=== PATIENT | female | born 1980 | race Caucasian/White ===

== ENCOUNTER 2017-08-16 13:06 | Emergency (ER) | payer OTHER ==
[~2017-08-16] VITALS: Wt 109.1 kg
[~2017-08-16 13:06] MED LIST: DIGO125T PO; LABE100T3 PO; PRENAT PO
[2017-08-16 13:20] VITALS: Wt 109.1 kg
[2017-08-16] MEDS ORDERED: KETOROLAC 60 MG INJ IM STA (13:34)
--- NOTE | 2017-08-16 13:55 | RADRPT ---
PROCEDURE: Chest x-ray CLINICAL INDICATION: Cough TECHNIQUE: Chest single view COMPARISON: None FINDINGS: The heart is normal in size. The pulmonary vessels are normal in caliber. There are new bilateral perihilar infiltrates likely reflecting pneumonia. Costophrenic angles are sharp. Bony thorax is unr emarkable IMPRESSION: 1. New bilateral perihilar infiltrates likely reflecting pneumonia RPTAT: HH .Khoa Roberto MD, MD Date Time Electronically viewed and signed by .Khoa Roberto MD, on 08/16/2017 13:55 .W/
[2017-08-16] MEDS ORDERED: PROM6.25 PO (15:08)
[2017-08-16] MEDS ORDERED: AZIT250T94 PO (15:08)
--- NOTE | 2017-08-16 15:21 | ERD ---
ER Documentation Chief Complaint Chief Complaint cough, pak, bodyaches. low 02 sat in triage HPI This is a 37-year-old female presents to the ER with a cough for the last 8 days. Patient states that her cough is worsening, she has had fevers. She also has body aches. She admits to nausea however denies vomiting or diarrhea. She does not have a past medical history of asthma. Denies any chest pain or shortness of breath. ROS 12 point review of systems was done, all negative except per HPI. Medications Home Meds Active Scripts Promethazine Hcl* (Promethazine Hcl* Syrup) 6.25 Mg/5 Ml Syrup, 12.5 MG PO Q6H Y for COUGH for 3 Days, ML Prov:SOHA ROBLES 08/16/17 Azithromycin* (Zithromax*) 250 Mg Tablet, 250 MG PO .ZPACK DIRECTED, #6 TAB TAKE 500 MG (2 TABS) THE FIRST DAY THEN 250 MG (1 TAB) DAYS 2-5 Prov:SOHA ROBLES 08/16/17 Reported Medications Digoxin* (Digitek*) 125 Mcg Tablet, 0.125 MG PO DAILY, TAB 07/10/16 Labetalol Hcl* (Labetalol Hcl*) 100 Mg Tablet, 100 MG PO BID, TAB 06/11/16 Multivit/Min/Fol Ac/Iron/Pren* ( S*) 1 Tab Tab, 1 TAB PO DAILY, TAB 05/06/16 Allergies Allergies: Coded Allergies: No Known Drug Allergies (Verified Allergy, Unknown, 07/10/16) PMhx/Soc History of Surgery: Yes (CSx3) Anesthesia Reaction: No Hx Neurological Disorder: No Hx Respiratory Disorders: No Hx Cardiac Disorders: Yes (HEART MURMUR, SVT) Hx Psychiatric Problems: No Hx Miscellaneous Medical Probl: No Hx Alcohol Use: No Hx Substance Use: No Hx Tobacco Use: No Smoking Status: Never smoker Physical Exam Vitals Vital Signs Date Time Temp Pulse Resp B/P Pulse Ox O2 Delivery O2 Flow Rate FiO2 08/16/17 13:20 99.5 82 20 121/64 93 Physical Exam GENERAL: The patient is well-developed, well-nourished, in no acute distress. NECK: Cervical spine is non tender with no step off. Supple, no nuchal rigidity HEENT: Atraumatic. Pupils equal, round and reactive to light. Extraocular muscles are grossly intact. Conjunctivae pink, no discharge. Bilateral tympanic membranes are clear with no evidence of erythema, effusion or dulling of the light reflex. Tonsilar erythema with no exudates or uvular deviation. Clear rhinorrhea. RESPIRATORY: Clear to auscultation bilaterally. There are no rales, wheezes or rhonchi. HEART: Regular rate and rhythm. No murmurs, clicks, rubs or gallops. EXTREMITIES: No clubbing or cyanosis. Full range of motion. Grossly neurovascularly intact. NEUROLOGIC: Alert and oriented. Cranial nerves II through XII are intact. SKIN: There is no rash. The skin is warm and dry. Results 24 hrs Current Medications Medications (Trade) Dose Ordered Sig/Shanae Route PRN Reason Start Time Stop Time Status Last Admin Dose Admin Ketorolac Tromethamine (Toradol) 60 mg ONCE STAT IM 08/16/17 13:34 08/16/17 13:36 DC 08/16/17 14:24 [place] [id number] Radiology Main Line: [phone] DIAGNOSTIC IMAGING REPORT Patient: SOURAV SEBASTIAN : 1980 Age: 37 Sex: F MR #: [id number] DOS: 08/16/17 0000 Ordering MD: SOHA ROBLES PA-C Location: [facility] Room/Bed: PROCEDURE: Chest x-ray CLINICAL INDICATION: Cough TECHNIQUE: Chest single view COMPARISON: None FINDINGS: The heart is normal in size. The pulmonary vessels are normal in caliber. There are new bilateral perihilar infiltrates likely reflecting pneumonia. Costophrenic angles are sharp. Bony thorax is unremarkable IMPRESSION: 1. New bilateral perihilar infiltrates likely reflecting pneumonia RPTAT: HH .Khoa Roberto MD, Date Time Electronically viewed and signed by .Khoa Roberto MD, on 08/16/2017 13:55 .W/ CC: SOHA ROBLES Procedures/MDM Is a 37-year-old female presents to the ER with cough and fever for the last 3 days. Her oxygen was 93% upon arrival, however she does not feel short of breath in any respiratory distress. He was done, patient does have pneumonia should be treated with azithromycin and promethazine. Her leg examination was benign. Patient is to follow-up with her primary care doctor within 1-2 days return to ER sooner if symptoms worsen. My medical decision making shared with the patient she understands and agrees with plan. Departure Diagnosis: Primary Impression: Pneumonia Condition: Stable Patient Instructions: Pneumonia Additional Instructions: Llame al doctor MAANA y gayatri nicolle SERVANDO PARA DENTRO DE 1-2 PUGA.Dgale a la secretaria que nosotros le instruimos hacer esta servando.Avise o llame si [place] condicin se empeora antes de la servando. Regresa aqui si peor o no mejor. SOHA ROBLES Aug 16, 2017 15:21
[2017-08-16 15:25] VITALS: BP 118/64; PULSE 68; RESP 18; TEMP 98.9
== END 2017-08-16 15:25 | disposition home or self-care (01) ==
LOC: FTE 13:06
DX: J18.9 Pneumonia, unspecified organism (principal)
CPT/HCPCS: 71010; 96372; J1885; Z7502

== ENCOUNTER 2017-08-20 | Inpatient (IN) | payer OTHER ==
[~2017-08-20] VITALS: Ht 162.6 cm; Wt 113.6 kg
[2017-08-20] VITALS (28 sets, daily range): BP systolic 99–128; BP diastolic 46–78; PULSE 77–99; RESP 14–39; TEMP 98.2; Ht 162.6 cm; Wt 113.6 kg
[~2017-08-20] MED LIST changes: +AZIT250T94 PO; +PROM6.25 PO
[2017-08-20] MEDS ORDERED: ACETAMINOPHEN 325 MG TAB PO STA (00:27)
[2017-08-20] MEDS ORDERED: ALBUTEROL 0.5% (NEB) 2.5 MG/0.5 ML AMP INH STA ×2 (00:27→14:07)
[2017-08-20] MEDS ORDERED: VANCOMYCIN 1 GM (PMX) 250 ML IVPB STA (00:27)
[2017-08-20] MEDS ORDERED: CEFEPIME 2GM/50 ML (PMX) 50 ML IVPB STA (00:27)
[2017-08-20] MEDS ORDERED: SODIUM CHLORIDE 0.9% 1L BAG IV* STA (00:27)
[2017-08-20 01:14] LABS: INR 0.89; PARTIAL THROMBOPLASTIN TIME 23.5 Sec (25.0-35.0); PROTIME 12.1 Sec (11.9-14.9); PT RATIO 0.9
--- NOTE | 2017-08-20 01:16 | RADRPT ---
PROCEDURE: XR Chest. CLINICAL INDICATION: Possible sepsis. TECHNIQUE: Single frontal view of the chest. COMPARISON: 06/16/2016 FINDINGS: Cardiomegaly with bilateral patchy air space disease, right much greater than left. This is new over the interval. Findings represent failure versus bilateral pneumonias. No signs of pleural fluid or pneumothorax are seen. The osseous structures and soft tissues are unremarkable. IMPRESSION: Bilateral air space disease is new, right greater than left, suggesting failure versus bilateral pne umonias. RPTAT: UU Physician Claude Date Time Electronically viewed and signed by Physician Claude on 08/20/2017 01:16 RS/
[2017-08-20 01:23] LABS: AADO2 Arterial 348.1 mmHg (7.0-24.0); Allen Test ACCEPTAB; Arterial Base Excess -0.1 mmol/L (-3.0-3); Arterial COHb 0.3 % (0.0-3.0); Arterial Fraction of Oxyhgb 85.4 % (93.0-99.0); Arterial HCO3 22.9 mmol/L (22.0-26.0); Arterial MetHb 0.1 % (0.0-1.5); Arterial Total Hemglobin 11.9 g/dl (12.0-18.0); MODE MASK - SIMPLE
[2017-08-20 01:25] LABS: ALANINE AMINOTRANSFERASE 103 IU/L (13-69); ALBUMIN 3.4 g/dl (3.3-4.9); ALBUMIN/GLOBULIN RATIO 0.77; ALKALINE PHOSPHATASE 95 IU/L (42-121); ANION GAP 15 (8-16); ASPARTATE AMINO TRANSFERASE 143 IU/L (15-46); BILIRUBIN,INDIRECT 0.4 mg/dl (0-1.1); BILIRUBIN,TOTAL 0.4 mg/dl (0.2-1.3); BLOOD UREA NITROGEN 18 mg/dl (7-20); CALCIUM 7.6 mg/dl (8.4-10.2); CARBON DIOXIDE 25 mmol/L (21-31); CHLORIDE 99 mmol/L (97-110); CREATININE 1.03 mg/dl (0.44-1.00); GLUCOSE 133 mg/dl (70-220); POTASSIUM 3.5 mmol/L (3.5-5.1); SODIUM 135 mmol/L (135-144); TOTAL PROTEIN 7.8 g/dl (6.1-8.1)
[2017-08-20 01:32] LABS: HEMATOCRIT 31.4 % (37.0-47.0); HEMOGLOBIN 10.3 g/dl (12.0-16.0); MEAN CORPUSCULAR HEMOGLOBIN 25.9 pg (29.0-33.0); MEAN CORPUSCULAR HGB CONC 32.8 g/dl (32.0-37.0); MEAN CORPUSCULAR VOLUME 78.9 fl (82.0-101.0); MEAN PLATELET VOLUME 10.1 fl (7.4-10.4); NUCLEATED RED BLOOD CELLS% 0.3 /100WBC (0.0-0.0); PLATELET COUNT 234 10^3/UL (140-415); RED BLOOD COUNT 3.98 10^6/ul (4.20-5.40); RED CELL DISTRIBUTION WIDTH 15.3 % (11.5-14.5); WHITE BLOOD COUNT 7.8 10^3/ul (4.8-10.8)
[2017-08-20 01:33] LABS: POSITIVE DIFF @See below
[2017-08-20 01:51] LABS: TROPONIN-I < 0.012 ng/ml (0.00-0.12)
[2017-08-20 02:02] LABS: LYMPHOCYTES # 0.8 10^3/ul (0.8-2.9); MONOCYTE # 0.3 10^3/ul (0.3-0.9); MONOCYTES % (M) 4 % (0-11)
--- NOTE | 2017-08-20 02:58 | ERD ---
ER Documentation Chief Complaint Chief Complaint cough x 2 weeks w/ shortness of breath HPI This 37-year-old female who is seen here 2 days ago and diagnosed with pneumonia and given a Z-Jason. Patient states she has had a cough for 2 weeks is gotten worse over the past couple of days. She says she started having fevers 2 days ago and today feels much worse and having some productive sputum cough or shortness of breath. She says she is here because she is having a hard time breathing and is breathing shallow. No GI symptoms such as nausea vomiting diarrhea. No chest pain. ROS All systems reviewed and are negative except as per history of present illness. Medications Home Meds Active Scripts Promethazine Hcl* (Promethazine Hcl* Syrup) 6.25 Mg/5 Ml Syrup, 12.5 MG PO Q6H Y for COUGH for 3 Days, ML Prov:SOHA ROBLES 08/16/17 Azithromycin* (Zithromax*) 250 Mg Tablet, 250 MG PO .ZPACK DIRECTED, #6 TAB TAKE 500 MG (2 TABS) THE FIRST DAY THEN 250 MG (1 TAB) DAYS 2-5 Prov:SOHA ROBLES 08/16/17 Reported Medications Digoxin* (Digitek*) 125 Mcg Tablet, 0.125 MG PO DAILY, TAB 07/10/16 Labetalol Hcl* (Labetalol Hcl*) 100 Mg Tablet, 100 MG PO BID, TAB 06/11/16 Multivit/Min/Fol Ac/Iron/Pren* ( S*) 1 Tab Tab, 1 TAB PO DAILY, TAB 05/06/16 Allergies Allergies: Coded Allergies: No Known Drug Allergies (Verified Allergy, Unknown, 07/10/16) PMhx/Soc History of Surgery: Yes (CSx3) Anesthesia Reaction: No Hx Neurological Disorder: No Hx Respiratory Disorders: No Hx Cardiac Disorders: Yes (HEART MURMUR, SVT) Hx Psychiatric Problems: No Hx Miscellaneous Medical Probl: No Hx Alcohol Use: No Hx Substance Use: No Hx Tobacco Use: No Smoking Status: Never smoker FmHx Family History: No coronary disease Physical Exam Vitals Vital Signs Date Time Temp Pulse Resp B/P Pulse Ox O2 Delivery O2 Flow Rate FiO2 08/20/17 01:36 84 100 100 08/20/17 01:12 Venti Mask 10.0 08/20/17 00:45 93 30 89 Partial Rebreather Mask 15.0 100 08/20/17 00:02 101.8 101 20 86/50 80 Physical Exam Const: Well-developed, well-nourished Head: Atraumatic, normocephalic Eyes: Normal Conjunctiva, PERRLA, EOMI, normal sclera, no nystagmus ENT: Normal External Ears, Nose and Mouth, moist mucus membranes. Neck: Full range of motion. No meningismus, no lymphadenopathy. Resp: [Shallow breathing with moderate increased work of breathing, diffuse rhonchi Cardio: Regular rate and rhythm, no murmurs, S1 S2 present Abd: Soft, non tender x 4, non distended. Normal bowel sounds, no guarding or rebound, no pulsitile abdominal masses or bruits Skin: No petechiae or rashes, no ecchymosis , no maculopapular rash Back: No midline or flank tenderness Ext: No cyanosis, or edema, FROM x 4, normal inspection, neurovascularly intact x 4 Neur: Awake and alert, STR 5/5 x 4, sensation intact x 4, no focal findings, cerebellum intact Psych: Normal Mood and Affect Result Diagram: 08/20/17 0034 08/20/17 0036 Results 24 hrs Laboratory Tests Test 08/20/17 00:34 08/20/17 00:36 08/20/17 00:37 08/20/17 01:07 White Blood Count 7.810^3/ul Red Blood Count 3.9810^6/ul Hemoglobin 10.3g/dl Hematocrit 31.4% Mean Corpuscular Volume 78.9fl Mean Corpuscular Hemoglobin 25.9pg Mean Corpuscular Hemoglobin Concent 32.8g/dl Red Cell Distribution Width 15.3% Platelet Count 23739^3/UL Mean Platelet Volume 10.1fl Neutrophils % % Segmented Neutrophils % (Manual) 80% Band Neutrophils % (Manual) 6% Lymphocytes % % Lymphocytes % (Manual) 10% Monocytes % % Monocytes % (Manual) 4% Nucleated Red Blood Cells % 0.3/100WBC Neutrophils # 10^3/ul Neutrophils # (Manual) 6.310^3/ul Band Neutrophils # 0.410^3/ul Absolute Lymphocytes (Manual) 0.710^3/ul Lymphocytes # 0.810^3/ul Monocytes # 0.310^3/ul Absolute Monocytes (Manual) 0.310^3/ul Sodium Level 135mmol/L Potassium Level 3.5mmol/L Chloride Level 99mmol/L Carbon Dioxide Level 25mmol/L Anion Gap 15 Blood Urea Nitrogen 18mg/dl Creatinine 1.03mg/dl Glucose Level 133mg/dl Lactic Acid Level 1.6mmol/L Calcium Level 7.6mg/dl Total Bilirubin 0.4mg/dl Direct Bilirubin 0.00mg/dl Indirect Bilirubin 0.4mg/dl Aspartate Amino Transf (AST/SGOT) 143IU/L Alanine Aminotransferase (ALT/SGPT) 103IU/L Alkaline Phosphatase 95IU/L Troponin I < 0.012ng/ml Total Protein 7.8g/dl Albumin 3.4g/dl Globulin 4.40g/dl Albumin/Globulin Ratio 0.77 Prothrombin Time 12.1Sec Prothrombin Time Ratio 0.9 INR International Normalized Ratio 0.89 Activated Partial Thromboplast Time 23.5Sec Blood Gas Specimen Source Blood arterial Arterial Blood Date Drawn 08/20/2017 1:10:34 AM Arterial Blood pH (Temp corrected) 7.471 Arterial Blood pCO2 (Temp correct) 32.1mmhg Arterial Blood pO2 (Temp corrected) 51.6mmHG Arterial Blood HCO3 22.9mmol/L Arterial Blood Base Excess -0.1mmol/L Arterial Blood Oxygen Saturation 85.7mmHG Ezequiel Test ACCEPTAB Arterial Blood Gas Puncture Site Left Radial Arterial Blood Carboxyhemoglobin 0.3% Arterial Blood Methemoglobin 0.1% Blood Gas A-a O2 Differential 348.1mmHg Oxyhemoglobin Percent 85.4% Total Hemoglobin 11.9g/dl Blood Gas Temperature 37.0C Blood Gas Modality MASK - SIMPLE FiO2 61.0% Blood Gas Critical Value Read Back A KYLEE JEAN Blood Gas Notified Whom UP Blood Gas Notified Time 08/20/2017 1:23:25 AM Current Medications Medications (Trade) Dose Ordered Sig/Shanae Route PRN Reason Start Time Stop Time Status Last Admin Dose Admin Sodium Chloride (NS) 3,520 ml BOLUS OVER 2 HOURS STAT IV* 08/20/17 00:27 08/20/17 00:31 DC 08/20/17 00:45 Acetaminophen 650 mg 650 mg ONCE STAT PO 08/20/17 00:27 08/20/17 00:31 DC 08/20/17 00:43 Vancomycin HCl 250 ml @ 125 mls/hr ONCE STAT IVPB 08/20/17 00:27 08/20/17 02:26 DC 08/20/17 01:34 Cefepime HCl (Maxipime 2gm/50 ml (Pmx)) 50 ml @ 100 mls/hr ONCE STAT IVPB 08/20/17 00:27 08/20/17 00:56 DC 08/20/17 00:45 Albuterol (Proventil 0.5% (Neb)) 10 mg ONCE STAT INH 08/20/17 00:27 08/20/17 00:31 DC 08/20/17 00:45 Procedures/MDM EKG: Rate/Rhythm: Normal sinus rhythm with a right axis deviation QRS, ST, QT: NORMAL GA, QRS, QT] Impression: NORMAL EKG PROCEDURE: XR Chest. CLINICAL INDICATION: Possible sepsis. TECHNIQUE: Single frontal view of the chest. COMPARISON: 06/16/2016 FINDINGS: Cardiomegaly with bilateral patchy air space disease, right much greater than left. This is new over the interval. Findings represent failure versus bilateral pneumonias. No signs of pleural fluid or pneumothorax are seen. The osseous structures and soft tissues are unremarkable. IMPRESSION: Bilateral air space disease is new, right greater than left, suggesting failure versus bilateral pneumonias. RPTAT: UU Physician Claude Date Time Electronically viewed and signed by Physician Claude on 08/20/2017 01:16 RS/ CC: BRITNI PICHARDO DO The patient's oxygenation was not getting above 90 even on a 15 L nonrebreather. Patient was then put on BiPAP. After this the patient's saturations increased to 100%. Currently she is at 100% with a heart rate is 76 blood pressure 108/ 66. Patient has diffuse airspace disease bilaterally she is being given sepsis protocol IV fluids however her lactate is only 1.6. Antibiotics have been given. Her BNP is currently pending because she has some underlying possible heart failure and she does have an enlarged heart on chest x-ray. I spoke with Dr. Bautista will admit to telemetry Critical Care Time: 30 minutes Treatments/Evaluations: Close monitoring and treatment of unstable vital signs, cardiorespiratory, and neurologic status, while maintaining tight balance of fluid, respiratory, and cardiac interventions. This time includes discussing the case with the patient and the patient's family. This time does not include all procedures stated elsewhere in this record. This time also includes reviewing old records, labs and radiological studies. This time includes examining and re-examining the patient. Additionally, this time also includes arranging care with admitting and consulting physicians. Departure Diagnosis: Primary Impression: Hypoxia Additional Impressions: Bilateral pneumonia Pneumonia type: due to unspecified organism Lung location: unspecified part of lung Qualified Code: J18.9 - Pneumonia of both lungs due to infectious organism, unspecified part of lung Respiratory distress Condition: BRITNI Steiner DO Aug 20, 2017 02:58
[2017-08-20] MEDS ORDERED: SOD CHLORIDE 0.9% 1,000 ML IV SCH (02:59)
[2017-08-20] MEDS ORDERED: ONDANSETRON 4 MG INJ IV PRN ×2 (03:00→13:00)
[2017-08-20] MEDS ORDERED: ACETAMINOPHEN 325 MG TAB PO PRN (03:00)
[2017-08-20] MEDS ORDERED: EPINEPHrine 0.1 MG/ML SYG ONE (07:00)
[2017-08-20] MEDS ORDERED: ETOMIDATE 20 MG INJ ONE (07:00)
[2017-08-20] MEDS ORDERED: NA BICARBONATE 8.4% 50 ML SYG ONE (07:00)
[2017-08-20] MEDS ORDERED: ROCURONIUM 50 MG INJ ONE (07:00)
[2017-08-20 10:32] LABS: AADO2 Arterial 441.2 mmHg (7.0-24.0); Allen Test ACCEPTAB; Arterial Base Excess -1.8 mmol/L (-3.0-3); Arterial COHb 0.2 % (0.0-3.0); Arterial Fraction of Oxyhgb 95.9 % (93.0-99.0); Arterial HCO3 22.4 mmol/L (22.0-26.0); Arterial MetHb 0.1 % (0.0-1.5); Arterial Total Hemglobin 11.4 g/dl (12.0-18.0); Blood Gas IEPAP 18/6; Blood Gas PS 12; MODE MASK - BIPAP
[2017-08-20] MEDS ORDERED: ALBUTEROL 0.083% (NEB) 2.5 MG/3 ML AMP HHN STA (10:50)
[2017-08-20] MEDS ORDERED: IOHEXOL 100 ML ONE ×2 (11:19→12:12)
[2017-08-20] MEDS ORDERED: SOD CHLORIDE 0.9% 100 ML ONE ×2 (11:19→12:12)
[2017-08-20] MEDS ORDERED: ROCURONIUM 50 MG INJ IV ONE (12:30)
[2017-08-20] MEDS ORDERED: ETOMIDATE 20 MG INJ IV ONE (12:30)
--- NOTE | 2017-08-20 12:40 | RADRPT ---
PROCEDURE: CTA Chest and pulmonary angiogram. CLINICAL INDICATION: Chest pain and shortness of breath.. TECHNIQUE: CT scan of the chest and CT pulmonary angiogram was performed on the multi-slice volume tric CT scanner. High-resolution thin slice coronal and sagittal imaging was obtained from the axia l source images following the uncomplicated intravenous administration of 100 cc of nonionic contras t. IV malfunction during initial attempted scan. Scan was repeated following replacement of function ing IV catheter. The images were reviewed on a PACS workstation. 3-D post-processing performed. DICO M images are available. Patient body habitus limits evaluation and resolution. DLP = 1757.8 mGy-cm. CTDIVol = 169.5 mGy. One or more of the following dose reduction techniques were used: Automated exposure control. Adjustment of the mA and/or kV according to patient size. Use of iterative reconstruction technique. COMPARISON: No prior studies are available for comparison. FINDINGS: CT chest: The lungs demonstrate extensive bilateral alveolar consolidations and infiltrates suspicious for mul tifocal pneumonia.. There is an endotracheal tube in place tab above the maritza. Nonspecific shoddy mediastinal lymph nodes are present. There is no hilar mass or adenopathy. The vascular structures of the mediastinum are normal in course and caliber. The heart size is normal without pericardial t hickening or effusion. The axillary, subpectoral, and supraclavicular regions are unremarkable. Im aging obtained through the upper abdomen is equally unremarkable. The adrenal glands are symmetrica lly normal. Chest wall is unremarkable. The spine is unremarkable. There is diffuse fatty change o f the liver. The upper abdomen is otherwise unremarkable. CT pulmonary angiogram: The main pulmonary artery, bilateral pulmonary arterial trunks, lobar and segmental branches of the pulmonary arteries show no evidence of filling defect and/or pulmonary emboli. The aorta is normal in caliber without aneurysm or dissection. Patient body habitus limits resolution. IMPRESSION: 1. No evidence of pulmonary emboli, aortic aneurysm or dissection.. 2. Extensive bilateral dense consolidations and infiltrates consistent with multifocal pneumonia. 3. Status post intubation. 4. Hepatic steatosis.. RPTAT: QQ .Seven Thompson MD, MD Date Time Electronically viewed and signed by .Seven Thompson MD, on 08/20/2017 12:40 .L/
--- NOTE | 2017-08-20 12:46 | HP ---
Date/Time of Note Date/Time of Note DATE: 08/20/17 TIME: 12:44 Assessment/Plan VTE Prophylaxis VTE Prophylaxis Intervention: other Assessment/Plan Chief Complaint/Hosp Course 1) respiratory failure - on ventilator 2) pneumonia - IV antibiotics Problems: HPI/ROS Admit Date/Time Admit Date/Time Hx of Present Illness Patient with hypertension recently seen in ER for pneumonia and given a Z-Jason returns for further difficulty breathing. Patient was placed on bipap and then decompensated and had to be intubated. Unable to obtain further information from the patient as she is sedated and intubated. PMH/Family/Social Past Medical History Medical History: hypertension Social History Smoking Status: Never smoker Exam/Review of Systems Vital Signs Vitals Vital Signs Date Time Temp Pulse Resp B/P Pulse Ox O2 Delivery O2 Flow Rate FiO2 08/20/17 10:55 35 45 Non Rebreather 08/20/17 09:21 64 102/60 08/20/17 08:05 50 08/20/17 06:46 98.2 08/20/17 01:12 10.0 Exam Constitutional: well developed Head: atraumatic, normocephalic Neck: supple Respiratory: diminished breath sounds Cardiovascular: regular rate and rhythm Gastrointestinal: non-tender, soft Extremities: normal pulses Labs Result Diagram: 08/20/17 0034 08/20/17 0036 Medications Medications Current Medications Sodium Chloride (NS) 1,000 ml @ 80 mls/hr [id number] IV ; Start 08/20/17 at 02:59 ; Stop 08/20/17 at 15:28 ILIANA HODGES Aug 20, 2017 12:46
[2017-08-20] MEDS ORDERED: MIDAZOLAM (DRIP) 50 mg/50 mL 50 ML IV STA (12:47)
[2017-08-20] MEDS ORDERED: FENTAnyl (DRIP) 1000 mcg/100mL 100 ML IV ONE (13:00)
[2017-08-20 13:28] LABS: BASOPHILS % 0.1 % (0.0-2.0); HEMATOCRIT 34.7 % (37.0-47.0); HEMOGLOBIN 10.9 g/dl (12.0-16.0); LYMPHOCYTES # 1.9 10^3/ul (0.8-2.9); LYMPHOCYTES % 16.2 % (15.0-51.0); MEAN CORPUSCULAR HEMOGLOBIN 25.7 pg (29.0-33.0); MEAN CORPUSCULAR HGB CONC 31.4 g/dl (32.0-37.0); MEAN CORPUSCULAR VOLUME 81.8 fl (82.0-101.0); MEAN PLATELET VOLUME 9.8 fl (7.4-10.4); MONOCYTE # 0.5 10^3/ul (0.3-0.9); NEUTROPHIL # 8.9 10^3/ul (1.6-7.5); NEUTROPHILS % 77.6 % (39.0-77.0); NUCLEATED RED BLOOD CELLS # 0.1 10^3/ul (0.0-0.0); NUCLEATED RED BLOOD CELLS% 0.4 /100WBC (0.0-0.0); PLATELET COUNT 234 10^3/UL (140-415); RED BLOOD COUNT 4.24 10^6/ul (4.20-5.40); RED CELL DISTRIBUTION WIDTH 15.9 % (11.5-14.5); WHITE BLOOD COUNT 11.5 10^3/ul (4.8-10.8)
[2017-08-20] MEDS: SOD CHLORIDE 0.9% 1,000 ML IV SCH ×2 (13:32→20:02)
--- NOTE | 2017-08-20 13:47 | EN ---
Date/Time of Note Date/Time of Note DATE: 08/20/17 TIME: 13:43 ER Progress Note I was signed out this 37-year-old patient with shortness of breath secondary to likely pneumonia. Patient's white count was not elevated. She continued to deteriorate emergency room began to desaturate into the 40s with a good waveform. She also has a perioral cyanosis cyanosis of her fingertips. Spoke with her and her mother regarding intubation she was quickly intubated. Blood gas did not show any retention of CO2 and I suspected a possible pulmonary embolism could be causing this and she is not currently anticoagulated. She went to CT where there is no evidence for pulmonary embolus but was confirmed that she has severe multi focal pneumonia. She is placed on a fentanyl and Versed drip. She is saturating well and her clinical condition is improved. ET intubation note: Patient was preoxygenated with bag mask ventilation and she was desaturating, RSI was used with 20 mg of etomidate and 100 mg of rocuronium. She was easily intubated using a MAC 4 blade through visualized vocal cords and a 7.5 ET tube. She tolerated the procedure well and oxygen saturation is 100% afterwards. No complications. Ultrasound-guided peripheral IV insertion note: The patient was in CAT scan her IV blew and she needed a new IV immediately his staff was unable to obtain IV as she has overly obese. Under ultrasound guidance I placed an extended 18- gauge angiocatheter and her right antecubital vein. There was good blood return and IV flushed well. She tolerated well with no complications. GRACIE ALEGRE DO Aug 20, 2017 13:47
[2017-08-20 13:48] LABS: CALCIUM 6.6 mg/dl (8.4-10.2); CREATININE 0.81 mg/dl (0.44-1.00); POTASSIUM 3.5 mmol/L (3.5-5.1)
[2017-08-20] MEDS ORDERED: IPRATROPIUM (NEB) 0.5 MG/2.5 ML AMP INH STA (14:07)
--- NOTE | 2017-08-20 14:54 | RADRPT ---
PROCEDURE: XR Chest. CLINICAL INDICATION: Hypoxemia . TECHNIQUE: Single frontal chest x-ray. COMPARISON: 01:03 a.m. FINDINGS: There is an endotracheal tube place with tip 4 cm above the maritza. Diffuse bilateral patchy alveola r opacities of the lungs are slightly worsened. There are no pleural effusions. .. Cardiomediastina l silhouette is stable.. The osseous structures are intact. IMPRESSION: Status post intubation. Increased extensive bilateral patchy alveolar opacities of the lungs.. RPTAT: QQ .Seven Thompson MD, MD Date Time Electronically viewed and signed by .Seven Thompson MD, MD on 08/20/2017 14:53 .L/
[2017-08-20] MEDS ORDERED: FENTAnyl 50 MCG/ML VIAL IV ONE ×2 (15:00→15:30)
[2017-08-20] MEDS ORDERED: MIDAZOLAM 1 MG/ML 2 ML INJ IV ONE ×2 (15:00→15:30)
[2017-08-20 15:23] LABS: ADD UMIC YES; UR ASCORBIC ACID NEGATIVE (NEGATIVE); UR BILIRUBIN (Dip) NEGATIVE (NEGATIVE); UR BLOOD (Dip) 1+ mg/dL (NEGATIVE); UR CLARITY CLEAR (CLEAR); UR COLOR YELLOW (YELLOW); UR GLUCOSE (Dip) NEGATIVE (NEGATIVE); UR KETONES (Dip) NEGATIVE (NEGATIVE); UR LEUKOCYTE ESTERASE (Dip) NEGATIVE Leu/ul (NEGATIVE); UR NITRITE (Dip) NEGATIVE (NEGATIVE); UR RBC 1 /HPF (0-5); UR SPECIFIC GRAVITY (Dip) 1.023 (1.003-1.030); UR TOTAL PROTEIN (Dip) 2+ mg/dl (NEGATIVE); UR UROBILINOGEN (Dip) NEGATIVE (NEGATIVE)
[2017-08-20] MEDS ORDERED: NORepinephrine 8MG/250 ML (PMX 250 ML IV STA (15:29)
--- NOTE | 2017-08-20 15:50 | QN ---
Documentation Comment The patient continues to board in the emergency room for over 15 hours. I was notified by the nursing team that the patient is having desaturation. In short the patient was diagnosed with bilateral pneumonia, negative CTPA, the patient had been intubated overnight. The patient was suctioned with improved saturation. She had agitation and was bucking the vent. She required further sedation and several doses of fentanyl and Versed provided. I repeated the chest x-ray which is very concerning the patient's bilateral pneumonia is much worse. Consider ARDS. Lower clinical concern for cardiogenic etiology but stat echocardiogram would be reasonable. The patient's blood pressure had been noticed to be low overnight and continues to be low this morning. For this reason I felt the patient required emergent central line. No family was readily available. Informed consent presumed given critical nature of the patient. I added on a rapid HIV. Bedside echocardiogram is revealed to be somewhat normal. I spoke to Dr. Vaz who read the echocardiogram. I relayed all of this information to the managing physician Dr. See who will consult pulmonology as the patient likely requires intensive ventilator management. Patient is critically ill and worsening at this time. Pending ICU placement. Chest x-ray #1 Chest x-ray: I reviewed and interpreted a 1 view of the chest Mediastinum: No enlargement Cardiac silhouette: cardiomegaly Airspace: Bilateral interstitial process consistent with bilateral pneumonia versus pulmonary edema worsening Bones: No evidence of fracture Chest x-ray #2 status post central line Chest x-ray: I reviewed and interpreted a 1 view of the chest Mediastinum: No enlargement Cardiac silhouette: cardiomegaly Airspace: Interstitial process as described above, triple-lumen catheter in good position Bones: No evidence of fracture Central Line Note: Consent: No family available Indication: Critically ill patient requiring specialized vascular access for fluid or pressor management Location: Right IJ Procedure: Sterile procedure was observed throughout insertion of the central line. The insertion site was prepped with sterile solution. Ultrasound-guided identification of the vein was performed. Insertion of a needle into the vein was obtained with return of dark, nonpulsatile blood. The wire was then threaded through the needle without complication. The wire was then identified within the vein using ultrasound. A small skin incision was made, the needle was removed intact, dilation of the vein was performed and insertion of a triple lumen catheter was completed. The catheter was then sutured to the skin. All 3 ports jodi back and flushed without difficulty. A sterile dressing was applied. The patient tolerated the procedure well there were no complications. Emergency Bedside Ultrasound: Indication: Central line Probe Type: Linear Findings: Dynamic ultrasound utilizing compressive technique with both linear and horizontal views, additional images showing wire within the venous system were obtained. The images were saved along with patient information on a paper chart to be scanned into EMR. The patient tolerated the procedure well and there were no complications. A post-line chest x-ray was ordered as indicated. The patient was started on levo. On ultrasound her fluid status was increased. The patient is still pending ICU level of care. Continue to monitor in the emergency room. Continue to relay information with admitting team. Critical Care Note: Total time: 30 minutes Indication/Organ System Threat: Worsening bilateral pneumonia I spent the above amount of critical care time with the patient, not including billable procedures. This included chart review, consultations, repeat bedside evaluations, and titration of appropriate medications to prevent cardiopulmonary or respiratory collapse. SHANA RAJAN MD Aug 20, 2017 15:50
--- NOTE | 2017-08-20 16:18 | RADRPT ---
PROCEDURE: XR Chest. CLINICAL INDICATION: Central line placement. TECHNIQUE: Chest x-ray, single view. COMPARISON: 08/20/2017 at 0230 hours. FINDINGS: The cardiac silhouette is magnified and unchanged in size. Low lung volumes with patchy parenchymal opacification is grossly unchanged. A right internal jugular central venous catheter has been plac ed and terminates at the SVC/right atrial junction. There is no visible pneumothorax. The endotrache al tube terminates within the upper mid trachea. Skeletal structures and upper abdomen are unremarka ble. IMPRESSION: Low lung volumes with patchy parenchymal opacification, unchanged. Satisfactory positioning of support lines and tubes. No visible pneumothorax. RPTAT: AA .Delia Sanches MD, MD Date Time Electronically viewed and signed by .Delia Sanches MD, on 08/20/2017 16:17 .T/
--- NOTE | 2017-08-20 16:53 | CONS ---
Date/Time of Note Date/Time of Note DATE: 08/20/17 TIME: 16:38 Assessment/Plan Assessment/Plan Additional Assessment/Plan IMP: 1. Severe Hypoxemic Respiratory Failure--with notable diffuse extensive airspace disease on imaging in an otherwise healthy young woman. Despite the negative Flu screen, the clinical presentation is most concerning for a severe viral pneumonia. Having said that, we cannot exclude a secondary bacterial infection, such as CA-MRSA, CAP, or atypical bacterial pneumonia not responsive to macrolides. Non-infectious possibilities such as BOOP secondary to an underlying pneumonia as well as AEP or AIP are considerations. She has severe shunt physiology and findings concerning for early ARDS. RECS: 1. Vent changes as follows: change to VC+; lower Vt to 450; increase PEEP to 12 cm H20; titrate FiO2 to SpO2 > 90%/ 2. Optimize deep sedation in order to optimize patient-ventilator synchrony and to optimize gas exchange 3. May need neuromuscular blockade with Nimbex gtt if gas exchange does not improve 4. Start Tamiflu treatment dose 5. Meropenem, levaquin, and Vanco 6. Follow cultures 7. Influenza TYREL swab 8. Check Cocci serologies and CRAG 9. Start empiric corticosteroids given the gravity of her single organ pulmonary failure. If no response, would consider initiation of ECMO Consultation Date/Type/Reason Admit Date/Time Type of Consultation: Pulm/CCM Hx of Present Illness Please note that the patient is intubated and unable to provide a history, therefore, most of the history is obtained by review of the limited records. Briefly, this is a 37-year-old female with a history of SVT, who initially presented to the ED a few days prior with upper respiratory symptoms and low- grade fever, sent home on azithromycin. At that time, CXR was notable for subtle bilateral perihilar ground glass attenuation. It appears that her symptoms progressed with increasing dyspnea prompting her to return to the ED. during which time she was noted to have markedly progressive b/l airpace opacities and hypoxemic respiratory failure requiring intubation. She is now sedated and on mechanical ventilation. Her SpO2 is in the mid-80S on 100% FiO2 and PEEP 7 cm H20. Of note Flu screen and HIV were negative. Subjective hx not possible: pt non-verbal Past Medical History Medical History: hypertension Past Surgical History Past Surgical Hx: no surgical history Family History Significant Family History: no pertinent family hx Social History Alcohol Use: none Smoking Status: Never smoker Drug Use: none Exam/Review of Systems Vital Signs Vitals Vital Signs Date Time Temp Pulse Resp B/P Pulse Ox O2 Delivery O2 Flow Rate FiO2 08/20/17 15:52 102 18 124/61 98 Non Rebreather 08/20/17 08:05 50 08/20/17 06:46 98.2 08/20/17 01:12 10.0 Exam Constitutional: non-verbal Head: normocephalic Eyes: nl conjunctiva, nl lids, nl sclera ENMT: intubated, nl external ears & nose, nl lips & teeth, nl nasal mucosa & septum Neck: non-tender, supple Respiratory: diminished breath sounds, labored breathing Cardiovascular: nl pulses, regular rate and rhythm Gastrointestinal: nl liver, spleen, non-tender, soft Extremities: normal pulses 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, DTR's symmetric Results Result Diagram: 08/20/17 1316 08/20/17 1316 Results 24 hrs Laboratory Tests Test 08/20/17 00:34 08/20/17 00:36 08/20/17 00:37 08/20/17 01:07 White Blood Count 7.8 # Red Blood Count 3.98 L Hemoglobin 10.3 L Hematocrit 31.4 L Mean Corpuscular Volume 78.9 L Mean Corpuscular Hemoglobin 25.9 L Mean Corpuscular Hemoglobin Concent 32.8 Red Cell Distribution Width 15.3 H Platelet Count 234 Mean Platelet Volume 10.1 # Neutrophils % Segmented Neutrophils % (Manual) 80 H Band Neutrophils % (Manual) 6 H Lymphocytes % Lymphocytes % (Manual) 10 L Monocytes % Monocytes % (Manual) 4 Nucleated Red Blood Cells % 0.3 H Neutrophils # Neutrophils # (Manual) 6.3 Band Neutrophils # 0.4 Absolute Lymphocytes (Manual) 0.7 L Lymphocytes # 0.8 Monocytes # 0.3 Absolute Monocytes (Manual) 0.3 Sodium Level 135 Potassium Level 3.5 Chloride Level 99 Carbon Dioxide Level 25 Anion Gap 15 Blood Urea Nitrogen 18 Creatinine 1.03 H Glucose Level 133 Lactic Acid Level 1.6 Calcium Level 7.6 L Total Bilirubin 0.4 Direct Bilirubin 0.00 Indirect Bilirubin 0.4 Aspartate Amino Transf (AST/SGOT) 143 H Alanine Aminotransferase (ALT/SGPT) 103 H Alkaline Phosphatase 95 Troponin I < 0.012 Total Protein 7.8 Albumin 3.4 Globulin 4.40 H Albumin/Globulin Ratio 0.77 Prothrombin Time 12.1 Prothrombin Time Ratio 0.9 INR International Normalized Ratio 0.89 Activated Partial Thromboplast Time 23.5 L Blood Gas Specimen Source Blood arterial Arterial Blood Date Drawn 08/20/2017 1:10:34 AM Arterial Blood pH (Temp corrected) 7.471 H Arterial Blood pCO2 (Temp correct) 32.1 L Arterial Blood pO2 (Temp corrected) 51.6 *L Arterial Blood HCO3 22.9 Arterial Blood Base Excess -0.1 Arterial Blood Oxygen Saturation 85.7 L Ezequiel Test ACCEPTAB Arterial Blood Gas Puncture Site Left Radial Arterial Blood Carboxyhemoglobin 0.3 Arterial Blood Methemoglobin 0.1 Blood Gas A-a O2 Differential 348.1 H Oxyhemoglobin Percent 85.4 L Total Hemoglobin 11.9 L Blood Gas Temperature 37.0 Blood Gas Modality MASK - SIMPLE FiO2 61.0 Blood Gas Critical Value Read Back Camacho PICHARDO DO Blood Gas Notified Whom ASHWINI Blood Gas Notified Time 08/20/2017 1:23:25 AM Test 08/20/17 03:02 08/20/17 05:34 08/20/17 09:30 08/20/17 13:00 Lactic Acid Level 1.0 1.1 B-Type Natriuretic Peptide 288 H Blood Gas Specimen Source Blood arterial Arterial Blood Date Drawn 08/20/2017 10:17:47 AM Arterial Blood pH (Temp corrected) 7.411 Arterial Blood pCO2 (Temp correct) 36.1 Arterial Blood pO2 (Temp corrected) 91.3 Arterial Blood HCO3 22.4 Arterial Blood Base Excess -1.8 Arterial Blood Oxygen Saturation 96.2 Ezequiel Test ACCEPTAB Arterial Blood Gas Puncture Site Right Radial Arterial Blood Carboxyhemoglobin 0.2 Arterial Blood Methemoglobin 0.1 Blood Gas A-a O2 Differential 441.2 H Oxyhemoglobin Percent 95.9 Total Hemoglobin 11.4 L Blood Gas Temperature 37.0 Blood Gas Respiration Rate 20.0 Blood Gas Actual Respiration Rate 32 Blood Gas Modality MASK - BIPAP FiO2 80.0 Blood Gas Tidal Volume 525.0 Blood Gas Pressure Support 12 Blood Gas IPAP/EPAP Ratio 18/6 Blood Gas Critical Value Read Back DR. ALEGRE Blood Gas Notified Whom BEN YEPEZ Blood Gas Notified Time 08/20/2017 10:32:14 AM HIV (1&2) Antibody NEGATIVE Test 08/20/17 13:16 08/20/17 14:40 White Blood Count 11.5 #H Red Blood Count 4.24 Hemoglobin 10.9 L Hematocrit 34.7 L Mean Corpuscular Volume 81.8 L Mean Corpuscular Hemoglobin 25.7 L Mean Corpuscular Hemoglobin Concent 31.4 L Red Cell Distribution Width 15.9 H Platelet Count 234 Mean Platelet Volume 9.8 Neutrophils % 77.6 H Lymphocytes % 16.2 Monocytes % 4.0 Eosinophils % 0.0 Basophils % 0.1 Nucleated Red Blood Cells % 0.4 H Neutrophils # 8.9 H Lymphocytes # 1.9 Monocytes # 0.5 Eosinophils # 0.0 Basophils # 0.0 Nucleated Red Blood Cells # 0.1 H Sodium Level 141 Potassium Level 3.5 Chloride Level 106 Carbon Dioxide Level 26 Anion Gap 13 Blood Urea Nitrogen 11 Creatinine 0.81 Glucose Level 218 Calcium Level 6.6 L Urine Color YELLOW Urine Clarity CLEAR Urine pH 6.0 Urine Specific [place] 1.023 Urine Ketones NEGATIVE Urine Nitrite NEGATIVE Urine Bilirubin NEGATIVE Urine Urobilinogen NEGATIVE Urine Leukocyte Esterase NEGATIVE Urine Microscopic RBC 1 Urine Microscopic WBC 6 H Urine Hemoglobin 1+ H Urine Glucose NEGATIVE Urine Total Protein 2+ H Medications Medications Current Medications Sodium Chloride (NS) 1,000 ml @ 100 mls/hr Q10H IV Last administered on t 13:32; Admin Dose 100 MLS/HR; Start 08/20/17 at 12:46 Ondansetron HCl (Zofran Inj) 4 mg Q6H PRN IV NAUSEA AND/OR VOMITING; Start 06/27 at 13:00 Acetaminophen (Tylenol Liquid) 650 mg Q6H PRN PO PAIN LEVEL 1-3 OR FEVER; Start 08/20/17 at 13:00 Morphine Sulfate (morphine) 2 mg Q4H PRN IV PAIN LEVEL 7-10; Start 08/20/17 at 13:00 Famotidine (Pepcid Iv) 20 mg Q12 IV ; Start 08/20/17 at 21:00 Enoxaparin Sodium 30 mg 30 mg DAILY SC ; Start 08/21/17 at 09:00 Cefepime HCl 50 ml @ 100 mls/hr DAILY IVPB ; Start 08/21/17 at 09:00 Fentanyl (Sublimaze) 100 ml @ 2.5 mls/hr TITRATE ONCE IV Last administered on 08/20/17t 13:32; Admin Dose 2.5 MLS/HR; Start 08/20/17 at 13:00; Stop 08/27 at 04:59 LEAH FERNANDEZ MD Aug 20, 2017 16:52
[2017-08-20] MEDS ORDERED: LEVOFLOXACIN 750MG/D5W (PMX) 150 ML IVPB ONE (17:00)
[2017-08-20] MEDS: METHYLPREDNISOLONE 125 MG INJ IV SCH (17:18)
[2017-08-20] MEDS: MIDAZOLAM (DRIP) 50 mg/50 mL 50 ML IV SCH (18:27)
[2017-08-20] MEDS ORDERED: PHENYLephrine 40 MG in DEXTROSE 5% 496 ML IV SCH (18:30)
[2017-08-20] MEDS ORDERED: FENTAnyl (DRIP) 1000 mcg/100mL 100 ML IV SCH (20:30)
[2017-08-20] MEDS: PROPOFOL 100 ML IV SCH (21:08)
[2017-08-20] MEDS: FAMOTIDINE 20 MG INJ IV SCH (21:08)
[2017-08-20 21:18] LABS: AADO2 Arterial 611.7 mmHg (7.0-24.0); Allen Test ACCEPTAB; Arterial Base Excess -1.8 mmol/L (-3.0-3); Arterial COHb 0.3 % (0.0-3.0); Arterial Fraction of Oxyhgb 88.7 % (93.0-99.0); Arterial HCO3 23.4 mmol/L (22.0-26.0); Arterial MetHb 0.1 % (0.0-1.5); Arterial Total Hemglobin 12.1 g/dl (12.0-18.0); MODE VENT - AC
[2017-08-20] MEDS: OSELTAMIVIR 75 MG CAP NGT SCH (23:07)
[2017-08-20] MEDS: ACETAMINOPHEN 650MG/20.3ML CUP PO PRN (23:07)
--- NOTE | 2017-08-20 23:44 | RADRPT ---
PROCEDURE: Chest. CLINICAL INDICATION: Chest pain. TECHNIQUE: Single frontal view of the chest was obtained. COMPARISON: 08/20/2017. FINDINGS: There is an endotracheal tube 3 cm above the maritza. There is a nasogastric tube extending to the st omach. There is a right IJ central venous catheter extending to the SVC/RA junction. The cardiac jamshid houette is enlarged. The aortic arch is unremarkable. There are patchy opacities bilaterally. Ther e is no pleural effusion. There is no pneumothorax. IMPRESSION: Bilateral patchy opacities could represent pulmonary edema and/or multifocal pneumonia, unchanged. Tubes and line in place. .Jamie Leal MD, MD Date Time Electronically viewed and signed by .Jamie Leal MD, on 08/20/2017 23:44 .T/
[2017-08-21] VITALS (102 sets, daily range): BP systolic 86–130; BP diastolic 42–83; PULSE 67–90; RESP 16–42
[2017-08-21] MEDS ORDERED: NORepinephrine 8MG/250 ML (PMX 250 ML IV SCH (01:30)
[2017-08-21] MEDS: MIDAZOLAM (DRIP) 50 mg/50 mL 50 ML IV SCH ×4 (01:53→20:35)
[2017-08-21 06:15] LABS: BASOPHILS % 0.1 % (0.0-2.0); HEMATOCRIT 32.6 % (37.0-47.0); HEMOGLOBIN 10.3 g/dl (12.0-16.0); LYMPHOCYTES # 0.8 10^3/ul (0.8-2.9); LYMPHOCYTES % 5.1 % (15.0-51.0); MEAN CORPUSCULAR HEMOGLOBIN 25.7 pg (29.0-33.0); MEAN CORPUSCULAR HGB CONC 31.6 g/dl (32.0-37.0); MEAN CORPUSCULAR VOLUME 81.3 fl (82.0-101.0); MEAN PLATELET VOLUME 9.3 fl (7.4-10.4); MONOCYTE # 0.8 10^3/ul (0.3-0.9); MONOCYTES % 5.2 % (0.0-11.0); NEUTROPHIL # 14.1 10^3/ul (1.6-7.5); NEUTROPHILS % 88.3 % (39.0-77.0); NUCLEATED RED BLOOD CELLS # 0.1 10^3/ul (0.0-0.0); NUCLEATED RED BLOOD CELLS% 0.6 /100WBC (0.0-0.0); PLATELET COUNT 297 10^3/UL (140-415); RED BLOOD COUNT 4.01 10^6/ul (4.20-5.40); RED CELL DISTRIBUTION WIDTH 15.9 % (11.5-14.5)
[2017-08-21] MEDS: SOD CHLORIDE 0.9% 1,000 ML IV SCH ×2 (06:38→18:46)
[2017-08-21 06:39] LABS: ALBUMIN 2.8 g/dl (3.3-4.9); ALBUMIN/GLOBULIN RATIO 0.73; BILIRUBIN,INDIRECT 0.1 mg/dl (0-1.1); BILIRUBIN,TOTAL 0.1 mg/dl (0.2-1.3); CALCIUM 6.8 mg/dl (8.4-10.2); CREATININE 0.67 mg/dl (0.44-1.00); TOTAL PROTEIN 6.6 g/dl (6.1-8.1)
[2017-08-21] MEDS: FENTAnyl (DRIP) 1000 mcg/100mL 100 ML IV SCH ×2 (06:40→17:06)
--- NOTE | 2017-08-21 07:55 | RADRPT ---
PROCEDURE: XR Chest. CLINICAL INDICATION: Respiratory distress TECHNIQUE: Single frontal view of the chest was obtained COMPARISON: 08/20/2017 FINDINGS: The endotracheal tube, enteric feeding tube and right internal jugular central venous catheter remai n in position. The heart remains enlarged. Extensive, diffuse bilateral infiltrates persist. There may be slight improvement in aeration to the right lower lobe. Small bilateral pleural effusions are again seen. The bones and soft tissue show no acute change. IMPRESSION: 1. Tubes and lines remain in position. 2. Stable cardiomegaly. 3. Stable, extensive diffuse bilateral infiltrates with slight improvement in aeration to the right lower lobe. 4. Stable small bilateral pleural effusions. RPTAT:AAJJ Physician [place] Date Time Electronically viewed and signed by Chavo Moreno Physician on 08/21/2017 07:55 /
[2017-08-21 08:05] LABS: Allen Test ACCEPTAB; Arterial Base Excess -0.1 mmol/L (-3.0-3); Arterial COHb 0.3 % (0.0-3.0); Arterial Fraction of Oxyhgb 88.2 % (93.0-99.0); Arterial HCO3 24.9 mmol/L (22.0-26.0); Arterial MetHb 0.1 % (0.0-1.5); Arterial Total Hemglobin 11.1 g/dl (12.0-18.0); MODE VENT - AC
[2017-08-21] MEDS: PROPOFOL 100 ML IV SCH ×6 (08:32→23:48)
[2017-08-21] MEDS: ACETAMINOPHEN 650MG/20.3ML CUP PO PRN ×2 (08:32→21:23)
[2017-08-21] MEDS: OSELTAMIVIR 75 MG CAP NGT SCH ×2 (08:32→21:18)
[2017-08-21] MEDS: FAMOTIDINE 20 MG INJ IV SCH (08:32)
[2017-08-21] MEDS: METHYLPREDNISOLONE 125 MG INJ IV SCH (08:32)
[2017-08-21] MEDS ORDERED: ENOXAPARIN 30 MG/0.3 ML SYG SC SCH (09:00)
[2017-08-21] MEDS ORDERED: CEFEPIME 1GM/50 ML (PMX) 50 ML IVPB SCH (09:00)
[2017-08-21] MEDS ORDERED: FUROSEMIDE 40 MG INJ IV ONE (09:30)
--- NOTE | 2017-08-21 09:53 | RADRPT ---
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 Physician: JAUN NIEVES Quality: Technically Difficult Study Procedures: Transthoracic echocardiogram with complete 2D, M-Mode, and doppler examination. Indications: Evaluate Left Ventricular function. 2D/M Mode Doppler Measurement Value Normal Ranges Measurement Value Normal Ranges LVIDd 2D 3.7 3.5 - 5.6 cm AV Peak Cl 1.6 m/sec LVIDs 2D 2.5 2.1 - 4.1 cm AV Peak PG 10.0 mmHg FS 2D 32.4 % LVOT Peak Cl 1.1 m/sec LVPWd 2D 1.1 0.6 - 1.1 cm LVOT Peak PG 5.0 mmHg IVSd 2D 1.0 0.6 - 1.1 cm MV E Peak Cl 0.6 m/sec IVS/LVPW 2D 0.9 MV A Peak Cl 0.7 m/sec AoR Diam 2D 2.6 2.0 - 3.7 cm MV E/A 0.9 LA/Ao 2D 1 0 - 1 MV Decel Time 257 msec EDV 2D 49.4 cm3 MV E/A 0.9 ESV 2D 15.3 cm3 TR Peak Cl 2.2 m/sec LA Dimen 2D 3.5 2.3 - 4.0 cm TR Peak PG 20.0 mmHg PV Accel Time 102 msec RVSP 25.0 mmHg Findings Left Ventricle: Normal left ventricular systolic function. Normal left ventricular cavity size. Normal left ventricular wall thickness. Ejection fraction is visually estimated at 50 %. Right Ventricle: Normal right ventricular size. Normal right ventricular systolic function. Left Atrium: The left atrium is normal in size. Right Atrium: The right atrium is normal in size. Mitral Valve: Normal appearance and function of the mitral valve with trace physiologic regurgitation. Aortic Valve: Normal appearance of the aortic valve. No significant aortic stenosis or insufficiency. Tricuspid Valve: Normal appearance and function of the tricuspid valve with trace physiologic regurgitation. Normal right ventricular systolic pressure. Estimated peak PA systolic pressure 25 mmHg. Pulmonic Valve: Normal pulmonic valve appearance. There is trace pulmonic regurgitation. Pericardium: Normal pericardium with no significant pericardial effusion. Aorta: Normal aortic root. IVC: Normal size and normal respiratory collapse consistent with normal right atrial pressure. Pulmonary Artery: Normal pulmonary artery size. Conclusions 1.Normal left ventricular systolic function. Normal left ventricular cavity size. Normal left ventricular wall thickness. Ejection fraction is visually estimated at 50 %. 2.Normal right ventricular size. Normal right ventricular systolic function. 3.Normal appearance and function of the mitral valve with trace physiologic regurgitation. 4.Normal appearance of the aortic valve. No significant aortic stenosis or insufficiency. 5.Normal appearance and function of the tricuspid valve with trace physiologic regurgitation. Normal right ventricular systolic pressure. Estimated peak PA systolic pressure 25 mmHg. 6.Normal pericardium with no significant pericardial effusion. Electronically Signed By: Juan Nieves 08-May-2016 13:36:47 -0700 Patient Name: SOURAV SEBASTIAN Study Date: 08-May-2016 [id number]
--- NOTE | 2017-08-21 12:31 | CONS ---
DATE OF ADMISSION: 08/20/2017 DATE OF CONSULTATION: TYPE OF CONSULTATION: Pulmonary. REASON FOR CONSULTATION: Ventilator management. Thank you, Dr. See, for this consultation. HISTORY OF PRESENT ILLNESS: This is a 37-year-old lady who was apparently seen in the emergency [facility] several days ago with symptoms of upper respiratory tract infection, presented again yesterday wit h increasing respiratory distress and significant hypoxemia, initially requiring BiPAP, having faile d this placed on mechanical ventilation. Radiographic appearance and pulmonary pressures consistent with ARDS. PAST MEDICAL HISTORY: Unknown. SYSTEMS REVIEW: A 12-point review of systems currently unable to perform. PHYSICAL EXAMINATION: GENERAL: Moderately obese young lady, orally intubated on mechanical ventilation, appears comfortab le at rest, no acute distress. VITAL SIGNS: Temperature 98, pulse is 83, blood pressure 130/70, O2 saturation is 84% on 100% FIO2, PEEP of 12. CHEST: Decreased air entry bilaterally. ABDOMEN: Mildly distended but soft. EXTREMITIES: No cyanosis, clubbing, 1+ edema. NEUROLOGIC: Generalized weakness. LABORATORY DATA: White count 16.0, hemoglobin 10.3, platelets of 297. Chemistry: Lactic acid 1.4, BUN 7, creatinine 0.67. HIV negative. Influenza is pending. IMPRESSION AND PLAN: 1. Hypoxemic respiratory failure consistent with adult respiratory distress syndrome. 2. Possible acute influenza infection. 3. Continue broad-spectrum antibiotics. 4. Mechanical ventilation with adult respiratory distress syndrome protocol, if tolerated. Overall prognosis is guarded. Dictated By: SVITLANA GUAMAN/CLAUDIA Conf#: [id number] DID#: [id number]
--- NOTE | 2017-08-21 13:04 | CONS ---
Date/Time of Note Date/Time of Note DATE: 08/21/17 TIME: 13:04 Assessment/Plan Assessment/Plan Chief Complaint/Hosp Course asked to consult. will be in shortly Problems: Consultation Date/Type/Reason Admit Date/Time Aug 20, 2017 at 02:59 Initial Consult Date Type of Consultation: ID Exam/Review of Systems Vital Signs Vitals Vital Signs Date Time Temp Pulse Resp B/P Pulse Ox O2 Delivery O2 Flow Rate FiO2 08/21/17 08:00 83 08/21/17 07:00 33 130/70 86 Mechanical Ventilator 08/21/17 05:48 100 08/21/17 04:00 99.8 08/20/17 01:12 10.0 Intake and Output 08/20/17 08/20/17 08/21/17 14:59 22:59 06:59 Intake Total 687.771 ml 1164.6734 ml Output Total 955 ml 735 ml Balance -267.229 ml 429.6734 ml Results Result Diagram: 08/21/17 0547 08/21/17 0450 Results 24 hrs Laboratory Tests Test 08/20/17 13:16 08/20/17 14:40 08/20/17 21:06 08/21/17 04:50 White Blood Count 11.5 #H Red Blood Count 4.24 Hemoglobin 10.9 L Hematocrit 34.7 L Mean Corpuscular Volume 81.8 L Mean Corpuscular Hemoglobin 25.7 L Mean Corpuscular Hemoglobin Concent 31.4 L Red Cell Distribution Width 15.9 H Platelet Count 234 Mean Platelet Volume 9.8 Neutrophils % 77.6 H Lymphocytes % 16.2 Monocytes % 4.0 Eosinophils % 0.0 Basophils % 0.1 Nucleated Red Blood Cells % 0.4 H Neutrophils # 8.9 H Lymphocytes # 1.9 Monocytes # 0.5 Eosinophils # 0.0 Basophils # 0.0 Nucleated Red Blood Cells # 0.1 H Sodium Level 141 144 Potassium Level 3.5 4.0 Chloride Level 106 109 Carbon Dioxide Level 26 29 Anion Gap 13 10 Blood Urea Nitrogen 11 7 Creatinine 0.81 0.67 Glucose Level 218 221 H Calcium Level 6.6 L 6.8 L Urine Color YELLOW Urine Clarity CLEAR Urine pH 6.0 Urine Specific [place] 1.023 Urine Ketones NEGATIVE Urine Nitrite NEGATIVE Urine Bilirubin NEGATIVE Urine Urobilinogen NEGATIVE Urine Leukocyte Esterase NEGATIVE Urine Microscopic RBC 1 Urine Microscopic WBC 6 H Urine Hemoglobin 1+ H Urine Glucose NEGATIVE Urine Total Protein 2+ H Blood Gas Specimen Source Blood arterial Arterial Blood Date Drawn 08/20/2017 9:10:01 PM Arterial Blood pH (Temp corrected) 7.371 Arterial Blood pCO2 (Temp correct) 41.3 Arterial Blood pO2 (Temp corrected) 60.0 L Arterial Blood HCO3 23.4 Arterial Blood Base Excess -1.8 Arterial Blood Oxygen Saturation 89.1 L Ezequiel Test ACCEPTAB Arterial Blood Gas Puncture Site Left Radial Arterial Blood Carboxyhemoglobin 0.3 Arterial Blood Methemoglobin 0.1 Blood Gas A-a O2 Differential 611.7 H Oxyhemoglobin Percent 88.7 L Total Hemoglobin 12.1 Blood Gas Temperature 37.0 Blood Gas Respiration Rate 24.0 Blood Gas Actual Respiration Rate 33 Blood Gas Modality VENT - AC FiO2 100.0 Blood Gas Tidal Volume 450.0 Blood Gas Low PEEP Setting 12.0 Blood Gas Inspiratory Pressure 20.0 Blood Gas Notified Whom MR Blood Gas Notified Time 08/20/2017 9:18:16 PM Total Bilirubin 0.1 L Direct Bilirubin 0.00 Indirect Bilirubin 0.1 Aspartate Amino Transf (AST/SGOT) 91 H Alanine Aminotransferase (ALT/SGPT) 91 H Alkaline Phosphatase 90 Total Protein 6.6 # Albumin 2.8 L Globulin 3.80 H Albumin/Globulin Ratio 0.73 Test 08/21/17 05:37 08/21/17 05:47 08/21/17 07:00 Lactic Acid Level 1.4 White Blood Count 16.0 #H Red Blood Count 4.01 L Hemoglobin 10.3 L Hematocrit 32.6 L Mean Corpuscular Volume 81.3 L Mean Corpuscular Hemoglobin 25.7 L Mean Corpuscular Hemoglobin Concent 31.6 L Red Cell Distribution Width 15.9 H Platelet Count 297 # Mean Platelet Volume 9.3 Neutrophils % 88.3 H Lymphocytes % 5.1 L Monocytes % 5.2 Eosinophils % 0.0 Basophils % 0.1 Nucleated Red Blood Cells % 0.6 H Neutrophils # 14.1 H Lymphocytes # 0.8 Monocytes # 0.8 Eosinophils # 0.0 Basophils # 0.0 Nucleated Red Blood Cells # 0.1 H Magnesium Level 1.9 Thyroid Stimulating Hormone (TSH) 0.108 L Blood Gas Specimen Source Blood arterial Arterial Blood Date Drawn 08/21/2017 7:30:12 AM Arterial Blood pH (Temp corrected) 7.388 Arterial Blood pCO2 (Temp correct) 42.3 Arterial Blood pO2 (Temp corrected) 57.7 L Arterial Blood HCO3 24.9 Arterial Blood Base Excess -0.1 Arterial Blood Oxygen Saturation 88.6 L Ezequiel Test ACCEPTAB Arterial Blood Gas Puncture Site Left Radial Arterial Blood Carboxyhemoglobin 0.3 Arterial Blood Methemoglobin 0.1 Blood Gas A-a O2 Differential 613.0 H Oxyhemoglobin Percent 88.2 L Total Hemoglobin 11.1 L Blood Gas Temperature 37.0 Blood Gas Respiration Rate 24.0 Blood Gas Actual Respiration Rate 29 Blood Gas Modality VENT - AC FiO2 100.0 Blood Gas Tidal Volume 450.0 Blood Gas Low PEEP Setting 12.0 Blood Gas Notified Whom JLD Blood Gas Notified Time 08/21/2017 8:05:27 AM Medications Medications Current Medications Sodium Chloride (NS) 1,000 ml @ 100 mls/hr Q10H IV Last administered on 06:38; Admin Dose 100 MLS/HR; Start 08/20/17 at 12:46 Ondansetron HCl (Zofran Inj) 4 mg Q6H PRN IV NAUSEA AND/OR VOMITING; Start 06/27 at 13:00 Acetaminophen (Tylenol Liquid) 650 mg Q6H PRN PO PAIN LEVEL 1-3 OR FEVER Last administered on 08/21/17 08:32; Admin Dose 650 MG; Start 08/20/17 at 13:00 Morphine Sulfate (morphine) 2 mg Q4H PRN IV PAIN LEVEL 7-10; Start 08/20/17 at 13:00 Famotidine (Pepcid Iv) 20 mg Q12 IV Last administered on 08/21/17 08:32; Admin Dose 20 MG; Start 08/20/17 at 21:00 Enoxaparin Sodium 30 mg 30 mg DAILY SC Last administered on 08/21/17 09:19; Admin Dose 30 MG; Start 08/21/17 at 09:00 Cefepime HCl 50 ml @ 100 mls/hr DAILY IVPB Last administered on 08/21/17 08: 32; Admin Dose 100 MLS/HR; Start 08/21/17 at 09:00 Fentanyl (Sublimaze) 100 ml @ 2.5 mls/hr TITRATE ONCE IV Last administered on 12/10/17at 13:32; Admin Dose 2.5 MLS/HR; Start 08/20/17 at 13:00; Stop 08/27 at 04:59 Oseltamivir Phosphate (Tamiflu) 75 mg BID NGT Last administered on 08/21/17 08:32; Admin Dose 75 MG; Start 08/20/17 at 21:00 Methylprednisolone Sodium Succinate 60 mg 60 mg DAILY IV Last administered on 08/21/17 08:32; Admin Dose 60 MG; Start 08/20/17 at 17:00 Midazolam HCl 50 ml @ 1 mls/hr TITRATE IV Last administered on 08/21/17 09:19 ; Admin Dose 10 MLS/HR; Start 08/20/17 at 18:30 Fentanyl 100 ml @ 2.5 mls/hr TITRATE IV Last administered on 08/21/17 06:40 ; Admin Dose 10 MLS/HR; Start 08/20/17 at 18:30 Phenylephrine HCl 40 mg/Dextrose 500 ml @ 75 mls/hr TITRATE IV ; Start at 18:30 Propofol 100 ml @ 3.408 mls/ hr Q12H IV Last administered on 08/21/17 11:40 ; Admin Dose 34.08 MLS/HR; Start 08/20/17 at 20:00 Fentanyl 100 ml @ 2.5 mls/hr TITRATE IV Last administered on 08/20/17 21:54 ; Admin Dose 10 MLS/HR; Start 08/20/17 at 20:30 Norepinephrine/ Dextrose (Levophed/D5W) 500 ml @ 1.87 mls/hr TITRATE IV ; Start 08/21/17 at 09:00 ELIO AMOR MD Aug 21, 2017 13:04
--- NOTE | 2017-08-21 13:19 | PN ---
Date/Time of Note Date/Time of Note DATE: 08/21/17 TIME: 13:14 Assessment/Plan VTE Prophylaxis VTE Prophylaxis Intervention: SCD's Lines/Catheters IV C[facility]ter Type [facility]from [facility]): Central Line Central line still needed: Yes Urinary Cath still in place: Yes Reason Cath still needed: urinary retention Assessment/Plan Chief Complaint/Hosp Course Patient is orally intubated, on ventilatory support, norepinephrine for blood pressure support and multiple sedating agents. Patient continues to spike fever. Problems: Assessment/Plan -Severe Hypoxemic Respiratory Failure concerning for ARDS, continue ventilatory support, breathing treatments, steroids. Dr. Alarcon is following in pulmonology consultation. -Acute multifocal pneumonia, continue broad-spectrum antibiotics, Tamiflu. Dr. Mcgowan is asked to see patient in infection disease consultation. -Sepsis secondary to pneumonia, continue IV fluids, ICU care. -Preserved ejection fraction of 50% -Obesity with BMI of 43 -Hepatic steatosis Further recommendations based on clinical course. Plan of care discussed with Dr. Gomez. Exam/Review of Systems Vital Signs Vitals Vital Signs Date Time Temp Pulse Resp B/P Pulse Ox O2 Delivery O2 Flow Rate FiO2 08/21/17 08:00 83 08/21/17 07:00 33 130/70 86 Mechanical Ventilator 08/21/17 05:48 100 08/21/17 04:00 99.8 08/20/17 01:12 10.0 Intake and Output 08/20/17 08/20/17 08/21/17 15:00 23:00 07:00 Intake Total 869.655 ml 1112.9144 ml Output Total 1045 ml 645 ml Balance -175.345 ml 467.9144 ml Exam Constitutional: obese Head: normocephalic Neck: supple Respiratory: diminished breath sounds Cardiovascular: nl pulses, regular rate and rhythm Gastrointestinal: non-tender, soft Musculoskeletal: nl extremities to inspection Extremities: normal pulses Neurological: other (Sedated) Results Result Diagram: 08/21/17 0547 08/21/17 0450 Results 24 hrs Laboratory Tests Test 08/20/17 13:16 08/20/17 14:40 08/20/17 21:06 08/21/17 04:50 White Blood Count 11.5 #H Red Blood Count 4.24 Hemoglobin 10.9 L Hematocrit 34.7 L Mean Corpuscular Volume 81.8 L Mean Corpuscular Hemoglobin 25.7 L Mean Corpuscular Hemoglobin Concent 31.4 L Red Cell Distribution Width 15.9 H Platelet Count 234 Mean Platelet Volume 9.8 Neutrophils % 77.6 H Lymphocytes % 16.2 Monocytes % 4.0 Eosinophils % 0.0 Basophils % 0.1 Nucleated Red Blood Cells % 0.4 H Neutrophils # 8.9 H Lymphocytes # 1.9 Monocytes # 0.5 Eosinophils # 0.0 Basophils # 0.0 Nucleated Red Blood Cells # 0.1 H Sodium Level 141 144 Potassium Level 3.5 4.0 Chloride Level 106 109 Carbon Dioxide Level 26 29 Anion Gap 13 10 Blood Urea Nitrogen 11 7 Creatinine 0.81 0.67 Glucose Level 218 221 H Calcium Level 6.6 L 6.8 L Urine Color YELLOW Urine Clarity CLEAR Urine pH 6.0 Urine Specific [place] 1.023 Urine Ketones NEGATIVE Urine Nitrite NEGATIVE Urine Bilirubin NEGATIVE Urine Urobilinogen NEGATIVE Urine Leukocyte Esterase NEGATIVE Urine Microscopic RBC 1 Urine Microscopic WBC 6 H Urine Hemoglobin 1+ H Urine Glucose NEGATIVE Urine Total Protein 2+ H Blood Gas Specimen Source Blood arterial Arterial Blood Date Drawn 08/20/2017 9:10:01 PM Arterial Blood pH (Temp corrected) 7.371 Arterial Blood pCO2 (Temp correct) 41.3 Arterial Blood pO2 (Temp corrected) 60.0 L Arterial Blood HCO3 23.4 Arterial Blood Base Excess -1.8 Arterial Blood Oxygen Saturation 89.1 L Ezequiel Test ACCEPTAB Arterial Blood Gas Puncture Site Left Radial Arterial Blood Carboxyhemoglobin 0.3 Arterial Blood Methemoglobin 0.1 Blood Gas A-a O2 Differential 611.7 H Oxyhemoglobin Percent 88.7 L Total Hemoglobin 12.1 Blood Gas Temperature 37.0 Blood Gas Respiration Rate 24.0 Blood Gas Actual Respiration Rate 33 Blood Gas Modality VENT - AC FiO2 100.0 Blood Gas Tidal Volume 450.0 Blood Gas Low PEEP Setting 12.0 Blood Gas Inspiratory Pressure 20.0 Blood Gas Notified Whom MR Blood Gas Notified Time 08/20/2017 9:18:16 PM Total Bilirubin 0.1 L Direct Bilirubin 0.00 Indirect Bilirubin 0.1 Aspartate Amino Transf (AST/SGOT) 91 H Alanine Aminotransferase (ALT/SGPT) 91 H Alkaline Phosphatase 90 Total Protein 6.6 # Albumin 2.8 L Globulin 3.80 H Albumin/Globulin Ratio 0.73 Test 08/21/17 05:37 08/21/17 05:47 08/21/17 07:00 Lactic Acid Level 1.4 White Blood Count 16.0 #H Red Blood Count 4.01 L Hemoglobin 10.3 L Hematocrit 32.6 L Mean Corpuscular Volume 81.3 L Mean Corpuscular Hemoglobin 25.7 L Mean Corpuscular Hemoglobin Concent 31.6 L Red Cell Distribution Width 15.9 H Platelet Count 297 # Mean Platelet Volume 9.3 Neutrophils % 88.3 H Lymphocytes % 5.1 L Monocytes % 5.2 Eosinophils % 0.0 Basophils % 0.1 Nucleated Red Blood Cells % 0.6 H Neutrophils # 14.1 H Lymphocytes # 0.8 Monocytes # 0.8 Eosinophils # 0.0 Basophils # 0.0 Nucleated Red Blood Cells # 0.1 H Magnesium Level 1.9 Thyroid Stimulating Hormone (TSH) 0.108 L Blood Gas Specimen Source Blood arterial Arterial Blood Date Drawn 08/21/2017 7:30:12 AM Arterial Blood pH (Temp corrected) 7.388 Arterial Blood pCO2 (Temp correct) 42.3 Arterial Blood pO2 (Temp corrected) 57.7 L Arterial Blood HCO3 24.9 Arterial Blood Base Excess -0.1 Arterial Blood Oxygen Saturation 88.6 L Ezequiel Test ACCEPTAB Arterial Blood Gas Puncture Site Left Radial Arterial Blood Carboxyhemoglobin 0.3 Arterial Blood Methemoglobin 0.1 Blood Gas A-a O2 Differential 613.0 H Oxyhemoglobin Percent 88.2 L Total Hemoglobin 11.1 L Blood Gas Temperature 37.0 Blood Gas Respiration Rate 24.0 Blood Gas Actual Respiration Rate 29 Blood Gas Modality VENT - AC FiO2 100.0 Blood Gas Tidal Volume 450.0 Blood Gas Low PEEP Setting 12.0 Blood Gas Notified Whom JLD Blood Gas Notified Time 08/21/2017 8:05:27 AM Medications Medications Current Medications Sodium Chloride (NS) 1,000 ml @ 100 mls/hr Q10H IV Last administered on 06:38; Admin Dose 100 MLS/HR; Start 08/20/17 at 12:46 Ondansetron HCl (Zofran Inj) 4 mg Q6H PRN IV NAUSEA AND/OR VOMITING; Start 06/27 at 13:00 Acetaminophen (Tylenol Liquid) 650 mg Q6H PRN PO PAIN LEVEL 1-3 OR FEVER Last administered on 08/21/17 08:32; Admin Dose 650 MG; Start 08/20/17 at 13:00 Morphine Sulfate (morphine) 2 mg Q4H PRN IV PAIN LEVEL 7-10; Start 08/20/17 at 13:00 Famotidine (Pepcid Iv) 20 mg Q12 IV Last administered on 08/21/17 08:32; Admin Dose 20 MG; Start 08/20/17 at 21:00 Enoxaparin Sodium 30 mg 30 mg DAILY SC Last administered on 08/21/17 09:19; Admin Dose 30 MG; Start 08/21/17 at 09:00 Cefepime HCl 50 ml @ 100 mls/hr DAILY IVPB Last administered on 08/21/17 08: 32; Admin Dose 100 MLS/HR; Start 08/21/17 at 09:00 Fentanyl (Sublimaze) 100 ml @ 2.5 mls/hr TITRATE ONCE IV Last administered on 08/20/17 13:32; Admin Dose 2.5 MLS/HR; Start 08/20/17 at 13:00; Stop 08/27 at 04:59 Oseltamivir Phosphate (Tamiflu) 75 mg BID NGT Last administered on 08/21/17 08:32; Admin Dose 75 MG; Start 08/20/17 at 21:00 Methylprednisolone Sodium Succinate 60 mg 60 mg DAILY IV Last administered on 08/21/17 08:32; Admin Dose 60 MG; Start 08/20/17 at 17:00 Midazolam HCl 50 ml @ 1 mls/hr TITRATE IV Last administered on 08/21/17 09:19 ; Admin Dose 10 MLS/HR; Start 08/20/17 at 18:30 Fentanyl 100 ml @ 2.5 mls/hr TITRATE IV Last administered on 08/21/17 06:40 ; Admin Dose 10 MLS/HR; Start 08/20/17 at 18:30 Phenylephrine HCl 40 mg/Dextrose 500 ml @ 75 mls/hr TITRATE IV ; Start at 18:30 Propofol 100 ml @ 3.408 mls/ hr Q12H IV Last administered on 08/21/17 11:40 ; Admin Dose 34.08 MLS/HR; Start 08/20/17 at 20:00 Fentanyl 100 ml @ 2.5 mls/hr TITRATE IV Last administered on 08/20/17 21:54 ; Admin Dose 10 MLS/HR; Start 08/20/17 at 20:30 Norepinephrine/ Dextrose (Levophed/D5W) 500 ml @ 1.87 mls/hr TITRATE IV ; Start 08/21/17 at 09:00 MANUEL KLEIN Aug 21, 2017 13:19
[2017-08-21] MEDS ORDERED: CALCIUM GLUCONATE 10% 1 GM in DEXTROSE 5% 100 ML IVPB ONE (13:30)
[2017-08-21] MEDS ORDERED: VANCOMYCIN IV PER PHARMACY XX SCH (14:00)
[2017-08-21] MEDS ORDERED: OSELTAMIVIR 75 MG CAP PO SCH (14:00)
--- NOTE | 2017-08-21 14:00 | CONS ---
Date/Time of Note Date/Time of Note DATE: 08/21/17 TIME: 13:51 critical care time 2 hours Assessment/Plan Assessment/Plan Chief Complaint/Hosp Course 1. Very concerning for Influenza; vaccine status uncertain yet there has been significant breakthrough this year in particular with H3N2, Her troubling presentation is most c/w H1N1 epidemic of 2008 2. Resp failure 3. Bilateral PNA 4. Obesity 5. Apparent hx of SVT R: High dose Tamiflu Vanco Zosyn Levaquin Fluconazole Monitor QT interval; serial ekg resp cx Resp viral panel serial procalc serial lactic acid crypto cocci histo beta d glucan obtain rest of hx Problems: Consultation Date/Type/Reason Admit Date/Time Aug 20, 2017 at 02:59 Date of Consultation: Aug 21, 2017 Type of Consultation: id Reason for Consultation Resp failure, severe PNA; ID care and antimicrobial mgmt. Hx of Present Illness A very troubling case of an obese 37 yo female with apparent hx of SVT, recently apparently treated for CAP with Zithromax, increased sob and then presented to ER. She rapidly deteriorated per emr and required intubation an ICU care. She has been seen in pulmonary consultation. Per EMR she has received Cefepime/Tamiflu and Vancomyin. Her CT angio revealed no e/o PE but instead bilateral severe infils. Her HIV screen was negative. patient unable to provide Past Medical History Medical History: hypertension Past Surgical History Past Surgical Hx: no surgical history Social History Alcohol Use: none Smoking Status: Unknown if ever smoked Drug Use: none Exam/Review of Systems Vital Signs Vitals Vital Signs Date Time Temp Pulse Resp B/P Pulse Ox O2 Delivery O2 Flow Rate FiO2 08/21/17 13:20 80 24 92 100 08/21/17 07:00 130/70 Mechanical Ventilator 08/21/17 04:00 99.8 08/20/17 01:12 10.0 Intake and Output 08/20/17 08/20/17 08/21/17 15:00 23:00 07:00 Intake Total 869.655 ml 1112.9144 ml Output Total 1045 ml 645 ml Balance -175.345 ml 467.9144 ml Exam Constitutional: non-verbal, other (intubated and sedated) Head: atraumatic, normocephalic Respiratory: diminished breath sounds Cardiovascular: regular rate and rhythm Gastrointestinal: other (obese), soft Results Result Diagram: 08/21/17 0547 08/21/17 0450 Results 24 hrs Laboratory Tests Test 08/20/17 14:40 08/20/17 21:06 08/21/17 04:50 08/21/17 05:37 Urine Color YELLOW Urine Clarity CLEAR Urine pH 6.0 Urine Specific [place] 1.023 Urine Ketones NEGATIVE Urine Nitrite NEGATIVE Urine Bilirubin NEGATIVE Urine Urobilinogen NEGATIVE Urine Leukocyte Esterase NEGATIVE Urine Microscopic RBC 1 Urine Microscopic WBC 6 H Urine Hemoglobin 1+ H Urine Glucose NEGATIVE Urine Total Protein 2+ H Blood Gas Specimen Source Blood arterial Arterial Blood Date Drawn 08/20/2017 9:10:01 PM Arterial Blood pH (Temp corrected) 7.371 Arterial Blood pCO2 (Temp correct) 41.3 Arterial Blood pO2 (Temp corrected) 60.0 L Arterial Blood HCO3 23.4 Arterial Blood Base Excess -1.8 Arterial Blood Oxygen Saturation 89.1 L Ezequiel Test ACCEPTAB Arterial Blood Gas Puncture Site Left Radial Arterial Blood Carboxyhemoglobin 0.3 Arterial Blood Methemoglobin 0.1 Blood Gas A-a O2 Differential 611.7 H Oxyhemoglobin Percent 88.7 L Total Hemoglobin 12.1 Blood Gas Temperature 37.0 Blood Gas Respiration Rate 24.0 Blood Gas Actual Respiration Rate 33 Blood Gas Modality VENT - AC FiO2 100.0 Blood Gas Tidal Volume 450.0 Blood Gas Low PEEP Setting 12.0 Blood Gas Inspiratory Pressure 20.0 Blood Gas Notified Whom MR Blood Gas Notified Time 08/20/2017 9:18:16 PM Sodium Level 144 Potassium Level 4.0 Chloride Level 109 Carbon Dioxide Level 29 Anion Gap 10 Blood Urea Nitrogen 7 Creatinine 0.67 Glucose Level 221 H Calcium Level 6.8 L Total Bilirubin 0.1 L Direct Bilirubin 0.00 Indirect Bilirubin 0.1 Aspartate Amino Transf (AST/SGOT) 91 H Alanine Aminotransferase (ALT/SGPT) 91 H Alkaline Phosphatase 90 Total Protein 6.6 # Albumin 2.8 L Globulin 3.80 H Albumin/Globulin Ratio 0.73 Lactic Acid Level 1.4 Test 08/21/17 05:47 08/21/17 07:00 White Blood Count 16.0 #H Red Blood Count 4.01 L Hemoglobin 10.3 L Hematocrit 32.6 L Mean Corpuscular Volume 81.3 L Mean Corpuscular Hemoglobin 25.7 L Mean Corpuscular Hemoglobin Concent 31.6 L Red Cell Distribution Width 15.9 H Platelet Count 297 # Mean Platelet Volume 9.3 Neutrophils % 88.3 H Lymphocytes % 5.1 L Monocytes % 5.2 Eosinophils % 0.0 Basophils % 0.1 Nucleated Red Blood Cells % 0.6 H Neutrophils # 14.1 H Lymphocytes # 0.8 Monocytes # 0.8 Eosinophils # 0.0 Basophils # 0.0 Nucleated Red Blood Cells # 0.1 H Magnesium Level 1.9 Thyroid Stimulating Hormone (TSH) 0.108 L Blood Gas Specimen Source Blood arterial Arterial Blood Date Drawn 08/21/2017 7:30:12 AM Arterial Blood pH (Temp corrected) 7.388 Arterial Blood pCO2 (Temp correct) 42.3 Arterial Blood pO2 (Temp corrected) 57.7 L Arterial Blood HCO3 24.9 Arterial Blood Base Excess -0.1 Arterial Blood Oxygen Saturation 88.6 L Ezequiel Test ACCEPTAB Arterial Blood Gas Puncture Site Left Radial Arterial Blood Carboxyhemoglobin 0.3 Arterial Blood Methemoglobin 0.1 Blood Gas A-a O2 Differential 613.0 H Oxyhemoglobin Percent 88.2 L Total Hemoglobin 11.1 L Blood Gas Temperature 37.0 Blood Gas Respiration Rate 24.0 Blood Gas Actual Respiration Rate 29 Blood Gas Modality VENT - AC FiO2 100.0 Blood Gas Tidal Volume 450.0 Blood Gas Low PEEP Setting 12.0 Blood Gas Notified Whom JLD Blood Gas Notified Time 08/21/2017 8:05:27 AM Medications Medications Current Medications Sodium Chloride (NS) 1,000 ml @ 100 mls/hr Q10H IV Last administered on 06:38; Admin Dose 100 MLS/HR; Start 08/20/17 at 12:46 Ondansetron HCl (Zofran Inj) 4 mg Q6H PRN IV NAUSEA AND/OR VOMITING; Start 06/27 at 13:00 Acetaminophen (Tylenol Liquid) 650 mg Q6H PRN PO PAIN LEVEL 1-3 OR FEVER Last administered on 08/21/17 08:32; Admin Dose 650 MG; Start 08/20/17 at 13:00 Morphine Sulfate (morphine) 2 mg Q4H PRN IV PAIN LEVEL 7-10; Start 08/20/17 at 13:00 Famotidine (Pepcid Iv) 20 mg Q12 IV Last administered on 08/21/17 08:32; Admin Dose 20 MG; Start 08/20/17 at 21:00 Enoxaparin Sodium 30 mg 30 mg DAILY SC Last administered on 08/21/17 09:19; Admin Dose 30 MG; Start 08/21/17 at 09:00 Cefepime HCl 50 ml @ 100 mls/hr DAILY IVPB Last administered on 08/21/17 08: 32; Admin Dose 100 MLS/HR; Start 08/21/17 at 09:00 Fentanyl (Sublimaze) 100 ml @ 2.5 mls/hr TITRATE ONCE IV Last administered on 08/20/17 13:32; Admin Dose 2.5 MLS/HR; Start 08/20/17 at 13:00; Stop 08/27 at 04:59 Oseltamivir Phosphate (Tamiflu) 75 mg BID NGT Last administered on 08/21/17 08:32; Admin Dose 75 MG; Start 08/20/17 at 21:00 Methylprednisolone Sodium Succinate 60 mg 60 mg DAILY IV Last administered on 08/21/17 08:32; Admin Dose 60 MG; Start 08/20/17 at 17:00 Midazolam HCl 50 ml @ 1 mls/hr TITRATE IV Last administered on 08/21/17 09:19 ; Admin Dose 10 MLS/HR; Start 08/20/17 at 18:30 Fentanyl 100 ml @ 2.5 mls/hr TITRATE IV Last administered on 08/21/17 06:40 ; Admin Dose 10 MLS/HR; Start 08/20/17 at 18:30 Phenylephrine HCl 40 mg/Dextrose 500 ml @ 75 mls/hr TITRATE IV ; Start at 18:30 Propofol 100 ml @ 3.408 mls/ hr Q12H IV Last administered on 08/21/17 11:40 ; Admin Dose 34.08 MLS/HR; Start 08/20/17 at 20:00 Fentanyl 100 ml @ 2.5 mls/hr TITRATE IV Last administered on 08/20/17 21:54 ; Admin Dose 10 MLS/HR; Start 08/20/17 at 20:30 Norepinephrine 16 mg/Dextrose 500 ml @ 1.87 mls/hr TITRATE IV ; Start at 09:00 Calcium Gluconate/ Dextrose (Ca Gluc/D5W) 110 ml @ 110 mls/hr ONCE ONCE IVPB ; Start 08/21/17 at 13:30; Stop 08/21/17 at 14:29 ELIO AMOR MD Aug 21, 2017 14:00
[2017-08-21 14:01] LABS: AADO2 Arterial 597.5 mmHg (7.0-24.0); Allen Test ACCEPTAB; Arterial Base Excess 1.1 mmol/L (-3.0-3); Arterial COHb 0.2 % (0.0-3.0); Arterial Fraction of Oxyhgb 89.8 % (93.0-99.0); Arterial HCO3 27.3 mmol/L (22.0-26.0); Arterial MetHb 0.2 % (0.0-1.5); Arterial Total Hemglobin 11.3 g/dl (12.0-18.0); MODE VENT - AC
[2017-08-21] MEDS: PIPER-TAZO 3.375 GM IV (PMX) 50 ML IVPB SCH ×2 (14:58→18:46)
[2017-08-21] MEDS: LEVOFLOXACIN 750MG/D5W (PMX) 150 ML IVPB SCH (14:59)
[2017-08-21] MEDS: FLUCONAZOLE 400 MG/NS (PMX) 200 ML IVPB SCH (15:23)
[2017-08-21] MEDS ORDERED: VANCOMYCIN 2 GM in SOD CHLORIDE 0.9% 500 ML IVPB SCH (15:30)
[2017-08-21] MEDS ORDERED: GLUCOSE GEL 15 GRAM TUBE BUCCAL PRN (20:30)
[2017-08-21] MEDS ORDERED: DEXTROSE 50% 50 ML SYRINGE IV PRN ×2 (20:30)
[2017-08-21] MEDS ORDERED: GLUCAGON 1 MG INJ IM PRN (20:30)
[2017-08-21] MEDS ORDERED: GLUCOSE GEL 15 GRAM TUBE PO PRN ×2 (20:30)
[2017-08-21] MEDS ORDERED: OSELTAMIVIR PHOSPHATE (6 MG/ML PO SYG) NGT SCH (21:00)
[2017-08-21] MEDS: INSULIN ASPART [NOVOLOG] 3 ML PEN SC SCH (21:53)
[2017-08-22] VITALS (94 sets, daily range): BP systolic 92–110; BP diastolic 45–65; PULSE 56–68; RESP 12–25
[2017-08-22] MEDS ORDERED: VANCOMYCIN 1 GM in NS 250 ML IVPB SCH
[2017-08-22] MEDS: PIPER-TAZO 3.375 GM IV (PMX) 50 ML IVPB SCH ×5 (00:27→23:49)
[2017-08-22] MEDS: INSULIN ASPART [NOVOLOG] 3 ML PEN SC SCH ×6 (01:07→21:07)
[2017-08-22] MEDS: SOD CHLORIDE 0.9% 1,000 ML IV SCH ×3 (01:09→21:11)
[2017-08-22] MEDS: ACCU-CHEK XX SCH (01:14)
[2017-08-22] MEDS: MIDAZOLAM (DRIP) 50 mg/50 mL 50 ML IV SCH ×4 (01:45→18:57)
[2017-08-22] MEDS: FENTAnyl (DRIP) 1000 mcg/100mL 100 ML IV SCH ×3 (02:33→23:52)
[2017-08-22] MEDS: PROPOFOL 100 ML IV SCH ×7 (02:40→21:44)
[2017-08-22] MEDS: VANCOMYCIN 1 GM in NS 250 ML IVPB SCH ×3 (04:49→21:28)
[2017-08-22] MEDS: PANTOPRAZOLE 40 MG INJ IV SCH (05:08)
[2017-08-22 06:05] LABS: BASOPHILS % 0.1 % (0.0-2.0); HEMATOCRIT 30.7 % (37.0-47.0); HEMOGLOBIN 9.2 g/dl (12.0-16.0); LYMPHOCYTES % 8.1 % (15.0-51.0); MEAN CORPUSCULAR HEMOGLOBIN 25.6 pg (29.0-33.0); MEAN CORPUSCULAR VOLUME 85.3 fl (82.0-101.0); MEAN PLATELET VOLUME 9.5 fl (7.4-10.4); MONOCYTE # 1.2 10^3/ul (0.3-0.9); MONOCYTES % 9.5 % (0.0-11.0); NEUTROPHIL # 10.2 10^3/ul (1.6-7.5); NEUTROPHILS % 79.5 % (39.0-77.0); NUCLEATED RED BLOOD CELLS # 0.1 10^3/ul (0.0-0.0); NUCLEATED RED BLOOD CELLS% 1.1 /100WBC (0.0-0.0); PLATELET COUNT 311 10^3/UL (140-415); RED CELL DISTRIBUTION WIDTH 16.6 % (11.5-14.5); WHITE BLOOD COUNT 12.8 10^3/ul (4.8-10.8)
[2017-08-22 06:10] LABS: CALCIUM 6.9 mg/dl (8.4-10.2); CREATININE 0.81 mg/dl (0.44-1.00); MAGNESIUM 2.2 mg/dl (1.7-2.5); PHOSPHORUS 3.3 mg/dl (2.5-4.9); POTASSIUM 4.6 mmol/L (3.5-5.1)
[2017-08-22 06:14] LABS: INR 1.15; PROTIME 14.9 Sec (11.9-14.9); PT RATIO 1.2
[2017-08-22 06:15] LABS: PARTIAL THROMBOPLASTIN TIME 27.1 Sec (25.0-35.0)
[2017-08-22 07:58] LABS: AADO2 Arterial 528.4 mmHg (7.0-24.0); Allen Test ACCEPTAB; Arterial Base Excess -0.5 mmol/L (-3.0-3); Arterial COHb 0.2 % (0.0-3.0); Arterial Fraction of Oxyhgb 97.7 % (93.0-99.0); Arterial HCO3 25.9 mmol/L (22.0-26.0); Arterial MetHb 0.3 % (0.0-1.5); Arterial Total Hemglobin 10.5 g/dl (12.0-18.0); MODE VENT - AC
[2017-08-22] MEDS: METHYLPREDNISOLONE 125 MG INJ IV SCH (08:02)
[2017-08-22] MEDS: OSELTAMIVIR 75 MG CAP NGT SCH ×2 (08:03→21:02)
--- NOTE | 2017-08-22 08:15 | RADRPT ---
PROCEDURE: XR Chest. CLINICAL INDICATION: Respiratory failure TECHNIQUE: An AP view of the chest was obtained. COMPARISON: CHEST 08/21/2017; CHEST 08/20/2017; CHEST 08/20/2017; CHEST 08/20/2017; PREMA CHEST 06/16/2016; CR CHEST 04/21/2016 FINDINGS: The endotracheal tube tip is approximately 3.8 cm above the maritza. The tip of the enteric tube pr ojects over the left upper quadrant. There is a right internal jugular central venous catheter with tip near the cavoatrial junction. Lung volumes are low. There are diffuse bilateral interstitial opacities. No pleural effusion or pne umothorax is seen. The cardiomediastinal silhouette is non enlarged. The osseous structures are u nremarkable. IMPRESSION: 1. Bilateral interstitial opacities may reflect edema or multifocal pneumonia. Lung aeration is mil dly improved when compared to the prior examination. 2. Low lung volumes. 3. Tubes and lines, as described above. RPTAT: HH .Kayleen Cotter MD, MD Date Time Electronically viewed and signed by .Kayleen Cotter MD, on 08/22/2017 08:15 .G/
--- NOTE | 2017-08-22 10:02 | CONS ---
Date/Time of Note Date/Time of Note DATE: 08/22/17 TIME: 10:00 Consult Date/Type/Reason Admit Date/Time Aug 20, 2017 at 02:59 Initial Consult Date 08/21/17 Type of Consultation: Pulmonary Subjective Remains intubated sedated on mechanical ventilation. FiO2 improved today. Objective Vital Signs Date Time Temp Pulse Resp B/P Pulse Ox O2 Delivery O2 Flow Rate FiO2 08/22/17 09:15 62 24 97 90 08/22/17 06:45 102/53 08/22/17 06:00 Mechanical Ventilator 08/22/17 04:00 100.8 08/20/17 01:12 10.0 Intake and Output 08/21/17 08/21/17 08/22/17 15:00 23:00 07:00 Intake Total 1212.0 ml 1164.40 ml 1392.56 ml Output Total 1375 ml 850 ml Balance 1212.0 ml -210.60 ml 542.56 ml Exam PHYSICAL EXAMINATION: GENERAL: Moderately obese young lady, orally intubated on mechanical ventilation, appears comfortable at rest, no acute distress. VITAL SIGNS: As above CHEST: Decreased air entry bilaterally. ABDOMEN: Mildly distended but soft. EXTREMITIES: No cyanosis, clubbing, 1+ edema. NEUROLOGIC: Generalized weakness. Results/Medications Result Diagram: 08/22/17 0430 08/22/17 0430 Results 24 hrs Laboratory Tests Test 08/21/17 13:30 08/21/17 21:52 08/22/17 01:05 08/22/17 04:30 Blood Gas Specimen Source Blood arterial Arterial Blood Date Drawn 08/21/2017 1:40:27 PM Arterial Blood pH (Temp corrected) 7.351 Arterial Blood pCO2 (Temp correct) 50.5 H Arterial Blood pO2 (Temp corrected) 65.0 L Arterial Blood HCO3 27.3 H Arterial Blood Base Excess 1.1 Arterial Blood Oxygen Saturation 90.2 L Ezequiel Test ACCEPTAB Arterial Blood Gas Puncture Site Right Radial Arterial Blood Carboxyhemoglobin 0.2 Arterial Blood Methemoglobin 0.2 Blood Gas A-a O2 Differential 597.5 H Oxyhemoglobin Percent 89.8 L Total Hemoglobin 11.3 L Blood Gas Temperature 37.0 Blood Gas Respiration Rate 14.0 Blood Gas Actual Respiration Rate 24 Blood Gas Modality VENT - AC FiO2 100.0 Blood Gas Tidal Volume 450.0 Blood Gas Low PEEP Setting 15.0 Blood Gas Notified Whom JLD Blood Gas Notified Time 08/21/2017 2:01:19 PM Bedside Glucose 174 176 White Blood Count 12.8 H Red Blood Count 3.60 L Hemoglobin 9.2 L Hematocrit 30.7 L Mean Corpuscular Volume 85.3 Mean Corpuscular Hemoglobin 25.6 L Mean Corpuscular Hemoglobin Concent 30.0 L Red Cell Distribution Width 16.6 H Platelet Count 311 Mean Platelet Volume 9.5 Neutrophils % 79.5 H Lymphocytes % 8.1 L Monocytes % 9.5 Eosinophils % 0.0 Basophils % 0.1 Nucleated Red Blood Cells % 1.1 H Neutrophils # 10.2 H Lymphocytes # 1.0 Monocytes # 1.2 H Eosinophils # 0.0 Basophils # 0.0 Nucleated Red Blood Cells # 0.1 H Prothrombin Time 14.9 # Prothrombin Time Ratio 1.2 INR International Normalized Ratio 1.15 Activated Partial Thromboplast Time 27.1 Sodium Level 147 H Potassium Level 4.6 Chloride Level 112 H Carbon Dioxide Level 32 H Anion Gap 8 Blood Urea Nitrogen 12 Creatinine 0.81 Glucose Level 192 Hemoglobin A1c 6.7 H Calcium Level 6.9 L Phosphorus Level 3.3 Magnesium Level 2.2 Test 08/22/17 04:32 08/22/17 07:00 08/22/17 08:15 Bedside Glucose 171 176 Blood Gas Specimen Source Blood arterial Arterial Blood Date Drawn 08/22/2017 7:40:10 AM Arterial Blood pH (Temp corrected) 7.325 L Arterial Blood pCO2 (Temp correct) 50.8 H Arterial Blood pO2 (Temp corrected) 133.8 H Arterial Blood HCO3 25.9 Arterial Blood Base Excess -0.5 Arterial Blood Oxygen Saturation 98.2 H Ezequiel Test ACCEPTAB Arterial Blood Gas Puncture Site Left Radial Arterial Blood Carboxyhemoglobin 0.2 Arterial Blood Methemoglobin 0.3 Blood Gas A-a O2 Differential 528.4 H Oxyhemoglobin Percent 97.7 Total Hemoglobin 10.5 L Blood Gas Temperature 37.0 Blood Gas Respiration Rate 24.0 Blood Gas Actual Respiration Rate 24 Blood Gas Modality VENT - AC FiO2 100.0 Blood Gas Tidal Volume 450.0 Blood Gas Low PEEP Setting 15.0 Blood Gas Notified Whom JLD Blood Gas Notified Time 08/22/2017 7:58:46 AM Medications Current Medications Sodium Chloride (NS) 1,000 ml @ 100 mls/hr Q10H IV Last administered on 01:09; Admin Dose 100 MLS/HR; Start 08/20/17 at 12:46 Ondansetron HCl (Zofran Inj) 4 mg Q6H PRN IV NAUSEA AND/OR VOMITING; Start 06/27 at 13:00 Acetaminophen (Tylenol Liquid) 650 mg Q6H PRN PO PAIN LEVEL 1-3 OR FEVER Last administered on 08/21/17 21:23; Admin Dose 650 MG; Start 08/20/17 at 13:00 Morphine Sulfate (morphine) 2 mg Q4H PRN IV PAIN LEVEL 7-10; Start 08/20/17 at 13:00 Methylprednisolone Sodium Succinate 60 mg 60 mg DAILY IV Last administered on 08/22/17 08:02; Admin Dose 60 MG; Start 08/20/17 at 17:00 Midazolam HCl 50 ml @ 1 mls/hr TITRATE IV Last administered on 08/22/17 08:02 ; Admin Dose 10 MLS/HR; Start 08/20/17 at 18:30 Fentanyl 100 ml @ 2.5 mls/hr TITRATE IV Last administered on 08/22/17 02:33 ; Admin Dose 10 MLS/HR; Start 08/20/17 at 18:30 Phenylephrine HCl 40 mg/Dextrose 500 ml @ 75 mls/hr TITRATE IV ; Start at 18:30 Propofol 100 ml @ 3.408 mls/ hr Q12H IV Last administered on 08/22/17 08:14 ; Admin Dose 34.08 MLS/HR; Start 08/20/17 at 20:00 Norepinephrine 16 mg/Dextrose 500 ml @ 1.87 mls/hr TITRATE IV Last administered on 08/22/17 01:12; Admin Dose 7.5 MLS/HR; Start 08/21/17 at 09: 00 Piperacillin Sod/ Tazobactam Sod 50 ml @ 100 mls/hr Q6 IVPB Last administered on 08/22/17 06:49; Admin Dose 100 MLS/HR; Start 08/21/17 at 14:00 Levofloxacin/ Dextrose 150 ml @ 100 mls/hr Q24H IVPB Last administered on 14:59; Admin Dose 100 MLS/HR; Start 08/21/17 at 14:00 Fluconazole (Diflucan 400 Mg/ NS (Pmx)) 200 ml @ 100 mls/hr Q24H IVPB Last administered on 08/21/17 15:23; Admin Dose 100 MLS/HR; Start 08/21/17 at 14: 00 Diagnostic Test (Pha) (Accu-Chek) 1 ea 02 XX ; Start 08/22/17 at 02:00 Insulin Aspart NOVOLOG *MILD* ALGORI... Q4 SC Last administered on 08/22/17 08:17; Admin Dose 1 UNIT; Start 08/21/17 at 21:00 Vancomycin HCl (Vancocin) 250 ml @ 125 mls/hr Q8H IVPB Last administered on 04:49; Admin Dose 125 MLS/HR; Start 08/22/17 at 05:00 Miscellaneous Information 1 ea NOTE XX ; Start 08/21/17 at 20:30 Glucose (Glutose) 15 gm Q15M PRN PO DECREASED GLUCOSE; Start 08/21/17 at 20:30 Glucose (Glutose) 22.5 gm Q15M PRN PO DECREASED GLUCOSE; Start 08/21/17 at 20: 30 Dextrose (D50w Syringe) 25 ml Q15M PRN IV DECREASED GLUCOSE; Start 08/21/17 at 20:30 Dextrose (D50w Syringe) 50 ml Q15M PRN IV DECREASED GLUCOSE; Start 08/21/17 at 20:30 Glucagon (Glucagen) 1 mg Q15M PRN IM DECREASED GLUCOSE; Start 08/21/17 at 20: 30 Glucose (Glutose) 15 gm Q15M PRN BUCCAL DECREASED GLUCOSE; Start 08/21/17 at 20:30 Pantoprazole (Protonix Iv) 40 mg DAILY@06 IV Last administered on 08/22/17 05 :08; Admin Dose 40 MG; Start 08/22/17 at 06:00 Oseltamivir Phosphate (Tamiflu) 150 mg BID NGT Last administered on 08/22/17 08:03; Admin Dose 150 MG; Start 08/21/17 at 21:04 Assessment/Plan Chief Complaint/Hosp Course Assessment 1. Hypoxemic respiratory failure consistent with adult respiratory distress syndrome. 2. Possible acute influenza infection. 3. Continue broad-spectrum antibiotics. 4. Mechanical ventilation with adult respiratory distress syndrome protocol Plan 1. Continue mechanical ventilation decrease FiO2 and PEEP as tolerated 2. Continue ID recommendations 3. Tube feeding if tolerated 4. DVT and GI prophylaxis Overall prognosis guarded. Problems: SVITLANA LOZANO MD, [facility] Aug 22, 2017 10:02
--- NOTE | 2017-08-22 11:48 | CONS ---
Date/Time of Note Date/Time of Note DATE: 08/22/17 TIME: 11:10 Assessment/Plan Assessment/Plan Chief Complaint/Hosp Course - Severe sepsis with septic shock likely d/t PNA+possible influenza - Bilateral multifocal PNA - Possible influenza; vaccine status uncertain yet there has been significant breakthrough this year in particular with H3N2 - Acute hypoxemic respiratory failure with possible ARDS s/p intubation - H/o recurrent SVT - Obesity - BMI 43 Recommendations: - Continue high dose Tamiflu - Continue Vancomycin, Zosyn, Levaquin and Fluconazole - Pending: resp cx (prelim - normal jenna), resp virus panel, crypto, cocci, histo, [id number], procalcitonin - Serial EKG to monitor QT interval (QTc 440 mx on 08/20) - Airborne precautions Management d/w NASIMA Spivey and Dr. Mcgowan Critical Care time spent: 40 min Problems: Consultation Date/Type/Reason Admit Date/Time Aug 20, 2017 at 02:59 Initial Consult Date 08/21/17 Type of Consultation: Infectious Disease 24 HR Interval Summary Free Text/Dictation Tmax 101.1 F. Pt remains intubated and sedated on Diprivan, Fentanyl and Versed , on Levophed down to 3 mcg/min and vent settings AC 24, TV 450, PEEP 15, FiO2 85%. Unable to perform ROS d/t pt's condition. Subjective hx not possible: pt non-verbal, pt critical status Exam/Review of Systems Vital Signs Vitals Vital Signs Date Time Temp Pulse Resp B/P Pulse Ox O2 Delivery O2 Flow Rate FiO2 08/22/17 09:15 62 24 97 90 08/22/17 06:45 102/53 08/22/17 06:00 Mechanical Ventilator 08/22/17 04:00 100.8 08/20/17 01:12 10.0 Intake and Output 08/21/17 08/21/17 08/22/17 15:00 23:00 07:00 Intake Total 1212.0 ml 1164.40 ml 1392.56 ml Output Total 1375 ml 850 ml Balance 1212.0 ml -210.60 ml 542.56 ml Exam Constitutional: obese, other (intubated and sedated), well developed Head: atraumatic, normocephalic Eyes: nl sclera ENMT: intubated Respiratory: diminished breath sounds Cardiovascular: nl pulses, regular rate and rhythm Gastrointestinal: other (NGT to LIS), soft (obese) Genitourinary - Female: other (Bourgeois catheter present) Musculoskeletal: nl extremities to inspection Extremities: normal pulses, No clubbing, No cyanosis, No edema Neurological: other (sedated) Skin: nl turgor, No rash or lesions Results Result Diagram: 08/22/17 0430 08/22/17 0430 Results 24 hrs Laboratory Tests Test 08/21/17 13:30 08/21/17 21:52 08/22/17 01:05 08/22/17 04:30 Blood Gas Specimen Source Blood arterial Arterial Blood Date Drawn 08/21/2017 1:40:27 PM Arterial Blood pH (Temp corrected) 7.351 Arterial Blood pCO2 (Temp correct) 50.5 H Arterial Blood pO2 (Temp corrected) 65.0 L Arterial Blood HCO3 27.3 H Arterial Blood Base Excess 1.1 Arterial Blood Oxygen Saturation 90.2 L Ezequiel Test ACCEPTAB Arterial Blood Gas Puncture Site Right Radial Arterial Blood Carboxyhemoglobin 0.2 Arterial Blood Methemoglobin 0.2 Blood Gas A-a O2 Differential 597.5 H Oxyhemoglobin Percent 89.8 L Total Hemoglobin 11.3 L Blood Gas Temperature 37.0 Blood Gas Respiration Rate 14.0 Blood Gas Actual Respiration Rate 24 Blood Gas Modality VENT - AC FiO2 100.0 Blood Gas Tidal Volume 450.0 Blood Gas Low PEEP Setting 15.0 Blood Gas Notified Whom JLD Blood Gas Notified Time 08/21/2017 2:01:19 PM Bedside Glucose 174 176 White Blood Count 12.8 H Red Blood Count 3.60 L Hemoglobin 9.2 L Hematocrit 30.7 L Mean Corpuscular Volume 85.3 Mean Corpuscular Hemoglobin 25.6 L Mean Corpuscular Hemoglobin Concent 30.0 L Red Cell Distribution Width 16.6 H Platelet Count 311 Mean Platelet Volume 9.5 Neutrophils % 79.5 H Lymphocytes % 8.1 L Monocytes % 9.5 Eosinophils % 0.0 Basophils % 0.1 Nucleated Red Blood Cells % 1.1 H Neutrophils # 10.2 H Lymphocytes # 1.0 Monocytes # 1.2 H Eosinophils # 0.0 Basophils # 0.0 Nucleated Red Blood Cells # 0.1 H Prothrombin Time 14.9 # Prothrombin Time Ratio 1.2 INR International Normalized Ratio 1.15 Activated Partial Thromboplast Time 27.1 Sodium Level 147 H Potassium Level 4.6 Chloride Level 112 H Carbon Dioxide Level 32 H Anion Gap 8 Blood Urea Nitrogen 12 Creatinine 0.81 Glucose Level 192 Hemoglobin A1c 6.7 H Calcium Level 6.9 L Phosphorus Level 3.3 Magnesium Level 2.2 Test 08/22/17 04:32 08/22/17 07:00 08/22/17 08:15 Bedside Glucose 171 176 Blood Gas Specimen Source Blood arterial Arterial Blood Date Drawn 08/22/2017 7:40:10 AM Arterial Blood pH (Temp corrected) 7.325 L Arterial Blood pCO2 (Temp correct) 50.8 H Arterial Blood pO2 (Temp corrected) 133.8 H Arterial Blood HCO3 25.9 Arterial Blood Base Excess -0.5 Arterial Blood Oxygen Saturation 98.2 H Ezequiel Test ACCEPTAB Arterial Blood Gas Puncture Site Left Radial Arterial Blood Carboxyhemoglobin 0.2 Arterial Blood Methemoglobin 0.3 Blood Gas A-a O2 Differential 528.4 H Oxyhemoglobin Percent 97.7 Total Hemoglobin 10.5 L Blood Gas Temperature 37.0 Blood Gas Respiration Rate 24.0 Blood Gas Actual Respiration Rate 24 Blood Gas Modality VENT - AC FiO2 100.0 Blood Gas Tidal Volume 450.0 Blood Gas Low PEEP Setting 15.0 Blood Gas Notified Whom JLD Blood Gas Notified Time 08/22/2017 7:58:46 AM Medications Medications Current Medications Sodium Chloride (NS) 1,000 ml @ 100 mls/hr Q10H IV Last administered on 01:09; Admin Dose 100 MLS/HR; Start 08/20/17 at 12:46 Ondansetron HCl (Zofran Inj) 4 mg Q6H PRN IV NAUSEA AND/OR VOMITING; Start 06/27 at 13:00 Acetaminophen (Tylenol Liquid) 650 mg Q6H PRN PO PAIN LEVEL 1-3 OR FEVER Last administered on 08/21/17 21:23; Admin Dose 650 MG; Start 08/20/17 at 13:00 Morphine Sulfate (morphine) 2 mg Q4H PRN IV PAIN LEVEL 7-10; Start 08/20/17 at 13:00 Methylprednisolone Sodium Succinate 60 mg 60 mg DAILY IV Last administered on 08/22/17 08:02; Admin Dose 60 MG; Start 08/20/17 at 17:00 Midazolam HCl 50 ml @ 1 mls/hr TITRATE IV Last administered on 08/22/17 08:02 ; Admin Dose 10 MLS/HR; Start 08/20/17 at 18:30 Fentanyl 100 ml @ 2.5 mls/hr TITRATE IV Last administered on 08/22/17 02:33 ; Admin Dose 10 MLS/HR; Start 08/20/17 at 18:30 Phenylephrine HCl 40 mg/Dextrose 500 ml @ 75 mls/hr TITRATE IV ; Start at 18:30 Propofol 100 ml @ 3.408 mls/ hr Q12H IV Last administered on 08/22/17 08:14 ; Admin Dose 34.08 MLS/HR; Start 08/20/17 at 20:00 Norepinephrine 16 mg/Dextrose 500 ml @ 1.87 mls/hr TITRATE IV Last administered on 08/22/17 01:12; Admin Dose 7.5 MLS/HR; Start 08/21/17 at 09: 00 Piperacillin Sod/ Tazobactam Sod 50 ml @ 100 mls/hr Q6 IVPB Last administered on 08/22/17 06:49; Admin Dose 100 MLS/HR; Start 08/21/17 at 14:00 Levofloxacin/ Dextrose 150 ml @ 100 mls/hr Q24H IVPB Last administered on 14:59; Admin Dose 100 MLS/HR; Start 08/21/17 at 14:00 Fluconazole (Diflucan 400 Mg/ NS (Pmx)) 200 ml @ 100 mls/hr Q24H IVPB Last administered on 08/21/17 15:23; Admin Dose 100 MLS/HR; Start 08/21/17 at 14: 00 Diagnostic Test (Pha) (Accu-Chek) 1 ea 02 XX ; Start 08/22/17 at 02:00 Insulin Aspart NOVOLOG *MILD* ALGORI... Q4 SC Last administered on 08/22/17 08:17; Admin Dose 1 UNIT; Start 08/21/17 at 21:00 Vancomycin HCl (Vancocin) 250 ml @ 125 mls/hr Q8H IVPB Last administered on 04:49; Admin Dose 125 MLS/HR; Start 08/22/17 at 05:00 Miscellaneous Information 1 ea NOTE XX ; Start 08/21/17 at 20:30 Glucose (Glutose) 15 gm Q15M PRN PO DECREASED GLUCOSE; Start 08/21/17 at 20:30 Glucose (Glutose) 22.5 gm Q15M PRN PO DECREASED GLUCOSE; Start 08/21/17 at 20: 30 Dextrose (D50w Syringe) 25 ml Q15M PRN IV DECREASED GLUCOSE; Start 08/21/17 at 20:30 Dextrose (D50w Syringe) 50 ml Q15M PRN IV DECREASED GLUCOSE; Start 08/21/17 at 20:30 Glucagon (Glucagen) 1 mg Q15M PRN IM DECREASED GLUCOSE; Start 08/21/17 at 20: 30 Glucose (Glutose) 15 gm Q15M PRN BUCCAL DECREASED GLUCOSE; Start 08/21/17 at 20:30 Pantoprazole (Protonix Iv) 40 mg DAILY@06 IV Last administered on 08/22/17 05 :08; Admin Dose 40 MG; Start 08/22/17 at 06:00 Oseltamivir Phosphate (Tamiflu) 150 mg BID NGT Last administered on 08/22/17 08:03; Admin Dose 150 MG; Start 08/21/17 at 21:04 Procedures Procedures CXR 08/22/2017: FINDINGS: The endotracheal tube tip is approximately 3.8 cm above the maritza. The tip of the enteric tube projects over the left upper quadrant. There is a right internal jugular central venous catheter with tip near the cavoatrial junction. Lung volumes are low. There are diffuse bilateral interstitial opacities. No pleural effusion or pneumothorax is seen. The cardiomediastinal silhouette is non enlarged. The osseous structures are unremarkable. IMPRESSION: 1. Bilateral interstitial opacities may reflect edema or multifocal pneumonia. Lung aeration is mildly improved when compared to the prior examination. 2. Low lung volumes. 3. Tubes and lines, as described above. CINTHYA JUNG NP Aug 22, 2017 11:20 CINTHYA JUNG NP Aug 22, 2017 11:20
--- NOTE | 2017-08-22 12:07 | PN ---
Date/Time of Note Date/Time of Note DATE: 08/22/17 TIME: 12:02 Assessment/Plan VTE Prophylaxis VTE Prophylaxis Intervention: SCD's Lines/Catheters IV Catheter Type (from Nrs): Central Line Central line still needed: Yes Urinary Cath still in place: Yes Reason Cath still needed: urinary retention Assessment/Plan Chief Complaint/Hosp Course Patient's continues to spike fever, on ventilatory support, norepinephrine for blood pressure support, multiple sedating agents. Assessment/Plan -Severe Hypoxemic Respiratory Failure concerning for ARDS, continue ventilatory support, breathing treatments, steroids. Dr. Alarcon is following in pulmonology consultation. -Acute multifocal pneumonia, continue broad-spectrum antibiotics, Tamiflu. Dr. Mcgowan is following in infection disease consultation. -Sepsis with shock secondary to pneumonia, continue IV fluids, ICU care. -Diabetes mellitus with hemoglobin A1c 6.9. Continue NovoLog per sliding scale with Accu-Chek every 4 hours. -Preserved ejection fraction of 50% -Obesity with BMI of 43 -Hepatic steatosis Further recommendations based on clinical course. Plan of care discussed with Dr. Gomez. Problems: Exam/Review of Systems Vital Signs Vitals Vital Signs Date Time Temp Pulse Resp B/P Pulse Ox O2 Delivery O2 Flow Rate FiO2 08/22/17 11:16 62 24 98 85 08/22/17 06:45 102/53 08/22/17 06:00 Mechanical Ventilator 08/22/17 04:00 100.8 08/20/17 01:12 10.0 Intake and Output 08/21/17 08/21/17 08/22/17 15:00 23:00 07:00 Intake Total 1212.0 ml 1164.40 ml 1392.56 ml Output Total 1375 ml 850 ml Balance 1212.0 ml -210.60 ml 542.56 ml Exam Constitutional: obese Head: normocephalic Neck: supple Respiratory: diminished breath sounds Cardiovascular: nl pulses, regular rate and rhythm Gastrointestinal: non-tender, soft Musculoskeletal: nl extremities to inspection Extremities: normal pulses Neurological: other (Sedated) Results Result Diagram: 08/22/17 0430 08/22/17 0430 Results 24 hrs Laboratory Tests Test 08/21/17 13:30 08/21/17 21:52 08/22/17 01:05 08/22/17 04:30 Blood Gas Specimen Source Blood arterial Arterial Blood Date Drawn 08/21/2017 1:40:27 PM Arterial Blood pH (Temp corrected) 7.351 Arterial Blood pCO2 (Temp correct) 50.5 H Arterial Blood pO2 (Temp corrected) 65.0 L Arterial Blood HCO3 27.3 H Arterial Blood Base Excess 1.1 Arterial Blood Oxygen Saturation 90.2 L Ezequiel Test ACCEPTAB Arterial Blood Gas Puncture Site Right Radial Arterial Blood Carboxyhemoglobin 0.2 Arterial Blood Methemoglobin 0.2 Blood Gas A-a O2 Differential 597.5 H Oxyhemoglobin Percent 89.8 L Total Hemoglobin 11.3 L Blood Gas Temperature 37.0 Blood Gas Respiration Rate 14.0 Blood Gas Actual Respiration Rate 24 Blood Gas Modality VENT - AC FiO2 100.0 Blood Gas Tidal Volume 450.0 Blood Gas Low PEEP Setting 15.0 Blood Gas Notified Whom JLD Blood Gas Notified Time 08/21/2017 2:01:19 PM Bedside Glucose 174 176 White Blood Count 12.8 H Red Blood Count 3.60 L Hemoglobin 9.2 L Hematocrit 30.7 L Mean Corpuscular Volume 85.3 Mean Corpuscular Hemoglobin 25.6 L Mean Corpuscular Hemoglobin Concent 30.0 L Red Cell Distribution Width 16.6 H Platelet Count 311 Mean Platelet Volume 9.5 Neutrophils % 79.5 H Lymphocytes % 8.1 L Monocytes % 9.5 Eosinophils % 0.0 Basophils % 0.1 Nucleated Red Blood Cells % 1.1 H Neutrophils # 10.2 H Lymphocytes # 1.0 Monocytes # 1.2 H Eosinophils # 0.0 Basophils # 0.0 Nucleated Red Blood Cells # 0.1 H Prothrombin Time 14.9 # Prothrombin Time Ratio 1.2 INR International Normalized Ratio 1.15 Activated Partial Thromboplast Time 27.1 Sodium Level 147 H Potassium Level 4.6 Chloride Level 112 H Carbon Dioxide Level 32 H Anion Gap 8 Blood Urea Nitrogen 12 Creatinine 0.81 Glucose Level 192 Hemoglobin A1c 6.7 H Calcium Level 6.9 L Phosphorus Level 3.3 Magnesium Level 2.2 Test 08/22/17 04:32 08/22/17 07:00 08/22/17 08:15 Bedside Glucose 171 176 Blood Gas Specimen Source Blood arterial Arterial Blood Date Drawn 08/22/2017 7:40:10 AM Arterial Blood pH (Temp corrected) 7.325 L Arterial Blood pCO2 (Temp correct) 50.8 H Arterial Blood pO2 (Temp corrected) 133.8 H Arterial Blood HCO3 25.9 Arterial Blood Base Excess -0.5 Arterial Blood Oxygen Saturation 98.2 H Ezequiel Test ACCEPTAB Arterial Blood Gas Puncture Site Left Radial Arterial Blood Carboxyhemoglobin 0.2 Arterial Blood Methemoglobin 0.3 Blood Gas A-a O2 Differential 528.4 H Oxyhemoglobin Percent 97.7 Total Hemoglobin 10.5 L Blood Gas Temperature 37.0 Blood Gas Respiration Rate 24.0 Blood Gas Actual Respiration Rate 24 Blood Gas Modality VENT - AC FiO2 100.0 Blood Gas Tidal Volume 450.0 Blood Gas Low PEEP Setting 15.0 Blood Gas Notified Whom JLD Blood Gas Notified Time 08/22/2017 7:58:46 AM Medications Medications Current Medications Sodium Chloride (NS) 1,000 ml @ 100 mls/hr Q10H IV Last administered on 01:09; Admin Dose 100 MLS/HR; Start 08/20/17 at 12:46 Ondansetron HCl (Zofran Inj) 4 mg Q6H PRN IV NAUSEA AND/OR VOMITING; Start 06/27 at 13:00 Acetaminophen (Tylenol Liquid) 650 mg Q6H PRN PO PAIN LEVEL 1-3 OR FEVER Last administered on 08/21/17 21:23; Admin Dose 650 MG; Start 08/20/17 at 13:00 Morphine Sulfate (morphine) 2 mg Q4H PRN IV PAIN LEVEL 7-10; Start 08/20/17 at 13:00 Methylprednisolone Sodium Succinate 60 mg 60 mg DAILY IV Last administered on 08/22/17 08:02; Admin Dose 60 MG; Start 08/20/17 at 17:00 Midazolam HCl 50 ml @ 1 mls/hr TITRATE IV Last administered on 08/22/17 08:02 ; Admin Dose 10 MLS/HR; Start 08/20/17 at 18:30 Fentanyl 100 ml @ 2.5 mls/hr TITRATE IV Last administered on 08/22/17 02:33 ; Admin Dose 10 MLS/HR; Start 08/20/17 at 18:30 Phenylephrine HCl 40 mg/Dextrose 500 ml @ 75 mls/hr TITRATE IV ; Start at 18:30 Propofol 100 ml @ 3.408 mls/ hr Q12H IV Last administered on 08/22/17 11:53 ; Admin Dose 34.08 MLS/HR; Start 08/20/17 at 20:00 Norepinephrine 16 mg/Dextrose 500 ml @ 1.87 mls/hr TITRATE IV Last administered on 08/22/17 01:12; Admin Dose 7.5 MLS/HR; Start 08/21/17 at 09: 00 Piperacillin Sod/ Tazobactam Sod 50 ml @ 100 mls/hr Q6 IVPB Last administered on 08/22/17 06:49; Admin Dose 100 MLS/HR; Start 08/21/17 at 14:00 Levofloxacin/ Dextrose 150 ml @ 100 mls/hr Q24H IVPB Last administered on 14:59; Admin Dose 100 MLS/HR; Start 08/21/17 at 14:00 Fluconazole (Diflucan 400 Mg/ NS (Pmx)) 200 ml @ 100 mls/hr Q24H IVPB Last administered on 08/21/17 15:23; Admin Dose 100 MLS/HR; Start 08/21/17 at 14: 00 Diagnostic Test (Pha) (Accu-Chek) 1 ea 02 XX ; Start 08/22/17 at 02:00 Insulin Aspart NOVOLOG *MILD* ALGORI... Q4 SC Last administered on 08/22/17 08:17; Admin Dose 1 UNIT; Start 08/21/17 at 21:00 Vancomycin HCl (Vancocin) 250 ml @ 125 mls/hr Q8H IVPB Last administered on 04:49; Admin Dose 125 MLS/HR; Start 08/22/17 at 05:00 Miscellaneous Information 1 ea NOTE XX ; Start 08/21/17 at 20:30 Glucose (Glutose) 15 gm Q15M PRN PO DECREASED GLUCOSE; Start 08/21/17 at 20:30 Glucose (Glutose) 22.5 gm Q15M PRN PO DECREASED GLUCOSE; Start 08/21/17 at 20: 30 Dextrose (D50w Syringe) 25 ml Q15M PRN IV DECREASED GLUCOSE; Start 08/21/17 at 20:30 Dextrose (D50w Syringe) 50 ml Q15M PRN IV DECREASED GLUCOSE; Start 08/21/17 at 20:30 Glucagon (Glucagen) 1 mg Q15M PRN IM DECREASED GLUCOSE; Start 08/21/17 at 20: 30 Glucose (Glutose) 15 gm Q15M PRN BUCCAL DECREASED GLUCOSE; Start 08/21/17 at 20:30 Pantoprazole (Protonix Iv) 40 mg DAILY@06 IV Last administered on 08/22/17 05 :08; Admin Dose 40 MG; Start 08/22/17 at 06:00 Oseltamivir Phosphate (Tamiflu) 150 mg BID NGT Last administered on 08/22/17 08:03; Admin Dose 150 MG; Start 08/21/17 at 21:04 MANUEL KLEIN Aug 22, 2017 12:07
[2017-08-22] MEDS: FLUCONAZOLE 400 MG/NS (PMX) 200 ML IVPB SCH (13:12)
[2017-08-22] MEDS: LEVOFLOXACIN 750MG/D5W (PMX) 150 ML IVPB SCH (13:12)
[2017-08-22] MEDS: INSULIN GLARGINE [LANtus] 3 ML PEN SC SCH (23:51)
[2017-08-23] VITALS (55 sets, daily range): BP systolic 91–130; BP diastolic 44–75; PULSE 39–64; RESP 24–27
[2017-08-23] MEDS: MIDAZOLAM (DRIP) 50 mg/50 mL 50 ML IV SCH ×3 (00:57→11:08)
[2017-08-23] MEDS: PROPOFOL 100 ML IV SCH ×2 (00:57→20:01)
[2017-08-23] MEDS: INSULIN ASPART [NOVOLOG] 3 ML PEN SC SCH ×6 (01:05→21:18)
[2017-08-23] MEDS: ACCU-CHEK XX SCH (01:06)
[2017-08-23] MEDS: VANCOMYCIN 1.5 GM in SOD CHLORIDE 0.9% 250 ML IVPB SCH ×2 (04:11→12:59)
[2017-08-23 05:12] LABS: BASOPHILS % 0.1 % (0.0-2.0); HEMATOCRIT 28.2 % (37.0-47.0); HEMOGLOBIN 8.6 g/dl (12.0-16.0); LYMPHOCYTES # 1.1 10^3/ul (0.8-2.9); LYMPHOCYTES % 8.7 % (15.0-51.0); MEAN CORPUSCULAR HEMOGLOBIN 26.2 pg (29.0-33.0); MEAN CORPUSCULAR HGB CONC 30.5 g/dl (32.0-37.0); MEAN PLATELET VOLUME 9.6 fl (7.4-10.4); MONOCYTE # 1.1 10^3/ul (0.3-0.9); NEUTROPHIL # 10.1 10^3/ul (1.6-7.5); NEUTROPHILS % 79.6 % (39.0-77.0); NUCLEATED RED BLOOD CELLS # 0.1 10^3/ul (0.0-0.0); NUCLEATED RED BLOOD CELLS% 1.1 /100WBC (0.0-0.0); PLATELET COUNT 292 10^3/UL (140-415); RED BLOOD COUNT 3.28 10^6/ul (4.20-5.40); RED CELL DISTRIBUTION WIDTH 16.8 % (11.5-14.5); WHITE BLOOD COUNT 12.7 10^3/ul (4.8-10.8)
[2017-08-23 05:24] LABS: CREATININE 0.73 mg/dl (0.44-1.00); MAGNESIUM 2.3 mg/dl (1.7-2.5); POTASSIUM 4.4 mmol/L (3.5-5.1)
[2017-08-23] MEDS: PANTOPRAZOLE 40 MG INJ IV SCH (06:00)
[2017-08-23] MEDS: FENTAnyl (DRIP) 1000 mcg/100mL 100 ML IV SCH (06:55)
[2017-08-23] MEDS: SOD CHLORIDE 0.9% 1,000 ML IV SCH ×2 (07:20→21:13)
[2017-08-23] MEDS: PIPER-TAZO 3.375 GM IV (PMX) 50 ML IVPB SCH ×3 (07:23→19:00)
--- NOTE | 2017-08-23 08:28 | RADRPT ---
PROCEDURE: XR Chest. CLINICAL INDICATION: Respiratory failure TECHNIQUE: A single AP view of the chest was obtained. COMPARISON: CHEST 08/22/2017; CHEST 08/21/2017; CHEST 08/20/2017; CHEST 08/20/2017; PREMA CHEST 06/16/2016; CR CHEST 04/21/2016 FINDINGS: The endotracheal tube tip is approximately 3.0 cm above the maritza. The tip of the enteric tube pr ojects over the left upper quadrant. There is a right internal jugular central venous catheter with tip near the cavoatrial junction. The left costophrenic angle is excluded from the examination. Lung volumes are low with compressive changes and diffuse bilateral interstitial opacities. No pleural effusion or pneumothorax is seen. The cardiomediastinal silhouette is within normal limits for size. The osseous structures are unrem arkable. IMPRESSION: 1. Diffuse bilateral interstitial opacities, may reflect combination of edema and pneumonia. No sig nificant interval change. 2. Tubes and lines, as described above. RPTAT: HH .Kayleen Cotter MD, MD Date Time Electronically viewed and signed by .Kayleen Cotter MD, on 08/23/2017 08:28 .G/
[2017-08-23 08:35] LABS: AADO2 Arterial 431.8 mmHg (7.0-24.0); Allen Test ACCEPTAB; Arterial Base Excess -0.2 mmol/L (-3.0-3); Arterial COHb 0.3 % (0.0-3.0); Arterial Fraction of Oxyhgb 94.8 % (93.0-99.0); Arterial HCO3 21.9 mmol/L (22.0-26.0); Arterial MetHb 0.3 % (0.0-1.5); Arterial Total Hemglobin 12.7 g/dl (12.0-18.0); MODE VENT - AC
[2017-08-23] MEDS ORDERED: NORepinephrine 8MG/250 ML (PMX 250 ML IV SCH (09:30)
[2017-08-23] MEDS: METHYLPREDNISOLONE 125 MG INJ IV SCH (09:50)
[2017-08-23] MEDS: OSELTAMIVIR 75 MG CAP NGT SCH ×2 (09:50→21:13)
--- NOTE | 2017-08-23 11:22 | CONS ---
Date/Time of Note Date/Time of Note DATE: 08/23/17 TIME: 11:21 Consult Date/Type/Reason Admit Date/Time Aug 20, 2017 at 02:59 Initial Consult Date 08/21/17 Type of Consultation: Pulmonary Subjective She continues mechanical ventilation FiO2 at 70%. Objective Vital Signs Date Time Temp Pulse Resp B/P Pulse Ox O2 Delivery O2 Flow Rate FiO2 08/23/17 08:00 52 08/23/17 07:30 24 100 75 08/23/17 07:00 100/58 Mechanical Ventilator 08/23/17 04:00 98.8 08/20/17 01:12 10.0 Intake and Output 08/22/17 08/22/17 08/23/17 14:59 22:59 06:59 Intake Total 1364.35 ml 1833.024 ml 1578.663 ml Output Total 560 ml 675 ml 555 ml Balance 804.35 ml 1158.024 ml 1023.663 ml Exam PHYSICAL EXAMINATION: GENERAL: Moderately obese young lady, orally intubated on mechanical ventilation, appears comfortable at rest, no acute distress. VITAL SIGNS: FiO2 of 70% PEEP of 15 CHEST: Decreased air entry bilaterally. ABDOMEN: Mildly distended but soft. EXTREMITIES: No cyanosis, clubbing, 1+ edema. NEUROLOGIC: Generalized weakness. Results/Medications Result Diagram: 08/23/17 0400 08/23/17 0400 Results 24 hrs Laboratory Tests Test 08/22/17 13:19 08/22/17 14:08 08/22/17 18:51 08/22/17 20:04 Bedside Glucose 181 191 Free Thyroxine 2.27 Vancomycin Level Trough 5.1 L Test 08/22/17 21:03 08/22/17 23:51 08/23/17 01:04 08/23/17 04:00 Bedside Glucose 182 161 172 White Blood Count 12.7 H Red Blood Count 3.28 L Hemoglobin 8.6 L Hematocrit 28.2 L Mean Corpuscular Volume 86.0 Mean Corpuscular Hemoglobin 26.2 L Mean Corpuscular Hemoglobin Concent 30.5 L Red Cell Distribution Width 16.8 H Platelet Count 292 Mean Platelet Volume 9.6 Neutrophils % 79.6 H Lymphocytes % 8.7 L Monocytes % 9.0 Eosinophils % 0.0 Basophils % 0.1 Nucleated Red Blood Cells % 1.1 H Neutrophils # 10.1 H Lymphocytes # 1.1 Monocytes # 1.1 H Eosinophils # 0.0 Basophils # 0.0 Nucleated Red Blood Cells # 0.1 H Sodium Level 150 H Potassium Level 4.4 Chloride Level 114 H Carbon Dioxide Level 31 Anion Gap 9 Blood Urea Nitrogen 14 Creatinine 0.73 Glucose Level 176 Calcium Level 7.0 L Magnesium Level 2.3 Test 08/23/17 04:48 08/23/17 07:00 08/23/17 08:44 Bedside Glucose 183 165 Blood Gas Specimen Source Blood arterial Arterial Blood Date Drawn 08/23/2017 8:00:50 AM Arterial Blood pH (Temp corrected) 7.504 H Arterial Blood pCO2 (Temp correct) 28.4 L Arterial Blood pO2 (Temp corrected) 72.8 L Arterial Blood HCO3 21.9 L Arterial Blood Base Excess -0.2 Arterial Blood Oxygen Saturation 95.4 Ezequiel Test ACCEPTAB Arterial Blood Gas Puncture Site Right Radial Arterial Blood Carboxyhemoglobin 0.3 Arterial Blood Methemoglobin 0.3 Blood Gas A-a O2 Differential 431.8 H Oxyhemoglobin Percent 94.8 Total Hemoglobin 12.7 Blood Gas Temperature 37.0 Blood Gas Respiration Rate 24.0 Blood Gas Actual Respiration Rate 24 Blood Gas Modality VENT - AC FiO2 75.0 Blood Gas Tidal Volume 450.0 Blood Gas Low PEEP Setting 15.0 Blood Gas Notified Whom JLD Blood Gas Notified Time 08/23/2017 8:35:38 AM Medications Current Medications Sodium Chloride (NS) 1,000 ml @ 100 mls/hr Q10H IV Last administered on 07:20; Admin Dose 100 MLS/HR; Start 08/20/17 at 12:46 Ondansetron HCl (Zofran Inj) 4 mg Q6H PRN IV NAUSEA AND/OR VOMITING; Start 06/27 at 13:00 Acetaminophen (Tylenol Liquid) 650 mg Q6H PRN PO PAIN LEVEL 1-3 OR FEVER Last administered on 08/21/17 21:23; Admin Dose 650 MG; Start 08/20/17 at 13:00 Morphine Sulfate (morphine) 2 mg Q4H PRN IV PAIN LEVEL 7-10; Start 08/20/17 at 13:00 Methylprednisolone Sodium Succinate 60 mg 60 mg DAILY IV Last administered on 08/23/17 09:50; Admin Dose 60 MG; Start 08/20/17 at 17:00 Midazolam HCl 50 ml @ 1 mls/hr TITRATE IV Last administered on 08/23/17 11:08 ; Admin Dose 5 MLS/HR; Start 08/20/17 at 18:30 Fentanyl 100 ml @ 2.5 mls/hr TITRATE IV Last administered on 08/23/17 06:55 ; Admin Dose 10 MLS/HR; Start 08/20/17 at 18:30 Phenylephrine HCl 40 mg/Dextrose 500 ml @ 75 mls/hr TITRATE IV ; Start at 18:30 Propofol 100 ml @ 3.408 mls/ hr Q12H IV Last administered on 08/23/17 00:57 ; Admin Dose 23.856 MLS/HR; Start 08/20/17 at 20:00 Norepinephrine 16 mg/Dextrose 500 ml @ 1.87 mls/hr TITRATE IV Last administered on 08/22/17 01:12; Admin Dose 7.5 MLS/HR; Start 08/21/17 at 09: 00 Piperacillin Sod/ Tazobactam Sod 50 ml @ 100 mls/hr Q6 IVPB Last administered on 08/23/17 07:23; Admin Dose 100 MLS/HR; Start 08/21/17 at 14:00 Levofloxacin/ Dextrose 150 ml @ 100 mls/hr Q24H IVPB Last administered on 13:12; Admin Dose 100 MLS/HR; Start 08/21/17 at 14:00 Fluconazole (Diflucan 400 Mg/ NS (Pmx)) 200 ml @ 100 mls/hr Q24H IVPB Last administered on 08/22/17 13:12; Admin Dose 100 MLS/HR; Start 08/21/17 at 14: 00 Diagnostic Test (Pha) (Accu-Chek) 1 ea 02 XX ; Start 08/22/17 at 02:00 Insulin Aspart (Novolog Insulin Pen) NOVOLOG *MILD* ALGORI... Q4 SC Last administered on 08/23/17 09:12; Admin Dose 1 UNIT; Start 08/21/17 at 21:00 Miscellaneous Information 1 ea NOTE XX ; Start 08/21/17 at 20:30 Glucose (Glutose) 15 gm Q15M PRN PO DECREASED GLUCOSE; Start 08/21/17 at 20:30 Glucose (Glutose) 22.5 gm Q15M PRN PO DECREASED GLUCOSE; Start 08/21/17 at 20: 30 Dextrose (D50w Syringe) 25 ml Q15M PRN IV DECREASED GLUCOSE; Start 08/21/17 at 20:30 Dextrose (D50w Syringe) 50 ml Q15M PRN IV DECREASED GLUCOSE; Start 08/21/17 at 20:30 Glucagon (Glucagen) 1 mg Q15M PRN IM DECREASED GLUCOSE; Start 08/21/17 at 20: 30 Glucose (Glutose) 15 gm Q15M PRN BUCCAL DECREASED GLUCOSE; Start 08/21/17 at 20:30 Pantoprazole (Protonix Iv) 40 mg DAILY@06 IV Last administered on 08/23/17 06 :00; Admin Dose 40 MG; Start 08/22/17 at 06:00 Oseltamivir Phosphate 150 mg 150 mg BID NGT Last administered on 08/23/17 09: 50; Admin Dose 150 MG; Start 08/21/17 at 21:04 Vancomycin HCl/ Sodium Chloride (Vancocin/NS) 250 ml @ 83.333 mls/ hr Q8H IVPB Last administered on 08/23/17 04:11; Admin Dose 83.333 MLS/HR; Start at 04:00 Insulin Glargine 6 unit 6 unit DAILY@20 SC Last administered on 08/22/17 23: 51; Admin Dose 6 UNIT; Start 08/22/17 at 22:30 Norepinephrine (Levophed) 250 ml @ 0 mls/hr ONCE IV Last administered on 09:59; Admin Dose 3.75 MLS/HR; Start 08/23/17 at 09:30; Stop 08/23/17 at 12:00 Miscellaneous Information (*Rx Drug Level Order Reminder*) VANCOMYCIN TROUGH ON 08/11... ONCE ONCE XX ; Start 08/24/17 at 03:00; Stop 08/24/17 at 03:01 Assessment/Plan Chief Complaint/Hosp Course Assessment 1. Hypoxemic respiratory failure consistent with adult respiratory distress syndrome. 2. Possible acute influenza infection. 3. Continue broad-spectrum antibiotics. 4. Mechanical ventilation with adult respiratory distress syndrome protocol Plan 1. Continue mechanical ventilation decrease FiO2 and PEEP as tolerated 2. Continue ID recommendations 3. Tube feeding if tolerated 4. DVT and GI prophylaxis 5. Increase free water for hypernatremia Overall prognosis guarded. Critical care time 40 minutes. Problems: SVITLANA LOZANO MD, [facility] Aug 23, 2017 11:22
--- NOTE | 2017-08-23 11:39 | PN ---
Date/Time of Note Date/Time of Note DATE: 08/23/17 TIME: 11:33 Assessment/Plan VTE Prophylaxis VTE Prophylaxis Intervention: SCD's Lines/Catheters IV Catheter Type (from Nrs): Central Line Central line still needed: Yes Urinary Cath still in place: Yes Reason Cath still needed: urinary retention Assessment/Plan Chief Complaint/Hosp Course Patient is on ventilatory support with 70% FiO2, norepinephrine for blood pressure support, multiple sedating agents. Hypernatremia, we will change IV fluids to D5 one half normal saline +20 in the care of potassium. Assessment/Plan -Severe Hypoxemic Respiratory Failure concerning for ARDS, continue ventilatory support, breathing treatments, steroids. Dr. Alarcon is following in pulmonology consultation. -Acute multifocal pneumonia, continue broad-spectrum antibiotics, Tamiflu. Dr. Mcgowan is following in infection disease consultation. -Sepsis with shock secondary to pneumonia, continue IV fluids, ICU care. -Diabetes mellitus with hemoglobin A1c 6.9. Continue NovoLog per sliding scale with Accu-Chek every 4 hours. -Preserved ejection fraction of 50% -Obesity with BMI of 43 -Hepatic steatosis Further recommendations based on clinical course. Plan of care discussed with Dr. Gomez. Problems: Exam/Review of Systems Vital Signs Vitals Vital Signs Date Time Temp Pulse Resp B/P Pulse Ox O2 Delivery O2 Flow Rate FiO2 08/23/17 08:00 52 08/23/17 07:30 24 100 75 08/23/17 07:00 100/58 Mechanical Ventilator 08/23/17 04:00 98.8 08/20/17 01:12 10.0 Intake and Output 08/22/17 08/22/17 08/23/17 14:59 22:59 06:59 Intake Total 1364.35 ml 1833.024 ml 1578.663 ml Output Total 560 ml 675 ml 555 ml Balance 804.35 ml 1158.024 ml 1023.663 ml Exam Constitutional: obese Respiratory: diminished breath sounds Cardiovascular: nl pulses, regular rate and rhythm Gastrointestinal: non-tender, soft Musculoskeletal: nl extremities to inspection Extremities: normal pulses Neurological: other (Sedated) Results Result Diagram: 08/23/17 0400 08/23/17 0400 Results 24 hrs Laboratory Tests Test 08/22/17 13:19 08/22/17 14:08 08/22/17 18:51 08/22/17 20:04 Bedside Glucose 181 191 Free Thyroxine 2.27 Vancomycin Level Trough 5.1 L Test 08/22/17 21:03 08/22/17 23:51 08/23/17 01:04 08/23/17 04:00 Bedside Glucose 182 161 172 White Blood Count 12.7 H Red Blood Count 3.28 L Hemoglobin 8.6 L Hematocrit 28.2 L Mean Corpuscular Volume 86.0 Mean Corpuscular Hemoglobin 26.2 L Mean Corpuscular Hemoglobin Concent 30.5 L Red Cell Distribution Width 16.8 H Platelet Count 292 Mean Platelet Volume 9.6 Neutrophils % 79.6 H Lymphocytes % 8.7 L Monocytes % 9.0 Eosinophils % 0.0 Basophils % 0.1 Nucleated Red Blood Cells % 1.1 H Neutrophils # 10.1 H Lymphocytes # 1.1 Monocytes # 1.1 H Eosinophils # 0.0 Basophils # 0.0 Nucleated Red Blood Cells # 0.1 H Sodium Level 150 H Potassium Level 4.4 Chloride Level 114 H Carbon Dioxide Level 31 Anion Gap 9 Blood Urea Nitrogen 14 Creatinine 0.73 Glucose Level 176 Calcium Level 7.0 L Magnesium Level 2.3 Test 08/23/17 04:48 08/23/17 07:00 08/23/17 08:44 Bedside Glucose 183 165 Blood Gas Specimen Source Blood arterial Arterial Blood Date Drawn 08/23/2017 8:00:50 AM Arterial Blood pH (Temp corrected) 7.504 H Arterial Blood pCO2 (Temp correct) 28.4 L Arterial Blood pO2 (Temp corrected) 72.8 L Arterial Blood HCO3 21.9 L Arterial Blood Base Excess -0.2 Arterial Blood Oxygen Saturation 95.4 Ezequiel Test ACCEPTAB Arterial Blood Gas Puncture Site Right Radial Arterial Blood Carboxyhemoglobin 0.3 Arterial Blood Methemoglobin 0.3 Blood Gas A-a O2 Differential 431.8 H Oxyhemoglobin Percent 94.8 Total Hemoglobin 12.7 Blood Gas Temperature 37.0 Blood Gas Respiration Rate 24.0 Blood Gas Actual Respiration Rate 24 Blood Gas Modality VENT - AC FiO2 75.0 Blood Gas Tidal Volume 450.0 Blood Gas Low PEEP Setting 15.0 Blood Gas Notified Whom JLD Blood Gas Notified Time 08/23/2017 8:35:38 AM Medications Medications Current Medications Sodium Chloride (NS) 1,000 ml @ 100 mls/hr Q10H IV Last administered on 07:20; Admin Dose 100 MLS/HR; Start 08/20/17 at 12:46 Ondansetron HCl (Zofran Inj) 4 mg Q6H PRN IV NAUSEA AND/OR VOMITING; Start 06/27 at 13:00 Acetaminophen (Tylenol Liquid) 650 mg Q6H PRN PO PAIN LEVEL 1-3 OR FEVER Last administered on 08/21/17 21:23; Admin Dose 650 MG; Start 08/20/17 at 13:00 Morphine Sulfate (morphine) 2 mg Q4H PRN IV PAIN LEVEL 7-10; Start 08/20/17 at 13:00 Methylprednisolone Sodium Succinate 60 mg 60 mg DAILY IV Last administered on 08/23/17 09:50; Admin Dose 60 MG; Start 08/20/17 at 17:00 Midazolam HCl 50 ml @ 1 mls/hr TITRATE IV Last administered on 08/23/17 11:08 ; Admin Dose 5 MLS/HR; Start 08/20/17 at 18:30 Fentanyl 100 ml @ 2.5 mls/hr TITRATE IV Last administered on 08/23/17 06:55 ; Admin Dose 10 MLS/HR; Start 08/20/17 at 18:30 Phenylephrine HCl 40 mg/Dextrose 500 ml @ 75 mls/hr TITRATE IV ; Start at 18:30 Propofol 100 ml @ 3.408 mls/ hr Q12H IV Last administered on 08/23/17 00:57 ; Admin Dose 23.856 MLS/HR; Start 08/20/17 at 20:00 Norepinephrine 16 mg/Dextrose 500 ml @ 1.87 mls/hr TITRATE IV Last administered on 08/22/17 01:12; Admin Dose 7.5 MLS/HR; Start 08/21/17 at 09: 00 Piperacillin Sod/ Tazobactam Sod 50 ml @ 100 mls/hr Q6 IVPB Last administered on 08/23/17 07:23; Admin Dose 100 MLS/HR; Start 08/21/17 at 14:00 Levofloxacin/ Dextrose 150 ml @ 100 mls/hr Q24H IVPB Last administered on 13:12; Admin Dose 100 MLS/HR; Start 08/21/17 at 14:00 Fluconazole (Diflucan 400 Mg/ NS (Pmx)) 200 ml @ 100 mls/hr Q24H IVPB Last administered on 08/22/17 13:12; Admin Dose 100 MLS/HR; Start 08/21/17 at 14: 00 Diagnostic Test (Pha) (Accu-Chek) 1 ea 02 XX ; Start 08/22/17 at 02:00 Insulin Aspart (Novolog Insulin Pen) NOVOLOG *MILD* ALGORI... Q4 SC Last administered on 08/23/17 09:12; Admin Dose 1 UNIT; Start 08/21/17 at 21:00 Miscellaneous Information 1 ea NOTE XX ; Start 08/21/17 at 20:30 Glucose (Glutose) 15 gm Q15M PRN PO DECREASED GLUCOSE; Start 08/21/17 at 20:30 Glucose (Glutose) 22.5 gm Q15M PRN PO DECREASED GLUCOSE; Start 08/21/17 at 20: 30 Dextrose (D50w Syringe) 25 ml Q15M PRN IV DECREASED GLUCOSE; Start 08/21/17 at 20:30 Dextrose (D50w Syringe) 50 ml Q15M PRN IV DECREASED GLUCOSE; Start 08/21/17 at 20:30 Glucagon (Glucagen) 1 mg Q15M PRN IM DECREASED GLUCOSE; Start 08/21/17 at 20: 30 Glucose (Glutose) 15 gm Q15M PRN BUCCAL DECREASED GLUCOSE; Start 08/21/17 at 20:30 Pantoprazole (Protonix Iv) 40 mg DAILY@06 IV Last administered on 08/23/17 06 :00; Admin Dose 40 MG; Start 08/22/17 at 06:00 Oseltamivir Phosphate 150 mg 150 mg BID NGT Last administered on 08/23/17 09: 50; Admin Dose 150 MG; Start 08/21/17 at 21:04 Vancomycin HCl/ Sodium Chloride (Vancocin/NS) 250 ml @ 83.333 mls/ hr Q8H IVPB Last administered on 08/23/17 04:11; Admin Dose 83.333 MLS/HR; Start at 04:00 Insulin Glargine 6 unit 6 unit DAILY@20 SC Last administered on 08/22/17 23: 51; Admin Dose 6 UNIT; Start 08/22/17 at 22:30 Norepinephrine (Levophed) 250 ml @ 0 mls/hr ONCE IV Last administered on t 09:59; Admin Dose 3.75 MLS/HR; Start 08/23/17 at 09:30; Stop 08/23/17 at 12:00 Miscellaneous Information (*Rx Drug Level Order Reminder*) VANCOMYCIN TROUGH ON 08/11... ONCE ONCE XX ; Start 08/24/17 at 03:00; Stop 08/24/17 at 03:01 MANUEL KLEIN Aug 23, 2017 11:39
[2017-08-23] MEDS ORDERED: D5W-0.45 NACL + KCL 20 MEQ 1,000 ML IV SCH (12:00)
[2017-08-23] MEDS ORDERED: CALCIUM GLUCONATE 10% 1 GM in DEXTROSE 5% 100 ML IVPB ONE (12:30)
--- NOTE | 2017-08-23 14:33 | CONS ---
Date/Time of Note Date/Time of Note DATE: 08/23/17 TIME: 14:31 Assessment/Plan Assessment/Plan Chief Complaint/Hosp Course - Severe sepsis with septic shock likely d/t PNA+possible influenza - Bilateral multifocal PNA - Possible influenza; vaccine status uncertain yet there has been significant breakthrough this year in particular with H3N2 - Acute hypoxemic respiratory failure with possible ARDS s/p intubation - H/o recurrent SVT - Obesity - BMI 43 Recommendations: - Continue high dose Tamiflu - ContinueZosyn, Levaquin and Fluconazole - Pending:, resp virus panel, crypto, cocci, histo, [id number], procalcitonin - Serial EKG to monitor QT interval (QTc 440 mx on 08/20) - Airborne precautions Problems: Consultation Date/Type/Reason Admit Date/Time Aug 20, 2017 at 02:59 Type of Consultation: id [id number] HR Interval Summary Free Text/Dictation remains on vent. decreased bs Exam/Review of Systems Vital Signs Vitals Vital Signs Date Time Temp Pulse Resp B/P Pulse Ox O2 Delivery O2 Flow Rate FiO2 08/23/17 12:00 98.6 51 102/58 100 Mechanical Ventilator 08/23/17 07:30 24 75 08/20/17 01:12 10.0 Intake and Output 08/22/17 08/22/17 08/23/17 14:59 22:59 06:59 Intake Total 1364.35 ml 1833.024 ml 1578.663 ml Output Total 560 ml 675 ml 555 ml Balance 804.35 ml 1158.024 ml 1023.663 ml Exam Constitutional: alert, oriented, well developed Psych: nl mood/affect, no complaints Head: atraumatic, normocephalic Eyes: EOMI, PERRL, nl conjunctiva, nl lids, nl sclera Respiratory: diminished breath sounds Cardiovascular: nl pulses, regular rate and rhythm Gastrointestinal: nl liver, spleen, non-tender, soft Results Result Diagram: 08/23/17 0400 08/23/17 0400 Results 24 hrs Laboratory Tests Test 08/22/17 18:51 08/22/17 20:04 08/22/17 21:03 08/22/17 23:51 Bedside Glucose 191 182 161 Vancomycin Level Trough 5.1 L Test 08/23/17 01:04 08/23/17 04:00 08/23/17 04:48 08/23/17 07:00 Bedside Glucose 172 183 White Blood Count 12.7 H Red Blood Count 3.28 L Hemoglobin 8.6 L Hematocrit 28.2 L Mean Corpuscular Volume 86.0 Mean Corpuscular Hemoglobin 26.2 L Mean Corpuscular Hemoglobin Concent 30.5 L Red Cell Distribution Width 16.8 H Platelet Count 292 Mean Platelet Volume 9.6 Neutrophils % 79.6 H Lymphocytes % 8.7 L Monocytes % 9.0 Eosinophils % 0.0 Basophils % 0.1 Nucleated Red Blood Cells % 1.1 H Neutrophils # 10.1 H Lymphocytes # 1.1 Monocytes # 1.1 H Eosinophils # 0.0 Basophils # 0.0 Nucleated Red Blood Cells # 0.1 H Sodium Level 150 H Potassium Level 4.4 Chloride Level 114 H Carbon Dioxide Level 31 Anion Gap 9 Blood Urea Nitrogen 14 Creatinine 0.73 Glucose Level 176 Calcium Level 7.0 L Magnesium Level 2.3 Blood Gas Specimen Source Blood arterial Arterial Blood Date Drawn 08/23/2017 8:00:50 AM Arterial Blood pH (Temp corrected) 7.504 H Arterial Blood pCO2 (Temp correct) 28.4 L Arterial Blood pO2 (Temp corrected) 72.8 L Arterial Blood HCO3 21.9 L Arterial Blood Base Excess -0.2 Arterial Blood Oxygen Saturation 95.4 Ezequiel Test ACCEPTAB Arterial Blood Gas Puncture Site Right Radial Arterial Blood Carboxyhemoglobin 0.3 Arterial Blood Methemoglobin 0.3 Blood Gas A-a O2 Differential 431.8 H Oxyhemoglobin Percent 94.8 Total Hemoglobin 12.7 Blood Gas Temperature 37.0 Blood Gas Respiration Rate 24.0 Blood Gas Actual Respiration Rate 24 Blood Gas Modality VENT - AC FiO2 75.0 Blood Gas Tidal Volume 450.0 Blood Gas Low PEEP Setting 15.0 Blood Gas Notified Whom JLD Blood Gas Notified Time 08/23/2017 8:35:38 AM Test 08/23/17 08:44 08/23/17 13:12 Bedside Glucose 165 208 Medications Medications Current Medications Ondansetron HCl (Zofran Inj) 4 mg Q6H PRN IV NAUSEA AND/OR VOMITING; Start 06/27 at 13:00 Acetaminophen (Tylenol Liquid) 650 mg Q6H PRN PO PAIN LEVEL 1-3 OR FEVER Last administered on 08/21/17t 21:23; Admin Dose 650 MG; Start 08/20/17 at 13:00 Morphine Sulfate (morphine) 2 mg Q4H PRN IV PAIN LEVEL 7-10; Start 08/20/17 at 13:00 Methylprednisolone Sodium Succinate 60 mg 60 mg DAILY IV Last administered on 08/23/17 09:50; Admin Dose 60 MG; Start 08/20/17 at 17:00 Midazolam HCl 50 ml @ 1 mls/hr TITRATE IV Last administered on 08/23/17 11:08 ; Admin Dose 5 MLS/HR; Start 08/20/17 at 18:30 Fentanyl 100 ml @ 2.5 mls/hr TITRATE IV Last administered on 08/23/17 06:55 ; Admin Dose 10 MLS/HR; Start 08/20/17 at 18:30 Phenylephrine HCl 40 mg/Dextrose 500 ml @ 75 mls/hr TITRATE IV ; Start at 18:30 Propofol 100 ml @ 3.408 mls/ hr Q12H IV Last administered on 08/23/17 00:57 ; Admin Dose 23.856 MLS/HR; Start 08/20/17 at 20:00 Norepinephrine 16 mg/Dextrose 500 ml @ 1.87 mls/hr TITRATE IV Last administered on 08/22/17 01:12; Admin Dose 7.5 MLS/HR; Start 08/21/17 at 09: 00 Piperacillin Sod/ Tazobactam Sod 50 ml @ 100 mls/hr Q6 IVPB Last administered on 08/23/17 12:01; Admin Dose 100 MLS/HR; Start 08/21/17 at 14:00 Levofloxacin/ Dextrose 150 ml @ 100 mls/hr Q24H IVPB Last administered on 13:12; Admin Dose 100 MLS/HR; Start 08/21/17 at 14:00 Fluconazole (Diflucan 400 Mg/ NS (Pmx)) 200 ml @ 100 mls/hr Q24H IVPB Last administered on 08/22/17 13:12; Admin Dose 100 MLS/HR; Start 08/21/17 at 14: 00 Diagnostic Test (Pha) (Accu-Chek) 1 ea 02 XX ; Start 08/22/17 at 02:00 Insulin Aspart (Novolog Insulin Pen) NOVOLOG *MILD* ALGORI... Q4 SC Last administered on 08/23/17 13:15; Admin Dose 2 UNIT; Start 08/21/17 at 21:00 Miscellaneous Information 1 ea NOTE XX ; Start 08/21/17 at 20:30 Glucose (Glutose) 15 gm Q15M PRN PO DECREASED GLUCOSE; Start 08/21/17 at 20:30 Glucose (Glutose) 22.5 gm Q15M PRN PO DECREASED GLUCOSE; Start 08/21/17 at 20: 30 Dextrose (D50w Syringe) 25 ml Q15M PRN IV DECREASED GLUCOSE; Start 08/21/17 at 20:30 Dextrose (D50w Syringe) 50 ml Q15M PRN IV DECREASED GLUCOSE; Start 08/21/17 at 20:30 Glucagon (Glucagen) 1 mg Q15M PRN IM DECREASED GLUCOSE; Start 08/21/17 at 20: 30 Glucose (Glutose) 15 gm Q15M PRN BUCCAL DECREASED GLUCOSE; Start 08/21/17 at 20:30 Pantoprazole (Protonix Iv) 40 mg DAILY@06 IV Last administered on 08/23/17 06 :00; Admin Dose 40 MG; Start 08/22/17 at 06:00 Oseltamivir Phosphate 150 mg 150 mg BID NGT Last administered on 08/23/17 09: 50; Admin Dose 150 MG; Start 08/21/17 at 21:04 Vancomycin HCl/ Sodium Chloride (Vancocin/NS) 250 ml @ 83.333 mls/ hr Q8H IVPB Last administered on 08/23/17 12:59; Admin Dose 83.333 MLS/HR; Start at 04:00 Insulin Glargine (Lantus) 6 unit DAILY@20 SC Last administered on 08/22/17 23 :51; Admin Dose 6 UNIT; Start 08/22/17 at 22:30 Miscellaneous Information VANCOMYCIN TROUGH ON 08/11... ONCE ONCE XX ; Start at 03:00; Stop 08/24/17 at 03:01 Potassium Chloride/Dextrose/ Sod Cl (D5-1/2ns + KCl 20 Meq) 1,000 ml @ 100 mls/ hr Q10H IV Last administered on 08/23/17 12:00; Admin Dose 100 MLS/HR; Start 08/23/17 at 12:00 ELIO AMOR MD Aug 23, 2017 14:32
[2017-08-23] MEDS: LEVOFLOXACIN 750MG/D5W (PMX) 150 ML IVPB SCH (15:05)
[2017-08-23] MEDS: FLUCONAZOLE 400 MG/NS (PMX) 200 ML IVPB SCH (17:20)
[2017-08-23 17:45] LABS: INFLUENZA VIRUS A/B SOURCE SWAB
[2017-08-23 18:26] LABS: CRYPTOCOCCAL ANTIGEN - SOURCE Serum
[2017-08-23 18:26] LABS: CRYPTOCOCCAL ANTIGEN - SOURCE Serum
[2017-08-23] MEDS: INSULIN GLARGINE [LANtus] 3 ML PEN SC SCH ×2 (20:00→21:17)
[2017-08-23] MEDS ORDERED: DOPamine-D5W 1.6 MG/ML 250 ML IV SCH (21:00)
--- NOTE | 2017-08-23 21:50 | CONS ---
DATE OF ADMISSION: 08/20/2017 DATE OF CONSULTATION: 08/23/2017 CARDIOLOGY CONSULTATION REFERRING PHYSICIAN: Dr. Dennis Hightower REASON FOR EVALUATION: Bradycardia. HISTORY OF PRESENT ILLNESS: Ms. Manley is a 37-year-old who comes to the hospital for evaluation of severe hypoxia and possible ARDS. I have been asked to see the patient in consultation because of bradycardia. I evaluated the patient and it appears that the patient is with sinus bradycardia. Eugene ram is also borderline hypotensive. She has been on Levophed intermittently. Her blood pressure is f airly well maintained. I think at this point, it is reasonable to monitor closely. I would prefere ntially use dopamine as necessary to treat for blood pressure and hypertension but for now, conserva tive therapy is indicated. We will obtain a 2D echo to establish ejection fraction, and I will prov alanis more information as more information about her condition becomes available. PAST MEDICAL HISTORY: Unknown. It appears that patient did have a respiratory illness for which eugene ram was treated with Z-Jason. ALLERGIES: NO KNOWN DRUG ALLERGIES. SOCIAL HISTORY: The patient doesn't smoke, doesn't drink, doesn't use any drugs. FAMILY HISTORY: Unknown. MEDICATIONS: Here, include: 1. Insulin on a sliding scale. 2. Pantoprazole. 3. Vancomycin antibiotics. 4. Levophed as necessary. 5. She is also on propofol for sedation. REVIEW OF SYSTEMS: CONSTITUTIONAL: No fevers, chills or upper respiratory illness. HEENT: No changes in vision or hearing. CARDIAC: No chest pain reported ____. RESPIRATORY: Short of breath, ____ GASTROINTESTINAL: No nausea, vomiting. GENITOURINARY: No dysuria, hematuria. NEUROLOGIC: Unknown. PHYSICAL EXAMINATION: VITAL SIGNS: Currently temperature is 98.6, heart rate is 43, blood pressure ____. GENERAL: She is an obese woman in no acute distress, alert and oriented x0, not aware of her condit ion, sedate. HEENT: Head is normocephalic, atraumatic. Eyes anicteric. She is intubated. HEART: Regular with soft holosystolic murmur. LUNGS: Coarse with wheezing. ABDOMEN: Distended. Bowel sounds are present. There is no hepatosplenomegaly. GENITOURINARY: Intact. EXTREMITIES: Show no clubbing, cyanosis, edema. Her chest x-ray showed diffuse bilateral opacities , suggestive of ARDS. ECG read by me shows sinus rhythm with bradycardia. LABORATORY DATA: White blood cell count 12.7, hemoglobin is 8.6, platelets 292. Her INR is 1.15. Sodium 150, potassium 4.4, glucose is 176, creatinine 0.73. ASSESSMENT AND PLAN: 1. ____ bradycardia. The patient has bradycardic, appears to be a sinus bradycardia, etiology is u nclear, likely a pulmonary process, as well as sedation. Hold off on sedation as much as tolerated. I think preferential use of dopamine would be preferred in the setting of bradycardia and hypotens ion. 2. Respiratory failure. The patient has respiratory failure, possible acute respiratory distress s yndrome, acute on chronic. Dr. Alarcon follows. Continue antibiotics. 3. ____. Continue to treat the patient as indicated. 4. Obesity. We will follow as indicated. 5. Anemia. Hemoglobin is down to 8.6, no obvious signs of bleeding at the moment. I would like to thank Dr. Hightower for referring this patient for my evaluation. Dictated By: YANETH NOLAND MD ML/NTS Conf#: [id number] DID#: [id number] CC: DENNIS HIGHTOWER MD; ILIANA HODGES MD;*EndCC*
[2017-08-24] VITALS (40 sets, daily range): BP systolic 102–122; BP diastolic 56–73; PULSE 38–83; RESP 24–31
[2017-08-24] MEDS: PIPER-TAZO 3.375 GM IV (PMX) 50 ML IVPB SCH ×5 (00:47→23:17)
[2017-08-24] MEDS: INSULIN ASPART [NOVOLOG] 3 ML PEN SC SCH ×6 (00:50→20:23)
[2017-08-24] MEDS: ACCU-CHEK XX SCH (00:56)
[2017-08-24] MEDS: PANTOPRAZOLE 40 MG INJ IV SCH (05:09)
[2017-08-24 05:47] LABS: ABNORMAL IP MESSAGE 1; BASOPHILS % 0.2 % (0.0-2.0); HEMATOCRIT 30.1 % (37.0-47.0); HEMOGLOBIN 9.1 g/dl (12.0-16.0); LYMPHOCYTES # 1.1 10^3/ul (0.8-2.9); MEAN CORPUSCULAR HEMOGLOBIN 25.7 pg (29.0-33.0); MEAN CORPUSCULAR HGB CONC 30.2 g/dl (32.0-37.0); MEAN PLATELET VOLUME 9.7 fl (7.4-10.4); MONOCYTES % 7.6 % (0.0-11.0); NEUTROPHIL # 9.8 10^3/ul (1.6-7.5); NEUTROPHILS % 78.1 % (39.0-77.0); NUCLEATED RED BLOOD CELLS # 0.2 10^3/ul (0.0-0.0); NUCLEATED RED BLOOD CELLS% 1.8 /100WBC (0.0-0.0); PLATELET COUNT 347 10^3/UL (140-415); RED BLOOD COUNT 3.54 10^6/ul (4.20-5.40); RED CELL DISTRIBUTION WIDTH 16.5 % (11.5-14.5); WHITE BLOOD COUNT 12.5 10^3/ul (4.8-10.8)
[2017-08-24 06:17] LABS: CALCIUM 7.7 mg/dl (8.4-10.2); CREATININE 0.68 mg/dl (0.44-1.00); POTASSIUM 4.3 mmol/L (3.5-5.1)
[2017-08-24 06:34] LABS: POSITIVE DIFF @See below
--- NOTE | 2017-08-24 09:25 | CONS ---
Date/Time of Note Date/Time of Note DATE: 08/24/17 TIME: 09:23 Assessment/Plan Assessment/Plan Additional Assessment/Plan 1. Sinus bradycardia - stable HR overall, will monitor for now. Hold off on sedation as much as tolerated. I think preferential use of dopamine would be preferred in the setting of bradycardia and hypotension. 2. Respiratory failure. The patient has respiratory failure, possible acute respiratory distress syndrome, acute on chronic. Dr. Alarcon follows. Continue antibiotics.ARDS likely. 3. Hypotention - Continue to treat the patient as indicated. 4. Obesity. We will follow as indicated. 5. Anemia. Hemoglobin is down to 8.6, no obvious signs of bleeding at the moment. Consultation Date/Type/Reason Admit Date/Time Aug 20, 2017 at 02:59 Initial Consult Date 08/21/17 Type of Consultation: id 24 HR Interval Summary Free Text/Dictation NO acute events - BP in good range - HR reasonable - will monitor now. ROS: No fever, no chills, no nausea, no vomiting, no diarrhea/constipation No recent weight changes No chest pain, no PND, no orthopnea + SOB No dizziness, blurred vision No thirst, no heat or cold intolerance Exam/Review of Systems Vital Signs Vitals Vital Signs Date Time Temp Pulse Resp B/P Pulse Ox O2 Delivery O2 Flow Rate FiO2 08/24/17 08:47 62 27 98 50 08/24/17 08:00 99.2 105/66 Mechanical Ventilator Intake and Output 08/23/17 08/23/17 08/24/17 15:00 23:00 07:00 Intake Total 972.354 ml 891.816 ml 1010 ml Output Total 650 ml 675 ml 495 ml Balance 322.354 ml 216.816 ml 515 ml Exam General: WN/WD/NAD, AOx 0 HEENT: Unicetric/atraumatic/EOMI (does not follow commands) NECK: JVD elevated, no thyromegaly, intub Lymph: no lymphadenopathy HEART: regular with no S3, II/ systolic murmur at apex LUNGS: Coarse sounds ABD: soft, NT, ND, +BS : Intact Neuro: non focal SKIN: chronic changes EXT: trace edema Results Result Diagram: 08/24/17 0400 08/24/17 0400 Results 24 hrs Laboratory Tests Test 08/23/17 13:12 08/23/17 17:16 08/23/17 20:02 08/23/17 21:16 Bedside Glucose 208 258 H 210 224 H Test 08/24/17 00:49 08/24/17 04:00 08/24/17 05:12 08/24/17 07:50 Bedside Glucose 183 203 White Blood Count 12.5 H Red Blood Count 3.54 L Hemoglobin 9.1 L Hematocrit 30.1 L Mean Corpuscular Volume 85.0 Mean Corpuscular Hemoglobin 25.7 L Mean Corpuscular Hemoglobin Concent 30.2 L Red Cell Distribution Width 16.5 H Platelet Count 347 Mean Platelet Volume 9.7 Neutrophils % 78.1 H Lymphocytes % 9.0 L Monocytes % 7.6 Eosinophils % 0.0 Basophils % 0.2 Nucleated Red Blood Cells % 1.8 H Neutrophils # 9.8 H Lymphocytes # 1.1 Monocytes # 1.0 H Eosinophils # 0.0 Basophils # 0.0 Nucleated Red Blood Cells # 0.2 H Sodium Level 150 H Potassium Level 4.3 Chloride Level 114 H Carbon Dioxide Level 31 Anion Gap 9 Blood Urea Nitrogen 18 Creatinine 0.68 Glucose Level 184 Calcium Level 7.7 L Lab Scanned Report REFERENCE LAB Medications Medications Current Medications Ondansetron HCl (Zofran Inj) 4 mg Q6H PRN IV NAUSEA AND/OR VOMITING; Start 06/27 at 13:00 Acetaminophen (Tylenol Liquid) 650 mg Q6H PRN PO PAIN LEVEL 1-3 OR FEVER Last administered on 08/21/17 21:23; Admin Dose 650 MG; Start 08/20/17 at 13:00 Morphine Sulfate (morphine) 2 mg Q4H PRN IV PAIN LEVEL 7-10; Start 08/20/17 at 13:00 Methylprednisolone Sodium Succinate 60 mg 60 mg DAILY IV Last administered on 08/23/17 09:50; Admin Dose 60 MG; Start 08/20/17 at 17:00 Midazolam HCl 50 ml @ 1 mls/hr TITRATE IV Last administered on 08/23/17 11:08 ; Admin Dose 5 MLS/HR; Start 08/20/17 at 18:30 Fentanyl 100 ml @ 2.5 mls/hr TITRATE IV Last administered on 08/23/17 06:55 ; Admin Dose 10 MLS/HR; Start 08/20/17 at 18:30 Phenylephrine HCl 40 mg/Dextrose 500 ml @ 75 mls/hr TITRATE IV ; Start at 18:30 Propofol 100 ml @ 3.408 mls/ hr Q12H IV Last administered on 08/23/17 20:01 ; Admin Dose 3.408 MLS/HR; Start 08/20/17 at 20:00 Norepinephrine 16 mg/Dextrose 500 ml @ 1.87 mls/hr TITRATE IV Last administered on 08/22/17 01:12; Admin Dose 7.5 MLS/HR; Start 08/21/17 at 09: 00 Piperacillin Sod/ Tazobactam Sod 50 ml @ 100 mls/hr Q6 IVPB Last administered on 08/24/17 05:36; Admin Dose 100 MLS/HR; Start 08/21/17 at 14:00 Levofloxacin/ Dextrose 150 ml @ 100 mls/hr Q24H IVPB Last administered on 15:05; Admin Dose 100 MLS/HR; Start 08/21/17 at 14:00 Fluconazole (Diflucan 400 Mg/ NS (Pmx)) 200 ml @ 100 mls/hr Q24H IVPB Last administered on 08/23/17 17:20; Admin Dose 100 MLS/HR; Start 08/21/17 at 14: 00 Diagnostic Test (Pha) (Accu-Chek) 1 ea 02 XX ; Start 08/22/17 at 02:00 Insulin Aspart (Novolog Insulin Pen) NOVOLOG *MILD* ALGORI... Q4 SC Last administered on 08/24/17 05:16; Admin Dose 2 UNIT; Start 08/21/17 at 21:00 Miscellaneous Information 1 ea NOTE XX ; Start 08/21/17 at 20:30 Glucose (Glutose) 15 gm Q15M PRN PO DECREASED GLUCOSE; Start 08/21/17 at 20:30 Glucose (Glutose) 22.5 gm Q15M PRN PO DECREASED GLUCOSE; Start 08/21/17 at 20: 30 Dextrose (D50w Syringe) 25 ml Q15M PRN IV DECREASED GLUCOSE; Start 08/21/17 at 20:30 Dextrose (D50w Syringe) 50 ml Q15M PRN IV DECREASED GLUCOSE; Start 08/21/17 at 20:30 Glucagon (Glucagen) 1 mg Q15M PRN IM DECREASED GLUCOSE; Start 08/21/17 at 20: 30 Glucose (Glutose) 15 gm Q15M PRN BUCCAL DECREASED GLUCOSE; Start 08/21/17 at 20:30 Pantoprazole (Protonix Iv) 40 mg DAILY@06 IV Last administered on 08/24/17 05 :09; Admin Dose 40 MG; Start 08/22/17 at 06:00 Oseltamivir Phosphate (Tamiflu) 150 mg BID NGT Last administered on 08/23/17 21:13; Admin Dose 150 MG; Start 08/21/17 at 21:04 Insulin Glargine 10 unit 10 unit DAILY@20 SC Last administered on 08/23/17 21 :17; Admin Dose 10 UNIT; Start 08/23/17 at 21:00 Sodium Chloride 1,000 ml @ 60 mls/hr [id number] IV Last administered on 21:13; Admin Dose 60 MLS/HR; Start 08/23/17 at 21:00 Dopamine HCl/ Dextrose 250 ml @ 8.52 mls/hr TITRATE IV ; Start 08/23/17 at 21: 00 YANETH NOLAND MD Aug 24, 2017 09:25
[2017-08-24] MEDS: OSELTAMIVIR 75 MG CAP NGT SCH (09:47)
[2017-08-24] MEDS: METHYLPREDNISOLONE 125 MG INJ IV SCH (09:48)
--- NOTE | 2017-08-24 10:50 | CONS ---
Date/Time of Note Date/Time of Note DATE: 08/24/17 TIME: 10:44 Assessment/Plan Assessment/Plan Chief Complaint/Hosp Course - Severe sepsis with septic shock likely d/t PNA +/- possible influenza; s/p pressors - Bilateral multifocal PNA - Possible influenza; vaccine status uncertain yet there has been significant breakthrough this year in particular with H3N2 - Acute hypoxemic respiratory failure with possible ARDS s/p intubation - Sinus bradycardia - Hypernatremia - T2DM, newly diagnosed - Hgb A1c 6.7% - Anemia - Subclinical hyperthyroidism - Hepatic steatosis on CT - H/o SVT - Obesity - BMI 43 Recommendations: - Continue high dose Tamiflu (08/21/2017-) - Continue Zosyn, Levaquin and Fluconazole (08/21/2017-) - Resend resp virus panel with deep nasopharynx sample - Check viral cx, fungal cx, urine for legionella, PCP DFA - Pending: cocci, histo, [id number], procalcitonin - Serial EKG to monitor QT interval (QTc 440 mx on 08/20) - ordered for AM - Continue droplet precautions Management d/w NASIMA Gill and Dr. Mcgowan Critical Care time spent: 80 min including multiple d/w Dr. Mcgowan and extensive chart review Problems: Consultation Date/Type/Reason Admit Date/Time Aug 20, 2017 at 02:59 Initial Consult Date 08/21/17 Type of Consultation: Infectious Disease 24 HR Interval Summary Free Text/Dictation Tmax 99.8; Pt bradycardic in the 40's; required short term pressors yesterday. Desaturated earlier this AM; has copious oral secretions. Resp virus panel negative. Off sedation and opened her eyes one time otherwise minimally responsive per d/ w nursing. Unable to perform ROS d/t encephalopathy. Subjective hx not possible: pt non-verbal Exam/Review of Systems Vital Signs Vitals Vital Signs Date Time Temp Pulse Resp B/P Pulse Ox O2 Delivery O2 Flow Rate FiO2 08/24/17 08:47 62 27 98 50 08/24/17 08:00 99.2 105/66 Mechanical Ventilator Intake and Output 08/23/17 08/23/17 08/24/17 15:00 23:00 07:00 Intake Total 972.354 ml 891.816 ml 1010 ml Output Total 650 ml 675 ml 495 ml Balance 322.354 ml 216.816 ml 515 ml Exam Constitutional: obese, other (intubated), well developed Head: atraumatic, normocephalic Eyes: nl sclera ENMT: intubated Respiratory: diminished breath sounds Cardiovascular: nl pulses, regular rate and rhythm Gastrointestinal: other (NGT in place), soft (obese) Genitourinary - Female: other (Bourgeois catheter present) Musculoskeletal: nl extremities to inspection Extremities: normal pulses, edema (trace) No clubbing, No cyanosis Neurological: other (sedated) Skin: nl turgor, No rash or lesions Results Result Diagram: 08/24/17 0400 08/24/17 0400 Results 24 hrs Laboratory Tests Test 08/23/17 13:12 08/23/17 17:16 08/23/17 20:02 08/23/17 21:16 Bedside Glucose 208 258 H 210 224 H Test 08/24/17 00:49 08/24/17 04:00 08/24/17 05:12 08/24/17 07:50 Bedside Glucose 183 203 White Blood Count 12.5 H Red Blood Count 3.54 L Hemoglobin 9.1 L Hematocrit 30.1 L Mean Corpuscular Volume 85.0 Mean Corpuscular Hemoglobin 25.7 L Mean Corpuscular Hemoglobin Concent 30.2 L Red Cell Distribution Width 16.5 H Platelet Count 347 Mean Platelet Volume 9.7 Neutrophils % 78.1 H Lymphocytes % 9.0 L Monocytes % 7.6 Eosinophils % 0.0 Basophils % 0.2 Nucleated Red Blood Cells % 1.8 H Neutrophils # 9.8 H Lymphocytes # 1.1 Monocytes # 1.0 H Eosinophils # 0.0 Basophils # 0.0 Nucleated Red Blood Cells # 0.2 H Sodium Level 150 H Potassium Level 4.3 Chloride Level 114 H Carbon Dioxide Level 31 Anion Gap 9 Blood Urea Nitrogen 18 Creatinine 0.68 Glucose Level 184 Calcium Level 7.7 L Lab Scanned Report REFERENCE LAB Test 08/24/17 09:48 Bedside Glucose 197 Medications Medications Current Medications Ondansetron HCl (Zofran Inj) 4 mg Q6H PRN IV NAUSEA AND/OR VOMITING; Start 06/27 at 13:00 Acetaminophen (Tylenol Liquid) 650 mg Q6H PRN PO PAIN LEVEL 1-3 OR FEVER Last administered on 08/21/17t 21:23; Admin Dose 650 MG; Start 08/20/17 at 13:00 Morphine Sulfate (morphine) 2 mg Q4H PRN IV PAIN LEVEL 7-10; Start 08/20/17 at 13:00 Methylprednisolone Sodium Succinate 60 mg 60 mg DAILY IV Last administered on 08/24/17 09:48; Admin Dose 60 MG; Start 08/20/17 at 17:00 Midazolam HCl 50 ml @ 1 mls/hr TITRATE IV Last administered on 08/23/17 11:08 ; Admin Dose 5 MLS/HR; Start 08/20/17 at 18:30 Fentanyl 100 ml @ 2.5 mls/hr TITRATE IV Last administered on 08/23/17 06:55 ; Admin Dose 10 MLS/HR; Start 08/20/17 at 18:30 Phenylephrine HCl 40 mg/Dextrose 500 ml @ 75 mls/hr TITRATE IV ; Start at 18:30 Propofol 100 ml @ 3.408 mls/ hr Q12H IV Last administered on 08/23/17 20:01 ; Admin Dose 3.408 MLS/HR; Start 08/20/17 at 20:00 Norepinephrine 16 mg/Dextrose 500 ml @ 1.87 mls/hr TITRATE IV Last administered on 08/22/17 01:12; Admin Dose 7.5 MLS/HR; Start 08/21/17 at 09: 00 Piperacillin Sod/ Tazobactam Sod 50 ml @ 100 mls/hr Q6 IVPB Last administered on 08/24/17 05:36; Admin Dose 100 MLS/HR; Start 08/21/17 at 14:00 Levofloxacin/ Dextrose 150 ml @ 100 mls/hr Q24H IVPB Last administered on 15:05; Admin Dose 100 MLS/HR; Start 08/21/17 at 14:00 Fluconazole (Diflucan 400 Mg/ NS (Pmx)) 200 ml @ 100 mls/hr Q24H IVPB Last administered on 08/23/17 17:20; Admin Dose 100 MLS/HR; Start 08/21/17 at 14: 00 Diagnostic Test (Pha) (Accu-Chek) 1 ea 02 XX ; Start 08/22/17 at 02:00 Insulin Aspart (Novolog Insulin Pen) NOVOLOG *MILD* ALGORI... Q4 SC Last administered on 08/24/17 09:59; Admin Dose 2 UNIT; Start 08/21/17 at 21:00 Miscellaneous Information 1 ea NOTE XX ; Start 08/21/17 at 20:30 Glucose (Glutose) 15 gm Q15M PRN PO DECREASED GLUCOSE; Start 08/21/17 at 20:30 Glucose (Glutose) 22.5 gm Q15M PRN PO DECREASED GLUCOSE; Start 08/21/17 at 20: 30 Dextrose (D50w Syringe) 25 ml Q15M PRN IV DECREASED GLUCOSE; Start 08/21/17 at 20:30 Dextrose (D50w Syringe) 50 ml Q15M PRN IV DECREASED GLUCOSE; Start 08/21/17 at 20:30 Glucagon (Glucagen) 1 mg Q15M PRN IM DECREASED GLUCOSE; Start 08/21/17 at 20: 30 Glucose (Glutose) 15 gm Q15M PRN BUCCAL DECREASED GLUCOSE; Start 08/21/17 at 20:30 Pantoprazole (Protonix Iv) 40 mg DAILY@06 IV Last administered on 08/24/17 05 :09; Admin Dose 40 MG; Start 08/22/17 at 06:00 Oseltamivir Phosphate (Tamiflu) 150 mg BID NGT Last administered on 08/24/17 09:47; Admin Dose 150 MG; Start 08/21/17 at 21:04 Insulin Glargine 10 unit 10 unit DAILY@20 SC Last administered on 08/23/17 21 :17; Admin Dose 10 UNIT; Start 08/23/17 at 21:00 Sodium Chloride 1,000 ml @ 60 mls/hr [id number] IV Last administered on 21:13; Admin Dose 60 MLS/HR; Start 08/23/17 at 21:00 Dopamine HCl/ Dextrose 250 ml @ 8.52 mls/hr TITRATE IV ; Start 08/23/17 at 21: 00 CINTHYA JUNG NP Aug 24, 2017 10:50
--- NOTE | 2017-08-24 10:56 | CONS ---
Date/Time of Note Date/Time of Note DATE: 08/24/17 TIME: 10:55 Consult Date/Type/Reason Admit Date/Time Aug 20, 2017 at 02:59 Initial Consult Date 08/21/17 Type of Consultation: Pulmonary Subjective Desaturation this morning. Neurologically unchanged. Was improving prior to this morning's event. Objective Vital Signs Date Time Temp Pulse Resp B/P Pulse Ox O2 Delivery O2 Flow Rate FiO2 08/24/17 08:47 62 27 98 50 08/24/17 08:00 99.2 105/66 Mechanical Ventilator Intake and Output 08/23/17 08/23/17 08/24/17 15:00 23:00 07:00 Intake Total 972.354 ml 891.816 ml 1010 ml Output Total 650 ml 675 ml 495 ml Balance 322.354 ml 216.816 ml 515 ml Exam PHYSICAL EXAMINATION: GENERAL: Moderately obese young lady, orally intubated on mechanical ventilation, appears comfortable at rest, no acute distress. VITAL SIGNS: FiO2 of 50% PEEP of 15 CHEST: Decreased air entry bilaterally. ABDOMEN: Mildly distended but soft. EXTREMITIES: No cyanosis, clubbing, 1+ edema. NEUROLOGIC: Generalized weakness. Results/Medications Result Diagram: 08/24/17 0400 08/24/17 0400 Results 24 hrs Laboratory Tests Test 08/23/17 13:12 08/23/17 17:16 08/23/17 20:02 08/23/17 21:16 Bedside Glucose 208 258 H 210 224 H Test 08/24/17 00:49 08/24/17 04:00 08/24/17 05:12 08/24/17 07:50 Bedside Glucose 183 203 White Blood Count 12.5 H Red Blood Count 3.54 L Hemoglobin 9.1 L Hematocrit 30.1 L Mean Corpuscular Volume 85.0 Mean Corpuscular Hemoglobin 25.7 L Mean Corpuscular Hemoglobin Concent 30.2 L Red Cell Distribution Width 16.5 H Platelet Count 347 Mean Platelet Volume 9.7 Neutrophils % 78.1 H Lymphocytes % 9.0 L Monocytes % 7.6 Eosinophils % 0.0 Basophils % 0.2 Nucleated Red Blood Cells % 1.8 H Neutrophils # 9.8 H Lymphocytes # 1.1 Monocytes # 1.0 H Eosinophils # 0.0 Basophils # 0.0 Nucleated Red Blood Cells # 0.2 H Sodium Level 150 H Potassium Level 4.3 Chloride Level 114 H Carbon Dioxide Level 31 Anion Gap 9 Blood Urea Nitrogen 18 Creatinine 0.68 Glucose Level 184 Calcium Level 7.7 L Lab Scanned Report REFERENCE LAB Test 08/24/17 09:48 Bedside Glucose 197 Medications Current Medications Ondansetron HCl (Zofran Inj) 4 mg Q6H PRN IV NAUSEA AND/OR VOMITING; Start 06/27 at 13:00 Acetaminophen (Tylenol Liquid) 650 mg Q6H PRN PO PAIN LEVEL 1-3 OR FEVER Last administered on 08/21/17 21:23; Admin Dose 650 MG; Start 08/20/17 at 13:00 Morphine Sulfate (morphine) 2 mg Q4H PRN IV PAIN LEVEL 7-10; Start 08/20/17 at 13:00 Methylprednisolone Sodium Succinate 60 mg 60 mg DAILY IV Last administered on 08/24/17 09:48; Admin Dose 60 MG; Start 08/20/17 at 17:00 Midazolam HCl 50 ml @ 1 mls/hr TITRATE IV Last administered on 08/23/17 11:08 ; Admin Dose 5 MLS/HR; Start 08/20/17 at 18:30 Fentanyl 100 ml @ 2.5 mls/hr TITRATE IV Last administered on 08/23/17 06:55 ; Admin Dose 10 MLS/HR; Start 08/20/17 at 18:30 Phenylephrine HCl 40 mg/Dextrose 500 ml @ 75 mls/hr TITRATE IV ; Start at 18:30 Propofol 100 ml @ 3.408 mls/ hr Q12H IV Last administered on 08/23/17 20:01 ; Admin Dose 3.408 MLS/HR; Start 08/20/17 at 20:00 Norepinephrine 16 mg/Dextrose 500 ml @ 1.87 mls/hr TITRATE IV Last administered on 08/22/17 01:12; Admin Dose 7.5 MLS/HR; Start 08/21/17 at 09: 00 Piperacillin Sod/ Tazobactam Sod 50 ml @ 100 mls/hr Q6 IVPB Last administered on 08/24/17 05:36; Admin Dose 100 MLS/HR; Start 08/21/17 at 14:00 Levofloxacin/ Dextrose 150 ml @ 100 mls/hr Q24H IVPB Last administered on 15:05; Admin Dose 100 MLS/HR; Start 08/21/17 at 14:00 Fluconazole (Diflucan 400 Mg/ NS (Pmx)) 200 ml @ 100 mls/hr Q24H IVPB Last administered on 08/23/17 17:20; Admin Dose 100 MLS/HR; Start 08/21/17 at 14: 00 Diagnostic Test (Pha) (Accu-Chek) 1 ea 02 XX ; Start 08/22/17 at 02:00 Insulin Aspart (Novolog Insulin Pen) NOVOLOG *MILD* ALGORI... Q4 SC Last administered on 08/24/17 09:59; Admin Dose 2 UNIT; Start 08/21/17 at 21:00 Miscellaneous Information 1 ea NOTE XX ; Start 08/21/17 at 20:30 Glucose (Glutose) 15 gm Q15M PRN PO DECREASED GLUCOSE; Start 08/21/17 at 20:30 Glucose (Glutose) 22.5 gm Q15M PRN PO DECREASED GLUCOSE; Start 08/21/17 at 20: 30 Dextrose (D50w Syringe) 25 ml Q15M PRN IV DECREASED GLUCOSE; Start 08/21/17 at 20:30 Dextrose (D50w Syringe) 50 ml Q15M PRN IV DECREASED GLUCOSE; Start 08/21/17 at 20:30 Glucagon (Glucagen) 1 mg Q15M PRN IM DECREASED GLUCOSE; Start 08/21/17 at 20: 30 Glucose (Glutose) 15 gm Q15M PRN BUCCAL DECREASED GLUCOSE; Start 08/21/17 at 20:30 Pantoprazole (Protonix Iv) 40 mg DAILY@06 IV Last administered on 08/24/17 05 :09; Admin Dose 40 MG; Start 08/22/17 at 06:00 Oseltamivir Phosphate (Tamiflu) 150 mg BID NGT Last administered on 08/24/17 09:47; Admin Dose 150 MG; Start 08/21/17 at 21:04 Insulin Glargine 10 unit 10 unit DAILY@20 SC Last administered on 08/23/17 21 :17; Admin Dose 10 UNIT; Start 08/23/17 at 21:00 Sodium Chloride 1,000 ml @ 60 mls/hr [id number] IV Last administered on 21:13; Admin Dose 60 MLS/HR; Start 08/23/17 at 21:00 Dopamine HCl/ Dextrose 250 ml @ 8.52 mls/hr TITRATE IV ; Start 08/23/17 at 21: 00 Assessment/Plan Chief Complaint/Hosp Course Assessment 1. Hypoxemic respiratory failure consistent with adult respiratory distress syndrome. 2. Possible acute influenza infection. 3. Continue broad-spectrum antibiotics. 4. Mechanical ventilation with adult respiratory distress syndrome protocol Plan 1. Continue mechanical ventilation decrease FiO2 and PEEP as tolerated 2. Continue ID recommendations 3. Tube feeding if tolerated 4. DVT and GI prophylaxis 5. Increase free water for hypernatremia Overall prognosis guarded. Critical care time 40 minutes. Problems: SVITLANA LOZANO MD, [facility] Aug 24, 2017 10:56
--- NOTE | 2017-08-24 12:07 | PN ---
Date/Time of Note Date/Time of Note DATE: 08/24/17 TIME: 12:00 Assessment/Plan VTE Prophylaxis VTE Prophylaxis Intervention: SCD's Lines/Catheters IV Catheter Type (from Nrs): Central Line Central line still needed: Yes Urinary Cath still in place: Yes Reason Cath still needed: urinary retention Assessment/Plan Chief Complaint/Hosp Course Patient is off sedation, off pressors, remains obtunded, continues on ventilatory support, low-grade fever. Assessment/Plan -Severe Hypoxemic Respiratory Failure concerning for ARDS, continue ventilatory support, breathing treatments, steroids. Dr. Alarcon is following in pulmonology consultation. -Acute multifocal pneumonia, continue broad-spectrum antibiotics, Tamiflu. Dr. Mcgowan is following in infection disease consultation. -Sepsis with shock secondary to pneumonia, continue IV fluids, ICU care. -Diabetes mellitus with hemoglobin A1c 6.9. Continue NovoLog per sliding scale with Accu-Chek every 4 hours. -Bradycardia, Dr. Whalen is following in cardiology consultation -Preserved ejection fraction of 50% -Obesity with BMI of 43 -Hepatic steatosis Further recommendations based on clinical course. Plan of care discussed with Dr. Gomez. Problems: Exam/Review of Systems Vital Signs Vitals Vital Signs Date Time Temp Pulse Resp B/P Pulse Ox O2 Delivery O2 Flow Rate FiO2 08/24/17 11:00 67 29 95 50 08/24/17 08:00 99.2 105/66 Mechanical Ventilator Intake and Output 08/23/17 08/23/17 08/24/17 15:00 23:00 07:00 Intake Total 972.354 ml 891.816 ml 1010 ml Output Total 650 ml 675 ml 495 ml Balance 322.354 ml 216.816 ml 515 ml Exam Constitutional: obese Respiratory: diminished breath sounds Cardiovascular: nl pulses, regular rate and rhythm Gastrointestinal: non-tender, soft Musculoskeletal: nl extremities to inspection Extremities: normal pulses Neurological: other (Sedated) Results Result Diagram: 08/24/17 0400 08/24/17 0400 Results 24 hrs Laboratory Tests Test 08/23/17 13:12 08/23/17 17:16 08/23/17 20:02 08/23/17 21:16 Bedside Glucose 208 258 H 210 224 H Test 08/24/17 00:49 08/24/17 04:00 08/24/17 05:12 08/24/17 07:50 Bedside Glucose 183 203 White Blood Count 12.5 H Red Blood Count 3.54 L Hemoglobin 9.1 L Hematocrit 30.1 L Mean Corpuscular Volume 85.0 Mean Corpuscular Hemoglobin 25.7 L Mean Corpuscular Hemoglobin Concent 30.2 L Red Cell Distribution Width 16.5 H Platelet Count 347 Mean Platelet Volume 9.7 Neutrophils % 78.1 H Lymphocytes % 9.0 L Monocytes % 7.6 Eosinophils % 0.0 Basophils % 0.2 Nucleated Red Blood Cells % 1.8 H Neutrophils # 9.8 H Lymphocytes # 1.1 Monocytes # 1.0 H Eosinophils # 0.0 Basophils # 0.0 Nucleated Red Blood Cells # 0.2 H Sodium Level 150 H Potassium Level 4.3 Chloride Level 114 H Carbon Dioxide Level 31 Anion Gap 9 Blood Urea Nitrogen 18 Creatinine 0.68 Glucose Level 184 Calcium Level 7.7 L Lab Scanned Report REFERENCE LAB Test 08/24/17 09:48 Bedside Glucose 197 Medications Medications Current Medications Ondansetron HCl (Zofran Inj) 4 mg Q6H PRN IV NAUSEA AND/OR VOMITING; Start 06/27 at 13:00 Acetaminophen (Tylenol Liquid) 650 mg Q6H PRN PO PAIN LEVEL 1-3 OR FEVER Last administered on 08/21/17 21:23; Admin Dose 650 MG; Start 08/20/17 at 13:00 Morphine Sulfate (morphine) 2 mg Q4H PRN IV PAIN LEVEL 7-10; Start 08/20/17 at 13:00 Methylprednisolone Sodium Succinate 60 mg 60 mg DAILY IV Last administered on 08/24/17 09:48; Admin Dose 60 MG; Start 08/20/17 at 17:00 Midazolam HCl 50 ml @ 1 mls/hr TITRATE IV Last administered on 08/23/17 11:08 ; Admin Dose 5 MLS/HR; Start 08/20/17 at 18:30 Fentanyl 100 ml @ 2.5 mls/hr TITRATE IV Last administered on 08/23/17 06:55 ; Admin Dose 10 MLS/HR; Start 08/20/17 at 18:30 Phenylephrine HCl 40 mg/Dextrose 500 ml @ 75 mls/hr TITRATE IV ; Start at 18:30 Propofol 100 ml @ 3.408 mls/ hr Q12H IV Last administered on 08/23/17 20:01 ; Admin Dose 3.408 MLS/HR; Start 08/20/17 at 20:00 Norepinephrine 16 mg/Dextrose 500 ml @ 1.87 mls/hr TITRATE IV Last administered on 08/22/17 01:12; Admin Dose 7.5 MLS/HR; Start 08/21/17 at 09: 00 Piperacillin Sod/ Tazobactam Sod 50 ml @ 100 mls/hr Q6 IVPB Last administered on 08/24/17 05:36; Admin Dose 100 MLS/HR; Start 08/21/17 at 14:00 Levofloxacin/ Dextrose 150 ml @ 100 mls/hr Q24H IVPB Last administered on 15:05; Admin Dose 100 MLS/HR; Start 08/21/17 at 14:00 Fluconazole (Diflucan 400 Mg/ NS (Pmx)) 200 ml @ 100 mls/hr Q24H IVPB Last administered on 08/23/17 17:20; Admin Dose 100 MLS/HR; Start 08/21/17 at 14: 00 Diagnostic Test (Pha) (Accu-Chek) 1 ea 02 XX ; Start 08/22/17 at 02:00 Insulin Aspart (Novolog Insulin Pen) NOVOLOG *MILD* ALGORI... Q4 SC Last administered on 08/24/17 09:59; Admin Dose 2 UNIT; Start 08/21/17 at 21:00 Miscellaneous Information 1 ea NOTE XX ; Start 08/21/17 at 20:30 Glucose (Glutose) 15 gm Q15M PRN PO DECREASED GLUCOSE; Start 08/21/17 at 20:30 Glucose (Glutose) 22.5 gm Q15M PRN PO DECREASED GLUCOSE; Start 08/21/17 at 20: 30 Dextrose (D50w Syringe) 25 ml Q15M PRN IV DECREASED GLUCOSE; Start 08/21/17 at 20:30 Dextrose (D50w Syringe) 50 ml Q15M PRN IV DECREASED GLUCOSE; Start 08/21/17 at 20:30 Glucagon (Glucagen) 1 mg Q15M PRN IM DECREASED GLUCOSE; Start 08/21/17 at 20: 30 Glucose (Glutose) 15 gm Q15M PRN BUCCAL DECREASED GLUCOSE; Start 08/21/17 at 20:30 Pantoprazole (Protonix Iv) 40 mg DAILY@06 IV Last administered on 08/24/17 05 :09; Admin Dose 40 MG; Start 08/22/17 at 06:00 Oseltamivir Phosphate (Tamiflu) 150 mg BID NGT Last administered on 08/24/17 09:47; Admin Dose 150 MG; Start 08/21/17 at 21:04 Insulin Glargine 10 unit 10 unit DAILY@20 SC Last administered on 08/23/17 21 :17; Admin Dose 10 UNIT; Start 08/23/17 at 21:00 Sodium Chloride 1,000 ml @ 60 mls/hr [id number] IV Last administered on 21:13; Admin Dose 60 MLS/HR; Start 08/23/17 at 21:00 Dopamine HCl/ Dextrose 250 ml @ 8.52 mls/hr TITRATE IV ; Start 08/23/17 at 21: 00 MANUEL KLEIN Aug 24, 2017 12:07
[2017-08-24 12:14] LABS: Allen Test ACCEPTAB; Arterial Base Excess 4.3 mmol/L (-3.0-3); Arterial COHb 0.3 % (0.0-3.0); Arterial Fraction of Oxyhgb 93.7 % (93.0-99.0); Arterial HCO3 29.1 mmol/L (22.0-26.0); Arterial MetHb 0 % (0.0-1.5); Arterial Total Hemglobin 10.1 g/dl (12.0-18.0); MODE VENT - AC
[2017-08-24] MEDS: SOD CHLORIDE 0.9% 1,000 ML IV SCH (13:03)
[2017-08-24] MEDS: FLUCONAZOLE 400 MG/NS (PMX) 200 ML IVPB SCH (13:04)
--- NOTE | 2017-08-24 16:51 | RADRPT ---
PROCEDURE: XR Chest. CLINICAL INDICATION: Pneumonia, CHF. TECHNIQUE: Single frontal view of the chest was obtained. COMPARISON: 08/23/2017. FINDINGS: Endotracheal tube, enteric tube, and right internal jugular central venous catheter appears stable i n position. The cardiomediastinal silhouette demonstrates enlargement of the cardiac silhouette. There are aorti c calcifications. No significant change in diffuse bilateral interstitial/airspace opacities. No pleural effusion is seen. No definite pneumothorax. No acute osseous abnormality. IMPRESSION: 1. No significant change in diffuse bilateral interstitial/airspace opacities. 2. Stable support lines and tubes. RPTAT: AAEE Kavya Matias Physician Date Time Electronically viewed and signed by Kavya Matias Physician on 08/24/2017 08:39 PH/
[2017-08-24] MEDS: LEVOFLOXACIN 750MG/D5W (PMX) 150 ML IVPB SCH (17:20)
[2017-08-24] MEDS: PROPOFOL 100 ML IV SCH (20:00)
[2017-08-24] MEDS: OSELTAMIVIR 75 MG CAP PO SCH (20:11)
[2017-08-24] MEDS: ACETAMINOPHEN 650MG/20.3ML CUP PO PRN (20:17)
[2017-08-24] MEDS: INSULIN GLARGINE [LANtus] 3 ML PEN SC SCH (20:23)
[2017-08-25] VITALS (51 sets, daily range): BP systolic 100–127; BP diastolic 54–101; PULSE 44–89; RESP 24–38
[2017-08-25] MEDS: INSULIN ASPART [NOVOLOG] 3 ML PEN SC SCH ×6 (00:47→21:15)
[2017-08-25] MEDS: ACCU-CHEK XX SCH (02:00)
[2017-08-25] MEDS: SOD CHLORIDE 0.9% 1,000 ML IV SCH ×2 (04:49→23:03)
[2017-08-25] MEDS: PANTOPRAZOLE 40 MG INJ IV SCH (05:18)
[2017-08-25] MEDS: PIPER-TAZO 3.375 GM IV (PMX) 50 ML IVPB SCH ×4 (05:18→23:55)
[2017-08-25 06:03] LABS: CALCIUM 7.5 mg/dl (8.4-10.2); CREATININE 0.63 mg/dl (0.44-1.00); POTASSIUM 3.7 mmol/L (3.5-5.1)
[2017-08-25 06:33] LABS: ABNORMAL IP MESSAGE 1; BASOPHILS % 0.1 % (0.0-2.0); HEMATOCRIT 27.7 % (37.0-47.0); HEMOGLOBIN 8.5 g/dl (12.0-16.0); LYMPHOCYTES # 1.4 10^3/ul (0.8-2.9); LYMPHOCYTES % 12.5 % (15.0-51.0); MEAN CORPUSCULAR HEMOGLOBIN 26.2 pg (29.0-33.0); MEAN CORPUSCULAR HGB CONC 30.7 g/dl (32.0-37.0); MEAN CORPUSCULAR VOLUME 85.2 fl (82.0-101.0); MEAN PLATELET VOLUME 9.9 fl (7.4-10.4); MONOCYTE # 1.1 10^3/ul (0.3-0.9); MONOCYTES % 9.5 % (0.0-11.0); NEUTROPHIL # 8.3 10^3/ul (1.6-7.5); NEUTROPHILS % 72.1 % (39.0-77.0); NUCLEATED RED BLOOD CELLS # 0.3 10^3/ul (0.0-0.0); NUCLEATED RED BLOOD CELLS% 2.9 /100WBC (0.0-0.0); PLATELET COUNT 359 10^3/UL (140-415); RED BLOOD COUNT 3.25 10^6/ul (4.20-5.40); RED CELL DISTRIBUTION WIDTH 16.4 % (11.5-14.5); WHITE BLOOD COUNT 11.5 10^3/ul (4.8-10.8)
[2017-08-25 06:51] LABS: POSITIVE DIFF @See below
[2017-08-25] MEDS: PROPOFOL 100 ML IV SCH (08:00)
--- NOTE | 2017-08-25 08:40 | RADRPT ---
PROCEDURE: XR Chest. CLINICAL INDICATION: Pneumonia . TECHNIQUE: Single frontal chest x-ray. COMPARISON: 08/24/2017 FINDINGS: Endotracheal tube, nasogastric tube, right-sided central venous catheter in place unchanged. . There are low lung volumes with cardiomegaly and hilar vascular congestion. Bilateral interstitial edema or infiltrates is present. . There are no pleural effusions.. The osseous structures are intact. IMPRESSION: Tubes and lines unchanged.. Cardiomegaly with diffuse bilateral interstitial edema or infiltrates unchanged. RPTAT: GG .Seven Thompson MD, MD Date Time Electronically viewed and signed by .Seven Thompson MD, MD on 08/25/2017 08:40 .L/
[2017-08-25] MEDS: OSELTAMIVIR 75 MG CAP PO SCH ×2 (09:03→21:06)
[2017-08-25] MEDS: METHYLPREDNISOLONE 125 MG INJ IV SCH (09:04)
[2017-08-25 09:17] LABS: AADO2 Arterial 240.5 mmHg (7.0-24.0); Allen Test ACCEPTAB; Arterial Base Excess 5.6 mmol/L (-3.0-3); Arterial COHb 0.2 % (0.0-3.0); Arterial Fraction of Oxyhgb 94.9 % (93.0-99.0); Arterial HCO3 28.5 mmol/L (22.0-26.0); Arterial MetHb 0 % (0.0-1.5); Arterial Total Hemglobin 10.1 g/dl (12.0-18.0); MODE VENT - AC
--- NOTE | 2017-08-25 09:17 | CONS ---
Date/Time of Note Date/Time of Note DATE: 08/25/17 TIME: 09:13 Assessment/Plan Assessment/Plan Additional Assessment/Plan Chest x-ray was reviewed from today which is showing bilateral pneumonia. Endotracheal tube is at an adequate level. Patient is currently on assist control of 24, tidal volume 450, PEEP of 15, 50% FiO2. Patient has been off sedation for more than 48 hours. Assessment and recommendations; 1. Patient admitted with severe bilateral pneumonia with ARDS likely postviral in etiology. Currently on appropriate antibiotic antiviral and systemic steroid regimen. 2. Mental unresponsiveness, etiology is unclear. 3. Improving hypernatremia. 4. Mild anemia. Continue current treatment. Will obtain ABG. Also obtain CT of the head without contrast. 35 minutes of critical care time was spent evaluating the patient. Consultation Date/Type/Reason Admit Date/Time Aug 20, 2017 at 02:59 Initial Consult Date 08/21/17 Type of Consultation: Pulmonary 24 HR Interval Summary Free Text/Dictation Patient's condition remains critical. Still requiring full invasive mechanical ventilation at fairly high FiO2. General exam; young female, morbidly obese, orally intubated, currently unresponsive. Exam/Review of Systems Vital Signs Vitals Vital Signs Date Time Temp Pulse Resp B/P Pulse Ox O2 Delivery O2 Flow Rate FiO2 08/25/17 07:10 52 32 98 50 08/25/17 05:00 118/65 Mechanical Ventilator 08/25/17 04:00 100.2 Intake and Output 08/24/17 08/24/17 08/25/17 15:00 23:00 07:00 Intake Total 890 ml 770 ml 1190 ml Output Total 604 ml 750 ml 400 ml Balance 286 ml 20 ml 790 ml Exam HEENT exam; supple neck, JVD difficult to see because of short neck. Patient is orally intubated. Has good dentition. Pupils are midsize and reactive to light bilaterally. Chest exam; diminished breath sounds bilaterally. No added sounds. S1-S2 audible, no murmurs. Regular rhythm. Abdomen exam; soft, protuberant. No organomegaly. Bowel sounds audible. Extremity exam; no edema. Pulses 1+ bilaterally. D[employer] exam; patient remains unresponsive. Results Result Diagram: 08/25/17 0500 08/25/17 0500 Results 24 hrs Laboratory Tests Test 08/24/17 09:48 08/24/17 13:02 08/24/17 17:25 08/24/17 20:14 Bedside Glucose 197 200 214 213 Test 08/25/17 00:40 08/25/17 05:00 08/25/17 05:16 Bedside Glucose 146 161 White Blood Count 11.5 H Red Blood Count 3.25 L Hemoglobin 8.5 L Hematocrit 27.7 L Mean Corpuscular Volume 85.2 Mean Corpuscular Hemoglobin 26.2 L Mean Corpuscular Hemoglobin Concent 30.7 L Red Cell Distribution Width 16.4 H Platelet Count 359 Mean Platelet Volume 9.9 Neutrophils % 72.1 Lymphocytes % 12.5 L Monocytes % 9.5 Eosinophils % 0.0 Basophils % 0.1 Nucleated Red Blood Cells % 2.9 H Neutrophils # 8.3 H Lymphocytes # 1.4 Monocytes # 1.1 H Eosinophils # 0.0 Basophils # 0.0 Nucleated Red Blood Cells # 0.3 H Sodium Level 148 H Potassium Level 3.7 Chloride Level 109 Carbon Dioxide Level 34 H Anion Gap 9 Blood Urea Nitrogen 17 Creatinine 0.63 Glucose Level 152 Calcium Level 7.5 L Medications Medications Current Medications Ondansetron HCl (Zofran Inj) 4 mg Q6H PRN IV NAUSEA AND/OR VOMITING; Start 06/27 at 13:00 Acetaminophen (Tylenol Liquid) 650 mg Q6H PRN PO PAIN LEVEL 1-3 OR FEVER Last administered on 08/24/17 20:17; Admin Dose 650 MG; Start 08/20/17 at 13:00 Morphine Sulfate (morphine) 2 mg Q4H PRN IV PAIN LEVEL 7-10; Start 08/20/17 at 13:00 Methylprednisolone Sodium Succinate 60 mg 60 mg DAILY IV Last administered on 08/25/17 09:04; Admin Dose 60 MG; Start 08/20/17 at 17:00 Midazolam HCl 50 ml @ 1 mls/hr TITRATE IV Last administered on 08/23/17 11:08 ; Admin Dose 5 MLS/HR; Start 08/20/17 at 18:30 Fentanyl 100 ml @ 2.5 mls/hr TITRATE IV Last administered on 08/23/17 06:55 ; Admin Dose 10 MLS/HR; Start 08/20/17 at 18:30 Phenylephrine HCl 40 mg/Dextrose 500 ml @ 75 mls/hr TITRATE IV ; Start at 18:30 Propofol 100 ml @ 3.408 mls/ hr Q12H IV Last administered on 08/23/17 20:01 ; Admin Dose 3.408 MLS/HR; Start 08/20/17 at 20:00 Norepinephrine 16 mg/Dextrose 500 ml @ 1.87 mls/hr TITRATE IV Last administered on 08/22/17 01:12; Admin Dose 7.5 MLS/HR; Start 08/21/17 at 09: 00 Piperacillin Sod/ Tazobactam Sod 50 ml @ 100 mls/hr Q6 IVPB Last administered on 08/25/17 05:18; Admin Dose 100 MLS/HR; Start 08/21/17 at 14:00 Levofloxacin/ Dextrose 150 ml @ 100 mls/hr Q24H IVPB Last administered on 17:20; Admin Dose 100 MLS/HR; Start 08/21/17 at 14:00 Fluconazole (Diflucan 400 Mg/ NS (Pmx)) 200 ml @ 100 mls/hr Q24H IVPB Last administered on 08/24/17 13:04; Admin Dose 100 MLS/HR; Start 08/21/17 at 14: 00 Diagnostic Test (Pha) (Accu-Chek) 1 ea 02 XX ; Start 08/22/17 at 02:00 Insulin Aspart (Novolog Insulin Pen) NOVOLOG *MILD* ALGORI... Q4 SC Last administered on 08/25/17 05:42; Admin Dose 1 UNIT; Start 08/21/17 at 21:00 Miscellaneous Information 1 ea NOTE XX ; Start 08/21/17 at 20:30 Glucose (Glutose) 15 gm Q15M PRN PO DECREASED GLUCOSE; Start 08/21/17 at 20:30 Glucose (Glutose) 22.5 gm Q15M PRN PO DECREASED GLUCOSE; Start 08/21/17 at 20: 30 Dextrose (D50w Syringe) 25 ml Q15M PRN IV DECREASED GLUCOSE; Start 08/21/17 at 20:30 Dextrose (D50w Syringe) 50 ml Q15M PRN IV DECREASED GLUCOSE; Start 08/21/17 at 20:30 Glucagon (Glucagen) 1 mg Q15M PRN IM DECREASED GLUCOSE; Start 08/21/17 at 20: 30 Glucose (Glutose) 15 gm Q15M PRN BUCCAL DECREASED GLUCOSE; Start 08/21/17 at 20:30 Pantoprazole (Protonix Iv) 40 mg DAILY@06 IV Last administered on 08/25/17 05 :18; Admin Dose 40 MG; Start 08/22/17 at 06:00 Insulin Glargine 10 unit 10 unit DAILY@20 SC Last administered on 08/24/17 20 :23; Admin Dose 10 UNIT; Start 08/23/17 at 21:00 Sodium Chloride 1,000 ml @ 60 mls/hr [id number] IV Last administered on 04:49; Admin Dose 60 MLS/HR; Start 08/23/17 at 21:00 Dopamine HCl/ Dextrose 250 ml @ 8.52 mls/hr TITRATE IV ; Start 08/23/17 at 21: 00 Oseltamivir Phosphate (Tamiflu) 150 mg Q12 PO Last administered on 08/25/17 09:03; Admin Dose 150 MG; Start 08/24/17 at 21:00 ADRI NAVARRO Aug 25, 2017 09:16
[2017-08-25] MEDS: LEVOFLOXACIN 750MG/D5W (PMX) 150 ML IVPB SCH (13:12)
--- NOTE | 2017-08-25 13:28 | CONS ---
Date/Time of Note Date/Time of Note DATE: 08/25/17 TIME: 13:27 Assessment/Plan Assessment/Plan Chief Complaint/Hosp Course - Severe sepsis with septic shock likely d/t PNA+possible influenza; s/p pressors - Bilateral multifocal PNA - Possible influenza; vaccine status uncertain yet there has been significant breakthrough this year in particular with H3N2 - Acute hypoxemic respiratory failure with possible ARDS s/p intubation - Sinys bradycardia - Hypernatremia - T2DM, newly diagnosed - Hgb A1c 6.7% - Anemia - Subclinical hyperthyroidism - Hepatic steatosis on CT - H/o SVT - Obesity - BMI 43 Recommendations: - Continue high dose Tamiflu (08/21/2017-) - Continue Zosyn, Levaquin and Fluconazole (08/21/2017-) - Resend resp virus panel with deep nasopharynx sample - Check viral cx, fungal cx, urine for legionella, PCP DFA - Pending: cocci, histo, [id number], procalcitonin - Serial EKG to monitor QT interval (QTc 440 mx on 08/20) - ordered for AM - Continue droplet precautions Management d/w NASIMA Gill and Dr. Mcgowan Critical Care time spent: 80 min including multiple d/w Dr. Mcgowan and extensive chart review Problems: Consultation Date/Type/Reason Admit Date/Time Aug 20, 2017 at 02:59 Initial Consult Date 08/21/17 Type of Consultation: Infectious Disease Exam/Review of Systems Vital Signs Vitals Vital Signs Date Time Temp Pulse Resp B/P Pulse Ox O2 Delivery O2 Flow Rate FiO2 08/25/17 13:00 53 104/59 96 Mechanical Ventilator 08/25/17 12:00 99.3 08/25/17 11:46 29 08/25/17 09:00 50 Intake and Output 08/24/17 08/24/17 08/25/17 15:00 23:00 07:00 Intake Total 890 ml 770 ml 1190 ml Output Total 604 ml 750 ml 400 ml Balance 286 ml 20 ml 790 ml Results Result Diagram: 08/25/17 0500 08/25/17 0500 Results 24 hrs Laboratory Tests Test 08/24/17 17:25 08/24/17 20:14 08/25/17 00:40 08/25/17 05:00 Bedside Glucose 214 213 146 White Blood Count 11.5 H Red Blood Count 3.25 L Hemoglobin 8.5 L Hematocrit 27.7 L Mean Corpuscular Volume 85.2 Mean Corpuscular Hemoglobin 26.2 L Mean Corpuscular Hemoglobin Concent 30.7 L Red Cell Distribution Width 16.4 H Platelet Count 359 Mean Platelet Volume 9.9 Neutrophils % 72.1 Lymphocytes % 12.5 L Monocytes % 9.5 Eosinophils % 0.0 Basophils % 0.1 Nucleated Red Blood Cells % 2.9 H Neutrophils # 8.3 H Lymphocytes # 1.4 Monocytes # 1.1 H Eosinophils # 0.0 Basophils # 0.0 Nucleated Red Blood Cells # 0.3 H Sodium Level 148 H Potassium Level 3.7 Chloride Level 109 Carbon Dioxide Level 34 H Anion Gap 9 Blood Urea Nitrogen 17 Creatinine 0.63 Glucose Level 152 Calcium Level 7.5 L Test 08/25/17 05:16 08/25/17 08:19 08/25/17 09:13 08/25/17 12:54 Bedside Glucose 161 142 195 Blood Gas Specimen Source Blood arterial Arterial Blood Date Drawn 08/25/2017 9:00:02 AM Arterial Blood pH (Temp corrected) 7.525 H Arterial Blood pCO2 (Temp correct) 35.3 Arterial Blood pO2 (Temp corrected) 76.3 L Arterial Blood HCO3 28.5 H Arterial Blood Base Excess 5.6 H Arterial Blood Oxygen Saturation 95.1 Ezequiel Test ACCEPTAB Arterial Blood Gas Puncture Site Right Radial Arterial Blood Carboxyhemoglobin 0.2 Arterial Blood Methemoglobin 0 Blood Gas A-a O2 Differential 240.5 H Oxyhemoglobin Percent 94.9 Total Hemoglobin 10.1 L Blood Gas Temperature 37.0 Blood Gas Respiration Rate 24.0 Blood Gas Actual Respiration Rate 32 Blood Gas Modality VENT - AC FiO2 50.0 Blood Gas Tidal Volume 450.0 Blood Gas Notified Whom JLD Blood Gas Notified Time 08/25/2017 9:17:33 AM Medications Medications Current Medications Ondansetron HCl (Zofran Inj) 4 mg Q6H PRN IV NAUSEA AND/OR VOMITING; Start 06/27 at 13:00 Acetaminophen (Tylenol Liquid) 650 mg Q6H PRN PO PAIN LEVEL 1-3 OR FEVER Last administered on 08/24/17t 20:17; Admin Dose 650 MG; Start 08/20/17 at 13:00 Morphine Sulfate (morphine) 2 mg Q4H PRN IV PAIN LEVEL 7-10; Start 08/20/17 at 13:00 Methylprednisolone Sodium Succinate 60 mg 60 mg DAILY IV Last administered on 08/25/17 09:04; Admin Dose 60 MG; Start 08/20/17 at 17:00 Midazolam HCl 50 ml @ 1 mls/hr TITRATE IV Last administered on 08/23/17 11:08 ; Admin Dose 5 MLS/HR; Start 08/20/17 at 18:30 Fentanyl 100 ml @ 2.5 mls/hr TITRATE IV Last administered on 08/23/17 06:55 ; Admin Dose 10 MLS/HR; Start 08/20/17 at 18:30 Phenylephrine HCl 40 mg/Dextrose 500 ml @ 75 mls/hr TITRATE IV ; Start at 18:30 Propofol 100 ml @ 3.408 mls/ hr Q12H IV Last administered on 08/23/17 20:01 ; Admin Dose 3.408 MLS/HR; Start 08/20/17 at 20:00 Norepinephrine 16 mg/Dextrose 500 ml @ 1.87 mls/hr TITRATE IV Last administered on 08/22/17 01:12; Admin Dose 7.5 MLS/HR; Start 08/21/17 at 09: 00 Piperacillin Sod/ Tazobactam Sod 50 ml @ 100 mls/hr Q6 IVPB Last administered on 08/25/17 11:59; Admin Dose 100 MLS/HR; Start 08/21/17 at 14:00 Levofloxacin/ Dextrose 150 ml @ 100 mls/hr Q24H IVPB Last administered on 13:12; Admin Dose 100 MLS/HR; Start 08/21/17 at 14:00 Fluconazole (Diflucan 400 Mg/ NS (Pmx)) 200 ml @ 100 mls/hr Q24H IVPB Last administered on 08/24/17 13:04; Admin Dose 100 MLS/HR; Start 08/21/17 at 14: 00 Diagnostic Test (Pha) (Accu-Chek) 1 ea 02 XX ; Start 08/22/17 at 02:00 Insulin Aspart (Novolog Insulin Pen) NOVOLOG *MILD* ALGORI... Q4 SC Last administered on 08/25/17 13:00; Admin Dose 2 UNIT; Start 08/21/17 at 21:00 Miscellaneous Information 1 ea NOTE XX ; Start 08/21/17 at 20:30 Glucose (Glutose) 15 gm Q15M PRN PO DECREASED GLUCOSE; Start 08/21/17 at 20:30 Glucose (Glutose) 22.5 gm Q15M PRN PO DECREASED GLUCOSE; Start 08/21/17 at 20: 30 Dextrose (D50w Syringe) 25 ml Q15M PRN IV DECREASED GLUCOSE; Start 08/21/17 at 20:30 Dextrose (D50w Syringe) 50 ml Q15M PRN IV DECREASED GLUCOSE; Start 08/21/17 at 20:30 Glucagon (Glucagen) 1 mg Q15M PRN IM DECREASED GLUCOSE; Start 08/21/17 at 20: 30 Glucose (Glutose) 15 gm Q15M PRN BUCCAL DECREASED GLUCOSE; Start 08/21/17 at 20:30 Pantoprazole (Protonix Iv) 40 mg DAILY@06 IV Last administered on 08/25/17 05 :18; Admin Dose 40 MG; Start 08/22/17 at 06:00 Insulin Glargine 10 unit 10 unit DAILY@20 SC Last administered on 08/24/17 20 :23; Admin Dose 10 UNIT; Start 08/23/17 at 21:00 Sodium Chloride 1,000 ml @ 60 mls/hr [id number] IV Last administered on 04:49; Admin Dose 60 MLS/HR; Start 08/23/17 at 21:00 Dopamine HCl/ Dextrose 250 ml @ 8.52 mls/hr TITRATE IV ; Start 08/23/17 at 21: 00 Oseltamivir Phosphate (Tamiflu) 150 mg Q12 PO Last administered on 08/25/17 09:03; Admin Dose 150 MG; Start 08/24/17 at 21:00 Procedures Procedures CXR 08/25/2017: Tubes and lines unchanged.. Cardiomegaly with diffuse bilateral interstitial edema or infiltrates unchanged. CINTHYA JUNG NP Aug 25, 2017 13:28
--- NOTE | 2017-08-25 13:34 | PN ---
Date/Time of Note Date/Time of Note DATE: 08/25/17 TIME: 13:31 Assessment/Plan VTE Prophylaxis VTE Prophylaxis Intervention: SCD's Lines/Catheters IV Catheter Type (from Nrs): Central Line Central line still needed: Yes Urinary Cath still in place: Yes Reason Cath still needed: urinary retention Assessment/Plan Chief Complaint/Hosp Course Patient remains obtunded off sedation, continues on ventilatory support, low- grade fever, pending CT of the brain Assessment/Plan -Severe Hypoxemic Respiratory Failure concerning for ARDS, continue ventilatory support, breathing treatments, steroids. Dr. Alarcon is following in pulmonology consultation. -Acute multifocal pneumonia, continue broad-spectrum antibiotics, Tamiflu. Dr. Mcgowan is following in infection disease consultation. -Sepsis with shock secondary to pneumonia, continue IV fluids, ICU care. -Diabetes mellitus with hemoglobin A1c 6.9. Continue NovoLog per sliding scale with Accu-Chek every 4 hours. -Bradycardia, Dr. Whalen is following in cardiology consultation -Preserved ejection fraction of 50% -Obesity with BMI of 43 -Hepatic steatosis Further recommendations based on clinical course. Plan of care discussed with Dr. Gomez. Problems: Exam/Review of Systems Vital Signs Vitals Vital Signs Date Time Temp Pulse Resp B/P Pulse Ox O2 Delivery O2 Flow Rate FiO2 08/25/17 13:00 53 104/59 96 Mechanical Ventilator 08/25/17 12:00 99.3 08/25/17 11:46 29 08/25/17 09:00 50 Intake and Output 08/24/17 08/24/17 08/25/17 15:00 23:00 07:00 Intake Total 890 ml 770 ml 1190 ml Output Total 604 ml 750 ml 400 ml Balance 286 ml 20 ml 790 ml Exam Constitutional: obese Respiratory: diminished breath sounds Cardiovascular: nl pulses, regular rate and rhythm Gastrointestinal: non-tender, soft Musculoskeletal: nl extremities to inspection Extremities: normal pulses Neurological: other (Sedated) Results Result Diagram: 08/25/17 0500 08/25/17 0500 Results 24 hrs Laboratory Tests Test 08/24/17 17:25 08/24/17 20:14 08/25/17 00:40 08/25/17 05:00 Bedside Glucose 214 213 146 White Blood Count 11.5 H Red Blood Count 3.25 L Hemoglobin 8.5 L Hematocrit 27.7 L Mean Corpuscular Volume 85.2 Mean Corpuscular Hemoglobin 26.2 L Mean Corpuscular Hemoglobin Concent 30.7 L Red Cell Distribution Width 16.4 H Platelet Count 359 Mean Platelet Volume 9.9 Neutrophils % 72.1 Lymphocytes % 12.5 L Monocytes % 9.5 Eosinophils % 0.0 Basophils % 0.1 Nucleated Red Blood Cells % 2.9 H Neutrophils # 8.3 H Lymphocytes # 1.4 Monocytes # 1.1 H Eosinophils # 0.0 Basophils # 0.0 Nucleated Red Blood Cells # 0.3 H Sodium Level 148 H Potassium Level 3.7 Chloride Level 109 Carbon Dioxide Level 34 H Anion Gap 9 Blood Urea Nitrogen 17 Creatinine 0.63 Glucose Level 152 Calcium Level 7.5 L Test 08/25/17 05:16 08/25/17 08:19 08/25/17 09:13 08/25/17 12:54 Bedside Glucose 161 142 195 Blood Gas Specimen Source Blood arterial Arterial Blood Date Drawn 08/25/2017 9:00:02 AM Arterial Blood pH (Temp corrected) 7.525 H Arterial Blood pCO2 (Temp correct) 35.3 Arterial Blood pO2 (Temp corrected) 76.3 L Arterial Blood HCO3 28.5 H Arterial Blood Base Excess 5.6 H Arterial Blood Oxygen Saturation 95.1 Ezequiel Test ACCEPTAB Arterial Blood Gas Puncture Site Right Radial Arterial Blood Carboxyhemoglobin 0.2 Arterial Blood Methemoglobin 0 Blood Gas A-a O2 Differential 240.5 H Oxyhemoglobin Percent 94.9 Total Hemoglobin 10.1 L Blood Gas Temperature 37.0 Blood Gas Respiration Rate 24.0 Blood Gas Actual Respiration Rate 32 Blood Gas Modality VENT - AC FiO2 50.0 Blood Gas Tidal Volume 450.0 Blood Gas Notified Whom JLD Blood Gas Notified Time 08/25/2017 9:17:33 AM Medications Medications Current Medications Ondansetron HCl (Zofran Inj) 4 mg Q6H PRN IV NAUSEA AND/OR VOMITING; Start 06/27 at 13:00 Acetaminophen (Tylenol Liquid) 650 mg Q6H PRN PO PAIN LEVEL 1-3 OR FEVER Last administered on 08/24/17t 20:17; Admin Dose 650 MG; Start 08/20/17 at 13:00 Morphine Sulfate (morphine) 2 mg Q4H PRN IV PAIN LEVEL 7-10; Start 08/20/17 at 13:00 Methylprednisolone Sodium Succinate 60 mg 60 mg DAILY IV Last administered on 08/25/17 09:04; Admin Dose 60 MG; Start 08/20/17 at 17:00 Midazolam HCl 50 ml @ 1 mls/hr TITRATE IV Last administered on 08/23/17 11:08 ; Admin Dose 5 MLS/HR; Start 08/20/17 at 18:30 Fentanyl 100 ml @ 2.5 mls/hr TITRATE IV Last administered on 08/23/17 06:55 ; Admin Dose 10 MLS/HR; Start 08/20/17 at 18:30 Phenylephrine HCl 40 mg/Dextrose 500 ml @ 75 mls/hr TITRATE IV ; Start at 18:30 Propofol 100 ml @ 3.408 mls/ hr Q12H IV Last administered on 08/23/17 20:01 ; Admin Dose 3.408 MLS/HR; Start 08/20/17 at 20:00 Norepinephrine 16 mg/Dextrose 500 ml @ 1.87 mls/hr TITRATE IV Last administered on 08/22/17 01:12; Admin Dose 7.5 MLS/HR; Start 08/21/17 at 09: 00 Piperacillin Sod/ Tazobactam Sod 50 ml @ 100 mls/hr Q6 IVPB Last administered on 08/25/17 11:59; Admin Dose 100 MLS/HR; Start 08/21/17 at 14:00 Levofloxacin/ Dextrose 150 ml @ 100 mls/hr Q24H IVPB Last administered on 13:12; Admin Dose 100 MLS/HR; Start 08/21/17 at 14:00 Fluconazole (Diflucan 400 Mg/ NS (Pmx)) 200 ml @ 100 mls/hr Q24H IVPB Last administered on 08/24/17 13:04; Admin Dose 100 MLS/HR; Start 08/21/17 at 14: 00 Diagnostic Test (Pha) (Accu-Chek) 1 ea 02 XX ; Start 08/22/17 at 02:00 Insulin Aspart (Novolog Insulin Pen) NOVOLOG *MILD* ALGORI... Q4 SC Last administered on 08/25/17 13:00; Admin Dose 2 UNIT; Start 08/21/17 at 21:00 Miscellaneous Information 1 ea NOTE XX ; Start 08/21/17 at 20:30 Glucose (Glutose) 15 gm Q15M PRN PO DECREASED GLUCOSE; Start 08/21/17 at 20:30 Glucose (Glutose) 22.5 gm Q15M PRN PO DECREASED GLUCOSE; Start 08/21/17 at 20: 30 Dextrose (D50w Syringe) 25 ml Q15M PRN IV DECREASED GLUCOSE; Start 08/21/17 at 20:30 Dextrose (D50w Syringe) 50 ml Q15M PRN IV DECREASED GLUCOSE; Start 08/21/17 at 20:30 Glucagon (Glucagen) 1 mg Q15M PRN IM DECREASED GLUCOSE; Start 08/21/17 at 20: 30 Glucose (Glutose) 15 gm Q15M PRN BUCCAL DECREASED GLUCOSE; Start 08/21/17 at 20:30 Pantoprazole (Protonix Iv) 40 mg DAILY@06 IV Last administered on 08/25/17 05 :18; Admin Dose 40 MG; Start 08/22/17 at 06:00 Insulin Glargine 10 unit 10 unit DAILY@20 SC Last administered on 08/24/17 20 :23; Admin Dose 10 UNIT; Start 08/23/17 at 21:00 Sodium Chloride 1,000 ml @ 60 mls/hr [id number] IV Last administered on 04:49; Admin Dose 60 MLS/HR; Start 08/23/17 at 21:00 Dopamine HCl/ Dextrose 250 ml @ 8.52 mls/hr TITRATE IV ; Start 08/23/17 at 21: 00 Oseltamivir Phosphate (Tamiflu) 150 mg Q12 PO Last administered on 08/25/17 09:03; Admin Dose 150 MG; Start 08/24/17 at 21:00 MANUEL KLEIN Aug 25, 2017 13:34
--- NOTE | 2017-08-25 13:44 | CONS ---
Date/Time of Note Date/Time of Note DATE: 08/25/17 TIME: 13:37 Assessment/Plan Assessment/Plan Chief Complaint/Hosp Course - Severe sepsis with septic shock likely d/t PNA +/-possible influenza; s/p pressors - Bilateral multifocal PNA - Possible influenza; vaccine status uncertain yet there has been significant breakthrough this year in particular with H3N2 - Acute hypoxemic respiratory failure with possible ARDS s/p intubation - Sinus bradycardia - Hypernatremia - slowing improving - T2DM, newly diagnosed - Hgb A1c 6.7% - Microcytic anemia - Hepatic steatosis on CT - Subclinical hyperthyroidism - H/o SVT - Obesity - BMI 43 Recommendations: - Continue high dose Tamiflu (08/21/2017-) - Continue Zosyn, Levaquin and Fluconazole (08/21/2017-) - Pending: repeat resp virus panel with deep nasopharynx sample, cocci, histo, [id number], procalcitonin, viral cx, fungal cx, urine for legionella, PCP DFA - Serial EKG to monitor QT interval (QTc 451 ms on 08/25/2017) - Continue droplet precautions - Consider workup for possible underlying autoimmune diseases; defer to PMD and Pulmonary Management d/w NASIMA Calvert and Dr. Mcgowan Critical Care time spent: 40 min Problems: Consultation Date/Type/Reason Admit Date/Time Aug 20, 2017 at 02:59 Initial Consult Date 08/21/17 Type of Consultation: Infectious Disease 24 HR Interval Summary Free Text/Dictation Pt remains intubated and unresponsive despite being off sedation for >48 hours. Grimaces to painful stimuli and +gag reflex but not opening her eyes per d/w nursing. CT brain was ordered but not being done today due to high PEEP. Flexiseal added d/t loose stool. Unable to perform ROS d/t encephalopathy. Subjective hx not possible: pt non-verbal, pt critical status Exam/Review of Systems Vital Signs Vitals Vital Signs Date Time Temp Pulse Resp B/P Pulse Ox O2 Delivery O2 Flow Rate FiO2 08/25/17 13:00 53 104/59 96 Mechanical Ventilator 08/25/17 12:00 99.3 08/25/17 11:46 29 08/25/17 09:00 50 Intake and Output 08/24/17 08/24/17 08/25/17 15:00 23:00 07:00 Intake Total 890 ml 770 ml 1190 ml Output Total 604 ml 750 ml 400 ml Balance 286 ml 20 ml 790 ml Exam Constitutional: obese, other (intubated), well developed Head: atraumatic, normocephalic Eyes: nl sclera ENMT: intubated Respiratory: diminished breath sounds Cardiovascular: nl pulses, regular rate and rhythm Gastrointestinal: bowel sounds normal, other (NGT with tube feeds in place, Flexiseal in place with mostly water from recent flushing as d/w RN), soft ( obese) Genitourinary - Female: other (Bourgeois catheter present) Musculoskeletal: nl extremities to inspection Extremities: normal pulses No clubbing, No cyanosis, No edema Neurological: unresponsive, other (PERRL, grimaces to tactile stimuli) Skin: nl turgor, No rash or lesions Results Result Diagram: 08/25/17 0500 08/25/17 0500 Results 24 hrs Laboratory Tests Test 08/24/17 17:25 08/24/17 20:14 08/25/17 00:40 08/25/17 05:00 Bedside Glucose 214 213 146 White Blood Count 11.5 H Red Blood Count 3.25 L Hemoglobin 8.5 L Hematocrit 27.7 L Mean Corpuscular Volume 85.2 Mean Corpuscular Hemoglobin 26.2 L Mean Corpuscular Hemoglobin Concent 30.7 L Red Cell Distribution Width 16.4 H Platelet Count 359 Mean Platelet Volume 9.9 Neutrophils % 72.1 Lymphocytes % 12.5 L Monocytes % 9.5 Eosinophils % 0.0 Basophils % 0.1 Nucleated Red Blood Cells % 2.9 H Neutrophils # 8.3 H Lymphocytes # 1.4 Monocytes # 1.1 H Eosinophils # 0.0 Basophils # 0.0 Nucleated Red Blood Cells # 0.3 H Sodium Level 148 H Potassium Level 3.7 Chloride Level 109 Carbon Dioxide Level 34 H Anion Gap 9 Blood Urea Nitrogen 17 Creatinine 0.63 Glucose Level 152 Calcium Level 7.5 L Test 08/25/17 05:16 08/25/17 08:19 08/25/17 09:13 08/25/17 12:54 Bedside Glucose 161 142 195 Blood Gas Specimen Source Blood arterial Arterial Blood Date Drawn 08/25/2017 9:00:02 AM Arterial Blood pH (Temp corrected) 7.525 H Arterial Blood pCO2 (Temp correct) 35.3 Arterial Blood pO2 (Temp corrected) 76.3 L Arterial Blood HCO3 28.5 H Arterial Blood Base Excess 5.6 H Arterial Blood Oxygen Saturation 95.1 Ezequiel Test ACCEPTAB Arterial Blood Gas Puncture Site Right Radial Arterial Blood Carboxyhemoglobin 0.2 Arterial Blood Methemoglobin 0 Blood Gas A-a O2 Differential 240.5 H Oxyhemoglobin Percent 94.9 Total Hemoglobin 10.1 L Blood Gas Temperature 37.0 Blood Gas Respiration Rate 24.0 Blood Gas Actual Respiration Rate 32 Blood Gas Modality VENT - AC FiO2 50.0 Blood Gas Tidal Volume 450.0 Blood Gas Notified Whom JLD Blood Gas Notified Time 08/25/2017 9:17:33 AM Medications Medications Current Medications Ondansetron HCl (Zofran Inj) 4 mg Q6H PRN IV NAUSEA AND/OR VOMITING; Start 06/27 at 13:00 Acetaminophen (Tylenol Liquid) 650 mg Q6H PRN PO PAIN LEVEL 1-3 OR FEVER Last administered on 08/24/17 20:17; Admin Dose 650 MG; Start 08/20/17 at 13:00 Morphine Sulfate (morphine) 2 mg Q4H PRN IV PAIN LEVEL 7-10; Start 08/20/17 at 13:00 Methylprednisolone Sodium Succinate 60 mg 60 mg DAILY IV Last administered on 08/25/17 09:04; Admin Dose 60 MG; Start 08/20/17 at 17:00 Midazolam HCl 50 ml @ 1 mls/hr TITRATE IV Last administered on 08/23/17 11:08 ; Admin Dose 5 MLS/HR; Start 08/20/17 at 18:30 Fentanyl 100 ml @ 2.5 mls/hr TITRATE IV Last administered on 08/23/17 06:55 ; Admin Dose 10 MLS/HR; Start 08/20/17 at 18:30 Phenylephrine HCl 40 mg/Dextrose 500 ml @ 75 mls/hr TITRATE IV ; Start at 18:30 Propofol 100 ml @ 3.408 mls/ hr Q12H IV Last administered on 08/23/17 20:01 ; Admin Dose 3.408 MLS/HR; Start 08/20/17 at 20:00 Norepinephrine 16 mg/Dextrose 500 ml @ 1.87 mls/hr TITRATE IV Last administered on 08/22/17 01:12; Admin Dose 7.5 MLS/HR; Start 08/21/17 at 09: 00 Piperacillin Sod/ Tazobactam Sod 50 ml @ 100 mls/hr Q6 IVPB Last administered on 08/25/17 11:59; Admin Dose 100 MLS/HR; Start 08/21/17 at 14:00 Levofloxacin/ Dextrose 150 ml @ 100 mls/hr Q24H IVPB Last administered on 13:12; Admin Dose 100 MLS/HR; Start 08/21/17 at 14:00 Fluconazole (Diflucan 400 Mg/ NS (Pmx)) 200 ml @ 100 mls/hr Q24H IVPB Last administered on 08/24/17 13:04; Admin Dose 100 MLS/HR; Start 08/21/17 at 14: 00 Diagnostic Test (Pha) (Accu-Chek) 1 ea 02 XX ; Start 08/22/17 at 02:00 Insulin Aspart (Novolog Insulin Pen) NOVOLOG *MILD* ALGORI... Q4 SC Last administered on 08/25/17 13:00; Admin Dose 2 UNIT; Start 08/21/17 at 21:00 Miscellaneous Information 1 ea NOTE XX ; Start 08/21/17 at 20:30 Glucose (Glutose) 15 gm Q15M PRN PO DECREASED GLUCOSE; Start 08/21/17 at 20:30 Glucose (Glutose) 22.5 gm Q15M PRN PO DECREASED GLUCOSE; Start 08/21/17 at 20: 30 Dextrose (D50w Syringe) 25 ml Q15M PRN IV DECREASED GLUCOSE; Start 08/21/17 at 20:30 Dextrose (D50w Syringe) 50 ml Q15M PRN IV DECREASED GLUCOSE; Start 08/21/17 at 20:30 Glucagon (Glucagen) 1 mg Q15M PRN IM DECREASED GLUCOSE; Start 08/21/17 at 20: 30 Glucose (Glutose) 15 gm Q15M PRN BUCCAL DECREASED GLUCOSE; Start 08/21/17 at 20:30 Pantoprazole (Protonix Iv) 40 mg DAILY@06 IV Last administered on 08/25/17 05 :18; Admin Dose 40 MG; Start 08/22/17 at 06:00 Insulin Glargine 10 unit 10 unit DAILY@20 SC Last administered on 08/24/17 20 :23; Admin Dose 10 UNIT; Start 08/23/17 at 21:00 Sodium Chloride 1,000 ml @ 60 mls/hr [id number] IV Last administered on 04:49; Admin Dose 60 MLS/HR; Start 08/23/17 at 21:00 Dopamine HCl/ Dextrose 250 ml @ 8.52 mls/hr TITRATE IV ; Start 08/23/17 at 21: 00 Oseltamivir Phosphate (Tamiflu) 150 mg Q12 PO Last administered on 08/25/17 09:03; Admin Dose 150 MG; Start 08/24/17 at 21:00 Procedures Procedures CXR 08/25/17: Tubes and lines unchanged.. Cardiomegaly with diffuse bilateral interstitial edema or infiltrates unchanged. CINTHYA JUNG NP Aug 25, 2017 13:44
--- NOTE | 2017-08-25 13:46 | CONS ---
Date/Time of Note Date/Time of Note DATE: 08/25/17 TIME: 13:40 Assessment/Plan Assessment/Plan Chief Complaint/Hosp Course IMP: 1.Bradycardia-NL Free t4 2.Hypotension 3.Resp failure s/p intubation 4.DM 5. Hypernatremia 6. PNA-multifocal Recc: -ICU monitoring -Contioneu abx's/steroids/bronchodilators -To remain on droplet precautions with re assessment for influenza -Continue tamiflu -Follow HR/BP closely Problems: Consultation Date/Type/Reason Admit Date/Time Aug 20, 2017 at 02:59 Initial Consult Date 08/21/17 Type of Consultation: cardiology Reason for Consultation bradycardia Referring Provider: LUIS CHANDLER MD Exam/Review of Systems Vital Signs Vitals Vital Signs Date Time Temp Pulse Resp B/P Pulse Ox O2 Delivery O2 Flow Rate FiO2 08/25/17 13:00 53 104/59 96 Mechanical Ventilator 08/25/17 12:00 99.3 08/25/17 11:46 29 08/25/17 09:00 50 Intake and Output 08/24/17 08/24/17 08/25/17 15:00 23:00 07:00 Intake Total 890 ml 770 ml 1190 ml Output Total 604 ml 750 ml 400 ml Balance 286 ml 20 ml 790 ml Exam Review of Systems: CONSTITUTIONAL: No fevers, chills. PULMONARY: resp failure CARDIOVASCULAR: No chest pain/palpitations GASTROINTESTINAL: No nausea/vomiting. GENITOURINARY: No hematuria/dysuria. MUSCULOSKELETAL: No myagias/arthalgias. PSYCHIATRIC: The patient denies depression. NEUROLOGIC: No weakness Constitutional: other (sedated) Psych: no complaints Neck: jvd (9 cm water), supple Respiratory: other (upper airway rhoncherous sounds) Cardiovascular: regular rate and rhythm Gastrointestinal: non-tender, soft Musculoskeletal: muscle tone (normal) Extremities: edema (none) Neurological: other (No focal deficits) Results Result Diagram: 08/25/17 0500 08/25/17 0500 Results 24 hrs Laboratory Tests Test 08/24/17 17:25 08/24/17 20:14 08/25/17 00:40 08/25/17 05:00 Bedside Glucose 214 213 146 White Blood Count 11.5 H Red Blood Count 3.25 L Hemoglobin 8.5 L Hematocrit 27.7 L Mean Corpuscular Volume 85.2 Mean Corpuscular Hemoglobin 26.2 L Mean Corpuscular Hemoglobin Concent 30.7 L Red Cell Distribution Width 16.4 H Platelet Count 359 Mean Platelet Volume 9.9 Neutrophils % 72.1 Lymphocytes % 12.5 L Monocytes % 9.5 Eosinophils % 0.0 Basophils % 0.1 Nucleated Red Blood Cells % 2.9 H Neutrophils # 8.3 H Lymphocytes # 1.4 Monocytes # 1.1 H Eosinophils # 0.0 Basophils # 0.0 Nucleated Red Blood Cells # 0.3 H Sodium Level 148 H Potassium Level 3.7 Chloride Level 109 Carbon Dioxide Level 34 H Anion Gap 9 Blood Urea Nitrogen 17 Creatinine 0.63 Glucose Level 152 Calcium Level 7.5 L Test 08/25/17 05:16 08/25/17 08:19 08/25/17 09:13 08/25/17 12:54 Bedside Glucose 161 142 195 Blood Gas Specimen Source Blood arterial Arterial Blood Date Drawn 08/25/2017 9:00:02 AM Arterial Blood pH (Temp corrected) 7.525 H Arterial Blood pCO2 (Temp correct) 35.3 Arterial Blood pO2 (Temp corrected) 76.3 L Arterial Blood HCO3 28.5 H Arterial Blood Base Excess 5.6 H Arterial Blood Oxygen Saturation 95.1 Ezequiel Test ACCEPTAB Arterial Blood Gas Puncture Site Right Radial Arterial Blood Carboxyhemoglobin 0.2 Arterial Blood Methemoglobin 0 Blood Gas A-a O2 Differential 240.5 H Oxyhemoglobin Percent 94.9 Total Hemoglobin 10.1 L Blood Gas Temperature 37.0 Blood Gas Respiration Rate 24.0 Blood Gas Actual Respiration Rate 32 Blood Gas Modality VENT - AC FiO2 50.0 Blood Gas Tidal Volume 450.0 Blood Gas Notified Whom JLD Blood Gas Notified Time 08/25/2017 9:17:33 AM Medications Medications Current Medications Ondansetron HCl (Zofran Inj) 4 mg Q6H PRN IV NAUSEA AND/OR VOMITING; Start 06/27 at 13:00 Acetaminophen (Tylenol Liquid) 650 mg Q6H PRN PO PAIN LEVEL 1-3 OR FEVER Last administered on 08/24/17t 20:17; Admin Dose 650 MG; Start 08/20/17 at 13:00 Morphine Sulfate (morphine) 2 mg Q4H PRN IV PAIN LEVEL 7-10; Start 08/20/17 at 13:00 Methylprednisolone Sodium Succinate 60 mg 60 mg DAILY IV Last administered on 08/25/17 09:04; Admin Dose 60 MG; Start 08/20/17 at 17:00 Midazolam HCl 50 ml @ 1 mls/hr TITRATE IV Last administered on 08/23/17 11:08 ; Admin Dose 5 MLS/HR; Start 08/20/17 at 18:30 Fentanyl 100 ml @ 2.5 mls/hr TITRATE IV Last administered on 08/23/17 06:55 ; Admin Dose 10 MLS/HR; Start 08/20/17 at 18:30 Phenylephrine HCl 40 mg/Dextrose 500 ml @ 75 mls/hr TITRATE IV ; Start at 18:30 Propofol 100 ml @ 3.408 mls/ hr Q12H IV Last administered on 08/23/17 20:01 ; Admin Dose 3.408 MLS/HR; Start 08/20/17 at 20:00 Norepinephrine 16 mg/Dextrose 500 ml @ 1.87 mls/hr TITRATE IV Last administered on 08/22/17 01:12; Admin Dose 7.5 MLS/HR; Start 08/21/17 at 09: 00 Piperacillin Sod/ Tazobactam Sod 50 ml @ 100 mls/hr Q6 IVPB Last administered on 08/25/17 11:59; Admin Dose 100 MLS/HR; Start 08/21/17 at 14:00 Levofloxacin/ Dextrose 150 ml @ 100 mls/hr Q24H IVPB Last administered on 13:12; Admin Dose 100 MLS/HR; Start 08/21/17 at 14:00 Fluconazole (Diflucan 400 Mg/ NS (Pmx)) 200 ml @ 100 mls/hr Q24H IVPB Last administered on 08/24/17 13:04; Admin Dose 100 MLS/HR; Start 08/21/17 at 14: 00 Diagnostic Test (Pha) (Accu-Chek) 1 ea 02 XX ; Start 08/22/17 at 02:00 Insulin Aspart (Novolog Insulin Pen) NOVOLOG *MILD* ALGORI... Q4 SC Last administered on 08/25/17 13:00; Admin Dose 2 UNIT; Start 08/21/17 at 21:00 Miscellaneous Information 1 ea NOTE XX ; Start 08/21/17 at 20:30 Glucose (Glutose) 15 gm Q15M PRN PO DECREASED GLUCOSE; Start 08/21/17 at 20:30 Glucose (Glutose) 22.5 gm Q15M PRN PO DECREASED GLUCOSE; Start 08/21/17 at 20: 30 Dextrose (D50w Syringe) 25 ml Q15M PRN IV DECREASED GLUCOSE; Start 08/21/17 at 20:30 Dextrose (D50w Syringe) 50 ml Q15M PRN IV DECREASED GLUCOSE; Start 08/21/17 at 20:30 Glucagon (Glucagen) 1 mg Q15M PRN IM DECREASED GLUCOSE; Start 08/21/17 at 20: 30 Glucose (Glutose) 15 gm Q15M PRN BUCCAL DECREASED GLUCOSE; Start 08/21/17 at 20:30 Pantoprazole (Protonix Iv) 40 mg DAILY@06 IV Last administered on 08/25/17 05 :18; Admin Dose 40 MG; Start 08/22/17 at 06:00 Insulin Glargine 10 unit 10 unit DAILY@20 SC Last administered on 08/24/17 20 :23; Admin Dose 10 UNIT; Start 08/23/17 at 21:00 Sodium Chloride 1,000 ml @ 60 mls/hr [id number] IV Last administered on 04:49; Admin Dose 60 MLS/HR; Start 08/23/17 at 21:00 Dopamine HCl/ Dextrose 250 ml @ 8.52 mls/hr TITRATE IV ; Start 08/23/17 at 21: 00 Oseltamivir Phosphate (Tamiflu) 150 mg Q12 PO Last administered on 08/25/17 09:03; Admin Dose 150 MG; Start 08/24/17 at 21:00 LUIS FELIPE PANDEY Aug 25, 2017 13:46
[2017-08-25] MEDS: FLUCONAZOLE 400 MG/NS (PMX) 200 ML IVPB SCH (14:50)
[2017-08-25] MEDS: BALSAM PERU/CASTOR OIL 60 GM TUBE TOP SCH (16:57)
[2017-08-25] MEDS: ACETAMINOPHEN 650MG/20.3ML CUP PO PRN (16:59)
[2017-08-25] MEDS: INSULIN GLARGINE [LANtus] 3 ML PEN SC SCH (21:05)
[2017-08-26] VITALS (61 sets, daily range): BP systolic 88–141; BP diastolic 49–94; PULSE 40–69; RESP 24–31
[2017-08-26] MEDS: INSULIN ASPART [NOVOLOG] 3 ML PEN SC SCH ×6 (01:00→21:09)
[2017-08-26] MEDS: ACCU-CHEK XX SCH (01:30)
[2017-08-26 05:33] LABS: BASOPHILS % 0.1 % (0.0-2.0); EOSINOPHILS % 0.2 % (0.0-7.0); HEMATOCRIT 27.2 % (37.0-47.0); HEMOGLOBIN 8.5 g/dl (12.0-16.0); LYMPHOCYTES # 1.5 10^3/ul (0.8-2.9); LYMPHOCYTES % 11.7 % (15.0-51.0); MEAN CORPUSCULAR HGB CONC 31.3 g/dl (32.0-37.0); MEAN CORPUSCULAR VOLUME 86.3 fl (82.0-101.0); MEAN PLATELET VOLUME 9.8 fl (7.4-10.4); MONOCYTES % 7.8 % (0.0-11.0); NEUTROPHIL # 9.9 10^3/ul (1.6-7.5); NEUTROPHILS % 75.5 % (39.0-77.0); NUCLEATED RED BLOOD CELLS # 0.1 10^3/ul (0.0-0.0); NUCLEATED RED BLOOD CELLS% 0.9 /100WBC (0.0-0.0); PLATELET COUNT 362 10^3/UL (140-415); RED BLOOD COUNT 3.15 10^6/ul (4.20-5.40); RED CELL DISTRIBUTION WIDTH 18.4 % (11.5-14.5); WHITE BLOOD COUNT 13.1 10^3/ul (4.8-10.8)
[2017-08-26] MEDS: PIPER-TAZO 3.375 GM IV (PMX) 50 ML IVPB SCH ×3 (06:00→17:11)
[2017-08-26] MEDS: PANTOPRAZOLE 40 MG INJ IV SCH (06:00)
[2017-08-26 06:09] LABS: CALCIUM 7.6 mg/dl (8.4-10.2); CREATININE 0.61 mg/dl (0.44-1.00); POTASSIUM 3.8 mmol/L (3.5-5.1)
[2017-08-26] MEDS: PROPOFOL 100 ML IV SCH ×2 (08:00→20:00)
[2017-08-26] MEDS: OSELTAMIVIR 75 MG CAP PO SCH ×2 (08:43→20:46)
[2017-08-26] MEDS: METHYLPREDNISOLONE 125 MG INJ IV SCH (08:43)
[2017-08-26] MEDS: BALSAM PERU/CASTOR OIL 60 GM TUBE TOP SCH (08:48)
--- NOTE | 2017-08-26 10:21 | RADRPT ---
PROCEDURE: XR Chest. CLINICAL INDICATION: Pneumonia TECHNIQUE: Single frontal view of the chest was obtained COMPARISON: 08/25/2017 FINDINGS: Stable right central venous catheter, endotracheal tube and nasogastric tube. Persistent, bilateral, diffuse patchy ground-glass opacities. Stable large cardiomediastinal silhouette. No acute osseous abnormality. IMPRESSION: Interval improved lung volumes. Stable, persistent diffuse ground-glass opacities suggestive of mult ifocal pneumonia versus interstitial pulmonary edema. RPTAT: EE Physician Maksim Date Time Electronically viewed and signed by Physician Maksim on 08/26/2017 10:21 /
--- NOTE | 2017-08-26 10:31 | CONS ---
Date/Time of Note Date/Time of Note DATE: 08/26/17 TIME: 10:29 Assessment/Plan Assessment/Plan Additional Assessment/Plan 1. Sinus bradycardia - stable HR overall, will monitor for now. Hold off on sedation as much as tolerated. I think preferential use of dopamine would be preferred in the setting of bradycardia and hypotension. STABLe - more alert - I spoke with family - will monitor for now. 2. Respiratory failure. The patient has respiratory failure, possible acute respiratory distress syndrome, acute on chronic. Dr. Alarcon follows. Continue antibiotics.ARDS likely. Con't resp Rx. 3. Hypotention - Continue to treat the patient as indicated. BETTER NOw. 4. Obesity. We will follow as indicated. 5. Anemia. Hemoglobin is down to 8.6, no obvious signs of bleeding at the moment. Consultation Date/Type/Reason Admit Date/Time Aug 20, 2017 at 02:59 Initial Consult Date 08/21/17 Type of Consultation: cardiology Referring Provider: LUIS CHANDLER MD 24 HR Interval Summary Free Text/Dictation NO acute events - still critically ill but marginally better - will follow in ICU -ARDS protocol. ROS: No fever, no chills, no nausea, no vomiting, no diarrhea/constipation No recent weight changes No chest pain, no PND, no orthopnea + SOB No dizziness, blurred vision No thirst, no heat or cold intolerance (per nurse) Exam/Review of Systems Vital Signs Vitals Vital Signs Date Time Temp Pulse Resp B/P Pulse Ox O2 Delivery O2 Flow Rate FiO2 08/26/17 10:00 45 25 109/64 99 Mechanical Ventilator 08/26/17 08:00 99.0 08/26/17 08:00 50 Intake and Output 08/25/17 08/25/17 08/26/17 15:00 23:00 07:00 Intake Total 1130 ml 1160 ml 1300 ml Output Total 1025 ml 760 ml 445 ml Balance 105 ml 400 ml 855 ml Exam General: WN/WD/NAD, AOx 0-1 more alert HEENT: Unicetric/atraumatic/EOMI (does not follow commands) NECK: JVD elevated, no thyromegaly Lymph: no lymphadenopathy HEART: regular with no S3, II/ systolic murmur at apex LUNGS: Coarse sounds ABD: soft, NT, ND, +BS : Intact Neuro: non focal SKIN: chronic changes EXT: trace edema Results Result Diagram: 08/26/17 0458 08/26/17 0458 Results 24 hrs Laboratory Tests Test 08/25/17 12:54 08/25/17 16:46 08/25/17 21:02 08/26/17 01:23 Bedside Glucose 195 219 167 135 Test 08/26/17 04:52 08/26/17 04:58 08/26/17 08:58 Bedside Glucose 136 155 White Blood Count 13.1 H Red Blood Count 3.15 L Hemoglobin 8.5 L Hematocrit 27.2 L Mean Corpuscular Volume 86.3 Mean Corpuscular Hemoglobin 27.0 L Mean Corpuscular Hemoglobin Concent 31.3 L Red Cell Distribution Width 18.4 H Platelet Count 362 Mean Platelet Volume 9.8 Neutrophils % 75.5 Lymphocytes % 11.7 L Monocytes % 7.8 Eosinophils % 0.2 Basophils % 0.1 Nucleated Red Blood Cells % 0.9 H Neutrophils # 9.9 H Lymphocytes # 1.5 Monocytes # 1.0 H Eosinophils # 0.0 Basophils # 0.0 Nucleated Red Blood Cells # 0.1 H Sodium Level 145 H Potassium Level 3.8 Chloride Level 107 Carbon Dioxide Level 33 H Anion Gap 9 Blood Urea Nitrogen 15 Creatinine 0.61 Glucose Level 135 Calcium Level 7.6 L Medications Medications Current Medications Ondansetron HCl (Zofran Inj) 4 mg Q6H PRN IV NAUSEA AND/OR VOMITING; Start 06/27 at 13:00 Acetaminophen (Tylenol Liquid) 650 mg Q6H PRN PO PAIN LEVEL 1-3 OR FEVER Last administered on 08/25/17 16:59; Admin Dose 650 MG; Start 08/20/17 at 13:00 Morphine Sulfate (morphine) 2 mg Q4H PRN IV PAIN LEVEL 7-10; Start 08/20/17 at 13:00 Methylprednisolone Sodium Succinate 60 mg 60 mg DAILY IV Last administered on 08/26/17 08:43; Admin Dose 60 MG; Start 08/20/17 at 17:00 Midazolam HCl 50 ml @ 1 mls/hr TITRATE IV Last administered on 08/23/17 11:08 ; Admin Dose 5 MLS/HR; Start 08/20/17 at 18:30 Fentanyl 100 ml @ 2.5 mls/hr TITRATE IV Last administered on 08/23/17 06:55 ; Admin Dose 10 MLS/HR; Start 08/20/17 at 18:30 Phenylephrine HCl 40 mg/Dextrose 500 ml @ 75 mls/hr TITRATE IV ; Start at 18:30 Propofol 100 ml @ 3.408 mls/ hr Q12H IV Last administered on 08/23/17 20:01 ; Admin Dose 3.408 MLS/HR; Start 08/20/17 at 20:00 Norepinephrine 16 mg/Dextrose 500 ml @ 1.87 mls/hr TITRATE IV Last administered on 08/22/17 01:12; Admin Dose 7.5 MLS/HR; Start 08/21/17 at 09: 00 Piperacillin Sod/ Tazobactam Sod 50 ml @ 100 mls/hr Q6 IVPB Last administered on 08/26/17 06:00; Admin Dose 100 MLS/HR; Start 08/21/17 at 14:00 Levofloxacin/ Dextrose 150 ml @ 100 mls/hr Q24H IVPB Last administered on 13:12; Admin Dose 100 MLS/HR; Start 08/21/17 at 14:00 Fluconazole (Diflucan 400 Mg/ NS (Pmx)) 200 ml @ 100 mls/hr Q24H IVPB Last administered on 08/25/17 14:50; Admin Dose 100 MLS/HR; Start 08/21/17 at 14: 00 Diagnostic Test (Pha) (Accu-Chek) 1 ea 02 XX ; Start 08/22/17 at 02:00 Insulin Aspart (Novolog Insulin Pen) NOVOLOG *MILD* ALGORI... Q4 SC Last administered on 08/26/17 09:05; Admin Dose 1 UNIT; Start 08/21/17 at 21:00 Miscellaneous Information 1 ea NOTE XX ; Start 08/21/17 at 20:30 Glucose (Glutose) 15 gm Q15M PRN PO DECREASED GLUCOSE; Start 08/21/17 at 20:30 Glucose (Glutose) 22.5 gm Q15M PRN PO DECREASED GLUCOSE; Start 08/21/17 at 20: 30 Dextrose (D50w Syringe) 25 ml Q15M PRN IV DECREASED GLUCOSE; Start 08/21/17 at 20:30 Dextrose (D50w Syringe) 50 ml Q15M PRN IV DECREASED GLUCOSE; Start 08/21/17 at 20:30 Glucagon (Glucagen) 1 mg Q15M PRN IM DECREASED GLUCOSE; Start 08/21/17 at 20: 30 Glucose (Glutose) 15 gm Q15M PRN BUCCAL DECREASED GLUCOSE; Start 08/21/17 at 20:30 Pantoprazole (Protonix Iv) 40 mg DAILY@06 IV Last administered on 08/26/17 06 :00; Admin Dose 40 MG; Start 08/22/17 at 06:00 Insulin Glargine 10 unit 10 unit DAILY@20 SC Last administered on 08/25/17 21 :05; Admin Dose 10 UNIT; Start 08/23/17 at 21:00 Sodium Chloride 1,000 ml @ 60 mls/hr [id number] IV Last administered on 23:03; Admin Dose 60 MLS/HR; Start 08/23/17 at 21:00 Dopamine HCl/ Dextrose 250 ml @ 8.52 mls/hr TITRATE IV ; Start 08/23/17 at 21: 00 Oseltamivir Phosphate (Tamiflu) 150 mg Q12 PO Last administered on 08/26/17 08:43; Admin Dose 150 MG; Start 08/24/17 at 21:00 YANETH NOLAND MD Aug 26, 2017 10:31
--- NOTE | 2017-08-26 11:03 | CONS ---
Date/Time of Note Date/Time of Note DATE: 08/26/17 TIME: 10:56 Consult Date/Type/Reason Admit Date/Time Aug 20, 2017 at 02:59 Initial Consult Date 08/21/17 Type of Consultation: Pulmonary Ordering Provider: LUIS CHANDLER MD Subjective Patient remains intubated sedated on mechanical ventilation. FiO2 decreased to 50% with a PEEP of 15. Patient opens eyes but not following commands. Objective Vital Signs Date Time Temp Pulse Resp B/P Pulse Ox O2 Delivery O2 Flow Rate FiO2 08/26/17 10:30 59 25 116/94 97 Mechanical Ventilator 08/26/17 08:00 99.0 08/26/17 08:00 50 Intake and Output 08/25/17 08/25/17 08/26/17 14:59 22:59 06:59 Intake Total 1130 ml 1220 ml 1240 ml Output Total 950 ml 885 ml 485 ml Balance 180 ml 335 ml 755 ml Exam PHYSICAL EXAMINATION: GENERAL: Moderately obese young lady, orally intubated on mechanical ventilation, appears comfortable at rest, no acute distress. VITAL SIGNS: FiO2 of 50% PEEP of 15 CHEST: Decreased air entry bilaterally. ABDOMEN: Mildly distended but soft. EXTREMITIES: No cyanosis, clubbing, 1+ edema. NEUROLOGIC: Generalized weakness. Results/Medications Result Diagram: 08/26/17 0458 08/26/17 0458 Results 24 hrs Laboratory Tests Test 08/25/17 12:54 08/25/17 16:46 08/25/17 21:02 08/26/17 01:23 Bedside Glucose 195 219 167 135 Test 08/26/17 04:52 08/26/17 04:58 08/26/17 08:58 Bedside Glucose 136 155 White Blood Count 13.1 H Red Blood Count 3.15 L Hemoglobin 8.5 L Hematocrit 27.2 L Mean Corpuscular Volume 86.3 Mean Corpuscular Hemoglobin 27.0 L Mean Corpuscular Hemoglobin Concent 31.3 L Red Cell Distribution Width 18.4 H Platelet Count 362 Mean Platelet Volume 9.8 Neutrophils % 75.5 Lymphocytes % 11.7 L Monocytes % 7.8 Eosinophils % 0.2 Basophils % 0.1 Nucleated Red Blood Cells % 0.9 H Neutrophils # 9.9 H Lymphocytes # 1.5 Monocytes # 1.0 H Eosinophils # 0.0 Basophils # 0.0 Nucleated Red Blood Cells # 0.1 H Sodium Level 145 H Potassium Level 3.8 Chloride Level 107 Carbon Dioxide Level 33 H Anion Gap 9 Blood Urea Nitrogen 15 Creatinine 0.61 Glucose Level 135 Calcium Level 7.6 L Medications Current Medications Ondansetron HCl (Zofran Inj) 4 mg Q6H PRN IV NAUSEA AND/OR VOMITING; Start 06/27 at 13:00 Acetaminophen (Tylenol Liquid) 650 mg Q6H PRN PO PAIN LEVEL 1-3 OR FEVER Last administered on 08/25/17 16:59; Admin Dose 650 MG; Start 08/20/17 at 13:00 Morphine Sulfate (morphine) 2 mg Q4H PRN IV PAIN LEVEL 7-10; Start 08/20/17 at 13:00 Methylprednisolone Sodium Succinate 60 mg 60 mg DAILY IV Last administered on 08/26/17 08:43; Admin Dose 60 MG; Start 08/20/17 at 17:00 Midazolam HCl 50 ml @ 1 mls/hr TITRATE IV Last administered on 08/23/17 11:08 ; Admin Dose 5 MLS/HR; Start 08/20/17 at 18:30 Fentanyl 100 ml @ 2.5 mls/hr TITRATE IV Last administered on 08/23/17 06:55 ; Admin Dose 10 MLS/HR; Start 08/20/17 at 18:30 Phenylephrine HCl 40 mg/Dextrose 500 ml @ 75 mls/hr TITRATE IV ; Start at 18:30 Propofol 100 ml @ 3.408 mls/ hr Q12H IV Last administered on 08/23/17 20:01 ; Admin Dose 3.408 MLS/HR; Start 08/20/17 at 20:00 Norepinephrine 16 mg/Dextrose 500 ml @ 1.87 mls/hr TITRATE IV Last administered on 08/22/17 01:12; Admin Dose 7.5 MLS/HR; Start 08/21/17 at 09: 00 Piperacillin Sod/ Tazobactam Sod 50 ml @ 100 mls/hr Q6 IVPB Last administered on 08/26/17 06:00; Admin Dose 100 MLS/HR; Start 08/21/17 at 14:00 Levofloxacin/ Dextrose 150 ml @ 100 mls/hr Q24H IVPB Last administered on 12/ 15/17at 13:12; Admin Dose 100 MLS/HR; Start 08/21/17 at 14:00 Fluconazole (Diflucan 400 Mg/ NS (Pmx)) 200 ml @ 100 mls/hr Q24H IVPB Last administered on 08/25/17 14:50; Admin Dose 100 MLS/HR; Start 08/21/17 at 14: 00 Diagnostic Test (Pha) (Accu-Chek) 1 ea 02 XX ; Start 08/22/17 at 02:00 Insulin Aspart (Novolog Insulin Pen) NOVOLOG *MILD* ALGORI... Q4 SC Last administered on 08/26/17 09:05; Admin Dose 1 UNIT; Start 08/21/17 at 21:00 Miscellaneous Information 1 ea NOTE XX ; Start 08/21/17 at 20:30 Glucose (Glutose) 15 gm Q15M PRN PO DECREASED GLUCOSE; Start 08/21/17 at 20:30 Glucose (Glutose) 22.5 gm Q15M PRN PO DECREASED GLUCOSE; Start 08/21/17 at 20: 30 Dextrose (D50w Syringe) 25 ml Q15M PRN IV DECREASED GLUCOSE; Start 08/21/17 at 20:30 Dextrose (D50w Syringe) 50 ml Q15M PRN IV DECREASED GLUCOSE; Start 08/21/17 at 20:30 Glucagon (Glucagen) 1 mg Q15M PRN IM DECREASED GLUCOSE; Start 08/21/17 at 20: 30 Glucose (Glutose) 15 gm Q15M PRN BUCCAL DECREASED GLUCOSE; Start 08/21/17 at 20:30 Pantoprazole (Protonix Iv) 40 mg DAILY@06 IV Last administered on 08/26/17 06 :00; Admin Dose 40 MG; Start 08/22/17 at 06:00 Insulin Glargine 10 unit 10 unit DAILY@20 SC Last administered on 08/25/17 21 :05; Admin Dose 10 UNIT; Start 08/23/17 at 21:00 Sodium Chloride 1,000 ml @ 60 mls/hr [id number] IV Last administered on 23:03; Admin Dose 60 MLS/HR; Start 08/23/17 at 21:00 Dopamine HCl/ Dextrose 250 ml @ 8.52 mls/hr TITRATE IV ; Start 08/23/17 at 21: 00 Oseltamivir Phosphate (Tamiflu) 150 mg Q12 PO Last administered on 08/26/17t 08:43; Admin Dose 150 MG; Start 08/24/17 at 21:00 Assessment/Plan Chief Complaint/Hosp Course Assessment 1. Hypoxemic respiratory failure consistent with adult respiratory distress syndrome. 2. Possible acute influenza infection. 3. Continue broad-spectrum antibiotics. 4. Mechanical ventilation with adult respiratory distress syndrome protocol Plan 1. Continue mechanical ventilation decrease FiO2 and PEEP as tolerated 2. Continue ID recommendations 3. Tube feeding if tolerated 4. DVT and GI prophylaxis 5. Increase free water for hypernatremia Overall prognosis guarded. Critical care time 40 minutes. Discussed with family at bedside. Problems: SVITLANA LOZANO MD, [facility] Aug 26, 2017 11:03
--- NOTE | 2017-08-26 11:59 | PN ---
Date/Time of Note Date/Time of Note DATE: 08/26/17 TIME: 11:52 Assessment/Plan VTE Prophylaxis VTE Prophylaxis Intervention: SCD's Lines/Catheters IV Catheter Type (from Nrs): Central Line Urinary Cath still in place: Yes Reason Cath still needed: urinary retention Assessment/Plan Assessment/Plan -Severe Hypoxemic Respiratory Failure concerning for ARDS, continue ventilatory support, breathing treatments, steroids. Dr. Alarcon is following in pulmonology consultation. -Acute multifocal pneumonia, continue broad-spectrum antibiotics, Tamiflu. Dr. Mcgowan is following in infection disease consultation. -Sepsis with shock secondary to pneumonia, continue IV fluids, ICU care. -Diabetes mellitus with hemoglobin A1c 6.9. Continue NovoLog per sliding scale with Accu-Chek every 4 hours. -Bradycardia, Dr. Whalen is following in cardiology consultation -Preserved ejection fraction of 50% -Obesity with BMI of 43 -Hepatic steatosis Total critical time spent- 30 mins. Further recommendations based on clinical course. Plan of care discussed with Dr. Gomez. Subjective 24 Hr Interval Summary Free Text/Dictation - remains orally intubated,still Doe, no sedation/ vasopressor, NGT intact - family at bed side- all Qs answered. - no new events reported overnight - dw staff Subjective hx not possible: pt non-verbal Constitutional: requiring IVF, requiring O2 Exam/Review of Systems Vital Signs Vitals Vital Signs Date Time Temp Pulse Resp B/P Pulse Ox O2 Delivery O2 Flow Rate FiO2 08/26/17 11:00 41 25 88/49 98 Mechanical Ventilator 08/26/17 08:00 99.0 08/26/17 08:00 50 Intake and Output 08/25/17 08/25/17 08/26/17 14:59 22:59 06:59 Intake Total 1130 ml 1220 ml 1240 ml Output Total 950 ml 885 ml 485 ml Balance 180 ml 335 ml 755 ml Exam Constitutional: non-verbal Respiratory: diminished breath sounds Cardiovascular: nl pulses Gastrointestinal: non-tender, soft Musculoskeletal: range of motion Extremities: edema Neurological: unresponsive Results Result Diagram: 08/26/17 0458 08/26/17 0458 Results 24 hrs Laboratory Tests Test 08/25/17 12:54 08/25/17 16:46 08/25/17 21:02 08/26/17 01:23 Bedside Glucose 195 219 167 135 Test 08/26/17 04:52 08/26/17 04:58 08/26/17 08:58 08/26/17 11:29 Bedside Glucose 136 155 White Blood Count 13.1 H Red Blood Count 3.15 L Hemoglobin 8.5 L Hematocrit 27.2 L Mean Corpuscular Volume 86.3 Mean Corpuscular Hemoglobin 27.0 L Mean Corpuscular Hemoglobin Concent 31.3 L Red Cell Distribution Width 18.4 H Platelet Count 362 Mean Platelet Volume 9.8 Neutrophils % 75.5 Lymphocytes % 11.7 L Monocytes % 7.8 Eosinophils % 0.2 Basophils % 0.1 Nucleated Red Blood Cells % 0.9 H Neutrophils # 9.9 H Lymphocytes # 1.5 Monocytes # 1.0 H Eosinophils # 0.0 Basophils # 0.0 Nucleated Red Blood Cells # 0.1 H Sodium Level 145 H Potassium Level 3.8 Chloride Level 107 Carbon Dioxide Level 33 H Anion Gap 9 Blood Urea Nitrogen 15 Creatinine 0.61 Glucose Level 135 Calcium Level 7.6 L Lab Scanned Report REFERENCE LAB Test 08/26/17 11:39 Bedside Glucose 184 Medications Medications Current Medications Ondansetron HCl (Zofran Inj) 4 mg Q6H PRN IV NAUSEA AND/OR VOMITING; Start 06/27 at 13:00 Acetaminophen (Tylenol Liquid) 650 mg Q6H PRN PO PAIN LEVEL 1-3 OR FEVER Last administered on 08/25/17 16:59; Admin Dose 650 MG; Start 08/20/17 at 13:00 Morphine Sulfate (morphine) 2 mg Q4H PRN IV PAIN LEVEL 7-10; Start 08/20/17 at 13:00 Methylprednisolone Sodium Succinate 60 mg 60 mg DAILY IV Last administered on 08/26/17 08:43; Admin Dose 60 MG; Start 08/20/17 at 17:00 Midazolam HCl 50 ml @ 1 mls/hr TITRATE IV Last administered on 08/23/17 11:08 ; Admin Dose 5 MLS/HR; Start 08/20/17 at 18:30 Fentanyl 100 ml @ 2.5 mls/hr TITRATE IV Last administered on 08/23/17 06:55 ; Admin Dose 10 MLS/HR; Start 08/20/17 at 18:30 Phenylephrine HCl 40 mg/Dextrose 500 ml @ 75 mls/hr TITRATE IV ; Start at 18:30 Propofol 100 ml @ 3.408 mls/ hr Q12H IV Last administered on 08/23/17 20:01 ; Admin Dose 3.408 MLS/HR; Start 08/20/17 at 20:00 Norepinephrine 16 mg/Dextrose 500 ml @ 1.87 mls/hr TITRATE IV Last administered on 08/22/17 01:12; Admin Dose 7.5 MLS/HR; Start 08/21/17 at 09: 00 Piperacillin Sod/ Tazobactam Sod 50 ml @ 100 mls/hr Q6 IVPB Last administered on 08/26/17 11:40; Admin Dose 100 MLS/HR; Start 08/21/17 at 14:00 Levofloxacin/ Dextrose 150 ml @ 100 mls/hr Q24H IVPB Last administered on 13:12; Admin Dose 100 MLS/HR; Start 08/21/17 at 14:00 Fluconazole (Diflucan 400 Mg/ NS (Pmx)) 200 ml @ 100 mls/hr Q24H IVPB Last administered on 08/25/17 14:50; Admin Dose 100 MLS/HR; Start 08/21/17 at 14: 00 Diagnostic Test (Pha) (Accu-Chek) 1 ea 02 XX ; Start 08/22/17 at 02:00 Insulin Aspart (Novolog Insulin Pen) NOVOLOG *MILD* ALGORI... Q4 SC Last administered on 08/26/17 09:05; Admin Dose 1 UNIT; Start 08/21/17 at 21:00 Miscellaneous Information 1 ea NOTE XX ; Start 08/21/17 at 20:30 Glucose (Glutose) 15 gm Q15M PRN PO DECREASED GLUCOSE; Start 08/21/17 at 20:30 Glucose (Glutose) 22.5 gm Q15M PRN PO DECREASED GLUCOSE; Start 08/21/17 at 20: 30 Dextrose (D50w Syringe) 25 ml Q15M PRN IV DECREASED GLUCOSE; Start 08/21/17 at 20:30 Dextrose (D50w Syringe) 50 ml Q15M PRN IV DECREASED GLUCOSE; Start 08/21/17 at 20:30 Glucagon (Glucagen) 1 mg Q15M PRN IM DECREASED GLUCOSE; Start 08/21/17 at 20: 30 Glucose (Glutose) 15 gm Q15M PRN BUCCAL DECREASED GLUCOSE; Start 08/21/17 at 20:30 Pantoprazole (Protonix Iv) 40 mg DAILY@06 IV Last administered on 08/26/17 06 :00; Admin Dose 40 MG; Start 08/22/17 at 06:00 Insulin Glargine 10 unit 10 unit DAILY@20 SC Last administered on 08/25/17 21 :05; Admin Dose 10 UNIT; Start 08/23/17 at 21:00 Sodium Chloride 1,000 ml @ 60 mls/hr [id number] IV Last administered on 23:03; Admin Dose 60 MLS/HR; Start 08/23/17 at 21:00 Dopamine HCl/ Dextrose 250 ml @ 8.52 mls/hr TITRATE IV ; Start 08/23/17 at 21: 00 Oseltamivir Phosphate (Tamiflu) 150 mg Q12 PO Last administered on 08/26/17 08:43; Admin Dose 150 MG; Start 08/24/17 at 21:00 ITZ STRONG Aug 26, 2017 11:59
[2017-08-26] MEDS: LEVOFLOXACIN 750MG/D5W (PMX) 150 ML IVPB SCH (13:14)
[2017-08-26] MEDS: FLUCONAZOLE 400 MG/NS (PMX) 200 ML IVPB SCH (13:14)
[2017-08-26] MEDS: SOD CHLORIDE 0.9% 1,000 ML IV SCH (15:23)
--- NOTE | 2017-08-26 15:58 | CONS ---
Date/Time of Note Date/Time of Note DATE: 08/26/17 TIME: 15:57 Assessment/Plan Assessment/Plan Chief Complaint/Hosp Course - Severe sepsis with septic shock likely d/t PNA +/-possible influenza; s/p pressors - Bilateral multifocal PNA - Possible influenza; vaccine status uncertain yet there has been significant breakthrough this year in particular with H3N2 - Acute hypoxemic respiratory failure with possible ARDS s/p intubation - Sinus bradycardia - Hypernatremia - slowing improving - T2DM, newly diagnosed - Hgb A1c 6.7% - Microcytic anemia - Hepatic steatosis on CT - Subclinical hyperthyroidism - H/o SVT - Obesity - BMI 43 Recommendations: - Continue high dose Tamiflu (08/21/2017-) - Continue Zosyn, Levaquin and Fluconazole (08/21/2017-) - Pending: repeat resp virus panel with deep nasopharynx sample, cocci, histo, [id number], procalcitonin, viral cx, fungal cx, urine for legionella, PCP DFA - Serial EKG to monitor QT interval (QTc 451 ms on 08/25/2017) - Continue droplet precautions - Consider workup for possible underlying autoimmune diseases; defer to PMD and Pulmonary Problems: Consultation Date/Type/Reason Admit Date/Time Aug 20, 2017 at 02:59 Type of Consultation: id Referring Provider: LUIS CHANDLER MD Exam/Review of Systems Vital Signs Vitals Vital Signs Date Time Temp Pulse Resp B/P Pulse Ox O2 Delivery O2 Flow Rate FiO2 08/26/17 12:30 41 24 103/59 100 Mechanical Ventilator 08/26/17 12:00 50 08/26/17 12:00 99.3 Intake and Output 08/25/17 08/25/17 08/26/17 15:00 23:00 07:00 Intake Total 1130 ml 1160 ml 1300 ml Output Total 1025 ml 760 ml 445 ml Balance 105 ml 400 ml 855 ml Results Result Diagram: 08/26/17 0458 08/26/17 0458 Results 24 hrs Laboratory Tests Test 08/25/17 16:46 08/25/17 21:02 08/26/17 01:23 08/26/17 04:52 Bedside Glucose 219 167 135 136 Test 08/26/17 04:58 08/26/17 08:58 08/26/17 11:29 08/26/17 11:39 White Blood Count 13.1 H Red Blood Count 3.15 L Hemoglobin 8.5 L Hematocrit 27.2 L Mean Corpuscular Volume 86.3 Mean Corpuscular Hemoglobin 27.0 L Mean Corpuscular Hemoglobin Concent 31.3 L Red Cell Distribution Width 18.4 H Platelet Count 362 Mean Platelet Volume 9.8 Neutrophils % 75.5 Lymphocytes % 11.7 L Monocytes % 7.8 Eosinophils % 0.2 Basophils % 0.1 Nucleated Red Blood Cells % 0.9 H Neutrophils # 9.9 H Lymphocytes # 1.5 Monocytes # 1.0 H Eosinophils # 0.0 Basophils # 0.0 Nucleated Red Blood Cells # 0.1 H Sodium Level 145 H Potassium Level 3.8 Chloride Level 107 Carbon Dioxide Level 33 H Anion Gap 9 Blood Urea Nitrogen 15 Creatinine 0.61 Glucose Level 135 Calcium Level 7.6 L Bedside Glucose 155 184 Lab Scanned Report REFERENCE LAB Medications Medications Current Medications Ondansetron HCl (Zofran Inj) 4 mg Q6H PRN IV NAUSEA AND/OR VOMITING; Start 06/27 at 13:00 Acetaminophen (Tylenol Liquid) 650 mg Q6H PRN PO PAIN LEVEL 1-3 OR FEVER Last administered on 08/25/17 16:59; Admin Dose 650 MG; Start 08/20/17 at 13:00 Morphine Sulfate (morphine) 2 mg Q4H PRN IV PAIN LEVEL 7-10; Start 08/20/17 at 13:00 Methylprednisolone Sodium Succinate 60 mg 60 mg DAILY IV Last administered on 08/26/17 08:43; Admin Dose 60 MG; Start 08/20/17 at 17:00 Midazolam HCl 50 ml @ 1 mls/hr TITRATE IV Last administered on 08/23/17 11:08 ; Admin Dose 5 MLS/HR; Start 08/20/17 at 18:30 Fentanyl 100 ml @ 2.5 mls/hr TITRATE IV Last administered on 08/23/17 06:55 ; Admin Dose 10 MLS/HR; Start 08/20/17 at 18:30 Phenylephrine HCl 40 mg/Dextrose 500 ml @ 75 mls/hr TITRATE IV ; Start at 18:30 Propofol 100 ml @ 3.408 mls/ hr Q12H IV Last administered on 08/23/17 20:01 ; Admin Dose 3.408 MLS/HR; Start 08/20/17 at 20:00 Norepinephrine 16 mg/Dextrose 500 ml @ 1.87 mls/hr TITRATE IV Last administered on 08/22/17 01:12; Admin Dose 7.5 MLS/HR; Start 08/21/17 at 09: 00 Piperacillin Sod/ Tazobactam Sod 50 ml @ 100 mls/hr Q6 IVPB Last administered on 08/26/17 11:40; Admin Dose 100 MLS/HR; Start 08/21/17 at 14:00 Levofloxacin/ Dextrose 150 ml @ 100 mls/hr Q24H IVPB Last administered on 13:14; Admin Dose 100 MLS/HR; Start 08/21/17 at 14:00 Fluconazole (Diflucan 400 Mg/ NS (Pmx)) 200 ml @ 100 mls/hr Q24H IVPB Last administered on 08/26/17 13:14; Admin Dose 100 MLS/HR; Start 08/21/17 at 14: 00 Diagnostic Test (Pha) (Accu-Chek) 1 ea 02 XX ; Start 08/22/17 at 02:00 Insulin Aspart (Novolog Insulin Pen) NOVOLOG *MILD* ALGORI... Q4 SC Last administered on 08/26/17 12:21; Admin Dose 2 UNIT; Start 08/21/17 at 21:00 Miscellaneous Information 1 ea NOTE XX ; Start 08/21/17 at 20:30 Glucose (Glutose) 15 gm Q15M PRN PO DECREASED GLUCOSE; Start 08/21/17 at 20:30 Glucose (Glutose) 22.5 gm Q15M PRN PO DECREASED GLUCOSE; Start 08/21/17 at 20: 30 Dextrose (D50w Syringe) 25 ml Q15M PRN IV DECREASED GLUCOSE; Start 08/21/17 at 20:30 Dextrose (D50w Syringe) 50 ml Q15M PRN IV DECREASED GLUCOSE; Start 08/21/17 at 20:30 Glucagon (Glucagen) 1 mg Q15M PRN IM DECREASED GLUCOSE; Start 08/21/17 at 20: 30 Glucose (Glutose) 15 gm Q15M PRN BUCCAL DECREASED GLUCOSE; Start 08/21/17 at 20:30 Pantoprazole (Protonix Iv) 40 mg DAILY@06 IV Last administered on 08/26/17 06 :00; Admin Dose 40 MG; Start 08/22/17 at 06:00 Insulin Glargine 10 unit 10 unit DAILY@20 SC Last administered on 08/25/17 21 :05; Admin Dose 10 UNIT; Start 08/23/17 at 21:00 Sodium Chloride 1,000 ml @ 60 mls/hr [id number] IV Last administered on 15:23; Admin Dose 60 MLS/HR; Start 08/23/17 at 21:00 Dopamine HCl/ Dextrose 250 ml @ 8.52 mls/hr TITRATE IV ; Start 08/23/17 at 21: 00 Oseltamivir Phosphate (Tamiflu) 150 mg Q12 PO Last administered on 08/26/17 08:43; Admin Dose 150 MG; Start 08/24/17 at 21:00 ELIO AMOR MD Aug 26, 2017 15:58
--- NOTE | 2017-08-26 18:51 | RADRPT ---
Vent Rate: 65 bpm RR Interval: 0 msec NV Interval: 134 msec QRS Duration: 92 msec QT Interval: 434 msec QTC Interval: 451 msec P-R-T [place]: 50 - 57 - 65 degrees Normal sinus rhythm Cannot rule out Anterior infarct , age undetermined Abnormal ECG Electronically Signed By: Juan Prado [id number]
[2017-08-26] MEDS: INSULIN GLARGINE [LANtus] 3 ML PEN SC SCH (21:10)
[2017-08-27] VITALS (38 sets, daily range): BP systolic 95–139; BP diastolic 57–84; PULSE 40–74; RESP 24–29
[2017-08-27] MEDS: PIPER-TAZO 3.375 GM IV (PMX) 50 ML IVPB SCH ×4 (00:42→17:04)
[2017-08-27] MEDS: INSULIN ASPART [NOVOLOG] 3 ML PEN SC SCH ×6 (00:42→20:18)
[2017-08-27] MEDS: ACCU-CHEK XX SCH (02:00)
[2017-08-27 05:24] LABS: ALBUMIN 2.5 g/dl (3.3-4.9); ALBUMIN/GLOBULIN RATIO 0.75; BILIRUBIN,INDIRECT 0.4 mg/dl (0-1.1); BILIRUBIN,TOTAL 0.4 mg/dl (0.2-1.3); CALCIUM 7.9 mg/dl (8.4-10.2); CREATININE 0.54 mg/dl (0.44-1.00); POTASSIUM 3.8 mmol/L (3.5-5.1); TOTAL PROTEIN 5.8 g/dl (6.1-8.1)
[2017-08-27] MEDS: PANTOPRAZOLE 40 MG INJ IV SCH (05:56)
[2017-08-27] MEDS: PROPOFOL 100 ML IV SCH (08:00)
--- NOTE | 2017-08-27 08:18 | CONS ---
Date/Time of Note Date/Time of Note DATE: 08/27/17 TIME: 08:17 Assessment/Plan Assessment/Plan Additional Assessment/Plan 1. Sinus bradycardia - stable HR overall, will monitor for now. Hold off on sedation as much as tolerated. I think preferential use of dopamine would be preferred in the setting of bradycardia and hypotension. STABLe - more alert - I spoke with family - will monitor for now. HR stable - will monitor now. 2. Respiratory failure. The patient has respiratory failure, possible acute respiratory distress syndrome, acute on chronic. Dr. Alarcon follows. Continue antibiotics.ARDS likely. Con't resp Rx. Con't to improve - more awake now. 3. Hypotention - Continue to treat the patient as indicated. BETTER NOW. 4. Obesity. We will follow as indicated. 5. Anemia. Hemoglobin is down to 8.6, no obvious signs of bleeding at the moment. Consultation Date/Type/Reason Admit Date/Time Aug 20, 2017 at 02:59 Initial Consult Date 08/21/17 Type of Consultation: id Referring Provider: LUIS CHANDLER MD 24 HR Interval Summary Free Text/Dictation NO acute events - BP in good range - keep euvolemic. HR low but BP stable - will await extubation to see if HR improves. ROS: No fever, no chills, no nausea, no vomiting, no diarrhea/constipation No recent weight changes No chest pain, no PND, no orthopnea + SOB No dizziness, blurred vision No thirst, no heat or cold intolerance Exam/Review of Systems Vital Signs Vitals Vital Signs Date Time Temp Pulse Resp B/P Pulse Ox O2 Delivery O2 Flow Rate FiO2 08/27/17 06:00 43 111/63 95 Mechanical Ventilator 08/27/17 05:00 27 50 08/27/17 04:00 98.9 Intake and Output 08/26/17 08/26/17 08/27/17 15:00 23:00 07:00 Intake Total 840 ml 1640 ml 1080 ml Output Total 525 ml 250 ml 400 ml Balance 315 ml 1390 ml 680 ml Exam General: WN/WD/NAD, AOx 3 HEENT: Unicetric/atraumatic/EOMI (follow commands) NECK: JVD elevated, no thyromegaly Lymph: no lymphadenopathy HEART: regular with no S3, II/ systolic murmur at apex LUNGS: Coarse sounds, intubated ABD: soft, NT, ND, +BS : Intact Neuro: non focal SKIN: chronic changes EXT: trace edema Results Result Diagram: 08/26/17 0458 08/27/17 0400 Results 24 hrs Laboratory Tests Test 08/26/17 08:58 08/26/17 11:29 08/26/17 11:39 08/26/17 16:21 Bedside Glucose 155 184 219 Lab Scanned Report REFERENCE LAB Test 08/26/17 20:41 08/27/17 00:42 08/27/17 04:00 08/27/17 05:57 Bedside Glucose 186 133 132 Sodium Level 145 H Potassium Level 3.8 Chloride Level 108 Carbon Dioxide Level 30 Anion Gap 11 Blood Urea Nitrogen 15 Creatinine 0.54 Glucose Level 125 Calcium Level 7.9 L Total Bilirubin 0.4 Direct Bilirubin 0.00 Indirect Bilirubin 0.4 Aspartate Amino Transf (AST/SGOT) 52 H Alanine Aminotransferase (ALT/SGPT) 95 H Alkaline Phosphatase 85 Total Protein 5.8 L Albumin 2.5 L Globulin 3.30 H Albumin/Globulin Ratio 0.75 Medications Medications Current Medications Ondansetron HCl (Zofran Inj) 4 mg Q6H PRN IV NAUSEA AND/OR VOMITING; Start 06/27 at 13:00 Acetaminophen (Tylenol Liquid) 650 mg Q6H PRN PO PAIN LEVEL 1-3 OR FEVER Last administered on 08/25/17 16:59; Admin Dose 650 MG; Start 08/20/17 at 13:00 Morphine Sulfate (morphine) 2 mg Q4H PRN IV PAIN LEVEL 7-10; Start 08/20/17 at 13:00 Methylprednisolone Sodium Succinate 60 mg 60 mg DAILY IV Last administered on 08/26/17 08:43; Admin Dose 60 MG; Start 08/20/17 at 17:00 Midazolam HCl 50 ml @ 1 mls/hr TITRATE IV Last administered on 08/23/17 11:08 ; Admin Dose 5 MLS/HR; Start 08/20/17 at 18:30 Fentanyl 100 ml @ 2.5 mls/hr TITRATE IV Last administered on 08/23/17 06:55 ; Admin Dose 10 MLS/HR; Start 08/20/17 at 18:30 Phenylephrine HCl 40 mg/Dextrose 500 ml @ 75 mls/hr TITRATE IV ; Start at 18:30 Propofol 100 ml @ 3.408 mls/ hr Q12H IV Last administered on 08/23/17 20:01 ; Admin Dose 3.408 MLS/HR; Start 08/20/17 at 20:00 Norepinephrine 16 mg/Dextrose 500 ml @ 1.87 mls/hr TITRATE IV Last administered on 08/22/17 01:12; Admin Dose 7.5 MLS/HR; Start 08/21/17 at 09: 00 Piperacillin Sod/ Tazobactam Sod 50 ml @ 100 mls/hr Q6 IVPB Last administered on 08/27/17 05:56; Admin Dose 100 MLS/HR; Start 08/21/17 at 14:00 Levofloxacin/ Dextrose 150 ml @ 100 mls/hr Q24H IVPB Last administered on 13:14; Admin Dose 100 MLS/HR; Start 08/21/17 at 14:00 Fluconazole (Diflucan 400 Mg/ NS (Pmx)) 200 ml @ 100 mls/hr Q24H IVPB Last administered on 08/26/17 13:14; Admin Dose 100 MLS/HR; Start 08/21/17 at 14: 00 Diagnostic Test (Pha) (Accu-Chek) 1 ea 02 XX ; Start 08/22/17 at 02:00 Insulin Aspart (Novolog Insulin Pen) NOVOLOG *MILD* ALGORI... Q4 SC Last administered on 08/26/17 21:09; Admin Dose 2 UNIT; Start 08/21/17 at 21:00 Miscellaneous Information 1 ea NOTE XX ; Start 08/21/17 at 20:30 Glucose (Glutose) 15 gm Q15M PRN PO DECREASED GLUCOSE; Start 08/21/17 at 20:30 Glucose (Glutose) 22.5 gm Q15M PRN PO DECREASED GLUCOSE; Start 08/21/17 at 20: 30 Dextrose (D50w Syringe) 25 ml Q15M PRN IV DECREASED GLUCOSE; Start 08/21/17 at 20:30 Dextrose (D50w Syringe) 50 ml Q15M PRN IV DECREASED GLUCOSE; Start 08/21/17 at 20:30 Glucagon (Glucagen) 1 mg Q15M PRN IM DECREASED GLUCOSE; Start 08/21/17 at 20: 30 Glucose (Glutose) 15 gm Q15M PRN BUCCAL DECREASED GLUCOSE; Start 08/21/17 at 20:30 Pantoprazole (Protonix Iv) 40 mg DAILY@06 IV Last administered on 08/27/17 05 :56; Admin Dose 40 MG; Start 08/22/17 at 06:00 Insulin Glargine 10 unit 10 unit DAILY@20 SC Last administered on 08/26/17 21 :10; Admin Dose 10 UNIT; Start 08/23/17 at 21:00 Sodium Chloride 1,000 ml @ 60 mls/hr [id number] IV Last administered on 15:23; Admin Dose 60 MLS/HR; Start 08/23/17 at 21:00 Dopamine HCl/ Dextrose 250 ml @ 8.52 mls/hr TITRATE IV ; Start 08/23/17 at 21: 00 Oseltamivir Phosphate (Tamiflu) 150 mg Q12 PO Last administered on 08/26/17 20:46; Admin Dose 150 MG; Start 08/24/17 at 21:00 YANETH NOLAND MD Aug 27, 2017 08:18
[2017-08-27] MEDS: SOD CHLORIDE 0.9% 1,000 ML IV SCH (08:20)
[2017-08-27 08:30] LABS: AADO2 Arterial 222.8 mmHg (7.0-24.0); Allen Test ACCEPTAB; Arterial Base Excess 4.9 mmol/L (-3.0-3); Arterial COHb 0.2 % (0.0-3.0); Arterial Fraction of Oxyhgb 95.8 % (93.0-99.0); Arterial HCO3 28.9 mmol/L (22.0-26.0); Arterial MetHb 0.3 % (0.0-1.5); Arterial Total Hemglobin 10.2 g/dl (12.0-18.0); MODE VENT - AC
--- NOTE | 2017-08-27 08:59 | RADRPT ---
PROCEDURE: XR Chest. CLINICAL INDICATION: Pneumonia . Congestive heart failure TECHNIQUE: Single frontal chest x-ray. COMPARISON: 08/26/2017 FINDINGS: Endotracheal tube, nasogastric tube, right jugular central venous catheters are in place unchanged. Cardiomegaly with hilar vascular congestion and bilateral diffuse patchy alveolar edema or infiltrat es appear stable. There are no significant pleural effusions. .. Evidence of pneumothorax per. The osseous structures are intact. IMPRESSION: Tubes and lines unchanged. Diffuse bilateral patchy alveolar infiltrates or edema are unchanged.. RPTAT: QQ .Seven Thompson MD, MD Date Time Electronically viewed and signed by .Seven Thompson MD, MD on 08/27/2017 08:59 .L/
--- NOTE | 2017-08-27 09:55 | CONS ---
Date/Time of Note Date/Time of Note DATE: 08/27/17 TIME: 09:54 Consult Date/Type/Reason Admit Date/Time Aug 20, 2017 at 02:59 Initial Consult Date 08/21/17 Type of Consultation: Pulmonary Ordering Provider: LUIS CHANDLER MD Subjective Awake alert oriented. Follows simple commands on mechanical ventilation. FiO2 decreased to 50%. I decreased the PEEP to 8 this morning Objective Vital Signs Date Time Temp Pulse Resp B/P Pulse Ox O2 Delivery O2 Flow Rate FiO2 08/27/17 06:00 43 111/63 95 Mechanical Ventilator 08/27/17 05:00 27 50 08/27/17 04:00 98.9 Intake and Output 08/26/17 08/26/17 08/27/17 15:00 23:00 07:00 Intake Total 840 ml 1640 ml 1080 ml Output Total 525 ml 250 ml 400 ml Balance 315 ml 1390 ml 680 ml Exam PHYSICAL EXAMINATION: GENERAL: Moderately obese young lady, orally intubated on mechanical ventilation, appears comfortable at rest, no acute distress. VITAL SIGNS: FiO2 of 50% PEEP of 8 CHEST: Decreased air entry bilaterally. ABDOMEN: Mildly distended but soft. EXTREMITIES: No cyanosis, clubbing, 1+ edema. NEUROLOGIC: Generalized weakness. Results/Medications Result Diagram: 08/26/17 0458 08/27/17 0400 Results 24 hrs Laboratory Tests Test 08/26/17 11:29 08/26/17 11:39 08/26/17 16:21 08/26/17 20:41 Lab Scanned Report REFERENCE LAB Bedside Glucose 184 219 186 Test 08/27/17 00:42 08/27/17 04:00 08/27/17 05:57 08/27/17 07:00 Bedside Glucose 133 132 Sodium Level 145 H Potassium Level 3.8 Chloride Level 108 Carbon Dioxide Level 30 Anion Gap 11 Blood Urea Nitrogen 15 Creatinine 0.54 Glucose Level 125 Calcium Level 7.9 L Total Bilirubin 0.4 Direct Bilirubin 0.00 Indirect Bilirubin 0.4 Aspartate Amino Transf (AST/SGOT) 52 H Alanine Aminotransferase (ALT/SGPT) 95 H Alkaline Phosphatase 85 Total Protein 5.8 L Albumin 2.5 L Globulin 3.30 H Albumin/Globulin Ratio 0.75 Blood Gas Specimen Source Blood arterial Arterial Blood Date Drawn 08/27/2017 7:55:45 AM Arterial Blood pH (Temp corrected) 7.473 H Arterial Blood pCO2 (Temp correct) 40.4 Arterial Blood pO2 (Temp corrected) 88.3 Arterial Blood HCO3 28.9 H Arterial Blood Base Excess 4.9 H Arterial Blood Oxygen Saturation 96.3 Ezequiel Test ACCEPTAB Arterial Blood Gas Puncture Site Right Radial Arterial Blood Carboxyhemoglobin 0.2 Arterial Blood Methemoglobin 0.3 Blood Gas A-a O2 Differential 222.8 H Oxyhemoglobin Percent 95.8 Total Hemoglobin 10.2 L Blood Gas Temperature 37.0 Blood Gas Respiration Rate 24.0 Blood Gas Actual Respiration Rate 30 Blood Gas Modality VENT - AC FiO2 50.0 Blood Gas Tidal Volume 450.0 Blood Gas Low PEEP Setting 12.0 Blood Gas Notified Whom DT Blood Gas Notified Time 08/27/2017 8:30:26 AM Medications Current Medications Ondansetron HCl (Zofran Inj) 4 mg Q6H PRN IV NAUSEA AND/OR VOMITING; Start 06/27 at 13:00 Acetaminophen (Tylenol Liquid) 650 mg Q6H PRN PO PAIN LEVEL 1-3 OR FEVER Last administered on 08/25/17 16:59; Admin Dose 650 MG; Start 08/20/17 at 13:00 Morphine Sulfate (morphine) 2 mg Q4H PRN IV PAIN LEVEL 7-10; Start 08/20/17 at 13:00 Methylprednisolone Sodium Succinate 60 mg 60 mg DAILY IV Last administered on 08/26/17 08:43; Admin Dose 60 MG; Start 08/20/17 at 17:00 Midazolam HCl 50 ml @ 1 mls/hr TITRATE IV Last administered on 08/23/17 11:08 ; Admin Dose 5 MLS/HR; Start 08/20/17 at 18:30 Fentanyl 100 ml @ 2.5 mls/hr TITRATE IV Last administered on 08/23/17 06:55 ; Admin Dose 10 MLS/HR; Start 08/20/17 at 18:30 Phenylephrine HCl 40 mg/Dextrose 500 ml @ 75 mls/hr TITRATE IV ; Start at 18:30 Propofol 100 ml @ 3.408 mls/ hr Q12H IV Last administered on 08/23/17 20:01 ; Admin Dose 3.408 MLS/HR; Start 08/20/17 at 20:00 Norepinephrine 16 mg/Dextrose 500 ml @ 1.87 mls/hr TITRATE IV Last administered on 08/22/17 01:12; Admin Dose 7.5 MLS/HR; Start 08/21/17 at 09: 00 Piperacillin Sod/ Tazobactam Sod 50 ml @ 100 mls/hr Q6 IVPB Last administered on 08/27/17 05:56; Admin Dose 100 MLS/HR; Start 08/21/17 at 14:00 Levofloxacin/ Dextrose 150 ml @ 100 mls/hr Q24H IVPB Last administered on 13:14; Admin Dose 100 MLS/HR; Start 08/21/17 at 14:00 Fluconazole (Diflucan 400 Mg/ NS (Pmx)) 200 ml @ 100 mls/hr Q24H IVPB Last administered on 08/26/17 13:14; Admin Dose 100 MLS/HR; Start 08/21/17 at 14: 00 Diagnostic Test (Pha) (Accu-Chek) 1 ea 02 XX ; Start 08/22/17 at 02:00 Insulin Aspart (Novolog Insulin Pen) NOVOLOG *MILD* ALGORI... Q4 SC Last administered on 08/26/17 21:09; Admin Dose 2 UNIT; Start 08/21/17 at 21:00 Miscellaneous Information 1 ea NOTE XX ; Start 08/21/17 at 20:30 Glucose (Glutose) 15 gm Q15M PRN PO DECREASED GLUCOSE; Start 08/21/17 at 20:30 Glucose (Glutose) 22.5 gm Q15M PRN PO DECREASED GLUCOSE; Start 08/21/17 at 20: 30 Dextrose (D50w Syringe) 25 ml Q15M PRN IV DECREASED GLUCOSE; Start 08/21/17 at 20:30 Dextrose (D50w Syringe) 50 ml Q15M PRN IV DECREASED GLUCOSE; Start 08/21/17 at 20:30 Glucagon (Glucagen) 1 mg Q15M PRN IM DECREASED GLUCOSE; Start 08/21/17 at 20: 30 Glucose (Glutose) 15 gm Q15M PRN BUCCAL DECREASED GLUCOSE; Start 08/21/17 at 20:30 Pantoprazole (Protonix Iv) 40 mg DAILY@06 IV Last administered on 08/27/17 05 :56; Admin Dose 40 MG; Start 08/22/17 at 06:00 Insulin Glargine 10 unit 10 unit DAILY@20 SC Last administered on 08/26/17 21 :10; Admin Dose 10 UNIT; Start 08/23/17 at 21:00 Sodium Chloride 1,000 ml @ 60 mls/hr [id number] IV Last administered on 15:23; Admin Dose 60 MLS/HR; Start 08/23/17 at 21:00 Dopamine HCl/ Dextrose 250 ml @ 8.52 mls/hr TITRATE IV ; Start 08/23/17 at 21: 00 Oseltamivir Phosphate (Tamiflu) 150 mg Q12 PO Last administered on 08/26/17 20:46; Admin Dose 150 MG; Start 08/24/17 at 21:00 Assessment/Plan Chief Complaint/Hosp Course Assessment 1. Hypoxemic respiratory failure consistent with adult respiratory distress syndrome. Likely improving. A possible component of pulmonary edema. I will increase diuretics. 2. Possible acute influenza infection. 3. Continue broad-spectrum antibiotics. 4. Encephalopathy toxic metabolic improving. Plan 1. Continue mechanical ventilation decrease FiO2 and PEEP as tolerated 2. Continue ID recommendations 3. Tube feeding if tolerated 4. DVT and GI prophylaxis 5. Increase free water for hypernatremia Critical care time 40 minutes. Discussed with family at bedside. Problems: SVITLANA LOZANO MD, [facility] Aug 27, 2017 09:55
[2017-08-27] MEDS: METHYLPREDNISOLONE 125 MG INJ IV SCH (09:59)
[2017-08-27] MEDS: OSELTAMIVIR 75 MG CAP PO SCH (09:59)
[2017-08-27] MEDS: BALSAM PERU/CASTOR OIL 60 GM TUBE TOP SCH (10:30)
[2017-08-27] MEDS: FUROSEMIDE 40 MG INJ IV SCH (10:34)
--- NOTE | 2017-08-27 11:03 | RADRPT ---
PROCEDURE: XR Chest. CLINICAL INDICATION: ngt placement TECHNIQUE: Single frontal view of the chest was obtained COMPARISON: 08/27/2017 FINDINGS: The endotracheal tube and right internal jugular central venous catheter remain in position. The cardiac silhouette is unremarkable. There has been interval placement of an enteric feeding tube with the tip in the mid to distal stoma ch. There has been no interval change to the overall appearance of the lung parenchyma. There is no pleural effusion or pneumothorax. The bones and soft tissue show no acute change. IMPRESSION: 1. Interval placement of an enteric feeding tube with the tip in the mid to distal stomach. 2. Otherwise, no interval change. RPTAT:AAJJ Physician [place] Date Time Electronically viewed and signed by Chavo Moreno Physician on 08/27/2017 11:02 SHARI/
--- NOTE | 2017-08-27 12:32 | CONS ---
Date/Time of Note Date/Time of Note DATE: 08/27/17 TIME: 12:28 Assessment/Plan Assessment/Plan Chief Complaint/Hosp Course - Severe sepsis with septic shock likely d/t PNA +/-possible influenza; s/p pressors - Bilateral multifocal PNA-- seemingly more d/w ards and chf now - Possible influenza; vaccine status uncertain yet there has been significant breakthrough this year in particular with H3N2 - Acute hypoxemic respiratory failure with possible ARDS s/p intubation - Sinus bradycardia - Hypernatremia - slowing improving - T2DM, newly diagnosed - Hgb A1c 6.7% - Microcytic anemia - Hepatic steatosis on CT - Subclinical hyperthyroidism - H/o SVT - Obesity - BMI 43 Recommendations: - d/c Tamiflu (08/21/2017-) - Continue Zosyn, Levaquin (08/21/2017-) through 08.28.17 at least and potentially began to de-escalate tmrw - d/c Fluconazole - Serial EKG to monitor QT interval (QTc 451 ms on 08/25/2017) - Consider workup for possible underlying autoimmune diseases if worsens again but currently improving; potentially could be considered as outpatient Problems: Consultation Date/Type/Reason Admit Date/Time Aug 20, 2017 at 02:59 Type of Consultation: ID Referring Provider: LUIS CHANDLER MD 24 HR Interval Summary Free Text/Dictation d/w Tate; improving daily. down to 50% fio2, gas exchange improved, approx po2 88 on last abg with decreased fi02, ongoing vent adjustments occuring. no fevers or chills. influenza w/u negative x 2. Cards/pulm following. Exam/Review of Systems Vital Signs Vitals Vital Signs Date Time Temp Pulse Resp B/P Pulse Ox O2 Delivery O2 Flow Rate FiO2 08/27/17 11:30 45 27 99 50 08/27/17 11:00 98.6 107/63 Mechanical Ventilator Intake and Output 08/26/17 08/26/17 08/27/17 14:59 22:59 06:59 Intake Total 870 ml 1610 ml 1170 ml Output Total 560 ml 200 ml 450 ml Balance 310 ml 1410 ml 720 ml Exam Constitutional: alert, oriented, other (intubated, awake), well developed Head: atraumatic, normocephalic Eyes: EOMI Neck: supple Respiratory: clear to auscultation, diminished breath sounds, other (diminshed at bases) Cardiovascular: regular rate and rhythm Gastrointestinal: soft Results Result Diagram: 08/26/17 0458 08/27/17 0400 Results 24 hrs Laboratory Tests Test 08/26/17 16:21 08/26/17 20:41 08/27/17 00:42 08/27/17 04:00 Bedside Glucose 219 186 133 Sodium Level 145 H Potassium Level 3.8 Chloride Level 108 Carbon Dioxide Level 30 Anion Gap 11 Blood Urea Nitrogen 15 Creatinine 0.54 Glucose Level 125 Calcium Level 7.9 L Total Bilirubin 0.4 Direct Bilirubin 0.00 Indirect Bilirubin 0.4 Aspartate Amino Transf (AST/SGOT) 52 H Alanine Aminotransferase (ALT/SGPT) 95 H Alkaline Phosphatase 85 Total Protein 5.8 L Albumin 2.5 L Globulin 3.30 H Albumin/Globulin Ratio 0.75 Test 08/27/17 05:57 08/27/17 07:00 08/27/17 09:57 08/27/17 11:53 Bedside Glucose 132 133 Blood Gas Specimen Source Blood arterial Arterial Blood Date Drawn 08/27/2017 7:55:45 AM Arterial Blood pH (Temp corrected) 7.473 H Arterial Blood pCO2 (Temp correct) 40.4 Arterial Blood pO2 (Temp corrected) 88.3 Arterial Blood HCO3 28.9 H Arterial Blood Base Excess 4.9 H Arterial Blood Oxygen Saturation 96.3 Ezequiel Test ACCEPTAB Arterial Blood Gas Puncture Site Right Radial Arterial Blood Carboxyhemoglobin 0.2 Arterial Blood Methemoglobin 0.3 Blood Gas A-a O2 Differential 222.8 H Oxyhemoglobin Percent 95.8 Total Hemoglobin 10.2 L Blood Gas Temperature 37.0 Blood Gas Respiration Rate 24.0 Blood Gas Actual Respiration Rate 30 Blood Gas Modality VENT - AC FiO2 50.0 Blood Gas Tidal Volume 450.0 Blood Gas Low PEEP Setting 12.0 Blood Gas Notified Whom DT Blood Gas Notified Time 08/27/2017 8:30:26 AM Lab Scanned Report REFERENCE LAB Medications Medications Current Medications Ondansetron HCl (Zofran Inj) 4 mg Q6H PRN IV NAUSEA AND/OR VOMITING; Start 06/27 at 13:00 Acetaminophen (Tylenol Liquid) 650 mg Q6H PRN PO PAIN LEVEL 1-3 OR FEVER Last administered on 08/25/17t 16:59; Admin Dose 650 MG; Start 08/20/17 at 13:00 Morphine Sulfate (morphine) 2 mg Q4H PRN IV PAIN LEVEL 7-10; Start 08/20/17 at 13:00 Methylprednisolone Sodium Succinate 60 mg 60 mg DAILY IV Last administered on 08/27/17 09:59; Admin Dose 60 MG; Start 08/20/17 at 17:00 Midazolam HCl 50 ml @ 1 mls/hr TITRATE IV Last administered on 08/23/17 11:08 ; Admin Dose 5 MLS/HR; Start 08/20/17 at 18:30 Fentanyl 100 ml @ 2.5 mls/hr TITRATE IV Last administered on 08/23/17 06:55 ; Admin Dose 10 MLS/HR; Start 08/20/17 at 18:30 Phenylephrine HCl 40 mg/Dextrose 500 ml @ 75 mls/hr TITRATE IV ; Start at 18:30 Propofol 100 ml @ 3.408 mls/ hr Q12H IV Last administered on 08/23/17 20:01 ; Admin Dose 3.408 MLS/HR; Start 08/20/17 at 20:00 Norepinephrine 16 mg/Dextrose 500 ml @ 1.87 mls/hr TITRATE IV Last administered on 08/22/17 01:12; Admin Dose 7.5 MLS/HR; Start 08/21/17 at 09: 00 Piperacillin Sod/ Tazobactam Sod 50 ml @ 100 mls/hr Q6 IVPB Last administered on 08/27/17 11:45; Admin Dose 100 MLS/HR; Start 08/21/17 at 14:00 Levofloxacin/ Dextrose 150 ml @ 100 mls/hr Q24H IVPB Last administered on 13:14; Admin Dose 100 MLS/HR; Start 08/21/17 at 14:00 Fluconazole (Diflucan 400 Mg/ NS (Pmx)) 200 ml @ 100 mls/hr Q24H IVPB Last administered on 08/26/17 13:14; Admin Dose 100 MLS/HR; Start 08/21/17 at 14: 00 Diagnostic Test (Pha) (Accu-Chek) 1 ea 02 XX ; Start 08/22/17 at 02:00 Insulin Aspart (Novolog Insulin Pen) NOVOLOG *MILD* ALGORI... Q4 SC Last administered on 08/26/17 21:09; Admin Dose 2 UNIT; Start 08/21/17 at 21:00 Miscellaneous Information 1 ea NOTE XX ; Start 08/21/17 at 20:30 Glucose (Glutose) 15 gm Q15M PRN PO DECREASED GLUCOSE; Start 08/21/17 at 20:30 Glucose (Glutose) 22.5 gm Q15M PRN PO DECREASED GLUCOSE; Start 08/21/17 at 20: 30 Dextrose (D50w Syringe) 25 ml Q15M PRN IV DECREASED GLUCOSE; Start 08/21/17 at 20:30 Dextrose (D50w Syringe) 50 ml Q15M PRN IV DECREASED GLUCOSE; Start 08/21/17 at 20:30 Glucagon (Glucagen) 1 mg Q15M PRN IM DECREASED GLUCOSE; Start 08/21/17 at 20: 30 Glucose (Glutose) 15 gm Q15M PRN BUCCAL DECREASED GLUCOSE; Start 08/21/17 at 20:30 Pantoprazole (Protonix Iv) 40 mg DAILY@06 IV Last administered on 08/27/17 05 :56; Admin Dose 40 MG; Start 08/22/17 at 06:00 Insulin Glargine 10 unit 10 unit DAILY@20 SC Last administered on 08/26/17 21 :10; Admin Dose 10 UNIT; Start 08/23/17 at 21:00 Sodium Chloride 1,000 ml @ 60 mls/hr [id number] IV Last administered on 15:23; Admin Dose 60 MLS/HR; Start 08/23/17 at 21:00 Dopamine HCl/ Dextrose 250 ml @ 8.52 mls/hr TITRATE IV ; Start 08/23/17 at 21: 00 Oseltamivir Phosphate (Tamiflu) 150 mg Q12 PO Last administered on 08/27/17 09:59; Admin Dose 150 MG; Start 08/24/17 at 21:00 Furosemide (Lasix) 40 mg DAILY IV Last administered on 08/27/17 10:34; Admin Dose 40 MG; Start 08/27/17 at 10:00 ELIO AMOR MD Aug 27, 2017 12:32
[2017-08-27 13:06] LABS: PNEUM JIROVECCI SRC SPUTUM; PNEUMOCYSTIS JIROVECCI DFA NOT DETECTED
--- NOTE | 2017-08-27 14:39 | PN ---
DATE: 08/27/2017 ADDENDUM I met with patient's , Andrea, and updated him regarding the patient's condition. The patient is being slowly weaned off of vent. The patient is on day 7 of ventilator support. I explained to him that in case we are unable to wean her off completely, she may require a tracheostomy and G-tube placement. I explained to him that the patient is making slow progress and will continue to try to wean her off and extubate her as soon as it can be done. Dictated By: MILAGROS CARCAMO/CLAUDIA Conf#: [id number] DID#: [id number] CC: ILIANA HODGES MD;*EndCC* MTDD
[2017-08-27] MEDS: LEVOFLOXACIN 750MG/D5W (PMX) 150 ML IVPB SCH (15:10)
--- NOTE | 2017-08-27 19:28 | PN ---
Date/Time of Note Date/Time of Note DATE: 08/27/17 TIME: 19:25 Assessment/Plan Lines/Catheters IV Catheter Type (from Rust): Central Line Urinary Cath still in place: No Assessment/Plan Assessment/Plan -Severe Hypoxemic Respiratory Failure concerning for ARDS, continue ventilatory support, breathing treatments, steroids. Dr. Alarcon is following in pulmonology consultation. -Acute multifocal pneumonia, continue broad-spectrum antibiotics, Tamiflu. Dr. Mcgowan is following in infection disease consultation. -Sepsis with shock secondary to pneumonia, continue IV fluids, ICU care. -Diabetes mellitus with hemoglobin A1c 6.9. Continue NovoLog per sliding scale with Accu-Chek every 4 hours. -Bradycardia, Dr. Whalen is following in cardiology consultation -Preserved ejection fraction of 50% -Obesity with BMI of 43 -Hepatic steatosis - Hypernatremia- BMP am Total critical time spent- 30 mins. Further recommendations based on clinical course. Plan of care discussed with Dr. Gomez. Subjective 24 Hr Interval Summary Free Text/Dictation - remains orally intubated,still Doe, no sedation/ vasopressor, NGT intact - PEEP decreased to 8 today -more alert/awake.follows simple commands - family at bed side- all Qs answered. - no new events reported overnight - dw staff Constitutional: requiring IVF, requiring O2 Exam/Review of Systems Vital Signs Vitals Vital Signs Date Time Temp Pulse Resp B/P Pulse Ox O2 Delivery O2 Flow Rate FiO2 08/27/17 18:00 47 100/69 98 Mechanical Ventilator 08/27/17 17:30 28 50 08/27/17 16:00 98.8 Intake and Output 08/26/17 08/26/17 08/27/17 15:00 23:00 07:00 Intake Total 840 ml 1640 ml 1170 ml Output Total 525 ml 250 ml 525 ml Balance 315 ml 1390 ml 645 ml Exam Constitutional: alert, well developed Respiratory: diminished breath sounds Cardiovascular: nl pulses Gastrointestinal: soft Musculoskeletal: nl extremities to inspection Results Result Diagram: 08/26/17 0458 08/27/17 0400 Results 24 hrs Laboratory Tests Test 08/26/17 20:41 08/27/17 00:42 08/27/17 04:00 08/27/17 05:57 Bedside Glucose 186 133 132 Sodium Level 145 H Potassium Level 3.8 Chloride Level 108 Carbon Dioxide Level 30 Anion Gap 11 Blood Urea Nitrogen 15 Creatinine 0.54 Glucose Level 125 Calcium Level 7.9 L Total Bilirubin 0.4 Direct Bilirubin 0.00 Indirect Bilirubin 0.4 Aspartate Amino Transf (AST/SGOT) 52 H Alanine Aminotransferase (ALT/SGPT) 95 H Alkaline Phosphatase 85 Total Protein 5.8 L Albumin 2.5 L Globulin 3.30 H Albumin/Globulin Ratio 0.75 Test 08/27/17 07:00 08/27/17 09:57 08/27/17 11:53 08/27/17 15:08 Blood Gas Specimen Source Blood arterial Arterial Blood Date Drawn 08/27/2017 7:55:45 AM Arterial Blood pH (Temp corrected) 7.473 H Arterial Blood pCO2 (Temp correct) 40.4 Arterial Blood pO2 (Temp corrected) 88.3 Arterial Blood HCO3 28.9 H Arterial Blood Base Excess 4.9 H Arterial Blood Oxygen Saturation 96.3 Ezequiel Test ACCEPTAB Arterial Blood Gas Puncture Site Right Radial Arterial Blood Carboxyhemoglobin 0.2 Arterial Blood Methemoglobin 0.3 Blood Gas A-a O2 Differential 222.8 H Oxyhemoglobin Percent 95.8 Total Hemoglobin 10.2 L Blood Gas Temperature 37.0 Blood Gas Respiration Rate 24.0 Blood Gas Actual Respiration Rate 30 Blood Gas Modality VENT - AC FiO2 50.0 Blood Gas Tidal Volume 450.0 Blood Gas Low PEEP Setting 12.0 Blood Gas Notified Whom DT Blood Gas Notified Time 08/27/2017 8:30:26 AM Bedside Glucose 133 160 Lab Scanned Report REFERENCE LAB Test 08/27/17 17:02 Bedside Glucose 135 Medications Medications Current Medications Ondansetron HCl (Zofran Inj) 4 mg Q6H PRN IV NAUSEA AND/OR VOMITING; Start 06/27 at 13:00 Acetaminophen (Tylenol Liquid) 650 mg Q6H PRN PO PAIN LEVEL 1-3 OR FEVER Last administered on 08/25/17 16:59; Admin Dose 650 MG; Start 08/20/17 at 13:00 Morphine Sulfate (morphine) 2 mg Q4H PRN IV PAIN LEVEL 7-10; Start 08/20/17 at 13:00 Methylprednisolone Sodium Succinate 60 mg 60 mg DAILY IV Last administered on 08/27/17 09:59; Admin Dose 60 MG; Start 08/20/17 at 17:00 Midazolam HCl 50 ml @ 1 mls/hr TITRATE IV Last administered on 08/23/17 11:08 ; Admin Dose 5 MLS/HR; Start 08/20/17 at 18:30 Fentanyl 100 ml @ 2.5 mls/hr TITRATE IV Last administered on 08/23/17 06:55 ; Admin Dose 10 MLS/HR; Start 08/20/17 at 18:30 Phenylephrine HCl 40 mg/Dextrose 500 ml @ 75 mls/hr TITRATE IV ; Start at 18:30 Propofol 100 ml @ 3.408 mls/ hr Q12H IV Last administered on 08/23/17 20:01 ; Admin Dose 3.408 MLS/HR; Start 08/20/17 at 20:00 Norepinephrine 16 mg/Dextrose 500 ml @ 1.87 mls/hr TITRATE IV Last administered on 08/22/17 01:12; Admin Dose 7.5 MLS/HR; Start 08/21/17 at 09: 00 Piperacillin Sod/ Tazobactam Sod 50 ml @ 100 mls/hr Q6 IVPB Last administered on 08/27/17 17:04; Admin Dose 100 MLS/HR; Start 08/21/17 at 14:00 Levofloxacin/ Dextrose (Levaquin 750 Mg/ D5W 150 ml (Pmx)) 150 ml @ 100 mls/hr Q24H IVPB Last administered on 08/27/17 15:10; Admin Dose 100 MLS/HR; Start 08/21/17 at 14:00 Diagnostic Test (Pha) (Accu-Chek) 1 ea 02 XX ; Start 08/22/17 at 02:00 Insulin Aspart (Novolog Insulin Pen) NOVOLOG *MILD* ALGORI... Q4 SC Last administered on 08/27/17 15:14; Admin Dose 1 UNIT; Start 08/21/17 at 21:00 Miscellaneous Information 1 ea NOTE XX ; Start 08/21/17 at 20:30 Glucose (Glutose) 15 gm Q15M PRN PO DECREASED GLUCOSE; Start 08/21/17 at 20:30 Glucose (Glutose) 22.5 gm Q15M PRN PO DECREASED GLUCOSE; Start 08/21/17 at 20: 30 Dextrose (D50w Syringe) 25 ml Q15M PRN IV DECREASED GLUCOSE; Start 08/21/17 at 20:30 Dextrose (D50w Syringe) 50 ml Q15M PRN IV DECREASED GLUCOSE; Start 08/21/17 at 20:30 Glucagon (Glucagen) 1 mg Q15M PRN IM DECREASED GLUCOSE; Start 08/21/17 at 20: 30 Glucose (Glutose) 15 gm Q15M PRN BUCCAL DECREASED GLUCOSE; Start 08/21/17 at 20:30 Pantoprazole (Protonix Iv) 40 mg DAILY@06 IV Last administered on 08/27/17 05 :56; Admin Dose 40 MG; Start 08/22/17 at 06:00 Insulin Glargine 10 unit 10 unit DAILY@20 SC Last administered on 08/26/17 21 :10; Admin Dose 10 UNIT; Start 08/23/17 at 21:00 Sodium Chloride 1,000 ml @ 60 mls/hr [id number] IV Last administered on 15:23; Admin Dose 60 MLS/HR; Start 08/23/17 at 21:00 Dopamine HCl/ Dextrose 250 ml @ 8.52 mls/hr TITRATE IV ; Start 08/23/17 at 21: 00 Furosemide (Lasix) 40 mg DAILY IV Last administered on 08/27/17 10:34; Admin Dose 40 MG; Start 08/27/17 at 10:00 ITZ STRONG Aug 27, 2017 19:28
[2017-08-27] MEDS: INSULIN GLARGINE [LANtus] 3 ML PEN SC SCH (20:20)
[2017-08-28] VITALS (57 sets, daily range): BP systolic 96–117; BP diastolic 54–73; PULSE 43–79; RESP 22–29
[2017-08-28] MEDS: INSULIN ASPART [NOVOLOG] 3 ML PEN SC SCH ×6 (01:00→21:03)
[2017-08-28] MEDS: PIPER-TAZO 3.375 GM IV (PMX) 50 ML IVPB SCH ×5 (01:53→23:48)
[2017-08-28] MEDS: ACCU-CHEK XX SCH (01:56)
[2017-08-28] MEDS: PANTOPRAZOLE 40 MG INJ IV SCH (05:07)
[2017-08-28 05:34] LABS: EOSINOPHILS # 0.1 10^3/ul (0.0-0.5); EOSINOPHILS % 1.3 % (0.0-7.0); HEMATOCRIT 27.5 % (37.0-47.0); HEMOGLOBIN 8.9 g/dl (12.0-16.0); LYMPHOCYTES # 1.3 10^3/ul (0.8-2.9); LYMPHOCYTES % 13.7 % (15.0-51.0); MEAN CORPUSCULAR HEMOGLOBIN 28.7 pg (29.0-33.0); MEAN CORPUSCULAR HGB CONC 32.4 g/dl (32.0-37.0); MEAN CORPUSCULAR VOLUME 88.7 fl (82.0-101.0); MEAN PLATELET VOLUME 9.8 fl (7.4-10.4); MONOCYTE # 0.8 10^3/ul (0.3-0.9); MONOCYTES % 8.6 % (0.0-11.0); NEUTROPHIL # 7.2 10^3/ul (1.6-7.5); NEUTROPHILS % 74.4 % (39.0-77.0); NUCLEATED RED BLOOD CELLS% 0.4 /100WBC (0.0-0.0); PLATELET COUNT 389 10^3/UL (140-415); RED CELL DISTRIBUTION WIDTH 19.7 % (11.5-14.5); WHITE BLOOD COUNT 9.7 10^3/ul (4.8-10.8)
[2017-08-28 05:59] LABS: CALCIUM 8.3 mg/dl (8.4-10.2); CREATININE 0.61 mg/dl (0.44-1.00); MAGNESIUM 1.9 mg/dl (1.7-2.5); PHOSPHORUS 4.3 mg/dl (2.5-4.9); POTASSIUM 3.4 mmol/L (3.5-5.1)
[2017-08-28 07:53] LABS: Allen Test ACCEPTAB; Arterial Base Excess 2.7 mmol/L (-3.0-3); Arterial COHb 0.3 % (0.0-3.0); Arterial Fraction of Oxyhgb 96.3 % (93.0-99.0); Arterial HCO3 26.3 mmol/L (22.0-26.0); Arterial MetHb 0.2 % (0.0-1.5); Arterial Total Hemglobin 10.3 g/dl (12.0-18.0); MODE VENT - AC
--- NOTE | 2017-08-28 08:16 | RADRPT ---
PROCEDURE: XR Chest. CLINICAL INDICATION: Respiratory failure TECHNIQUE: Single frontal view of the chest. COMPARISON: 08/27/2017 and additional priors FINDINGS: Support lines and tubes: Endotracheal tube tip well positioned over the mid tracheal shadow. Enteri c tube tip passes below the diaphragm and below the field of view. Right internal jugular central l ine with the tip over the distal superior vena cava. Cardiac/vascular structures: Stable enlarged cardiomediastinal silhouette. Pulmonary: Diffuse bilateral air space opacities with interval worsening in the left lung mckeon. N o significant pleural effusion. No evidence of pneumothorax. Osseous structures: Normal Soft tissues: Normal IMPRESSION: 1. Stable position of central line and tubes. 2. Bilateral air space opacities with interval worsening left lung representing asymmetric pulmonary edema or infection. RPTAT:AAJJ Physician Isabel Date Time Electronically viewed and signed by Physician Isabel on 08/28/2017 08:16 /
[2017-08-28] MEDS: SOD CHLORIDE 0.9% 1,000 ML IV SCH (08:20)
[2017-08-28] MEDS: METHYLPREDNISOLONE 125 MG INJ IV SCH (09:34)
[2017-08-28] MEDS: FUROSEMIDE 40 MG INJ IV SCH (09:34)
[2017-08-28] MEDS: BALSAM PERU/CASTOR OIL 60 GM TUBE TOP SCH (09:35)
--- NOTE | 2017-08-28 10:42 | CONS ---
Date/Time of Note Date/Time of Note DATE: 08/28/17 TIME: 10:31 Assessment/Plan Assessment/Plan Chief Complaint/Hosp Course - Severe sepsis with septic shock likely d/t PNA +/-possible influenza; s/p pressors; procalcitonin 1.35 - Bilateral multifocal PNA-- seemingly more c/w ARDS and CHF now - Possible influenza, s/p Tamiflu - Acute hypoxemic respiratory failure with possible ARDS s/p intubation - Sinus bradycardia - Hypernatremia - slowing improving - T2DM, newly diagnosed - Hgb A1c 6.7% - Microcytic anemia - Hepatic steatosis on CT - Subclinical hyperthyroidism - Acute encephalopathy - improving - H/o SVT - Obesity - BMI 43 Recommendations: - De-escalate abx: DC Levaquin - Continue Zosyn (08/21/2017-); plan to DC tomorrow if pt is stable - Pending: cocci, histo, viral cx, fungal cx - Consider workup for possible underlying autoimmune diseases if worsens again but currently improving; potentially could be considered as outpatient Management d/w NASIMA Broussard and Dr. Mcgowan Critical Care time spent: 40 min Problems: Consultation Date/Type/Reason Admit Date/Time Aug 20, 2017 at 02:59 Initial Consult Date 08/21/17 Type of Consultation: Infectious Disease 24 HR Interval Summary Free Text/Dictation Pt awake, alert, following simple commands and BA. Tolerating weaning trial so far. Nods no to pain, SOB, n/v. Exam/Review of Systems Vital Signs Vitals Vital Signs Date Time Temp Pulse Resp B/P Pulse Ox O2 Delivery O2 Flow Rate FiO2 08/28/17 09:19 44 26 98 40 08/28/17 07:30 99.0 115/69 Mechanical Ventilator Intake and Output 08/27/17 08/27/17 08/28/17 15:00 23:00 07:00 Intake Total 480 ml 120 ml 310 ml Output Total 4400 ml 710 ml 780 ml Balance -3920 ml -590 ml -470 ml Exam Constitutional: alert, obese, other (intubated), well developed Head: atraumatic, normocephalic Eyes: nl sclera ENMT: intubated Respiratory: diminished breath sounds Cardiovascular: nl pulses, regular rate and rhythm (slightly bradycardic at times) Gastrointestinal: bowel sounds (normoactive), non-tender, other (NGT with tube feeds in place, Flexiseal in place with liquid brown stool), soft Genitourinary - Female: other (Bourgeois catheter present) Musculoskeletal: nl extremities to inspection Extremities: normal pulses, No clubbing, No cyanosis Neurological: other (Nods to simple questions and follows simple commands; BA with generalized weakness) Skin: nl turgor, No rash or lesions Results Result Diagram: 08/28/17 0400 08/28/17 0400 Results 24 hrs Laboratory Tests Test 08/27/17 11:53 08/27/17 15:08 08/27/17 17:02 08/27/17 20:18 Lab Scanned Report REFERENCE LAB Bedside Glucose 160 135 119 Test 08/28/17 01:56 08/28/17 04:00 08/28/17 05:06 08/28/17 07:00 Bedside Glucose 102 108 White Blood Count 9.7 # Red Blood Count 3.10 L Hemoglobin 8.9 L Hematocrit 27.5 L Mean Corpuscular Volume 88.7 Mean Corpuscular Hemoglobin 28.7 L Mean Corpuscular Hemoglobin Concent 32.4 Red Cell Distribution Width 19.7 H Platelet Count 389 Mean Platelet Volume 9.8 Neutrophils % 74.4 Lymphocytes % 13.7 L Monocytes % 8.6 Eosinophils % 1.3 Basophils % 0.0 Nucleated Red Blood Cells % 0.4 H Neutrophils # 7.2 Lymphocytes # 1.3 Monocytes # 0.8 Eosinophils # 0.1 Basophils # 0.0 Nucleated Red Blood Cells # 0.0 Sodium Level 146 H Potassium Level 3.4 L Chloride Level 105 Carbon Dioxide Level 34 H Anion Gap 10 Blood Urea Nitrogen 17 Creatinine 0.61 Glucose Level 106 Calcium Level 8.3 L Phosphorus Level 4.3 Magnesium Level 1.9 Blood Gas Specimen Source Blood arterial Arterial Blood Date Drawn 08/28/2017 7:40:03 AM Arterial Blood pH (Temp corrected) 7.475 H Arterial Blood pCO2 (Temp correct) 36.5 Arterial Blood pO2 (Temp corrected) 93.2 Arterial Blood HCO3 26.3 H Arterial Blood Base Excess 2.7 Arterial Blood Oxygen Saturation 96.8 Ezequiel Test ACCEPTAB Arterial Blood Gas Puncture Site Left Radial Arterial Blood Carboxyhemoglobin 0.3 Arterial Blood Methemoglobin 0.2 Blood Gas A-a O2 Differential 150.0 H Oxyhemoglobin Percent 96.3 Total Hemoglobin 10.3 L Blood Gas Temperature 37.0 Blood Gas Respiration Rate 24.0 Blood Gas Actual Respiration Rate 28 Blood Gas Modality VENT - AC FiO2 40.0 Blood Gas Tidal Volume 450.0 Blood Gas Low PEEP Setting 8.0 Blood Gas Notified Whom JLD Blood Gas Notified Time 08/28/2017 7:53:41 AM Test 08/28/17 08:20 Bedside Glucose 109 Medications Medications Current Medications Ondansetron HCl (Zofran Inj) 4 mg Q6H PRN IV NAUSEA AND/OR VOMITING; Start 06/27 at 13:00 Acetaminophen (Tylenol Liquid) 650 mg Q6H PRN PO PAIN LEVEL 1-3 OR FEVER Last administered on 08/25/17 16:59; Admin Dose 650 MG; Start 08/20/17 at 13:00 Morphine Sulfate (morphine) 2 mg Q4H PRN IV PAIN LEVEL 7-10; Start 08/20/17 at 13:00 Methylprednisolone Sodium Succinate 60 mg 60 mg DAILY IV Last administered on 08/28/17 09:34; Admin Dose 60 MG; Start 08/20/17 at 17:00 Phenylephrine HCl 40 mg/Dextrose 500 ml @ 75 mls/hr TITRATE IV ; Start at 18:30 Norepinephrine 16 mg/Dextrose 500 ml @ 1.87 mls/hr TITRATE IV Last administered on 08/22/17 01:12; Admin Dose 7.5 MLS/HR; Start 08/21/17 at 09: 00 Piperacillin Sod/ Tazobactam Sod 50 ml @ 100 mls/hr Q6 IVPB Last administered on 08/28/17 05:07; Admin Dose 100 MLS/HR; Start 08/21/17 at 14:00 Levofloxacin/ Dextrose (Levaquin 750 Mg/ D5W 150 ml (Pmx)) 150 ml @ 100 mls/hr Q24H IVPB Last administered on 08/27/17 15:10; Admin Dose 100 MLS/HR; Start 08/21/17 at 14:00 Diagnostic Test (Pha) (Accu-Chek) 1 ea 02 XX ; Start 08/22/17 at 02:00 Insulin Aspart (Novolog Insulin Pen) NOVOLOG *MILD* ALGORI... Q4 SC Last administered on 08/27/17 15:14; Admin Dose 1 UNIT; Start 08/21/17 at 21:00 Miscellaneous Information 1 ea NOTE XX ; Start 08/21/17 at 20:30 Glucose (Glutose) 15 gm Q15M PRN PO DECREASED GLUCOSE; Start 08/21/17 at 20:30 Glucose (Glutose) 22.5 gm Q15M PRN PO DECREASED GLUCOSE; Start 08/21/17 at 20: 30 Dextrose (D50w Syringe) 25 ml Q15M PRN IV DECREASED GLUCOSE; Start 08/21/17 at 20:30 Dextrose (D50w Syringe) 50 ml Q15M PRN IV DECREASED GLUCOSE; Start 08/21/17 at 20:30 Glucagon (Glucagen) 1 mg Q15M PRN IM DECREASED GLUCOSE; Start 08/21/17 at 20: 30 Glucose (Glutose) 15 gm Q15M PRN BUCCAL DECREASED GLUCOSE; Start 08/21/17 at 20:30 Pantoprazole (Protonix Iv) 40 mg DAILY@06 IV Last administered on 08/28/17 05 :07; Admin Dose 40 MG; Start 08/22/17 at 06:00 Insulin Glargine 10 unit 10 unit DAILY@20 SC Last administered on 08/27/17 20 :20; Admin Dose 10 UNIT; Start 08/23/17 at 21:00 Sodium Chloride 1,000 ml @ 20 mls/hr Q24H IV Last administered on 08/26/17 15:23; Admin Dose 60 MLS/HR; Start 08/23/17 at 21:00 Dopamine HCl/ Dextrose 250 ml @ 8.52 mls/hr TITRATE IV ; Start 08/23/17 at 21: 00 Furosemide (Lasix) 40 mg DAILY IV Last administered on 08/28/17 09:34; Admin Dose 40 MG; Start 08/27/17 at 10:00 Procedures Procedures CXR 08/28/17: 1. Stable position of central line and tubes. 2. Bilateral air space opacities with interval worsening left lung representing asymmetric pulmonary edema or infection. CINTHYA JUNG NP Aug 28, 2017 10:41
--- NOTE | 2017-08-28 11:00 | CONS ---
Date/Time of Note Date/Time of Note DATE: 08/28/17 TIME: 10:57 Assessment/Plan Assessment/Plan Additional Assessment/Plan Chest x-ray was reviewed from today which is showing endotracheal tube at an adequate level. Patchy bilateral infiltrative changes are present with interval improvement. Ventilator setting; AC of 24, tidal volume 450, PEEP of 8, 40% FiO2. Assessment and recommendations; 1. Patient admitted with severe bilateral pneumonia with significant clinical and radiological improvement. 2. Encephalopathy with interval improvement as well. 3. Underlying obesity. With possibly underlying sleep apnea as well. Patient to be switched over to CPAP mode. We will obtain ABG 1 hour post change if the patient continues to meet criteria for weaning from ventilator. Meanwhile continue current supportive care. Further recommendations to be made once patient has been switched over to CPAP and a follow-up ABG is obtained. The patient may be able to be extubated today. 35 minutes of critical care time was spent evaluating the patient. Consultation Date/Type/Reason Admit Date/Time Aug 20, 2017 at 02:59 Initial Consult Date 08/21/17 Type of Consultation: Pulmonary/critical care 24 HR Interval Summary Free Text/Dictation Patient's condition remains critical. Patient however is not completely awake and alert. Has been off sedation for more than 72 hours. General exam; young woman, orally intubated, awake, currently in no distress. Exam/Review of Systems Vital Signs Vitals Vital Signs Date Time Temp Pulse Resp B/P Pulse Ox O2 Delivery O2 Flow Rate FiO2 08/28/17 09:19 44 26 98 40 08/28/17 07:30 99.0 115/69 Mechanical Ventilator Intake and Output 08/27/17 08/27/17 08/28/17 15:00 23:00 07:00 Intake Total 480 ml 120 ml 310 ml Output Total 4400 ml 710 ml 780 ml Balance -3920 ml -590 ml -470 ml Exam HEENT exam; supple neck, no JVD. No lymphadenopathy. Midline trachea. No thyromegaly. Orally intubated. Patient has good dentition. Pupils are midsize and reactive to light. Chest exam; diminished breath sounds bilaterally. No added sounds. S1-S2 audible, no murmurs. Regular rhythm. Abdomen exam; soft, nondistended. Nontender. No organomegaly. Bowel sounds audible. Extremity exam; no edema. Pulses 2+ bilaterally. 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 Results Result Diagram: 08/28/17 0400 08/28/17 0400 Results 24 hrs Laboratory Tests Test 08/27/17 11:53 08/27/17 15:08 08/27/17 17:02 08/27/17 20:18 Lab Scanned Report REFERENCE LAB Bedside Glucose 160 135 119 Test 08/28/17 01:56 08/28/17 04:00 08/28/17 05:06 08/28/17 07:00 Bedside Glucose 102 108 White Blood Count 9.7 # Red Blood Count 3.10 L Hemoglobin 8.9 L Hematocrit 27.5 L Mean Corpuscular Volume 88.7 Mean Corpuscular Hemoglobin 28.7 L Mean Corpuscular Hemoglobin Concent 32.4 Red Cell Distribution Width 19.7 H Platelet Count 389 Mean Platelet Volume 9.8 Neutrophils % 74.4 Lymphocytes % 13.7 L Monocytes % 8.6 Eosinophils % 1.3 Basophils % 0.0 Nucleated Red Blood Cells % 0.4 H Neutrophils # 7.2 Lymphocytes # 1.3 Monocytes # 0.8 Eosinophils # 0.1 Basophils # 0.0 Nucleated Red Blood Cells # 0.0 Sodium Level 146 H Potassium Level 3.4 L Chloride Level 105 Carbon Dioxide Level 34 H Anion Gap 10 Blood Urea Nitrogen 17 Creatinine 0.61 Glucose Level 106 Calcium Level 8.3 L Phosphorus Level 4.3 Magnesium Level 1.9 Blood Gas Specimen Source Blood arterial Arterial Blood Date Drawn 08/28/2017 7:40:03 AM Arterial Blood pH (Temp corrected) 7.475 H Arterial Blood pCO2 (Temp correct) 36.5 Arterial Blood pO2 (Temp corrected) 93.2 Arterial Blood HCO3 26.3 H Arterial Blood Base Excess 2.7 Arterial Blood Oxygen Saturation 96.8 Ezequiel Test ACCEPTAB Arterial Blood Gas Puncture Site Left Radial Arterial Blood Carboxyhemoglobin 0.3 Arterial Blood Methemoglobin 0.2 Blood Gas A-a O2 Differential 150.0 H Oxyhemoglobin Percent 96.3 Total Hemoglobin 10.3 L Blood Gas Temperature 37.0 Blood Gas Respiration Rate 24.0 Blood Gas Actual Respiration Rate 28 Blood Gas Modality VENT - AC FiO2 40.0 Blood Gas Tidal Volume 450.0 Blood Gas Low PEEP Setting 8.0 Blood Gas Notified Whom LOUISED Blood Gas Notified Time 08/28/2017 7:53:41 AM Test 08/28/17 08:20 Bedside Glucose 109 Medications Medications Current Medications Ondansetron HCl (Zofran Inj) 4 mg Q6H PRN IV NAUSEA AND/OR VOMITING; Start 06/27 at 13:00 Acetaminophen (Tylenol Liquid) 650 mg Q6H PRN PO PAIN LEVEL 1-3 OR FEVER Last administered on 08/25/17 16:59; Admin Dose 650 MG; Start 08/20/17 at 13:00 Morphine Sulfate (morphine) 2 mg Q4H PRN IV PAIN LEVEL 7-10; Start 08/20/17 at 13:00 Methylprednisolone Sodium Succinate 60 mg 60 mg DAILY IV Last administered on 08/28/17 09:34; Admin Dose 60 MG; Start 08/20/17 at 17:00 Phenylephrine HCl 40 mg/Dextrose 500 ml @ 75 mls/hr TITRATE IV ; Start at 18:30 Norepinephrine 16 mg/Dextrose 500 ml @ 1.87 mls/hr TITRATE IV Last administered on 08/22/17 01:12; Admin Dose 7.5 MLS/HR; Start 08/21/17 at 09: 00 Piperacillin Sod/ Tazobactam Sod 50 ml @ 100 mls/hr Q6 IVPB Last administered on 08/28/17 05:07; Admin Dose 100 MLS/HR; Start 08/21/17 at 14:00 Levofloxacin/ Dextrose (Levaquin 750 Mg/ D5W 150 ml (Pmx)) 150 ml @ 100 mls/hr Q24H IVPB Last administered on 08/27/17 15:10; Admin Dose 100 MLS/HR; Start 08/21/17 at 14:00 Diagnostic Test (Pha) (Accu-Chek) 1 ea 02 XX ; Start 08/22/17 at 02:00 Insulin Aspart (Novolog Insulin Pen) NOVOLOG *MILD* ALGORI... Q4 SC Last administered on 08/27/17 15:14; Admin Dose 1 UNIT; Start 08/21/17 at 21:00 Miscellaneous Information 1 ea NOTE XX ; Start 08/21/17 at 20:30 Glucose (Glutose) 15 gm Q15M PRN PO DECREASED GLUCOSE; Start 08/21/17 at 20:30 Glucose (Glutose) 22.5 gm Q15M PRN PO DECREASED GLUCOSE; Start 08/21/17 at 20: 30 Dextrose (D50w Syringe) 25 ml Q15M PRN IV DECREASED GLUCOSE; Start 08/21/17 at 20:30 Dextrose (D50w Syringe) 50 ml Q15M PRN IV DECREASED GLUCOSE; Start 08/21/17 at 20:30 Glucagon (Glucagen) 1 mg Q15M PRN IM DECREASED GLUCOSE; Start 08/21/17 at 20: 30 Glucose (Glutose) 15 gm Q15M PRN BUCCAL DECREASED GLUCOSE; Start 08/21/17 at 20:30 Pantoprazole (Protonix Iv) 40 mg DAILY@06 IV Last administered on 08/28/17 05 :07; Admin Dose 40 MG; Start 08/22/17 at 06:00 Insulin Glargine 10 unit 10 unit DAILY@20 SC Last administered on 08/27/17 20 :20; Admin Dose 10 UNIT; Start 08/23/17 at 21:00 Sodium Chloride 1,000 ml @ 20 mls/hr Q24H IV Last administered on 08/26/17 15:23; Admin Dose 60 MLS/HR; Start 08/23/17 at 21:00 Dopamine HCl/ Dextrose 250 ml @ 8.52 mls/hr TITRATE IV ; Start 08/23/17 at 21: 00 Furosemide (Lasix) 40 mg DAILY IV Last administered on 08/28/17 09:34; Admin Dose 40 MG; Start 08/27/17 at 10:00 ADRI NAVARRO Aug 28, 2017 11:00
--- NOTE | 2017-08-28 12:38 | CONS ---
Date/Time of Note Date/Time of Note DATE: 08/28/17 TIME: 12:36 Assessment/Plan Assessment/Plan Chief Complaint/Hosp Course IMP: 1.Bradycardia-NL Free t4. stable BP 2.Hypotension 3.Resp failure s/p intubation 4.DM 5. Hypernatremia 6. PNA-multifocal Recc: -ICU monitoring -Contionue abx's/steroids/bronchodilators -Follow HR/BP closely Problems: Consultation Date/Type/Reason Admit Date/Time Aug 20, 2017 at 02:59 Initial Consult Date 08/21/17 Type of Consultation: cardiology Reason for Consultation bradycardia Referring Provider: MILAGROS HIGHTOWER MD Exam/Review of Systems Vital Signs Vitals Vital Signs Date Time Temp Pulse Resp B/P Pulse Ox O2 Delivery O2 Flow Rate FiO2 08/28/17 11:00 52 22 96 40 08/28/17 07:30 99.0 115/69 Mechanical Ventilator Intake and Output 08/27/17 08/27/17 08/28/17 14:59 22:59 06:59 Intake Total 550 ml 110 ml 340 ml Output Total 525 ml 4560 ml 930 ml Balance 25 ml -4450 ml -590 ml Exam Review of Systems: CONSTITUTIONAL: No fevers, chills. PULMONARY: No sob CARDIOVASCULAR: No chest pain/palpitations GASTROINTESTINAL: No nausea/vomiting. GENITOURINARY: No hematuria/dysuria. MUSCULOSKELETAL: No myagias/arthalgias. PSYCHIATRIC: The patient denies depression. NEUROLOGIC: No weakness Constitutional: other (encephalopathic) ENMT: mucosa pink and moist Neck: jvd (9 cm ), supple Cardiovascular: regular rate and rhythm Gastrointestinal: non-tender, soft Musculoskeletal: muscle tone Extremities: edema (trace/B) Results Result Diagram: 08/28/17 0400 08/28/17 0400 Results 24 hrs Laboratory Tests Test 08/27/17 15:08 08/27/17 17:02 08/27/17 20:18 08/28/17 01:56 Bedside Glucose 160 135 119 102 Test 08/28/17 04:00 08/28/17 05:06 08/28/17 07:00 08/28/17 08:20 White Blood Count 9.7 # Red Blood Count 3.10 L Hemoglobin 8.9 L Hematocrit 27.5 L Mean Corpuscular Volume 88.7 Mean Corpuscular Hemoglobin 28.7 L Mean Corpuscular Hemoglobin Concent 32.4 Red Cell Distribution Width 19.7 H Platelet Count 389 Mean Platelet Volume 9.8 Neutrophils % 74.4 Lymphocytes % 13.7 L Monocytes % 8.6 Eosinophils % 1.3 Basophils % 0.0 Nucleated Red Blood Cells % 0.4 H Neutrophils # 7.2 Lymphocytes # 1.3 Monocytes # 0.8 Eosinophils # 0.1 Basophils # 0.0 Nucleated Red Blood Cells # 0.0 Sodium Level 146 H Potassium Level 3.4 L Chloride Level 105 Carbon Dioxide Level 34 H Anion Gap 10 Blood Urea Nitrogen 17 Creatinine 0.61 Glucose Level 106 Calcium Level 8.3 L Phosphorus Level 4.3 Magnesium Level 1.9 Bedside Glucose 108 109 Blood Gas Specimen Source Blood arterial Arterial Blood Date Drawn 08/28/2017 7:40:03 AM Arterial Blood pH (Temp corrected) 7.475 H Arterial Blood pCO2 (Temp correct) 36.5 Arterial Blood pO2 (Temp corrected) 93.2 Arterial Blood HCO3 26.3 H Arterial Blood Base Excess 2.7 Arterial Blood Oxygen Saturation 96.8 Ezequiel Test ACCEPTAB Arterial Blood Gas Puncture Site Left Radial Arterial Blood Carboxyhemoglobin 0.3 Arterial Blood Methemoglobin 0.2 Blood Gas A-a O2 Differential 150.0 H Oxyhemoglobin Percent 96.3 Total Hemoglobin 10.3 L Blood Gas Temperature 37.0 Blood Gas Respiration Rate 24.0 Blood Gas Actual Respiration Rate 28 Blood Gas Modality VENT - AC FiO2 40.0 Blood Gas Tidal Volume 450.0 Blood Gas Low PEEP Setting 8.0 Blood Gas Notified Whom JLD Blood Gas Notified Time 08/28/2017 7:53:41 AM Medications Medications Current Medications Ondansetron HCl (Zofran Inj) 4 mg Q6H PRN IV NAUSEA AND/OR VOMITING; Start 06/27 at 13:00 Acetaminophen (Tylenol Liquid) 650 mg Q6H PRN PO PAIN LEVEL 1-3 OR FEVER Last administered on 08/25/17 16:59; Admin Dose 650 MG; Start 08/20/17 at 13:00 Morphine Sulfate (morphine) 2 mg Q4H PRN IV PAIN LEVEL 7-10; Start 08/20/17 at 13:00 Methylprednisolone Sodium Succinate 60 mg 60 mg DAILY IV Last administered on 08/28/17 09:34; Admin Dose 60 MG; Start 08/20/17 at 17:00 Phenylephrine HCl 40 mg/Dextrose 500 ml @ 75 mls/hr TITRATE IV ; Start at 18:30 Norepinephrine 16 mg/Dextrose 500 ml @ 1.87 mls/hr TITRATE IV Last administered on 08/22/17 01:12; Admin Dose 7.5 MLS/HR; Start 08/21/17 at 09: 00 Piperacillin Sod/ Tazobactam Sod 50 ml @ 100 mls/hr Q6 IVPB Last administered on 08/28/17 12:34; Admin Dose 100 MLS/HR; Start 08/21/17 at 14:00 Levofloxacin/ Dextrose (Levaquin 750 Mg/ D5W 150 ml (Pmx)) 150 ml @ 100 mls/hr Q24H IVPB Last administered on 08/27/17 15:10; Admin Dose 100 MLS/HR; Start 08/21/17 at 14:00 Diagnostic Test (Pha) (Accu-Chek) 1 ea 02 XX ; Start 08/22/17 at 02:00 Insulin Aspart (Novolog Insulin Pen) NOVOLOG *MILD* ALGORI... Q4 SC Last administered on 08/27/17 15:14; Admin Dose 1 UNIT; Start 08/21/17 at 21:00 Miscellaneous Information 1 ea NOTE XX ; Start 08/21/17 at 20:30 Glucose (Glutose) 15 gm Q15M PRN PO DECREASED GLUCOSE; Start 08/21/17 at 20:30 Glucose (Glutose) 22.5 gm Q15M PRN PO DECREASED GLUCOSE; Start 08/21/17 at 20: 30 Dextrose (D50w Syringe) 25 ml Q15M PRN IV DECREASED GLUCOSE; Start 08/21/17 at 20:30 Dextrose (D50w Syringe) 50 ml Q15M PRN IV DECREASED GLUCOSE; Start 08/21/17 at 20:30 Glucagon (Glucagen) 1 mg Q15M PRN IM DECREASED GLUCOSE; Start 08/21/17 at 20: 30 Glucose (Glutose) 15 gm Q15M PRN BUCCAL DECREASED GLUCOSE; Start 08/21/17 at 20:30 Pantoprazole (Protonix Iv) 40 mg DAILY@06 IV Last administered on 08/28/17 05 :07; Admin Dose 40 MG; Start 08/22/17 at 06:00 Insulin Glargine 10 unit 10 unit DAILY@20 SC Last administered on 08/27/17 20 :20; Admin Dose 10 UNIT; Start 08/23/17 at 21:00 Sodium Chloride 1,000 ml @ 20 mls/hr Q24H IV Last administered on 08/26/17 15:23; Admin Dose 60 MLS/HR; Start 08/23/17 at 21:00 Dopamine HCl/ Dextrose 250 ml @ 8.52 mls/hr TITRATE IV ; Start 08/23/17 at 21: 00 Furosemide (Lasix) 40 mg DAILY IV Last administered on 08/28/17 09:34; Admin Dose 40 MG; Start 08/27/17 at 10:00 LUIS FELIPE PANDEY Aug 28, 2017 12:38
[2017-08-28] MEDS ORDERED: POTASSIUM CHLORIDE (SR) 10 MEQ TAB PO ONE (13:00)
--- NOTE | 2017-08-28 13:13 | PN ---
Date/Time of Note Date/Time of Note DATE: 08/28/17 TIME: 13:10 Assessment/Plan VTE Prophylaxis VTE Prophylaxis Intervention: SCD's Lines/Catheters IV Catheter Type (from Nrs): Central Line Central line still needed: Yes Urinary Cath still in place: Yes Reason Cath still needed: urinary retention Assessment/Plan Chief Complaint/Hosp Course Patient is awake alert, going ventilator weaning trial, remains afebrile. Assessment/Plan -Severe Hypoxemic Respiratory Failure concerning for ARDS, continue ventilatory support, breathing treatments, steroids. Dr. Alarcon is following in pulmonology consultation. -Acute multifocal pneumonia, continue antibiotics per ID. Dr. Mcgowan is following in infection disease consultation. -Sepsis with shock secondary to pneumonia, continue IV fluids, ICU care. -Diabetes mellitus with hemoglobin A1c 6.9. Continue NovoLog per sliding scale with Accu-Chek every 4 hours. -Bradycardia, Dr. Whalen is following in cardiology consultation -Preserved ejection fraction of 50% -Obesity with BMI of 43 -Hepatic steatosis Further recommendations based on clinical course. Plan of care discussed with Dr. Gomez. Problems: Exam/Review of Systems Vital Signs Vitals Vital Signs Date Time Temp Pulse Resp B/P Pulse Ox O2 Delivery O2 Flow Rate FiO2 08/28/17 11:00 52 22 96 40 08/28/17 07:30 99.0 115/69 Mechanical Ventilator Intake and Output 08/27/17 08/27/17 08/28/17 15:00 23:00 07:00 Intake Total 480 ml 120 ml 310 ml Output Total 4400 ml 710 ml 780 ml Balance -3920 ml -590 ml -470 ml Exam Constitutional: alert, oriented Head: normocephalic Neck: supple Respiratory: diminished breath sounds Cardiovascular: nl pulses, regular rate and rhythm Gastrointestinal: non-tender, soft Musculoskeletal: nl extremities to inspection Extremities: normal pulses Results Result Diagram: 08/28/17 0400 08/28/17 0400 Results 24 hrs Laboratory Tests Test 08/27/17 15:08 08/27/17 17:02 08/27/17 20:18 08/28/17 01:56 Bedside Glucose 160 135 119 102 Test 08/28/17 04:00 08/28/17 05:06 08/28/17 07:00 08/28/17 08:20 White Blood Count 9.7 # Red Blood Count 3.10 L Hemoglobin 8.9 L Hematocrit 27.5 L Mean Corpuscular Volume 88.7 Mean Corpuscular Hemoglobin 28.7 L Mean Corpuscular Hemoglobin Concent 32.4 Red Cell Distribution Width 19.7 H Platelet Count 389 Mean Platelet Volume 9.8 Neutrophils % 74.4 Lymphocytes % 13.7 L Monocytes % 8.6 Eosinophils % 1.3 Basophils % 0.0 Nucleated Red Blood Cells % 0.4 H Neutrophils # 7.2 Lymphocytes # 1.3 Monocytes # 0.8 Eosinophils # 0.1 Basophils # 0.0 Nucleated Red Blood Cells # 0.0 Sodium Level 146 H Potassium Level 3.4 L Chloride Level 105 Carbon Dioxide Level 34 H Anion Gap 10 Blood Urea Nitrogen 17 Creatinine 0.61 Glucose Level 106 Calcium Level 8.3 L Phosphorus Level 4.3 Magnesium Level 1.9 Bedside Glucose 108 109 Blood Gas Specimen Source Blood arterial Arterial Blood Date Drawn 08/28/2017 7:40:03 AM Arterial Blood pH (Temp corrected) 7.475 H Arterial Blood pCO2 (Temp correct) 36.5 Arterial Blood pO2 (Temp corrected) 93.2 Arterial Blood HCO3 26.3 H Arterial Blood Base Excess 2.7 Arterial Blood Oxygen Saturation 96.8 Ezequiel Test ACCEPTAB Arterial Blood Gas Puncture Site Left Radial Arterial Blood Carboxyhemoglobin 0.3 Arterial Blood Methemoglobin 0.2 Blood Gas A-a O2 Differential 150.0 H Oxyhemoglobin Percent 96.3 Total Hemoglobin 10.3 L Blood Gas Temperature 37.0 Blood Gas Respiration Rate 24.0 Blood Gas Actual Respiration Rate 28 Blood Gas Modality VENT - AC FiO2 40.0 Blood Gas Tidal Volume 450.0 Blood Gas Low PEEP Setting 8.0 Blood Gas Notified Whom JLD Blood Gas Notified Time 08/28/2017 7:53:41 AM Test 08/28/17 12:38 Bedside Glucose 174 Medications Medications Current Medications Ondansetron HCl (Zofran Inj) 4 mg Q6H PRN IV NAUSEA AND/OR VOMITING; Start 06/27 at 13:00 Acetaminophen (Tylenol Liquid) 650 mg Q6H PRN PO PAIN LEVEL 1-3 OR FEVER Last administered on 08/25/17t 16:59; Admin Dose 650 MG; Start 08/20/17 at 13:00 Morphine Sulfate (morphine) 2 mg Q4H PRN IV PAIN LEVEL 7-10; Start 08/20/17 at 13:00 Methylprednisolone Sodium Succinate 60 mg 60 mg DAILY IV Last administered on 08/28/17 09:34; Admin Dose 60 MG; Start 08/20/17 at 17:00 Phenylephrine HCl 40 mg/Dextrose 500 ml @ 75 mls/hr TITRATE IV ; Start at 18:30 Norepinephrine 16 mg/Dextrose 500 ml @ 1.87 mls/hr TITRATE IV Last administered on 08/22/17 01:12; Admin Dose 7.5 MLS/HR; Start 08/21/17 at 09: 00 Piperacillin Sod/ Tazobactam Sod 50 ml @ 100 mls/hr Q6 IVPB Last administered on 08/28/17 12:34; Admin Dose 100 MLS/HR; Start 08/21/17 at 14:00 Levofloxacin/ Dextrose (Levaquin 750 Mg/ D5W 150 ml (Pmx)) 150 ml @ 100 mls/hr Q24H IVPB Last administered on 08/27/17 15:10; Admin Dose 100 MLS/HR; Start 08/21/17 at 14:00 Diagnostic Test (Pha) (Accu-Chek) 1 ea 02 XX ; Start 08/22/17 at 02:00 Insulin Aspart (Novolog Insulin Pen) NOVOLOG *MILD* ALGORI... Q4 SC Last administered on 08/28/17 12:40; Admin Dose 1 UNIT; Start 08/21/17 at 21:00 Miscellaneous Information 1 ea NOTE XX ; Start 08/21/17 at 20:30 Glucose (Glutose) 15 gm Q15M PRN PO DECREASED GLUCOSE; Start 08/21/17 at 20:30 Glucose (Glutose) 22.5 gm Q15M PRN PO DECREASED GLUCOSE; Start 08/21/17 at 20: 30 Dextrose (D50w Syringe) 25 ml Q15M PRN IV DECREASED GLUCOSE; Start 08/21/17 at 20:30 Dextrose (D50w Syringe) 50 ml Q15M PRN IV DECREASED GLUCOSE; Start 08/21/17 at 20:30 Glucagon (Glucagen) 1 mg Q15M PRN IM DECREASED GLUCOSE; Start 08/21/17 at 20: 30 Glucose (Glutose) 15 gm Q15M PRN BUCCAL DECREASED GLUCOSE; Start 08/21/17 at 20:30 Pantoprazole (Protonix Iv) 40 mg DAILY@06 IV Last administered on 08/28/17 05 :07; Admin Dose 40 MG; Start 08/22/17 at 06:00 Insulin Glargine 10 unit 10 unit DAILY@20 SC Last administered on 08/27/17 20 :20; Admin Dose 10 UNIT; Start 08/23/17 at 21:00 Sodium Chloride 1,000 ml @ 20 mls/hr Q24H IV Last administered on 08/26/17 15:23; Admin Dose 60 MLS/HR; Start 08/23/17 at 21:00 Dopamine HCl/ Dextrose 250 ml @ 8.52 mls/hr TITRATE IV ; Start 08/23/17 at 21: 00 Furosemide (Lasix) 40 mg DAILY IV Last administered on 08/28/17 09:34; Admin Dose 40 MG; Start 08/27/17 at 10:00 MANUEL KLEIN Aug 28, 2017 13:13
[2017-08-28 13:14] LABS: AADO2 Arterial 166.7 mmHg (7.0-24.0); Allen Test ACCEPTAB; Arterial Base Excess 7.6 mmol/L (-3.0-3); Arterial COHb 0.3 % (0.0-3.0); Arterial Fraction of Oxyhgb 93.9 % (93.0-99.0); Arterial HCO3 31.5 mmol/L (22.0-26.0); Arterial MetHb 0.1 % (0.0-1.5); Arterial Total Hemglobin 11.4 g/dl (12.0-18.0); Blood Gas PS 10; MODE VENT - CPAP
[2017-08-28] MEDS: LEVOFLOXACIN 750MG/D5W (PMX) 150 ML IVPB SCH (14:42)
[2017-08-28] MEDS: morphine 2 MG INJ IV PRN ×2 (19:52→23:48)
[2017-08-28] MEDS: INSULIN GLARGINE [LANtus] 3 ML PEN SC SCH (21:02)
[2017-08-28] MEDS: ACETAMINOPHEN 650MG/20.3ML CUP PO PRN (21:44)
[2017-08-29] VITALS (33 sets, daily range): BP systolic 74–107; BP diastolic 43–72; PULSE 46–71; RESP 15–29
[2017-08-29] MEDS: INSULIN ASPART [NOVOLOG] 3 ML PEN SC SCH ×6 (01:00→20:47)
[2017-08-29] MEDS: ACCU-CHEK XX SCH ×2 (01:32→20:47)
[2017-08-29] MEDS: PIPER-TAZO 3.375 GM IV (PMX) 50 ML IVPB SCH ×3 (05:24→18:35)
[2017-08-29] MEDS: PANTOPRAZOLE 40 MG INJ IV SCH (05:24)
[2017-08-29] MEDS: morphine 2 MG INJ IV PRN (05:25)
[2017-08-29 06:18] LABS: BASOPHILS % 0.2 % (0.0-2.0); HEMATOCRIT 30.6 % (37.0-47.0); HEMOGLOBIN 9.6 g/dl (12.0-16.0); LYMPHOCYTES # 1.6 10^3/ul (0.8-2.9); LYMPHOCYTES % 13.4 % (15.0-51.0); MEAN CORPUSCULAR HEMOGLOBIN 27.3 pg (29.0-33.0); MEAN CORPUSCULAR HGB CONC 31.4 g/dl (32.0-37.0); MEAN CORPUSCULAR VOLUME 86.9 fl (82.0-101.0); MEAN PLATELET VOLUME 9.8 fl (7.4-10.4); MONOCYTE # 1.1 10^3/ul (0.3-0.9); MONOCYTES % 9.1 % (0.0-11.0); NEUTROPHIL # 8.9 10^3/ul (1.6-7.5); NEUTROPHILS % 75.5 % (39.0-77.0); NUCLEATED RED BLOOD CELLS% 0.2 /100WBC (0.0-0.0); PLATELET COUNT 430 10^3/UL (140-415); RED BLOOD COUNT 3.52 10^6/ul (4.20-5.40); RED CELL DISTRIBUTION WIDTH 18.3 % (11.5-14.5); WHITE BLOOD COUNT 11.7 10^3/ul (4.8-10.8)
[2017-08-29 06:58] LABS: CALCIUM 8.7 mg/dl (8.4-10.2); CREATININE 0.6 mg/dl (0.44-1.00); POTASSIUM 3.9 mmol/L (3.5-5.1)
[2017-08-29 07:42] LABS: AADO2 Arterial 161.1 mmHg (7.0-24.0); Allen Test ACCEPTAB; Arterial Base Excess 5.9 mmol/L (-3.0-3); Arterial COHb 0.3 % (0.0-3.0); Arterial Fraction of Oxyhgb 94.3 % (93.0-99.0); Arterial HCO3 29.9 mmol/L (22.0-26.0); Arterial MetHb 0.4 % (0.0-1.5); Arterial Total Hemglobin 10.9 g/dl (12.0-18.0); MODE VENT - AC
--- NOTE | 2017-08-29 08:06 | RADRPT ---
PROCEDURE: XR Chest. CLINICAL INDICATION: Respiratory failure with hypoxia TECHNIQUE: Single frontal view of the chest. COMPARISON: 08/28/2017 and additional priors FINDINGS: Support lines and tubes: Endotracheal tube tip well positioned over the mid tracheal shadow. Enteric tube has been removed. Right internal jugular central line with the tip over the distal superior ve na cava. Cardiac/vascular structures: Stable enlarged cardiomediastinal silhouette. Pulmonary: Diffuse bilateral air space opacities with slight interval improved aeration. No signific ant pleural effusion. No evidence of pneumothorax. Osseous structures: Normal Soft tissues: Normal IMPRESSION: 1. Stable position of central line and endotracheal tube. 2. Bilateral air space opacities with interval improved aeration representing pulmonary edema or inf ection. RPTAT:AAJJ Physician Isabel Date Time Electronically viewed and signed by Physician Isabel on 08/29/2017 08:06 /
[2017-08-29] MEDS: SOD CHLORIDE 0.9% 1,000 ML IV SCH ×2 (08:20→23:57)
[2017-08-29] MEDS: METHYLPREDNISOLONE 125 MG INJ IV SCH (08:37)
[2017-08-29] MEDS: FUROSEMIDE 40 MG INJ IV SCH (08:38)
[2017-08-29] MEDS: BALSAM PERU/CASTOR OIL 60 GM TUBE TOP SCH (08:44)
--- NOTE | 2017-08-29 09:54 | CONS ---
Date/Time of Note Date/Time of Note DATE: 08/29/17 TIME: 09:52 Assessment/Plan Assessment/Plan Additional Assessment/Plan 1. Sinus bradycardia - stable HR overall, will monitor for now. Hold off on sedation as much as tolerated. I think preferential use of dopamine would be preferred in the setting of bradycardia and hypotension. STABLE - more alert - I spoke with family - will monitor for now. HR stable - will monitor now. HR BETTER - will monitpr now. 2. Respiratory failure. The patient has respiratory failure, possible acute respiratory distress syndrome, acute on chronic. Dr. Alarcon follows. Continue antibiotics.ARDS likely Con't resp Rx. Con't to improve - more awake now. WEANING NOW. 3. Hypotention - Continue to treat the patient as indicated. BETTER NOW. 4. Obesity. We will follow as indicated. 5. Anemia. Hemoglobin is down to 8.6, no obvious signs of bleeding at the moment. Consultation Date/Type/Reason Admit Date/Time Aug 20, 2017 at 02:59 Initial Consult Date 08/21/17 Type of Consultation: cardiology Referring Provider: MILAGROS HIGHTOWER MD 24 HR Interval Summary Free Text/Dictation NO acute events - BP in good range - NO CP now - HR improved - no Class I indication for pacer now. ROS: No fever, no chills, no nausea, no vomiting, no diarrhea/constipation No recent weight changes No chest pain, no PND, no orthopnea No dizziness, blurred vision No thirst, no heat or cold intolerance Exam/Review of Systems Vital Signs Vitals Vital Signs Date Time Temp Pulse Resp B/P Pulse Ox O2 Delivery O2 Flow Rate FiO2 08/29/17 08:00 50 08/29/17 08:00 40 08/29/17 06:00 22 107/72 96 Mechanical Ventilator 08/29/17 04:00 98.7 Intake and Output 08/28/17 08/28/17 08/29/17 15:00 23:00 07:00 Intake Total 440 ml 310 ml 330 ml Output Total 2680 ml 720 ml 535 ml Balance -2240 ml -410 ml -205 ml Exam General: WN/WD/NAD, AOx 3 HEENT: Unicetric/atraumatic/EOMI (follows commands) NECK: JVD elevated, no thyromegaly Lymph: no lymphadenopathy HEART: regular with no S3, II/ systolic murmur at apex LUNGS: Coarse sounds ABD: soft, NT, ND, +BS : Intact Neuro: non focal SKIN: chronic changes EXT: trace edema Results Result Diagram: 08/29/17 0530 08/29/17 0530 Results 24 hrs Laboratory Tests Test 08/28/17 12:38 08/28/17 13:00 08/28/17 17:21 08/28/17 20:58 Bedside Glucose 174 161 145 Blood Gas Specimen Source Blood arterial Arterial Blood Date Drawn 08/28/2017 1:05:27 PM Arterial Blood pH (Temp corrected) 7.498 H Arterial Blood pCO2 (Temp correct) 41.5 Arterial Blood pO2 (Temp corrected) 70.8 L Arterial Blood HCO3 31.5 H Arterial Blood Base Excess 7.6 H Arterial Blood Oxygen Saturation 94.3 L Ezequiel Test ACCEPTAB Arterial Blood Gas Puncture Site Right Radial Arterial Blood Carboxyhemoglobin 0.3 Arterial Blood Methemoglobin 0.1 Blood Gas A-a O2 Differential 166.7 H Oxyhemoglobin Percent 93.9 Total Hemoglobin 11.4 L Blood Gas Temperature 37.0 Blood Gas Actual Respiration Rate 26 Blood Gas Modality VENT - CPAP FiO2 40.0 Blood Gas Low PEEP Setting 5.0 Blood Gas Pressure Support 10 Blood Gas Notified Whom JLD Blood Gas Notified Time 08/28/2017 1:14:17 PM Test 08/29/17 01:31 08/29/17 05:24 08/29/17 05:30 08/29/17 06:00 Bedside Glucose 114 96 White Blood Count 11.7 #H Red Blood Count 3.52 L Hemoglobin 9.6 L Hematocrit 30.6 L Mean Corpuscular Volume 86.9 Mean Corpuscular Hemoglobin 27.3 L Mean Corpuscular Hemoglobin Concent 31.4 L Red Cell Distribution Width 18.3 H Platelet Count 430 H Mean Platelet Volume 9.8 Neutrophils % 75.5 Lymphocytes % 13.4 L Monocytes % 9.1 Eosinophils % 0.0 Basophils % 0.2 Nucleated Red Blood Cells % 0.2 H Neutrophils # 8.9 H Lymphocytes # 1.6 Monocytes # 1.1 H Eosinophils # 0.0 Basophils # 0.0 Nucleated Red Blood Cells # 0.0 Sodium Level 143 Potassium Level 3.9 Chloride Level 106 Carbon Dioxide Level 30 Anion Gap 11 Blood Urea Nitrogen 20 Creatinine 0.60 Glucose Level 95 Calcium Level 8.7 Blood Gas Specimen Source Blood arterial Arterial Blood Date Drawn 08/29/2017 7:20:30 AM Arterial Blood pH (Temp corrected) 7.478 H Arterial Blood pCO2 (Temp correct) 41.3 Arterial Blood pO2 (Temp corrected) 76.6 L Arterial Blood HCO3 29.9 H Arterial Blood Base Excess 5.9 H Arterial Blood Oxygen Saturation 95.0 Ezequiel Test ACCEPTAB Arterial Blood Gas Puncture Site Left Radial Arterial Blood Carboxyhemoglobin 0.3 Arterial Blood Methemoglobin 0.4 Blood Gas A-a O2 Differential 161.1 H Oxyhemoglobin Percent 94.3 Total Hemoglobin 10.9 L Blood Gas Temperature 37.0 Blood Gas Respiration Rate 24.0 Blood Gas Actual Respiration Rate 24 Blood Gas Modality VENT - AC FiO2 40.0 Blood Gas Tidal Volume 450.0 Blood Gas Low PEEP Setting 5.0 Blood Gas Notified Whom JLD Blood Gas Notified Time 08/29/2017 7:42:09 AM Test 08/29/17 08:43 Bedside Glucose 109 Medications Medications Current Medications Ondansetron HCl (Zofran Inj) 4 mg Q6H PRN IV NAUSEA AND/OR VOMITING; Start 06/27 at 13:00 Acetaminophen (Tylenol Liquid) 650 mg Q6H PRN PO PAIN LEVEL 1-3 OR FEVER Last administered on 08/28/17 21:44; Admin Dose 650 MG; Start 08/20/17 at 13:00 Morphine Sulfate (morphine) 2 mg Q4H PRN IV PAIN LEVEL 7-10 Last administered on 08/29/17 05:25; Admin Dose 2 MG; Start 08/20/17 at 13:00 Methylprednisolone Sodium Succinate 60 mg 60 mg DAILY IV Last administered on 08/29/17 08:37; Admin Dose 60 MG; Start 08/20/17 at 17:00 Phenylephrine HCl 40 mg/Dextrose 500 ml @ 75 mls/hr TITRATE IV ; Start at 18:30 Norepinephrine 16 mg/Dextrose 500 ml @ 1.87 mls/hr TITRATE IV Last administered on 08/22/17 01:12; Admin Dose 7.5 MLS/HR; Start 08/21/17 at 09: 00 Piperacillin Sod/ Tazobactam Sod (Zosyn 3.375gm/ 50 ml (Pmx)) 50 ml @ 100 mls/ hr Q6 IVPB Last administered on 08/29/17 05:24; Admin Dose 100 MLS/HR; Start 08/21/17 at 14:00; Stop 08/29/17 at 23:59 Diagnostic Test (Pha) (Accu-Chek) 1 ea 02 XX Last administered on 08/29/17 01 :32; Admin Dose 1 EA; Start 08/22/17 at 02:00 Insulin Aspart (Novolog Insulin Pen) NOVOLOG *MILD* ALGORI... Q4 SC Last administered on 08/28/17 21:03; Admin Dose 1 UNIT; Start 08/21/17 at 21:00 Miscellaneous Information 1 ea NOTE XX ; Start 08/21/17 at 20:30 Glucose (Glutose) 15 gm Q15M PRN PO DECREASED GLUCOSE; Start 08/21/17 at 20:30 Glucose (Glutose) 22.5 gm Q15M PRN PO DECREASED GLUCOSE; Start 08/21/17 at 20: 30 Dextrose (D50w Syringe) 25 ml Q15M PRN IV DECREASED GLUCOSE; Start 08/21/17 at 20:30 Dextrose (D50w Syringe) 50 ml Q15M PRN IV DECREASED GLUCOSE; Start 08/21/17 at 20:30 Glucagon (Glucagen) 1 mg Q15M PRN IM DECREASED GLUCOSE; Start 08/21/17 at 20: 30 Glucose (Glutose) 15 gm Q15M PRN BUCCAL DECREASED GLUCOSE; Start 08/21/17 at 20:30 Pantoprazole (Protonix Iv) 40 mg DAILY@06 IV Last administered on 08/29/17 05 :24; Admin Dose 40 MG; Start 08/22/17 at 06:00 Insulin Glargine 10 unit 10 unit DAILY@20 SC Last administered on 08/28/17 21 :02; Admin Dose 10 UNIT; Start 08/23/17 at 21:00 Sodium Chloride 1,000 ml @ 20 mls/hr Q24H IV Last administered on 08/26/17 15:23; Admin Dose 60 MLS/HR; Start 08/23/17 at 21:00 Dopamine HCl/ Dextrose 250 ml @ 8.52 mls/hr TITRATE IV ; Start 08/23/17 at 21: 00 Furosemide (Lasix) 40 mg DAILY IV Last administered on 08/29/17 08:38; Admin Dose 40 MG; Start 08/27/17 at 10:00 YANETH NOLAND MD Aug 29, 2017 09:53
--- NOTE | 2017-08-29 10:20 | CONS ---
Date/Time of Note Date/Time of Note DATE: 08/29/17 TIME: :18 Assessment/Plan Assessment/Plan Additional Assessment/Plan Ventilator setting; AC of 14, tidal volume 500, PEEP of 5, 40% FiO2. Chest x-ray was reviewed from today which is again showing diffuse bilateral infiltrative changes with stable appearance. Endotracheal tube is at an adequate level. Assessment and recommendations; 1. Patient admitted with severe bilateral pneumonia likely postviral in etiology leading to respiratory failure. However there has been significant clinical improvement. 2. Likely underlying sleep apnea. Patient to be switched over to CPAP mode. An ABG will be performed and if adequate patient likely will be extubated. Meanwhile continue current supportive care. Consultation Date/Type/Reason Admit Date/Time Aug 20, 2017 at 02:59 Initial Consult Date 08/21/17 Type of Consultation: Pulmonary/critical care Referring Provider: MILAGROS HIGHTOWER MD 24 HR Interval Summary Free Text/Dictation Patient's condition is critical but stable. Patient remains completely awake and alert. Has remained hemodynamically stable. General exam; young woman, orally intubated, awake and alert. Currently in no distress. Exam/Review of Systems Vital Signs Vitals Vital Signs Date Time Temp Pulse Resp B/P Pulse Ox O2 Delivery O2 Flow Rate FiO2 08/29/17 08:00 50 08/29/17 08:00 40 08/29/17 06:00 22 107/72 96 Mechanical Ventilator 08/29/17 04:00 98.7 Intake and Output 08/28/17 08/28/17 08/29/17 15:00 23:00 07:00 Intake Total 440 ml 310 ml 330 ml Output Total 2680 ml 720 ml 535 ml Balance -2240 ml -410 ml -205 ml Exam HEENT exam; supple neck, no JVD. No lymphadenopathy. Midline trachea. No thyromegaly. Orally intubated. Pupils are midsize and reactive to light. Patient has good dentition. Chest exam; diminished but clear breath sounds. S1-S2 audible, no murmurs. Regular rhythm. Abdomen exam; soft, protuberant. Nontender. No organomegaly. Bowel sounds audible. Extremity exam; no edema. TOURIST GUIDE exam; no focal deficit. Results Result Diagram: 08/29/17 0530 08/29/17 0530 Results 24 hrs Laboratory Tests Test 08/28/17 12:38 08/28/17 13:00 08/28/17 17:21 08/28/17 20:58 Bedside Glucose 174 161 145 Blood Gas Specimen Source Blood arterial Arterial Blood Date Drawn 08/28/2017 1:05:27 PM Arterial Blood pH (Temp corrected) 7.498 H Arterial Blood pCO2 (Temp correct) 41.5 Arterial Blood pO2 (Temp corrected) 70.8 L Arterial Blood HCO3 31.5 H Arterial Blood Base Excess 7.6 H Arterial Blood Oxygen Saturation 94.3 L Ezequiel Test ACCEPTAB Arterial Blood Gas Puncture Site Right Radial Arterial Blood Carboxyhemoglobin 0.3 Arterial Blood Methemoglobin 0.1 Blood Gas A-a O2 Differential 166.7 H Oxyhemoglobin Percent 93.9 Total Hemoglobin 11.4 L Blood Gas Temperature 37.0 Blood Gas Actual Respiration Rate 26 Blood Gas Modality VENT - CPAP FiO2 40.0 Blood Gas Low PEEP Setting 5.0 Blood Gas Pressure Support 10 Blood Gas Notified Whom JLD Blood Gas Notified Time 08/28/2017 1:14:17 PM Test 08/29/17 01:31 08/29/17 05:24 08/29/17 05:30 08/29/17 06:00 Bedside Glucose 114 96 White Blood Count 11.7 #H Red Blood Count 3.52 L Hemoglobin 9.6 L Hematocrit 30.6 L Mean Corpuscular Volume 86.9 Mean Corpuscular Hemoglobin 27.3 L Mean Corpuscular Hemoglobin Concent 31.4 L Red Cell Distribution Width 18.3 H Platelet Count 430 H Mean Platelet Volume 9.8 Neutrophils % 75.5 Lymphocytes % 13.4 L Monocytes % 9.1 Eosinophils % 0.0 Basophils % 0.2 Nucleated Red Blood Cells % 0.2 H Neutrophils # 8.9 H Lymphocytes # 1.6 Monocytes # 1.1 H Eosinophils # 0.0 Basophils # 0.0 Nucleated Red Blood Cells # 0.0 Sodium Level 143 Potassium Level 3.9 Chloride Level 106 Carbon Dioxide Level 30 Anion Gap 11 Blood Urea Nitrogen 20 Creatinine 0.60 Glucose Level 95 Calcium Level 8.7 Blood Gas Specimen Source Blood arterial Arterial Blood Date Drawn 08/29/2017 7:20:30 AM Arterial Blood pH (Temp corrected) 7.478 H Arterial Blood pCO2 (Temp correct) 41.3 Arterial Blood pO2 (Temp corrected) 76.6 L Arterial Blood HCO3 29.9 H Arterial Blood Base Excess 5.9 H Arterial Blood Oxygen Saturation 95.0 Ezequiel Test ACCEPTAB Arterial Blood Gas Puncture Site Left Radial Arterial Blood Carboxyhemoglobin 0.3 Arterial Blood Methemoglobin 0.4 Blood Gas A-a O2 Differential 161.1 H Oxyhemoglobin Percent 94.3 Total Hemoglobin 10.9 L Blood Gas Temperature 37.0 Blood Gas Respiration Rate 24.0 Blood Gas Actual Respiration Rate 24 Blood Gas Modality VENT - AC FiO2 40.0 Blood Gas Tidal Volume 450.0 Blood Gas Low PEEP Setting 5.0 Blood Gas Notified Whom JLD Blood Gas Notified Time 08/29/2017 7:42:09 AM Test 08/29/17 08:43 Bedside Glucose 109 Medications Medications Current Medications Ondansetron HCl (Zofran Inj) 4 mg Q6H PRN IV NAUSEA AND/OR VOMITING; Start 06/27 at 13:00 Acetaminophen (Tylenol Liquid) 650 mg Q6H PRN PO PAIN LEVEL 1-3 OR FEVER Last administered on 08/28/17 21:44; Admin Dose 650 MG; Start 08/20/17 at 13:00 Morphine Sulfate (morphine) 2 mg Q4H PRN IV PAIN LEVEL 7-10 Last administered on 08/29/17 05:25; Admin Dose 2 MG; Start 08/20/17 at 13:00 Methylprednisolone Sodium Succinate 60 mg 60 mg DAILY IV Last administered on 08/29/17 08:37; Admin Dose 60 MG; Start 08/20/17 at 17:00 Phenylephrine HCl 40 mg/Dextrose 500 ml @ 75 mls/hr TITRATE IV ; Start at 18:30 Norepinephrine 16 mg/Dextrose 500 ml @ 1.87 mls/hr TITRATE IV Last administered on 08/22/17 01:12; Admin Dose 7.5 MLS/HR; Start 08/21/17 at 09: 00 Piperacillin Sod/ Tazobactam Sod (Zosyn 3.375gm/ 50 ml (Pmx)) 50 ml @ 100 mls/ hr Q6 IVPB Last administered on 08/29/17 05:24; Admin Dose 100 MLS/HR; Start 08/21/17 at 14:00; Stop 08/29/17 at 23:59 Diagnostic Test (Pha) (Accu-Chek) 1 ea 02 XX Last administered on 08/29/17 01 :32; Admin Dose 1 EA; Start 08/22/17 at 02:00 Insulin Aspart (Novolog Insulin Pen) NOVOLOG *MILD* ALGORI... Q4 SC Last administered on 08/28/17 21:03; Admin Dose 1 UNIT; Start 08/21/17 at 21:00 Miscellaneous Information 1 ea NOTE XX ; Start 08/21/17 at 20:30 Glucose (Glutose) 15 gm Q15M PRN PO DECREASED GLUCOSE; Start 08/21/17 at 20:30 Glucose (Glutose) 22.5 gm Q15M PRN PO DECREASED GLUCOSE; Start 08/21/17 at 20: 30 Dextrose (D50w Syringe) 25 ml Q15M PRN IV DECREASED GLUCOSE; Start 08/21/17 at 20:30 Dextrose (D50w Syringe) 50 ml Q15M PRN IV DECREASED GLUCOSE; Start 08/21/17 at 20:30 Glucagon (Glucagen) 1 mg Q15M PRN IM DECREASED GLUCOSE; Start 08/21/17 at 20: 30 Glucose (Glutose) 15 gm Q15M PRN BUCCAL DECREASED GLUCOSE; Start 08/21/17 at 20:30 Pantoprazole (Protonix Iv) 40 mg DAILY@06 IV Last administered on 08/29/17 05 :24; Admin Dose 40 MG; Start 08/22/17 at 06:00 Insulin Glargine 10 unit 10 unit DAILY@20 SC Last administered on 08/28/17 21 :02; Admin Dose 10 UNIT; Start 08/23/17 at 21:00 Sodium Chloride 1,000 ml @ 20 mls/hr Q24H IV Last administered on 08/26/17 15:23; Admin Dose 60 MLS/HR; Start 08/23/17 at 21:00 Dopamine HCl/ Dextrose 250 ml @ 8.52 mls/hr TITRATE IV ; Start 08/23/17 at 21: 00 Furosemide (Lasix) 40 mg DAILY IV Last administered on 08/29/17 08:38; Admin Dose 40 MG; Start 08/27/17 at 10:00 ADRI NAVARRO Aug 29, 2017 10:20
[2017-08-29 11:13] LABS: AADO2 Arterial 101.2 mmHg (7.0-24.0); Allen Test ACCEPTAB; Arterial Base Excess 8.7 mmol/L (-3.0-3); Arterial COHb 0.1 % (0.0-3.0); Arterial HCO3 32.7 mmol/L (22.0-26.0); Arterial MetHb 0.3 % (0.0-1.5); Blood Gas PS 10; MODE VENT - CPAP
--- NOTE | 2017-08-29 16:06 | CONS ---
Date/Time of Note Date/Time of Note DATE: 08/29/17 TIME: 16:05 Assessment/Plan Assessment/Plan Chief Complaint/Hosp Course - Severe sepsis with septic shock likely d/t PNA +/-possible influenza; s/p pressors; procalcitonin 1.35 - Bilateral multifocal PNA-- seemingly more c/w ARDS and CHF now - Possible influenza, s/p Tamiflu - Acute hypoxemic respiratory failure with possible ARDS s/p intubation - Sinus bradycardia - Hypernatremia - slowing improving - T2DM, newly diagnosed - Hgb A1c 6.7% - Microcytic anemia - Hepatic steatosis on CT - Subclinical hyperthyroidism - Acute encephalopathy - improving - H/o SVT - Obesity - BMI 43 Recommendations: - De-escalate abx: DC Levaquin - Continue Zosyn (08/21/2017-); monitor wbc will potential to d/c tmrw - Pending: cocci, histo, viral cx, fungal cx - Consider workup for possible underlying autoimmune diseases if worsens again but currently improving; potentially could be considered as outpatient Problems: Consultation Date/Type/Reason Admit Date/Time Aug 20, 2017 at 02:59 Type of Consultation: ID Referring Provider: MILAGROS HIGHTOWER MD Exam/Review of Systems Vital Signs Vitals Vital Signs Date Time Temp Pulse Resp B/P Pulse Ox O2 Delivery O2 Flow Rate FiO2 08/29/17 13:00 58 22 96/61 Mechanical Ventilator 08/29/17 12:50 95 3.0 08/29/17 12:00 30 08/29/17 12:00 99.0 Intake and Output 08/28/17 08/28/17 08/29/17 15:00 23:00 07:00 Intake Total 440 ml 310 ml 330 ml Output Total 2680 ml 720 ml 535 ml Balance -2240 ml -410 ml -205 ml Results Result Diagram: 08/29/17 0530 08/29/17 0530 Results 24 hrs Laboratory Tests Test 08/28/17 17:21 08/28/17 20:58 08/29/17 01:31 08/29/17 05:24 Bedside Glucose 161 145 114 96 Test 08/29/17 05:30 08/29/17 06:00 08/29/17 08:43 08/29/17 10:23 White Blood Count 11.7 #H Red Blood Count 3.52 L Hemoglobin 9.6 L Hematocrit 30.6 L Mean Corpuscular Volume 86.9 Mean Corpuscular Hemoglobin 27.3 L Mean Corpuscular Hemoglobin Concent 31.4 L Red Cell Distribution Width 18.3 H Platelet Count 430 H Mean Platelet Volume 9.8 Neutrophils % 75.5 Lymphocytes % 13.4 L Monocytes % 9.1 Eosinophils % 0.0 Basophils % 0.2 Nucleated Red Blood Cells % 0.2 H Neutrophils # 8.9 H Lymphocytes # 1.6 Monocytes # 1.1 H Eosinophils # 0.0 Basophils # 0.0 Nucleated Red Blood Cells # 0.0 Sodium Level 143 Potassium Level 3.9 Chloride Level 106 Carbon Dioxide Level 30 Anion Gap 11 Blood Urea Nitrogen 20 Creatinine 0.60 Glucose Level 95 Calcium Level 8.7 Blood Gas Specimen Source Blood arterial Blood arterial Arterial Blood Date Drawn 08/29/2017 7:20:30 AM 08/29/2017 11:00:46 AM Arterial Blood pH (Temp corrected) 7.478 H 7.505 H Arterial Blood pCO2 (Temp correct) 41.3 42.4 Arterial Blood pO2 (Temp corrected) 76.6 L 62.9 L Arterial Blood HCO3 29.9 H 32.7 H Arterial Blood Base Excess 5.9 H 8.7 H Arterial Blood Oxygen Saturation 95.0 92.4 L Ezequiel Test ACCEPTAB ACCEPTAB Arterial Blood Gas Puncture Site Left Radial Left Radial Arterial Blood Carboxyhemoglobin 0.3 0.1 Arterial Blood Methemoglobin 0.4 0.3 Blood Gas A-a O2 Differential 161.1 H 101.2 H Oxyhemoglobin Percent 94.3 92.0 L Total Hemoglobin 10.9 L 12.0 Blood Gas Temperature 37.0 37.0 Blood Gas Respiration Rate 24.0 Blood Gas Actual Respiration Rate 24 18 Blood Gas Modality VENT - AC VENT - CPAP FiO2 40.0 30.0 Blood Gas Tidal Volume 450.0 Blood Gas Low PEEP Setting 5.0 5.0 Blood Gas Notified Whom AVINASH DA SILVA Blood Gas Notified Time 08/29/2017 7:42:09 AM 08/29/2017 11:13:40 AM Bedside Glucose 109 Blood Gas Pressure Support 10 Test 08/29/17 12:00 Bedside Glucose 175 Medications Medications Current Medications Ondansetron HCl (Zofran Inj) 4 mg Q6H PRN IV NAUSEA AND/OR VOMITING; Start 06/27 at 13:00 Acetaminophen (Tylenol Liquid) 650 mg Q6H PRN PO PAIN LEVEL 1-3 OR FEVER Last administered on 08/28/17 21:44; Admin Dose 650 MG; Start 08/20/17 at 13:00 Morphine Sulfate (morphine) 2 mg Q4H PRN IV PAIN LEVEL 7-10 Last administered on 08/29/17 05:25; Admin Dose 2 MG; Start 08/20/17 at 13:00 Methylprednisolone Sodium Succinate 60 mg 60 mg DAILY IV Last administered on 08/29/17 08:37; Admin Dose 60 MG; Start 08/20/17 at 17:00 Phenylephrine HCl 40 mg/Dextrose 500 ml @ 75 mls/hr TITRATE IV ; Start at 18:30 Norepinephrine 16 mg/Dextrose 500 ml @ 1.87 mls/hr TITRATE IV Last administered on 08/22/17 01:12; Admin Dose 7.5 MLS/HR; Start 08/21/17 at 09: 00 Piperacillin Sod/ Tazobactam Sod (Zosyn 3.375gm/ 50 ml (Pmx)) 50 ml @ 100 mls/ hr Q6 IVPB Last administered on 08/29/17 11:56; Admin Dose 100 MLS/HR; Start 08/21/17 at 14:00; Stop 08/29/17 at 23:59 Diagnostic Test (Pha) (Accu-Chek) 1 ea 02 XX Last administered on 08/29/17 01 :32; Admin Dose 1 EA; Start 08/22/17 at 02:00 Insulin Aspart (Novolog Insulin Pen) NOVOLOG *MILD* ALGORI... Q4 SC Last administered on 08/29/17 12:13; Admin Dose 1 UNIT; Start 08/21/17 at 21:00 Miscellaneous Information 1 ea NOTE XX ; Start 08/21/17 at 20:30 Glucose (Glutose) 15 gm Q15M PRN PO DECREASED GLUCOSE; Start 08/21/17 at 20:30 Glucose (Glutose) 22.5 gm Q15M PRN PO DECREASED GLUCOSE; Start 08/21/17 at 20: 30 Dextrose (D50w Syringe) 25 ml Q15M PRN IV DECREASED GLUCOSE; Start 08/21/17 at 20:30 Dextrose (D50w Syringe) 50 ml Q15M PRN IV DECREASED GLUCOSE; Start 08/21/17 at 20:30 Glucagon (Glucagen) 1 mg Q15M PRN IM DECREASED GLUCOSE; Start 08/21/17 at 20: 30 Glucose (Glutose) 15 gm Q15M PRN BUCCAL DECREASED GLUCOSE; Start 08/21/17 at 20:30 Pantoprazole (Protonix Iv) 40 mg DAILY@06 IV Last administered on 08/29/17 05 :24; Admin Dose 40 MG; Start 08/22/17 at 06:00 Insulin Glargine 10 unit 10 unit DAILY@20 SC Last administered on 08/28/17 21 :02; Admin Dose 10 UNIT; Start 08/23/17 at 21:00 Sodium Chloride 1,000 ml @ 20 mls/hr Q24H IV Last administered on 08/26/17 15:23; Admin Dose 60 MLS/HR; Start 08/23/17 at 21:00 Dopamine HCl/ Dextrose 250 ml @ 8.52 mls/hr TITRATE IV ; Start 08/23/17 at 21: 00 Furosemide (Lasix) 40 mg DAILY IV Last administered on 08/29/17 08:38; Admin Dose 40 MG; Start 08/27/17 at 10:00 ELIO AMOR MD Aug 29, 2017 16:06
--- NOTE | 2017-08-29 17:02 | PN ---
Date/Time of Note Date/Time of Note DATE: 08/29/17 TIME: 16:57 Assessment/Plan VTE Prophylaxis VTE Prophylaxis Intervention: SCD's Lines/Catheters IV Catheter Type (from Nrs): Central Line Central line still needed: Yes Urinary Cath still in place: Yes Reason Cath still needed: urinary retention Assessment/Plan Chief Complaint/Hosp Course Patient is extubated today, awake alert comfortable in supplemental oxygen via nasal cannula Assessment/Plan -Severe Hypoxemic Respiratory Failure concerning for ARDS, resolved. Dr. Alarcon is following in pulmonology consultation. -Acute multifocal pneumonia, continue antibiotics per ID. Dr. Mcgowan is following in infection disease consultation. -Sepsis with shock secondary to pneumonia, continue IV fluids, ICU care. -Diabetes mellitus with hemoglobin A1c 6.9. Continue Lantus and NovoLog. -Bradycardia, Dr. Whalen is following in cardiology consultation -Preserved ejection fraction of 50% -Obesity with BMI of 43 -Hepatic steatosis Further recommendations based on clinical course. Plan of care discussed with Dr. Gomez. Problems: Exam/Review of Systems Vital Signs Vitals Vital Signs Date Time Temp Pulse Resp B/P Pulse Ox O2 Delivery O2 Flow Rate FiO2 08/29/17 13:00 58 22 96/61 Mechanical Ventilator 08/29/17 12:50 95 3.0 08/29/17 12:00 30 08/29/17 12:00 99.0 Intake and Output 08/28/17 08/28/17 08/29/17 15:00 23:00 07:00 Intake Total 440 ml 310 ml 330 ml Output Total 2680 ml 720 ml 535 ml Balance -2240 ml -410 ml -205 ml Exam Constitutional: alert, oriented Head: normocephalic Respiratory: normal air movement Cardiovascular: nl pulses Gastrointestinal: non-tender, soft Extremities: normal pulses Results Result Diagram: 08/29/17 0530 08/29/17 0530 Results 24 hrs Laboratory Tests Test 08/28/17 17:21 08/28/17 20:58 08/29/17 01:31 08/29/17 05:24 Bedside Glucose 161 145 114 96 Test 08/29/17 05:30 08/29/17 06:00 08/29/17 08:43 08/29/17 10:23 White Blood Count 11.7 #H Red Blood Count 3.52 L Hemoglobin 9.6 L Hematocrit 30.6 L Mean Corpuscular Volume 86.9 Mean Corpuscular Hemoglobin 27.3 L Mean Corpuscular Hemoglobin Concent 31.4 L Red Cell Distribution Width 18.3 H Platelet Count 430 H Mean Platelet Volume 9.8 Neutrophils % 75.5 Lymphocytes % 13.4 L Monocytes % 9.1 Eosinophils % 0.0 Basophils % 0.2 Nucleated Red Blood Cells % 0.2 H Neutrophils # 8.9 H Lymphocytes # 1.6 Monocytes # 1.1 H Eosinophils # 0.0 Basophils # 0.0 Nucleated Red Blood Cells # 0.0 Sodium Level 143 Potassium Level 3.9 Chloride Level 106 Carbon Dioxide Level 30 Anion Gap 11 Blood Urea Nitrogen 20 Creatinine 0.60 Glucose Level 95 Calcium Level 8.7 Blood Gas Specimen Source Blood arterial Blood arterial Arterial Blood Date Drawn 08/29/2017 7:20:30 AM 08/29/2017 11:00:46 AM Arterial Blood pH (Temp corrected) 7.478 H 7.505 H Arterial Blood pCO2 (Temp correct) 41.3 42.4 Arterial Blood pO2 (Temp corrected) 76.6 L 62.9 L Arterial Blood HCO3 29.9 H 32.7 H Arterial Blood Base Excess 5.9 H 8.7 H Arterial Blood Oxygen Saturation 95.0 92.4 L Ezequiel Test ACCEPTAB ACCEPTAB Arterial Blood Gas Puncture Site Left Radial Left Radial Arterial Blood Carboxyhemoglobin 0.3 0.1 Arterial Blood Methemoglobin 0.4 0.3 Blood Gas A-a O2 Differential 161.1 H 101.2 H Oxyhemoglobin Percent 94.3 92.0 L Total Hemoglobin 10.9 L 12.0 Blood Gas Temperature 37.0 37.0 Blood Gas Respiration Rate 24.0 Blood Gas Actual Respiration Rate 24 18 Blood Gas Modality VENT - AC VENT - CPAP FiO2 40.0 30.0 Blood Gas Tidal Volume 450.0 Blood Gas Low PEEP Setting 5.0 5.0 Blood Gas Notified Whom AVINASH DA SILVA Blood Gas Notified Time 08/29/2017 7:42:09 AM 08/29/2017 11:13:40 AM Bedside Glucose 109 Blood Gas Pressure Support 10 Test 08/29/17 12:00 Bedside Glucose 175 Medications Medications Current Medications Ondansetron HCl (Zofran Inj) 4 mg Q6H PRN IV NAUSEA AND/OR VOMITING; Start 06/27 at 13:00 Acetaminophen (Tylenol Liquid) 650 mg Q6H PRN PO PAIN LEVEL 1-3 OR FEVER Last administered on 08/28/17 21:44; Admin Dose 650 MG; Start 08/20/17 at 13:00 Morphine Sulfate (morphine) 2 mg Q4H PRN IV PAIN LEVEL 7-10 Last administered on 08/29/17 05:25; Admin Dose 2 MG; Start 08/20/17 at 13:00 Methylprednisolone Sodium Succinate 60 mg 60 mg DAILY IV Last administered on 08/29/17 08:37; Admin Dose 60 MG; Start 08/20/17 at 17:00 Phenylephrine HCl 40 mg/Dextrose 500 ml @ 75 mls/hr TITRATE IV ; Start at 18:30 Norepinephrine 16 mg/Dextrose 500 ml @ 1.87 mls/hr TITRATE IV Last administered on 08/22/17 01:12; Admin Dose 7.5 MLS/HR; Start 08/21/17 at 09: 00 Piperacillin Sod/ Tazobactam Sod (Zosyn 3.375gm/ 50 ml (Pmx)) 50 ml @ 100 mls/ hr Q6 IVPB Last administered on 08/29/17 11:56; Admin Dose 100 MLS/HR; Start 08/21/17 at 14:00; Stop 08/29/17 at 23:59 Diagnostic Test (Pha) (Accu-Chek) 1 ea 02 XX Last administered on 08/29/17 01 :32; Admin Dose 1 EA; Start 08/22/17 at 02:00 Insulin Aspart (Novolog Insulin Pen) NOVOLOG *MILD* ALGORI... Q4 SC Last administered on 08/29/17 12:13; Admin Dose 1 UNIT; Start 08/21/17 at 21:00 Miscellaneous Information 1 ea NOTE XX ; Start 08/21/17 at 20:30 Glucose (Glutose) 15 gm Q15M PRN PO DECREASED GLUCOSE; Start 08/21/17 at 20:30 Glucose (Glutose) 22.5 gm Q15M PRN PO DECREASED GLUCOSE; Start 08/21/17 at 20: 30 Dextrose (D50w Syringe) 25 ml Q15M PRN IV DECREASED GLUCOSE; Start 08/21/17 at 20:30 Dextrose (D50w Syringe) 50 ml Q15M PRN IV DECREASED GLUCOSE; Start 08/21/17 at 20:30 Glucagon (Glucagen) 1 mg Q15M PRN IM DECREASED GLUCOSE; Start 08/21/17 at 20: 30 Glucose (Glutose) 15 gm Q15M PRN BUCCAL DECREASED GLUCOSE; Start 08/21/17 at 20:30 Pantoprazole (Protonix Iv) 40 mg DAILY@06 IV Last administered on 08/29/17 05 :24; Admin Dose 40 MG; Start 08/22/17 at 06:00 Insulin Glargine 10 unit 10 unit DAILY@20 SC Last administered on 08/28/17 21 :02; Admin Dose 10 UNIT; Start 08/23/17 at 21:00 Sodium Chloride 1,000 ml @ 20 mls/hr Q24H IV Last administered on 08/26/17 15:23; Admin Dose 60 MLS/HR; Start 08/23/17 at 21:00 Dopamine HCl/ Dextrose 250 ml @ 8.52 mls/hr TITRATE IV ; Start 08/23/17 at 21: 00 Furosemide (Lasix) 40 mg DAILY IV Last administered on 08/29/17 08:38; Admin Dose 40 MG; Start 08/27/17 at 10:00 MANUEL KLEIN Aug 29, 2017 17:02
[2017-08-29] MEDS: INSULIN GLARGINE [LANtus] 3 ML PEN SC SCH (19:53)
[2017-08-29] MEDS ORDERED: SOD CHLORIDE 0.9% 1,000 ML IV ONE (23:00)
[2017-08-30] VITALS (41 sets, daily range): BP systolic 66–108; BP diastolic 36–75; PULSE 44–73; RESP 12–29
[2017-08-30] MEDS: INSULIN ASPART [NOVOLOG] 3 ML PEN SC SCH ×5 (01:00→20:49)
[2017-08-30] MEDS: PANTOPRAZOLE 40 MG INJ IV SCH (05:12)
[2017-08-30 05:28] LABS: BASOPHILS % 0.1 % (0.0-2.0); HEMATOCRIT 31.7 % (37.0-47.0); LYMPHOCYTES % 15.4 % (15.0-51.0); MEAN CORPUSCULAR HEMOGLOBIN 27.2 pg (29.0-33.0); MEAN CORPUSCULAR HGB CONC 31.5 g/dl (32.0-37.0); MEAN CORPUSCULAR VOLUME 86.4 fl (82.0-101.0); MEAN PLATELET VOLUME 9.8 fl (7.4-10.4); MONOCYTE # 1.2 10^3/ul (0.3-0.9); MONOCYTES % 9.6 % (0.0-11.0); NEUTROPHIL # 9.3 10^3/ul (1.6-7.5); NEUTROPHILS % 73.5 % (39.0-77.0); PLATELET COUNT 450 10^3/UL (140-415); RED BLOOD COUNT 3.67 10^6/ul (4.20-5.40); RED CELL DISTRIBUTION WIDTH 18.5 % (11.5-14.5); WHITE BLOOD COUNT 12.7 10^3/ul (4.8-10.8)
[2017-08-30 05:52] LABS: CALCIUM 8.9 mg/dl (8.4-10.2); CREATININE 0.73 mg/dl (0.44-1.00); POTASSIUM 3.8 mmol/L (3.5-5.1)
[2017-08-30] MEDS: FUROSEMIDE 40 MG INJ IV SCH ×2 (09:00→10:29)
--- NOTE | 2017-08-30 10:22 | CONS ---
Date/Time of Note Date/Time of Note DATE: 08/30/17 TIME: 10:20 Assessment/Plan Assessment/Plan Additional Assessment/Plan Assessment and recommendations; 1. Patient admitted with severe bilateral pneumonia leading to respiratory failure likely postviral in etiology. There is been marked overall improvement in clinical status. Patient extubated yesterday afternoon. 2. Underlying obesity. 3. Mild anemia. 4. Possibly underlying sleep apnea. Continue current treatment. Consultation Date/Type/Reason Admit Date/Time Aug 20, 2017 at 02:59 Initial Consult Date 08/21/17 Type of Consultation: Pulmonary/critical care Referring Provider: MILAGROS HIGHTOWER MD 24 HR Interval Summary Free Text/Dictation Patient's condition is markedly improved. Patient was successfully extubated yesterday afternoon. She denies any shortness of breath, cough, wheezing. Patient however did develop mild hypotension in the evening yesterday which responded to fluid bolus. General exam; young woman, awake and alert. Currently in no distress. Exam/Review of Systems Vital Signs Vitals Vital Signs Date Time Temp Pulse Resp B/P Pulse Ox O2 Delivery O2 Flow Rate FiO2 08/30/17 08:00 52 08/30/17 07:00 22 86/54 98 Nasal Cannula 3.0 08/30/17 04:00 99.0 08/29/17 12:00 30 Intake and Output 08/29/17 08/29/17 08/30/17 15:00 23:00 07:00 Intake Total 130 ml 110 ml 1545 ml Output Total 2500 ml 930 ml 355 ml Balance -2370 ml -820 ml 1190 ml Exam HEENT exam; supple neck, JVD difficult to see because of short neck. Pharynx is clear. Patient has good dentition. Pupils are midsize and reactive to light. Chest exam; clear to auscultation. S1-S2 audible, no murmurs. Regular rhythm. Abdomen exam; soft, protuberant. Nontender. No organomegaly. Bowel sounds audible. Extremity exam; no edema. Pulses 1+ bilaterally. 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 Results Result Diagram: 08/30/17 0400 08/30/17 0400 Results 24 hrs Laboratory Tests Test 08/29/17 10:23 08/29/17 12:00 08/29/17 17:36 08/29/17 19:50 Blood Gas Specimen Source Blood arterial Arterial Blood Date Drawn 08/29/2017 11:00:46 AM Arterial Blood pH (Temp corrected) 7.505 H Arterial Blood pCO2 (Temp correct) 42.4 Arterial Blood pO2 (Temp corrected) 62.9 L Arterial Blood HCO3 32.7 H Arterial Blood Base Excess 8.7 H Arterial Blood Oxygen Saturation 92.4 L Ezequiel Test ACCEPTAB Arterial Blood Gas Puncture Site Left Radial Arterial Blood Carboxyhemoglobin 0.1 Arterial Blood Methemoglobin 0.3 Blood Gas A-a O2 Differential 101.2 H Oxyhemoglobin Percent 92.0 L Total Hemoglobin 12.0 Blood Gas Temperature 37.0 Blood Gas Actual Respiration Rate 18 Blood Gas Modality VENT - CPAP FiO2 30.0 Blood Gas Low PEEP Setting 5.0 Blood Gas Pressure Support 10 Blood Gas Notified Whom LOUISED Blood Gas Notified Time 08/29/2017 11:13:40 AM Bedside Glucose 175 145 125 Test 08/29/17 20:47 08/30/17 01:03 08/30/17 04:00 08/30/17 05:14 Bedside Glucose 110 95 87 White Blood Count 12.7 H Red Blood Count 3.67 L Hemoglobin 10.0 L Hematocrit 31.7 L Mean Corpuscular Volume 86.4 Mean Corpuscular Hemoglobin 27.2 L Mean Corpuscular Hemoglobin Concent 31.5 L Red Cell Distribution Width 18.5 H Platelet Count 450 H Mean Platelet Volume 9.8 Neutrophils % 73.5 Lymphocytes % 15.4 Monocytes % 9.6 Eosinophils % 0.0 Basophils % 0.1 Nucleated Red Blood Cells % 0.0 Neutrophils # 9.3 H Lymphocytes # 2.0 Monocytes # 1.2 H Eosinophils # 0.0 Basophils # 0.0 Nucleated Red Blood Cells # 0.0 Sodium Level 147 H Potassium Level 3.8 Chloride Level 109 Carbon Dioxide Level 30 Anion Gap 12 Blood Urea Nitrogen 27 H Creatinine 0.73 Glucose Level 90 Calcium Level 8.9 Medications Medications Current Medications Ondansetron HCl (Zofran Inj) 4 mg Q6H PRN IV NAUSEA AND/OR VOMITING; Start 06/27 at 13:00 Acetaminophen (Tylenol Liquid) 650 mg Q6H PRN PO PAIN LEVEL 1-3 OR FEVER Last administered on 08/28/17t 21:44; Admin Dose 650 MG; Start 08/20/17 at 13:00 Morphine Sulfate (morphine) 2 mg Q4H PRN IV PAIN LEVEL 7-10 Last administered on 08/29/17 05:25; Admin Dose 2 MG; Start 08/20/17 at 13:00 Methylprednisolone Sodium Succinate 60 mg 60 mg DAILY IV Last administered on 08/29/17 08:37; Admin Dose 60 MG; Start 08/20/17 at 17:00 Phenylephrine HCl 40 mg/Dextrose 500 ml @ 75 mls/hr TITRATE IV ; Start at 18:30 Norepinephrine/ Dextrose (Levophed/D5W) 500 ml @ 1.87 mls/hr TITRATE IV Last administered on 08/22/17 01:12; Admin Dose 7.5 MLS/HR; Start 08/21/17 at 09: 00 Diagnostic Test (Pha) (Accu-Chek) 1 ea 02 XX Last administered on 08/29/17 01 :32; Admin Dose 1 EA; Start 08/22/17 at 02:00 Miscellaneous Information 1 ea NOTE XX ; Start 08/21/17 at 20:30 Glucose (Glutose) 15 gm Q15M PRN PO DECREASED GLUCOSE; Start 08/21/17 at 20:30 Glucose (Glutose) 22.5 gm Q15M PRN PO DECREASED GLUCOSE; Start 08/21/17 at 20: 30 Dextrose (D50w Syringe) 25 ml Q15M PRN IV DECREASED GLUCOSE; Start 08/21/17 at 20:30 Dextrose (D50w Syringe) 50 ml Q15M PRN IV DECREASED GLUCOSE; Start 08/21/17 at 20:30 Glucagon (Glucagen) 1 mg Q15M PRN IM DECREASED GLUCOSE; Start 08/21/17 at 20: 30 Glucose (Glutose) 15 gm Q15M PRN BUCCAL DECREASED GLUCOSE; Start 08/21/17 at 20:30 Pantoprazole (Protonix Iv) 40 mg DAILY@06 IV Last administered on 08/30/17 05 :12; Admin Dose 40 MG; Start 08/22/17 at 06:00 Insulin Glargine 10 unit 10 unit DAILY@20 SC Last administered on 08/29/17 19 :53; Admin Dose 10 UNIT; Start 08/23/17 at 21:00 Sodium Chloride 1,000 ml @ 75 mls/hr [id number] IV Last administered on 23:57; Admin Dose 75 MLS/HR; Start 08/23/17 at 21:00 Dopamine HCl/ Dextrose 250 ml @ 8.52 mls/hr TITRATE IV ; Start 08/23/17 at 21: 00 Furosemide (Lasix) 40 mg DAILY IV Last administered on 08/29/17 08:38; Admin Dose 40 MG; Start 08/27/17 at 10:00 ADRI NAVARRO Aug 30, 2017 10:22
[2017-08-30] MEDS: METHYLPREDNISOLONE 125 MG INJ IV SCH (10:28)
[2017-08-30] MEDS: BALSAM PERU/CASTOR OIL 60 GM TUBE TOP SCH (10:29)
--- NOTE | 2017-08-30 11:35 | PN ---
Date/Time of Note Date/Time of Note DATE: 08/30/17 TIME: 11:31 Assessment/Plan VTE Prophylaxis VTE Prophylaxis Intervention: SCD's Lines/Catheters IV Catheter Type (from Nrs): Central Line Central line still needed: Yes Urinary Cath still in place: Yes Reason Cath still needed: urinary retention Assessment/Plan Chief Complaint/Hosp Course Borderline blood pressure and bradycardia, continue ICU monitoring, patient is awake alert, comfortable on supplemental oxygen, s/p extubation yesterday. Decreased upper extremity movement most likely due to myopathy, however, we obtain a CT of the head rule out neurological cause. CT of the head was ordered on admission, however, patient was not stable to undergo a CT scan. Continue PT OT, acute rehab when patient is more stable. Assessment/Plan -Severe Hypoxemic Respiratory Failure concerning for ARDS, resolved. Dr. Alarcon is following in pulmonology consultation. -Acute multifocal pneumonia, s/p antibiotics and Tamiflu. Dr. Mcgowan is following in infection disease consultation. -Sepsis with shock secondary to pneumonia, continue IV fluids, ICU care. -Diabetes mellitus with hemoglobin A1c 6.9. Continue Lantus and NovoLog. -Bradycardia, Dr. Whalen is following in cardiology consultation -Preserved ejection fraction of 50% -Obesity with BMI of 43 -Hepatic steatosis Further recommendations based on clinical course. Plan of care discussed with Dr. Gomez. Problems: Exam/Review of Systems Vital Signs Vitals Vital Signs Date Time Temp Pulse Resp B/P Pulse Ox O2 Delivery O2 Flow Rate FiO2 08/30/17 10:30 54 19 88/51 97 08/30/17 10:00 Nasal Cannula 3.0 08/30/17 08:00 98.3 08/29/17 12:00 30 Intake and Output 08/29/17 08/29/17 08/30/17 15:00 23:00 07:00 Intake Total 130 ml 110 ml 1620 ml Output Total 2500 ml 930 ml 430 ml Balance -2370 ml -820 ml 1190 ml Exam Constitutional: alert, oriented Head: normocephalic Respiratory: normal air movement Cardiovascular: nl pulses Gastrointestinal: non-tender, soft Extremities: normal pulses Results Result Diagram: 08/30/17 0400 08/30/17 0400 Results 24 hrs Laboratory Tests Test 08/29/17 12:00 08/29/17 17:36 08/29/17 19:50 08/29/17 20:47 Bedside Glucose 175 145 125 110 Test 08/30/17 01:03 08/30/17 04:00 08/30/17 05:14 Bedside Glucose 95 87 White Blood Count 12.7 H Red Blood Count 3.67 L Hemoglobin 10.0 L Hematocrit 31.7 L Mean Corpuscular Volume 86.4 Mean Corpuscular Hemoglobin 27.2 L Mean Corpuscular Hemoglobin Concent 31.5 L Red Cell Distribution Width 18.5 H Platelet Count 450 H Mean Platelet Volume 9.8 Neutrophils % 73.5 Lymphocytes % 15.4 Monocytes % 9.6 Eosinophils % 0.0 Basophils % 0.1 Nucleated Red Blood Cells % 0.0 Neutrophils # 9.3 H Lymphocytes # 2.0 Monocytes # 1.2 H Eosinophils # 0.0 Basophils # 0.0 Nucleated Red Blood Cells # 0.0 Sodium Level 147 H Potassium Level 3.8 Chloride Level 109 Carbon Dioxide Level 30 Anion Gap 12 Blood Urea Nitrogen 27 H Creatinine 0.73 Glucose Level 90 Calcium Level 8.9 Medications Medications Current Medications Ondansetron HCl (Zofran Inj) 4 mg Q6H PRN IV NAUSEA AND/OR VOMITING; Start 06/27 at 13:00 Acetaminophen (Tylenol Liquid) 650 mg Q6H PRN PO PAIN LEVEL 1-3 OR FEVER Last administered on 08/28/17 21:44; Admin Dose 650 MG; Start 08/20/17 at 13:00 Morphine Sulfate (morphine) 2 mg Q4H PRN IV PAIN LEVEL 7-10 Last administered on 08/29/17 05:25; Admin Dose 2 MG; Start 08/20/17 at 13:00 Methylprednisolone Sodium Succinate 60 mg 60 mg DAILY IV Last administered on 08/30/17 10:28; Admin Dose 60 MG; Start 08/20/17 at 17:00 Phenylephrine HCl 40 mg/Dextrose 500 ml @ 75 mls/hr TITRATE IV ; Start at 18:30 Norepinephrine/ Dextrose (Levophed/D5W) 500 ml @ 1.87 mls/hr TITRATE IV Last administered on 08/22/17 01:12; Admin Dose 7.5 MLS/HR; Start 08/21/17 at 09: 00 Diagnostic Test (Pha) (Accu-Chek) 1 ea 02 XX Last administered on 08/29/17 01 :32; Admin Dose 1 EA; Start 08/22/17 at 02:00 Miscellaneous Information 1 ea NOTE XX ; Start 08/21/17 at 20:30 Glucose (Glutose) 15 gm Q15M PRN PO DECREASED GLUCOSE; Start 08/21/17 at 20:30 Glucose (Glutose) 22.5 gm Q15M PRN PO DECREASED GLUCOSE; Start 08/21/17 at 20: 30 Dextrose (D50w Syringe) 25 ml Q15M PRN IV DECREASED GLUCOSE; Start 08/21/17 at 20:30 Dextrose (D50w Syringe) 50 ml Q15M PRN IV DECREASED GLUCOSE; Start 08/21/17 at 20:30 Glucagon (Glucagen) 1 mg Q15M PRN IM DECREASED GLUCOSE; Start 08/21/17 at 20: 30 Glucose (Glutose) 15 gm Q15M PRN BUCCAL DECREASED GLUCOSE; Start 08/21/17 at 20:30 Pantoprazole (Protonix Iv) 40 mg DAILY@06 IV Last administered on 08/30/17 05 :12; Admin Dose 40 MG; Start 08/22/17 at 06:00 Insulin Glargine 10 unit 10 unit DAILY@20 SC Last administered on 08/29/17 19 :53; Admin Dose 10 UNIT; Start 08/23/17 at 21:00 Sodium Chloride 1,000 ml @ 75 mls/hr [id number] IV Last administered on 23:57; Admin Dose 75 MLS/HR; Start 08/23/17 at 21:00 Dopamine HCl/ Dextrose 250 ml @ 8.52 mls/hr TITRATE IV ; Start 08/23/17 at 21: 00 Furosemide 40 mg 40 mg DAILY IV Last administered on 08/29/17 08:38; Admin Dose 40 MG; Start 08/27/17 at 10:00 Potassium Chloride/Sodium Chloride (1/2 NS + KCl 20 Meq) 1,000 ml @ 100 mls/hr Q10H IV ; Start 08/30/17 at 11:00 MANUEL KLEIN Aug 30, 2017 11:35
[2017-08-30] MEDS: 1/2 NS + KCL 20 MEQ 1,000 ML IV SCH ×2 (12:34→21:12)
--- NOTE | 2017-08-30 13:35 | CONS ---
Date/Time of Note Date/Time of Note DATE: 08/30/17 TIME: 13:31 Assessment/Plan Assessment/Plan Chief Complaint/Hosp Course IMP: 1.Bradycardia-NL Free t4. stable BP 2.Hypotension 3.Resp failure s/p intubation 4.DM 5. Hypernatremia-mild 6. PNA-multifocal Recc: -ICU monitoring -Continue abx's/steroids/bronchodilators -Follow HR/BP closely -Continue gentle lasix diuresis as tolerated Problems: Consultation Date/Type/Reason Admit Date/Time Aug 20, 2017 at 02:59 Initial Consult Date 08/21/17 Type of Consultation: cardiology Reason for Consultation bradycardia/svt Referring Provider: MILAGROS HIGHTOWER MD Exam/Review of Systems Vital Signs Vitals Vital Signs Date Time Temp Pulse Resp B/P Pulse Ox O2 Delivery O2 Flow Rate FiO2 08/30/17 10:30 54 19 88/51 97 08/30/17 10:00 Nasal Cannula 3.0 08/30/17 08:00 98.3 08/29/17 12:00 30 Intake and Output 08/29/17 08/29/17 08/30/17 15:00 23:00 07:00 Intake Total 130 ml 110 ml 1620 ml Output Total 2500 ml 930 ml 430 ml Balance -2370 ml -820 ml 1190 ml Exam Review of Systems: CONSTITUTIONAL: No fevers, chills. PULMONARY: No sob CARDIOVASCULAR: No chest pain/palpitations GASTROINTESTINAL: No nausea/vomiting. GENITOURINARY: No hematuria/dysuria. MUSCULOSKELETAL: No myagias/arthalgias. PSYCHIATRIC: The patient denies depression. NEUROLOGIC: mildly lethargic Constitutional: alert, other (lethargic) Psych: no complaints Head: normocephalic ENMT: mucosa pink and moist Neck: jvd (9 cm water), supple Respiratory: diminished breath sounds (at bases/B) Cardiovascular: regular rate and rhythm Gastrointestinal: non-tender, other (obese), soft Musculoskeletal: muscle tone (normal) Extremities: edema (trace/B) Neurological: lethargic Results Result Diagram: 08/30/17 0400 08/30/17 0400 Results 24 hrs Laboratory Tests Test 08/29/17 17:36 08/29/17 19:50 08/29/17 20:47 08/30/17 01:03 Bedside Glucose 145 125 110 95 Test 08/30/17 04:00 08/30/17 05:14 08/30/17 12:33 White Blood Count 12.7 H Red Blood Count 3.67 L Hemoglobin 10.0 L Hematocrit 31.7 L Mean Corpuscular Volume 86.4 Mean Corpuscular Hemoglobin 27.2 L Mean Corpuscular Hemoglobin Concent 31.5 L Red Cell Distribution Width 18.5 H Platelet Count 450 H Mean Platelet Volume 9.8 Neutrophils % 73.5 Lymphocytes % 15.4 Monocytes % 9.6 Eosinophils % 0.0 Basophils % 0.1 Nucleated Red Blood Cells % 0.0 Neutrophils # 9.3 H Lymphocytes # 2.0 Monocytes # 1.2 H Eosinophils # 0.0 Basophils # 0.0 Nucleated Red Blood Cells # 0.0 Sodium Level 147 H Potassium Level 3.8 Chloride Level 109 Carbon Dioxide Level 30 Anion Gap 12 Blood Urea Nitrogen 27 H Creatinine 0.73 Glucose Level 90 Calcium Level 8.9 Bedside Glucose 87 120 Medications Medications Current Medications Ondansetron HCl (Zofran Inj) 4 mg Q6H PRN IV NAUSEA AND/OR VOMITING; Start 06/27 at 13:00 Acetaminophen (Tylenol Liquid) 650 mg Q6H PRN PO PAIN LEVEL 1-3 OR FEVER Last administered on 08/28/17 21:44; Admin Dose 650 MG; Start 08/20/17 at 13:00 Morphine Sulfate (morphine) 2 mg Q4H PRN IV PAIN LEVEL 7-10 Last administered on 08/29/17 05:25; Admin Dose 2 MG; Start 08/20/17 at 13:00 Methylprednisolone Sodium Succinate 60 mg 60 mg DAILY IV Last administered on 08/30/17 10:28; Admin Dose 60 MG; Start 08/20/17 at 17:00 Phenylephrine HCl 40 mg/Dextrose 500 ml @ 75 mls/hr TITRATE IV ; Start at 18:30 Norepinephrine/ Dextrose (Levophed/D5W) 500 ml @ 1.87 mls/hr TITRATE IV Last administered on 08/22/17 01:12; Admin Dose 7.5 MLS/HR; Start 08/21/17 at 09: 00 Diagnostic Test (Pha) (Accu-Chek) 1 ea 02 XX Last administered on 08/29/17 01 :32; Admin Dose 1 EA; Start 08/22/17 at 02:00 Miscellaneous Information 1 ea NOTE XX ; Start 08/21/17 at 20:30 Glucose (Glutose) 15 gm Q15M PRN PO DECREASED GLUCOSE; Start 08/21/17 at 20:30 Glucose (Glutose) 22.5 gm Q15M PRN PO DECREASED GLUCOSE; Start 08/21/17 at 20: 30 Dextrose (D50w Syringe) 25 ml Q15M PRN IV DECREASED GLUCOSE; Start 08/21/17 at 20:30 Dextrose (D50w Syringe) 50 ml Q15M PRN IV DECREASED GLUCOSE; Start 08/21/17 at 20:30 Glucagon (Glucagen) 1 mg Q15M PRN IM DECREASED GLUCOSE; Start 08/21/17 at 20: 30 Glucose (Glutose) 15 gm Q15M PRN BUCCAL DECREASED GLUCOSE; Start 08/21/17 at 20:30 Pantoprazole (Protonix Iv) 40 mg DAILY@06 IV Last administered on 08/30/17 05 :12; Admin Dose 40 MG; Start 08/22/17 at 06:00 Insulin Glargine 10 unit 10 unit DAILY@20 SC Last administered on 08/29/17 19 :53; Admin Dose 10 UNIT; Start 08/23/17 at 21:00 Sodium Chloride 1,000 ml @ 75 mls/hr [id number] IV Last administered on 23:57; Admin Dose 75 MLS/HR; Start 08/23/17 at 21:00 Dopamine HCl/ Dextrose 250 ml @ 8.52 mls/hr TITRATE IV ; Start 08/23/17 at 21: 00 Furosemide 40 mg 40 mg DAILY IV Last administered on 08/29/17 08:38; Admin Dose 40 MG; Start 08/27/17 at 10:00 Potassium Chloride/Sodium Chloride (1/2 NS + KCl 20 Meq) 1,000 ml @ 100 mls/hr Q10H IV Last administered on 08/30/17 12:34; Admin Dose 100 MLS/HR; Start at 11:00 LUIS FELIPE PANDEY Aug 30, 2017 13:35
--- NOTE | 2017-08-30 14:20 | CONS ---
Date/Time of Note Date/Time of Note DATE: 08/30/17 TIME: 14:18 Assessment/Plan Assessment/Plan Chief Complaint/Hosp Course - Severe sepsis with septic shock likely d/t PNA +/-possible influenza; s/p pressors; procalcitonin 1.35 - Bilateral multifocal PNA-- seemingly more c/w ARDS and CHF now - Possible influenza, s/p Tamiflu - Acute hypoxemic respiratory failure with possible ARDS s/p intubation - Sinus bradycardia - Hypernatremia - slowing improving - T2DM, newly diagnosed - Hgb A1c 6.7% - Microcytic anemia - Hepatic steatosis on CT - Subclinical hyperthyroidism - Acute encephalopathy - improving - H/o SVT - Obesity - BMI 43 Recommendations: - Continue Zosyn (08/21/2017-); last day - Pending: cocci, histo, viral cx, fungal cx - Consider workup for possible underlying autoimmune diseases as outpatient Problems: Consultation Date/Type/Reason Admit Date/Time Aug 20, 2017 at 02:59 Type of Consultation: ID Referring Provider: MILAGROS HIGHTOWER MD 24 HR Interval Summary Free Text/Dictation extubated Exam/Review of Systems Vital Signs Vitals Vital Signs Date Time Temp Pulse Resp B/P Pulse Ox O2 Delivery O2 Flow Rate FiO2 08/30/17 12:00 47 08/30/17 10:30 19 88/51 97 08/30/17 10:00 Nasal Cannula 3.0 08/30/17 08:00 98.3 08/29/17 12:00 30 Intake and Output 08/29/17 08/29/17 08/30/17 15:00 23:00 07:00 Intake Total 130 ml 110 ml 1620 ml Output Total 2500 ml 930 ml 430 ml Balance -2370 ml -820 ml 1190 ml Exam Constitutional: alert, oriented, well developed Psych: nl mood/affect, no complaints Head: atraumatic, normocephalic Eyes: EOMI, PERRL, nl conjunctiva, nl lids, nl sclera Neck: non-tender, supple Respiratory: clear to auscultation, other (diminished at bases) Cardiovascular: regular rate and rhythm Gastrointestinal: non-tender, soft Results Result Diagram: 08/30/17 0400 08/30/17 0400 Results 24 hrs Laboratory Tests Test 08/29/17 17:36 08/29/17 19:50 08/29/17 20:47 08/30/17 01:03 Bedside Glucose 145 125 110 95 Test 08/30/17 04:00 08/30/17 05:14 08/30/17 12:33 White Blood Count 12.7 H Red Blood Count 3.67 L Hemoglobin 10.0 L Hematocrit 31.7 L Mean Corpuscular Volume 86.4 Mean Corpuscular Hemoglobin 27.2 L Mean Corpuscular Hemoglobin Concent 31.5 L Red Cell Distribution Width 18.5 H Platelet Count 450 H Mean Platelet Volume 9.8 Neutrophils % 73.5 Lymphocytes % 15.4 Monocytes % 9.6 Eosinophils % 0.0 Basophils % 0.1 Nucleated Red Blood Cells % 0.0 Neutrophils # 9.3 H Lymphocytes # 2.0 Monocytes # 1.2 H Eosinophils # 0.0 Basophils # 0.0 Nucleated Red Blood Cells # 0.0 Sodium Level 147 H Potassium Level 3.8 Chloride Level 109 Carbon Dioxide Level 30 Anion Gap 12 Blood Urea Nitrogen 27 H Creatinine 0.73 Glucose Level 90 Calcium Level 8.9 Bedside Glucose 87 120 Medications Medications Current Medications Ondansetron HCl (Zofran Inj) 4 mg Q6H PRN IV NAUSEA AND/OR VOMITING; Start 06/27 at 13:00 Acetaminophen (Tylenol Liquid) 650 mg Q6H PRN PO PAIN LEVEL 1-3 OR FEVER Last administered on 08/28/17 21:44; Admin Dose 650 MG; Start 08/20/17 at 13:00 Morphine Sulfate (morphine) 2 mg Q4H PRN IV PAIN LEVEL 7-10 Last administered on 08/29/17 05:25; Admin Dose 2 MG; Start 08/20/17 at 13:00 Methylprednisolone Sodium Succinate 60 mg 60 mg DAILY IV Last administered on 08/30/17 10:28; Admin Dose 60 MG; Start 08/20/17 at 17:00 Phenylephrine HCl 40 mg/Dextrose 500 ml @ 75 mls/hr TITRATE IV ; Start at 18:30 Norepinephrine/ Dextrose (Levophed/D5W) 500 ml @ 1.87 mls/hr TITRATE IV Last administered on 08/22/17 01:12; Admin Dose 7.5 MLS/HR; Start 08/21/17 at 09: 00 Diagnostic Test (Pha) (Accu-Chek) 1 ea 02 XX Last administered on 08/29/17 01 :32; Admin Dose 1 EA; Start 08/22/17 at 02:00 Miscellaneous Information 1 ea NOTE XX ; Start 08/21/17 at 20:30 Glucose (Glutose) 15 gm Q15M PRN PO DECREASED GLUCOSE; Start 08/21/17 at 20:30 Glucose (Glutose) 22.5 gm Q15M PRN PO DECREASED GLUCOSE; Start 08/21/17 at 20: 30 Dextrose (D50w Syringe) 25 ml Q15M PRN IV DECREASED GLUCOSE; Start 08/21/17 at 20:30 Dextrose (D50w Syringe) 50 ml Q15M PRN IV DECREASED GLUCOSE; Start 08/21/17 at 20:30 Glucagon (Glucagen) 1 mg Q15M PRN IM DECREASED GLUCOSE; Start 08/21/17 at 20: 30 Glucose (Glutose) 15 gm Q15M PRN BUCCAL DECREASED GLUCOSE; Start 08/21/17 at 20:30 Pantoprazole (Protonix Iv) 40 mg DAILY@06 IV Last administered on 08/30/17 05 :12; Admin Dose 40 MG; Start 08/22/17 at 06:00 Insulin Glargine 10 unit 10 unit DAILY@20 SC Last administered on 08/29/17 19 :53; Admin Dose 10 UNIT; Start 08/23/17 at 21:00 Sodium Chloride 1,000 ml @ 75 mls/hr [id number] IV Last administered on 23:57; Admin Dose 75 MLS/HR; Start 08/23/17 at 21:00 Dopamine HCl/ Dextrose 250 ml @ 8.52 mls/hr TITRATE IV ; Start 08/23/17 at 21: 00 Furosemide 40 mg 40 mg DAILY IV Last administered on 08/29/17 08:38; Admin Dose 40 MG; Start 08/27/17 at 10:00 Potassium Chloride/Sodium Chloride (1/2 NS + KCl 20 Meq) 1,000 ml @ 100 mls/hr Q10H IV Last administered on 08/30/17 12:34; Admin Dose 100 MLS/HR; Start at 11:00 ELIO AMOR MD Aug 30, 2017 14:20
[2017-08-30] MEDS: INSULIN GLARGINE [LANtus] 3 ML PEN SC SCH (20:29)
[2017-08-30] MEDS ORDERED: IODIXANOL LOCM 100 ML BTL ONE (23:28)
[2017-08-30] MEDS ORDERED: SOD CHLORIDE 0.9% 100 ML ONE (23:28)
[2017-08-31] VITALS (15 sets, daily range): BP systolic 80–112; BP diastolic 47–75; PULSE 44–105; RESP 16–28
[2017-08-31] MEDS: ACCU-CHEK XX SCH (01:25)
--- NOTE | 2017-08-31 03:10 | RADRPT ---
PROCEDURE: CT Brain with and without contrast. CLINICAL INDICATION: Right-sided weakness after extubation TECHNIQUE: Spiral CT images from the skull base to the vertex before and after administration of 9 cc of the Omnipaque-300 intravenous contrast. Multiplanar reformatted images were made. Images wer e reviewed on a PACS workstation. The CTDIvol is 44.52 (mGy) and the DLP is 720.23 (mGycm). One or more of the following dose reduction techniques were used: automated exposure control, adjustment of the mA and/or kV according to patient size, or use of iterative reconstruction technique. DICOM im ages are available. COMPARISON: None FINDINGS: There is no intracranial hemorrhage, mass effect, or midline shift. No extra-axial fluid collection is seen. The ventricles and sulci are otherwise normal in size and configuration. The density of th e brain appears normal. The ayers white matter differentiation appears well-preserved. The postcont rast images show no abnormal parenchymal, leptomeningeal, or dural enhancement. . There is mucoperi osteal thickening and fluid in the sphenoid sinus.. IMPRESSION: No definite acute intracranial abnormality. RPTAT: [facility] Physician Maryana Date Time Electronically viewed and signed by Physician Maryana on 08/31/2017 03:10 KATHLEEN/
[2017-08-31] MEDS: PANTOPRAZOLE 40 MG INJ IV SCH (05:09)
[2017-08-31 06:06] LABS: BASOPHILS % 0.1 % (0.0-2.0); HEMATOCRIT 32.6 % (37.0-47.0); HEMOGLOBIN 10.5 g/dl (12.0-16.0); LYMPHOCYTES # 2.4 10^3/ul (0.8-2.9); MEAN CORPUSCULAR HEMOGLOBIN 27.2 pg (29.0-33.0); MEAN CORPUSCULAR HGB CONC 32.2 g/dl (32.0-37.0); MEAN CORPUSCULAR VOLUME 84.5 fl (82.0-101.0); MEAN PLATELET VOLUME 9.5 fl (7.4-10.4); MONOCYTE # 1.1 10^3/ul (0.3-0.9); MONOCYTES % 8.4 % (0.0-11.0); NEUTROPHIL # 9.8 10^3/ul (1.6-7.5); NEUTROPHILS % 72.3 % (39.0-77.0); PLATELET COUNT 438 10^3/UL (140-415); RED BLOOD COUNT 3.86 10^6/ul (4.20-5.40); RED CELL DISTRIBUTION WIDTH 17.4 % (11.5-14.5); WHITE BLOOD COUNT 13.5 10^3/ul (4.8-10.8)
[2017-08-31 06:40] LABS: CALCIUM 8.6 mg/dl (8.4-10.2); CREATININE 0.57 mg/dl (0.44-1.00); POTASSIUM 3.7 mmol/L (3.5-5.1)
[2017-08-31] MEDS: INSULIN ASPART [NOVOLOG] 3 ML PEN SC SCH ×4 (07:05→21:00)
[2017-08-31] MEDS: 1/2 NS + KCL 20 MEQ 1,000 ML IV SCH ×3 (07:20→23:07)
[2017-08-31] MEDS: FUROSEMIDE 40 MG INJ IV SCH (08:36)
[2017-08-31] MEDS: BALSAM PERU/CASTOR OIL 60 GM TUBE TOP SCH (08:36)
[2017-08-31] MEDS: METHYLPREDNISOLONE 125 MG INJ IV SCH (08:36)
--- NOTE | 2017-08-31 10:08 | CONS ---
Date/Time of Note Date/Time of Note DATE: 08/31/17 TIME: 10:06 Consult Date/Type/Reason Admit Date/Time Aug 20, 2017 at 02:59 Initial Consult Date 08/21/17 Type of Consultation: Pulmonary Ordering Provider: MILAGROS HIGHTOWER MD Subjective Patient stable on nasal cannula today. No new events. Awake alert and oriented. Objective Vital Signs Date Time Temp Pulse Resp B/P Pulse Ox O2 Delivery O2 Flow Rate FiO2 08/31/17 09:00 63 26 96/62 90 Nasal Cannula 08/31/17 08:00 3.0 08/31/17 07:00 98.9 08/31/17 06:20 27 Intake and Output 08/30/17 08/30/17 08/31/17 15:00 23:00 07:00 Intake Total 1445 ml 1040 ml 800 ml Output Total 485 ml 795 ml 690 ml Balance 960 ml 245 ml 110 ml Exam PHYSICAL EXAMINATION: GENERAL: Moderately obese young lady, nasal cannula O2 awake alert and oriented VITAL SIGNS: As above CHEST: Decreased air entry bilaterally. ABDOMEN: Mildly distended but soft. EXTREMITIES: No cyanosis, clubbing, 1+ edema. NEUROLOGIC: Generalized weakness. Results/Medications Result Diagram: 08/31/17 0500 08/31/17 0500 Results 24 hrs Laboratory Tests Test 08/30/17 12:33 08/30/17 17:33 08/30/17 20:25 08/31/17 01:22 Bedside Glucose 120 159 143 91 Test 08/31/17 05:00 08/31/17 07:24 White Blood Count 13.5 H Red Blood Count 3.86 L Hemoglobin 10.5 L Hematocrit 32.6 L Mean Corpuscular Volume 84.5 Mean Corpuscular Hemoglobin 27.2 L Mean Corpuscular Hemoglobin Concent 32.2 Red Cell Distribution Width 17.4 H Platelet Count 438 H Mean Platelet Volume 9.5 Neutrophils % 72.3 Lymphocytes % 18.0 Monocytes % 8.4 Eosinophils % 0.0 Basophils % 0.1 Nucleated Red Blood Cells % 0.0 Neutrophils # 9.8 H Lymphocytes # 2.4 Monocytes # 1.1 H Eosinophils # 0.0 Basophils # 0.0 Nucleated Red Blood Cells # 0.0 Sodium Level 137 Potassium Level 3.7 Chloride Level 104 Carbon Dioxide Level 26 Anion Gap 11 Blood Urea Nitrogen 15 # Creatinine 0.57 Glucose Level 85 Calcium Level 8.6 Bedside Glucose 81 Medications Current Medications Ondansetron HCl (Zofran Inj) 4 mg Q6H PRN IV NAUSEA AND/OR VOMITING; Start 06/27 at 13:00 Acetaminophen (Tylenol Liquid) 650 mg Q6H PRN PO PAIN LEVEL 1-3 OR FEVER Last administered on 08/28/17 21:44; Admin Dose 650 MG; Start 08/20/17 at 13:00 Morphine Sulfate (morphine) 2 mg Q4H PRN IV PAIN LEVEL 7-10 Last administered on 08/29/17 05:25; Admin Dose 2 MG; Start 08/20/17 at 13:00 Methylprednisolone Sodium Succinate 60 mg 60 mg DAILY IV Last administered on 08/31/17 08:36; Admin Dose 60 MG; Start 08/20/17 at 17:00 Phenylephrine HCl 40 mg/Dextrose 500 ml @ 75 mls/hr TITRATE IV ; Start at 18:30 Norepinephrine/ Dextrose (Levophed/D5W) 500 ml @ 1.87 mls/hr TITRATE IV Last administered on 08/22/17 01:12; Admin Dose 7.5 MLS/HR; Start 08/21/17 at 09: 00 Diagnostic Test (Pha) (Accu-Chek) 1 ea 02 XX Last administered on 08/29/17 01 :32; Admin Dose 1 EA; Start 08/22/17 at 02:00 Miscellaneous Information 1 ea NOTE XX ; Start 08/21/17 at 20:30 Glucose (Glutose) 15 gm Q15M PRN PO DECREASED GLUCOSE; Start 08/21/17 at 20:30 Glucose (Glutose) 22.5 gm Q15M PRN PO DECREASED GLUCOSE; Start 08/21/17 at 20: 30 Dextrose (D50w Syringe) 25 ml Q15M PRN IV DECREASED GLUCOSE; Start 08/21/17 at 20:30 Dextrose (D50w Syringe) 50 ml Q15M PRN IV DECREASED GLUCOSE; Start 08/21/17 at 20:30 Glucagon (Glucagen) 1 mg Q15M PRN IM DECREASED GLUCOSE; Start 08/21/17 at 20: 30 Glucose (Glutose) 15 gm Q15M PRN BUCCAL DECREASED GLUCOSE; Start 08/21/17 at 20:30 Pantoprazole (Protonix Iv) 40 mg DAILY@06 IV Last administered on 08/31/17 05 :09; Admin Dose 40 MG; Start 08/22/17 at 06:00 Insulin Glargine 10 unit 10 unit DAILY@20 SC Last administered on 08/30/17 20 :29; Admin Dose 10 UNIT; Start 08/23/17 at 21:00 Dopamine HCl/ Dextrose 250 ml @ 8.52 mls/hr TITRATE IV ; Start 08/23/17 at 21: 00 Furosemide 40 mg 40 mg DAILY IV Last administered on 08/31/17 08:36; Admin Dose 40 MG; Start 08/27/17 at 10:00 Potassium Chloride/Sodium Chloride (1/2 NS + KCl 20 Meq) 1,000 ml @ 100 mls/hr Q10H IV Last administered on 08/31/17 07:20; Admin Dose 100 MLS/HR; Start at 11:00 Assessment/Plan Chief Complaint/Hosp Course Assessment 1. Hypoxemic respiratory failure consistent with adult respiratory distress syndrome. Significant improvement now on nasal cannula oxygen. 2. Possible acute influenza infection. 3. Continue broad-spectrum antibiotics. 4. Encephalopathy toxic metabolic resolved. Plan 1. Continue supplemental O2. 2. Continue ID recommendations 3. Advance diet 4. DVT and GI prophylaxis 5. Physical therapy evaluation Transfer to telemetry Critical care time 40 minutes. Discussed with family at bedside. Problems: SVITLANA LOZANO MD, [facility] Aug 31, 2017 10:08
--- NOTE | 2017-08-31 10:42 | CONS ---
Date/Time of Note Date/Time of Note DATE: 08/31/17 TIME: 10:33 Assessment/Plan Assessment/Plan Chief Complaint/Hosp Course - Severe sepsis with septic shock likely d/t PNA +/-possible influenza; s/p pressors; procalcitonin 1.35 - resolved - Bilateral multifocal PNA-- seemingly more c/w ARDS and CHF now - improving, s/ p abx - Possible influenza, s/p Tamiflu - Acute hypoxemic respiratory failure with possible ARDS s/p extubation - improving - Sinus bradycardia - stable - Hypernatremia - resolved - T2DM, newly diagnosed - Hgb A1c 6.7% - Microcytic anemia - stable - Hepatic steatosis on CT - Subclinical hyperthyroidism - Acute encephalopathy - resolving - H/o SVT - Obesity - BMI 43 - Oral candidiasis - Persistent leukocytosis (afebrile) - partly d/t steroid margination Recommendations: - Add Nystatin for oral thrush - Monitor closely off abx - Pending: cocci, histo, viral cx, fungal cx - Consider weaning IV steroids if possible (08/20/2017-) - Consider workup for possible underlying autoimmune diseases as outpatient Management d/w NASIMA Steward and Dr. Mcgowan Critical Care time spent: 35 min Problems: Consultation Date/Type/Reason Admit Date/Time Aug 20, 2017 at 02:59 Initial Consult Date 08/21/17 Type of Consultation: Infectious Disease Referring Provider: MILAGROS HIGHTOWER MD 24 HR Interval Summary Free Text/Dictation Afebrile; Pt remains stable on nasal cannula at 3L. Denies pain, SOB, n/v/d, dysuria. Passed swallow eval, has generalized weakness and pt planning to transfer out of ICU today per d/w BEHAVIORIST. Exam/Review of Systems Vital Signs Vitals Vital Signs Date Time Temp Pulse Resp B/P Pulse Ox O2 Delivery O2 Flow Rate FiO2 08/31/17 09:00 63 26 96/62 90 Nasal Cannula 08/31/17 08:00 3.0 08/31/17 07:00 98.9 08/31/17 06:20 27 Intake and Output 08/30/17 08/30/17 08/31/17 15:00 23:00 07:00 Intake Total 1445 ml 1040 ml 800 ml Output Total 485 ml 795 ml 690 ml Balance 960 ml 245 ml 110 ml Exam Constitutional: alert, oriented, obese, well developed Head: atraumatic, normocephalic Eyes: nl sclera ENMT: mucosa pink and moist (mild thrush noted on posterior tongue), other ( scab noted on R external ear r/t DTI) Respiratory: diminished breath sounds Cardiovascular: nl pulses, regular rate and rhythm (slightly bradycardic at times) Gastrointestinal: bowel sounds (normoactive), non-tender, soft Genitourinary - Female: other (Bourgeois catheter present) Musculoskeletal: nl extremities to inspection Extremities: normal pulses, No clubbing, No cyanosis Neurological: nl mental status, nl speech ([place]ian speaking), other, (BA with generalized weakness) Skin: nl turgor, No rash or lesions Results Result Diagram: 08/31/17 0500 08/31/17 0500 Results 24 hrs Laboratory Tests Test 08/30/17 12:33 08/30/17 17:33 08/30/17 20:25 08/31/17 01:22 Bedside Glucose 120 159 143 91 Test 08/31/17 05:00 08/31/17 07:24 White Blood Count 13.5 H Red Blood Count 3.86 L Hemoglobin 10.5 L Hematocrit 32.6 L Mean Corpuscular Volume 84.5 Mean Corpuscular Hemoglobin 27.2 L Mean Corpuscular Hemoglobin Concent 32.2 Red Cell Distribution Width 17.4 H Platelet Count 438 H Mean Platelet Volume 9.5 Neutrophils % 72.3 Lymphocytes % 18.0 Monocytes % 8.4 Eosinophils % 0.0 Basophils % 0.1 Nucleated Red Blood Cells % 0.0 Neutrophils # 9.8 H Lymphocytes # 2.4 Monocytes # 1.1 H Eosinophils # 0.0 Basophils # 0.0 Nucleated Red Blood Cells # 0.0 Sodium Level 137 Potassium Level 3.7 Chloride Level 104 Carbon Dioxide Level 26 Anion Gap 11 Blood Urea Nitrogen 15 # Creatinine 0.57 Glucose Level 85 Calcium Level 8.6 Bedside Glucose 81 Medications Medications Current Medications Ondansetron HCl (Zofran Inj) 4 mg Q6H PRN IV NAUSEA AND/OR VOMITING; Start 06/27 at 13:00 Acetaminophen (Tylenol Liquid) 650 mg Q6H PRN PO PAIN LEVEL 1-3 OR FEVER Last administered on 08/28/17t 21:44; Admin Dose 650 MG; Start 08/20/17 at 13:00 Morphine Sulfate (morphine) 2 mg Q4H PRN IV PAIN LEVEL 7-10 Last administered on 08/29/17 05:25; Admin Dose 2 MG; Start 08/20/17 at 13:00 Methylprednisolone Sodium Succinate 60 mg 60 mg DAILY IV Last administered on 08/31/17 08:36; Admin Dose 60 MG; Start 08/20/17 at 17:00 Phenylephrine HCl 40 mg/Dextrose 500 ml @ 75 mls/hr TITRATE IV ; Start at 18:30 Norepinephrine/ Dextrose (Levophed/D5W) 500 ml @ 1.87 mls/hr TITRATE IV Last administered on 08/22/17 01:12; Admin Dose 7.5 MLS/HR; Start 08/21/17 at 09: 00 Diagnostic Test (Pha) (Accu-Chek) 1 ea 02 XX Last administered on 08/29/17 01 :32; Admin Dose 1 EA; Start 08/22/17 at 02:00 Miscellaneous Information 1 ea NOTE XX ; Start 08/21/17 at 20:30 Glucose (Glutose) 15 gm Q15M PRN PO DECREASED GLUCOSE; Start 08/21/17 at 20:30 Glucose (Glutose) 22.5 gm Q15M PRN PO DECREASED GLUCOSE; Start 08/21/17 at 20: 30 Dextrose (D50w Syringe) 25 ml Q15M PRN IV DECREASED GLUCOSE; Start 08/21/17 at 20:30 Dextrose (D50w Syringe) 50 ml Q15M PRN IV DECREASED GLUCOSE; Start 08/21/17 at 20:30 Glucagon (Glucagen) 1 mg Q15M PRN IM DECREASED GLUCOSE; Start 08/21/17 at 20: 30 Glucose (Glutose) 15 gm Q15M PRN BUCCAL DECREASED GLUCOSE; Start 08/21/17 at 20:30 Pantoprazole (Protonix Iv) 40 mg DAILY@06 IV Last administered on 08/31/17 05 :09; Admin Dose 40 MG; Start 08/22/17 at 06:00 Insulin Glargine 10 unit 10 unit DAILY@20 SC Last administered on 08/30/17 20 :29; Admin Dose 10 UNIT; Start 08/23/17 at 21:00 Dopamine HCl/ Dextrose 250 ml @ 8.52 mls/hr TITRATE IV ; Start 08/23/17 at 21: 00 Furosemide 40 mg 40 mg DAILY IV Last administered on 08/31/17 08:36; Admin Dose 40 MG; Start 08/27/17 at 10:00 Potassium Chloride/Sodium Chloride (1/2 NS + KCl 20 Meq) 1,000 ml @ 100 mls/hr Q10H IV Last administered on 08/31/17 07:20; Admin Dose 100 MLS/HR; Start at 11:[address] brain 08/30/2017: No definite acute intracranial abnormality. CXR 08/29/2017: 1. Stable position of central line and endotracheal tube. 2. Bilateral air space opacities with interval improved aeration representing pulmonary edema or infection. CINTHYA JUNG BATCH ROOM TECHNICIAN Aug 31, 2017 10:42
[2017-08-31] MEDS: NYSTATIN SUSP 5 ML CUP PO SCH ×3 (11:31→21:03)
--- NOTE | 2017-08-31 18:01 | PN ---
Date/Time of Note Date/Time of Note DATE: 08/31/17 TIME: 18:00 Assessment/Plan VTE Prophylaxis VTE Prophylaxis Intervention: other Lines/Catheters IV Catheter Type (from Nrs): Saline Lock Urinary Cath still in place: Yes Reason Cath still needed: urinary retention Assessment/Plan Assessment/Plan -Severe Hypoxemic Respiratory Failure concerning for ARDS, resolved. - Dr. Alarcon is following in pulmonology consultation. -Acute multifocal pneumonia, s/p antibiotics and Tamiflu. -Dr. Mcgowan is following in infection disease consultation. -Sepsis with shock secondary to pneumonia, continue IV fluids. -Diabetes mellitus with hemoglobin A1c 6.9. Continue Lantus and NovoLog. -Bradycardia, Dr. Whalen is following in cardiology consultation -Preserved ejection fraction of 50% -Obesity with BMI of 43 -Hepatic steatosis Further recommendations based on clinical course. Plan of care discussed with Dr. Gomez. Subjective 24 Hr Interval Summary Free Text/Dictation -NAD - sitting up in bed; alert/awake/follows simple commands having dinner- family at bed side- all qs answered afebrile; wbc trended up- ID follows no new events reported overnight- dw staff Constitutional: improved Respiratory: no complaints Cardiovascular: no complaints Gastrointestinal: no complaints Genitourinary: no complaints Exam/Review of Systems Vital Signs Vitals Vital Signs Date Time Temp Pulse Resp B/P Pulse Ox O2 Delivery O2 Flow Rate FiO2 08/31/17 13:34 Nasal Cannula 3.0 08/31/17 13:24 98.2 65 19 97/56 93 08/31/17 06:20 27 Intake and Output 08/30/17 08/30/17 08/31/17 15:00 23:00 07:00 Intake Total 1445 ml 1040 ml 900 ml Output Total 485 ml 795 ml 690 ml Balance 960 ml 245 ml 210 ml Exam Constitutional: alert, oriented, well developed Psych: nl mood/affect Respiratory: clear to auscultation, diminished breath sounds Cardiovascular: regular rate and rhythm Gastrointestinal: non-tender, soft Musculoskeletal: nl extremities to inspection Extremities: edema Neurological: nl speech Results Result Diagram: 08/31/17 0500 08/31/17 0500 Results 24 hrs Laboratory Tests Test 08/30/17 20:25 08/31/17 01:22 08/31/17 05:00 08/31/17 07:24 Bedside Glucose 143 91 81 White Blood Count 13.5 H Red Blood Count 3.86 L Hemoglobin 10.5 L Hematocrit 32.6 L Mean Corpuscular Volume 84.5 Mean Corpuscular Hemoglobin 27.2 L Mean Corpuscular Hemoglobin Concent 32.2 Red Cell Distribution Width 17.4 H Platelet Count 438 H Mean Platelet Volume 9.5 Neutrophils % 72.3 Lymphocytes % 18.0 Monocytes % 8.4 Eosinophils % 0.0 Basophils % 0.1 Nucleated Red Blood Cells % 0.0 Neutrophils # 9.8 H Lymphocytes # 2.4 Monocytes # 1.1 H Eosinophils # 0.0 Basophils # 0.0 Nucleated Red Blood Cells # 0.0 Sodium Level 137 Potassium Level 3.7 Chloride Level 104 Carbon Dioxide Level 26 Anion Gap 11 Blood Urea Nitrogen 15 # Creatinine 0.57 Glucose Level 85 Calcium Level 8.6 Test 08/31/17 10:55 08/31/17 10:58 08/31/17 11:26 08/31/17 17:10 Lab Scanned Report REFERENCE LAB REFERENCE LAB Bedside Glucose 135 127 Medications Medications Current Medications Ondansetron HCl (Zofran Inj) 4 mg Q6H PRN IV NAUSEA AND/OR VOMITING; Start 06/27 at 13:00 Acetaminophen (Tylenol Liquid) 650 mg Q6H PRN PO PAIN LEVEL 1-3 OR FEVER Last administered on 08/28/17 21:44; Admin Dose 650 MG; Start 08/20/17 at 13:00 Morphine Sulfate (morphine) 2 mg Q4H PRN IV PAIN LEVEL 7-10 Last administered on 08/29/17 05:25; Admin Dose 2 MG; Start 08/20/17 at 13:00 Methylprednisolone Sodium Succinate 60 mg 60 mg DAILY IV Last administered on 08/31/17 08:36; Admin Dose 60 MG; Start 08/20/17 at 17:00 Phenylephrine HCl 40 mg/Dextrose 500 ml @ 75 mls/hr TITRATE IV ; Start at 18:30 Norepinephrine/ Dextrose (Levophed/D5W) 500 ml @ 1.87 mls/hr TITRATE IV Last administered on 08/22/17 01:12; Admin Dose 7.5 MLS/HR; Start 08/21/17 at 09: 00 Diagnostic Test (Pha) (Accu-Chek) 1 ea 02 XX Last administered on 08/29/17 01 :32; Admin Dose 1 EA; Start 08/22/17 at 02:00 Miscellaneous Information 1 ea NOTE XX ; Start 08/21/17 at 20:30 Glucose (Glutose) 15 gm Q15M PRN PO DECREASED GLUCOSE; Start 08/21/17 at 20:30 Glucose (Glutose) 22.5 gm Q15M PRN PO DECREASED GLUCOSE; Start 08/21/17 at 20: 30 Dextrose (D50w Syringe) 25 ml Q15M PRN IV DECREASED GLUCOSE; Start 08/21/17 at 20:30 Dextrose (D50w Syringe) 50 ml Q15M PRN IV DECREASED GLUCOSE; Start 08/21/17 at 20:30 Glucagon (Glucagen) 1 mg Q15M PRN IM DECREASED GLUCOSE; Start 08/21/17 at 20: 30 Glucose (Glutose) 15 gm Q15M PRN BUCCAL DECREASED GLUCOSE; Start 08/21/17 at 20:30 Pantoprazole (Protonix Iv) 40 mg DAILY@06 IV Last administered on 08/31/17 05 :09; Admin Dose 40 MG; Start 08/22/17 at 06:00 Insulin Glargine 10 unit 10 unit DAILY@20 SC Last administered on 08/30/17 20 :29; Admin Dose 10 UNIT; Start 08/23/17 at 21:00 Dopamine HCl/ Dextrose 250 ml @ 8.52 mls/hr TITRATE IV ; Start 08/23/17 at 21: 00 Furosemide 40 mg 40 mg DAILY IV Last administered on 08/31/17 08:36; Admin Dose 40 MG; Start 08/27/17 at 10:00 Potassium Chloride/Sodium Chloride (1/2 NS + KCl 20 Meq) 1,000 ml @ 100 mls/hr Q10H IV Last administered on 08/31/17 13:39; Admin Dose 100 MLS/HR; Start at 11:00 Nystatin (Nystatin Susp) 5 ml QID PO Last administered on 08/31/17 17:00; Admin Dose 5 ML; Start 08/31/17 at 11:00 ITZ STRONG Aug 31, 2017 18:01
--- NOTE | 2017-08-31 18:21 | CONS ---
Date/Time of Note Date/Time of Note DATE: 08/31/17 TIME: 18:18 Assessment/Plan Assessment/Plan Chief Complaint/Hosp Course IMP: 1.Bradycardia-NL Free t4. stable BP 2.Hypotension 3.Resp failure s/p intubation 4.DM 5. Hypernatremia-mild 6. PNA-multifocal Recc: -Now on med-surg -Continue steroids/bronchodilators -Follow HR/BP closely off of marisol agents or anti-hypertensives at this time -AM ECG -f/u cx data -Continue gentle lasix diuresis as tolerated Problems: Consultation Date/Type/Reason Admit Date/Time Aug 20, 2017 at 02:59 Initial Consult Date 08/21/17 Type of Consultation: cardiology Reason for Consultation bradycardia Referring Provider: MILAGROS HIGHTOWER MD Exam/Review of Systems Vital Signs Vitals Vital Signs Date Time Temp Pulse Resp B/P Pulse Ox O2 Delivery O2 Flow Rate FiO2 08/31/17 13:34 Nasal Cannula 3.0 08/31/17 13:24 98.2 65 19 97/56 93 08/31/17 06:20 27 Intake and Output 08/30/17 08/30/17 08/31/17 15:00 23:00 07:00 Intake Total 1445 ml 1040 ml 900 ml Output Total 485 ml 795 ml 690 ml Balance 960 ml 245 ml 210 ml Exam Review of Systems: CONSTITUTIONAL: No fevers, chills. PULMONARY: No sob CARDIOVASCULAR: No chest pain/palpitations GASTROINTESTINAL: No nausea/vomiting. GENITOURINARY: No hematuria/dysuria. MUSCULOSKELETAL: No myagias/arthalgias. PSYCHIATRIC: The patient denies depression. NEUROLOGIC: No weakness Constitutional: alert Psych: no complaints Head: normocephalic ENMT: mucosa pink and moist Neck: jvd, supple Respiratory: diminished breath sounds Cardiovascular: regular rate and rhythm Gastrointestinal: distended, soft Musculoskeletal: muscle tone Extremities: edema (none) Neurological: other (mild generalized weakness) Results Result Diagram: 08/31/17 0500 08/31/17 0500 Results 24 hrs Laboratory Tests Test 08/30/17 20:25 08/31/17 01:22 08/31/17 05:00 08/31/17 07:24 Bedside Glucose 143 91 81 White Blood Count 13.5 H Red Blood Count 3.86 L Hemoglobin 10.5 L Hematocrit 32.6 L Mean Corpuscular Volume 84.5 Mean Corpuscular Hemoglobin 27.2 L Mean Corpuscular Hemoglobin Concent 32.2 Red Cell Distribution Width 17.4 H Platelet Count 438 H Mean Platelet Volume 9.5 Neutrophils % 72.3 Lymphocytes % 18.0 Monocytes % 8.4 Eosinophils % 0.0 Basophils % 0.1 Nucleated Red Blood Cells % 0.0 Neutrophils # 9.8 H Lymphocytes # 2.4 Monocytes # 1.1 H Eosinophils # 0.0 Basophils # 0.0 Nucleated Red Blood Cells # 0.0 Sodium Level 137 Potassium Level 3.7 Chloride Level 104 Carbon Dioxide Level 26 Anion Gap 11 Blood Urea Nitrogen 15 # Creatinine 0.57 Glucose Level 85 Calcium Level 8.6 Test 08/31/17 10:55 08/31/17 10:58 08/31/17 11:26 08/31/17 17:10 Lab Scanned Report REFERENCE LAB REFERENCE LAB Bedside Glucose 135 127 Medications Medications Current Medications Ondansetron HCl (Zofran Inj) 4 mg Q6H PRN IV NAUSEA AND/OR VOMITING; Start 06/27 at 13:00 Acetaminophen (Tylenol Liquid) 650 mg Q6H PRN PO PAIN LEVEL 1-3 OR FEVER Last administered on 08/28/17 21:44; Admin Dose 650 MG; Start 08/20/17 at 13:00 Morphine Sulfate (morphine) 2 mg Q4H PRN IV PAIN LEVEL 7-10 Last administered on 08/29/17 05:25; Admin Dose 2 MG; Start 08/20/17 at 13:00 Methylprednisolone Sodium Succinate 60 mg 60 mg DAILY IV Last administered on 08/31/17 08:36; Admin Dose 60 MG; Start 08/20/17 at 17:00 Phenylephrine HCl 40 mg/Dextrose 500 ml @ 75 mls/hr TITRATE IV ; Start at 18:30 Norepinephrine/ Dextrose (Levophed/D5W) 500 ml @ 1.87 mls/hr TITRATE IV Last administered on 08/22/17 01:12; Admin Dose 7.5 MLS/HR; Start 08/21/17 at 09: 00 Diagnostic Test (Pha) (Accu-Chek) 1 ea 02 XX Last administered on 08/29/17 01 :32; Admin Dose 1 EA; Start 08/22/17 at 02:00 Miscellaneous Information 1 ea NOTE XX ; Start 08/21/17 at 20:30 Glucose (Glutose) 15 gm Q15M PRN PO DECREASED GLUCOSE; Start 08/21/17 at 20:30 Glucose (Glutose) 22.5 gm Q15M PRN PO DECREASED GLUCOSE; Start 08/21/17 at 20: 30 Dextrose (D50w Syringe) 25 ml Q15M PRN IV DECREASED GLUCOSE; Start 08/21/17 at 20:30 Dextrose (D50w Syringe) 50 ml Q15M PRN IV DECREASED GLUCOSE; Start 08/21/17 at 20:30 Glucagon (Glucagen) 1 mg Q15M PRN IM DECREASED GLUCOSE; Start 08/21/17 at 20: 30 Glucose (Glutose) 15 gm Q15M PRN BUCCAL DECREASED GLUCOSE; Start 08/21/17 at 20:30 Pantoprazole (Protonix Iv) 40 mg DAILY@06 IV Last administered on 08/31/17 05 :09; Admin Dose 40 MG; Start 08/22/17 at 06:00 Insulin Glargine 10 unit 10 unit DAILY@20 SC Last administered on 08/30/17 20 :29; Admin Dose 10 UNIT; Start 08/23/17 at 21:00 Dopamine HCl/ Dextrose 250 ml @ 8.52 mls/hr TITRATE IV ; Start 08/23/17 at 21: 00 Furosemide 40 mg 40 mg DAILY IV Last administered on 08/31/17 08:36; Admin Dose 40 MG; Start 08/27/17 at 10:00 Potassium Chloride/Sodium Chloride (1/2 NS + KCl 20 Meq) 1,000 ml @ 100 mls/hr Q10H IV Last administered on 08/31/17 13:39; Admin Dose 100 MLS/HR; Start at 11:00 Nystatin (Nystatin Susp) 5 ml QID PO Last administered on 08/31/17 17:00; Admin Dose 5 ML; Start 08/31/17 at 11:00 LUIS FELIPE PANDEY Aug 31, 2017 18:21
[2017-08-31] MEDS: INSULIN GLARGINE [LANtus] 3 ML PEN SC SCH (21:53)
[2017-09-01] MEDS: ACCU-CHEK XX SCH (01:56)
[2017-09-01 02:00] VITALS: BP 109/61; RESP 16
[2017-09-01] MEDS: 1/2 NS + KCL 20 MEQ 1,000 ML IV SCH ×3 (02:01→23:27)
[2017-09-01] MEDS: PANTOPRAZOLE 40 MG INJ IV SCH (05:20)
[2017-09-01 07:28] VITALS: BP 94/50; RESP 18
[2017-09-01 07:41] LABS: CALCIUM 8.6 mg/dl (8.4-10.2); CREATININE 0.62 mg/dl (0.44-1.00); POTASSIUM 4.1 mmol/L (3.5-5.1)
[2017-09-01] MEDS: INSULIN ASPART [NOVOLOG] 3 ML PEN SC SCH ×4 (08:00→20:39)
[2017-09-01] MEDS: METHYLPREDNISOLONE 125 MG INJ IV SCH (08:38)
[2017-09-01] MEDS: NYSTATIN SUSP 5 ML CUP PO SCH ×4 (08:42→20:36)
[2017-09-01] MEDS: FUROSEMIDE 40 MG INJ IV SCH (08:48)
--- NOTE | 2017-09-01 10:36 | RADRPT ---
Vent Rate: 56 bpm RR Interval: 0 msec OK Interval: 146 msec QRS Duration: 98 msec QT Interval: 466 msec QTC Interval: 449 msec P-R-T [place]: 30 - 19 - 90 degrees Sinus bradycardia Otherwise normal ECG Electronically Signed By: Junior Farley [id number]
--- NOTE | 2017-09-01 11:11 | CONS ---
Date/Time of Note Date/Time of Note DATE: 09/01/17 TIME: 11:08 Assessment/Plan Assessment/Plan Additional Assessment/Plan Assessment and recommendations; 1. Patient admitted with severe bilateral pneumonia leading to respiratory failure patient now extubated several days ago with continued marked overall clinical improvement. 2. Possible underlying sleep apnea. 3. Ongoing hypoxemia on account of severe pneumonia. Discontinue Solu-Medrol, start prednisone 15 mg daily. With further tapering down in the next few days. Discontinue further Lasix dosing as well. Also hold further long-acting insulin as the patient's blood sugar this morning is 75 mg/dL, patient also on a much lower systemic steroid dosing as well. Start physical therapy. Obtain follow-up chest x-ray. Consultation Date/Type/Reason Admit Date/Time Aug 20, 2017 at 02:59 Initial Consult Date 08/21/17 Type of Consultation: Pulmonary Referring Provider: MILAGROS HIGHTOWER MD 24 HR Interval Summary Free Text/Dictation Patient's condition is stable. Complains of very minimal shortness of breath. Denies any wheezing, chest pain, cough or sputum production. General exam; young woman, awake alert, currently in no distress. Exam/Review of Systems Vital Signs Vitals Vital Signs Date Time Temp Pulse Resp B/P Pulse Ox O2 Delivery O2 Flow Rate FiO2 09/01/17 07:28 98.1 60 18 94/50 93 09/01/17 02:08 2.0 09/01/17 00:34 Nasal Cannula 08/31/17 06:20 27 Intake and Output 08/31/17 08/31/17 09/01/17 15:00 23:00 07:00 Intake Total 500 ml 1000 ml 600 ml Output Total 1000 ml 450 ml 550 ml Balance -500 ml 550 ml 50 ml Exam HEENT exam; supple neck, no JVD. No lymphadenopathy. Midline trachea. No thyromegaly. Pharynx is clear. Patient has good dentition. Chest exam; clear to auscultation. S1-S2 audible, no murmurs. Regular rhythm. Abdomen exam; soft, nontender. Protuberant. Bowel sounds audible. Extremity exam; no edema. Pulses 1+ bilaterally. 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 Results Result Diagram: 08/31/17 0500 09/01/17 0621 Results 24 hrs Laboratory Tests Test 08/31/17 11:26 08/31/17 17:10 08/31/17 21:05 08/31/17 21:50 Bedside Glucose 135 127 100 99 Test 09/01/17 06:21 09/01/17 08:37 Sodium Level 137 Potassium Level 4.1 Chloride Level 102 Carbon Dioxide Level 23 Anion Gap 16 Blood Urea Nitrogen 20 Creatinine 0.62 Glucose Level 74 Calcium Level 8.6 Bedside Glucose 86 Medications Medications Current Medications Ondansetron HCl (Zofran Inj) 4 mg Q6H PRN IV NAUSEA AND/OR VOMITING; Start 06/27 at 13:00 Acetaminophen (Tylenol Liquid) 650 mg Q6H PRN PO PAIN LEVEL 1-3 OR FEVER Last administered on 08/28/17 21:44; Admin Dose 650 MG; Start 08/20/17 at 13:00 Morphine Sulfate 2 mg 2 mg Q4H PRN IV PAIN LEVEL 7-10 Last administered on 05:25; Admin Dose 2 MG; Start 08/20/17 at 13:00 Phenylephrine HCl 40 mg/Dextrose 500 ml @ 75 mls/hr TITRATE IV ; Start at 18:30 Norepinephrine/ Dextrose (Levophed/D5W) 500 ml @ 1.87 mls/hr TITRATE IV Last administered on 08/22/17 01:12; Admin Dose 7.5 MLS/HR; Start 08/21/17 at 09: 00 Diagnostic Test (Pha) (Accu-Chek) 1 ea 02 XX Last administered on 08/29/17 01 :32; Admin Dose 1 EA; Start 08/22/17 at 02:00 Miscellaneous Information 1 ea NOTE XX ; Start 08/21/17 at 20:30 Glucose (Glutose) 15 gm Q15M PRN PO DECREASED GLUCOSE; Start 08/21/17 at 20:30 Glucose (Glutose) 22.5 gm Q15M PRN PO DECREASED GLUCOSE; Start 08/21/17 at 20: 30 Dextrose (D50w Syringe) 25 ml Q15M PRN IV DECREASED GLUCOSE; Start 08/21/17 at 20:30 Dextrose (D50w Syringe) 50 ml Q15M PRN IV DECREASED GLUCOSE; Start 08/21/17 at 20:30 Glucagon (Glucagen) 1 mg Q15M PRN IM DECREASED GLUCOSE; Start 08/21/17 at 20: 30 Glucose (Glutose) 15 gm Q15M PRN BUCCAL DECREASED GLUCOSE; Start 08/21/17 at 20:30 Pantoprazole (Protonix Iv) 40 mg DAILY@06 IV Last administered on 09/01/17 05 :20; Admin Dose 40 MG; Start 08/22/17 at 06:00 Insulin Glargine 10 unit 10 unit DAILY@20 SC Last administered on 08/31/17 21 :53; Admin Dose 10 UNIT; Start 08/23/17 at 21:00 Dopamine HCl/ Dextrose 250 ml @ 8.52 mls/hr TITRATE IV ; Start 08/23/17 at 21: 00 Furosemide 40 mg 40 mg DAILY IV Last administered on 09/01/17 08:48; Admin Dose 40 MG; Start 08/27/17 at 10:00 Potassium Chloride/Sodium Chloride (1/2 NS + KCl 20 Meq) 1,000 ml @ 100 mls/hr Q10H IV Last administered on 08/31/17 23:07; Admin Dose 100 MLS/HR; Start at 11:00 Nystatin (Nystatin Susp) 5 ml QID PO Last administered on 09/01/17 08:42; Admin Dose 5 ML; Start 08/31/17 at 11:00 ADRI NAVARRO Sep 01, 2017 11:11
[2017-09-01] MEDS: BALSAM PERU/CASTOR OIL 60 GM TUBE TOP SCH (12:37)
--- NOTE | 2017-09-01 13:03 | CONS ---
Date/Time of Note Date/Time of Note DATE: 09/01/17 TIME: 13:03 Assessment/Plan Assessment/Plan Chief Complaint/Hosp Course - Severe sepsis with septic shock likely d/t PNA +/-possible influenza; s/p pressors; procalcitonin 1.35 - resolved - Bilateral multifocal PNA-- seemingly more c/w ARDS and CHF now - improving, s/ p abx - Possible influenza, s/p Tamiflu - Acute hypoxemic respiratory failure with possible ARDS s/p extubation - improving - Sinus bradycardia - stable - Hypernatremia - resolved - T2DM, newly diagnosed - Hgb A1c 6.7% - Microcytic anemia - stable - Hepatic steatosis on CT - Subclinical hyperthyroidism - Acute encephalopathy - resolving - H/o SVT - Obesity - BMI 43 - Oral candidiasis - Persistent leukocytosis (afebrile) - partly d/t steroid margination Recommendations: - Add Nystatin for oral thrush - Monitor closely off abx - Pending: cocci, histo, viral cx, fungal cx (order placed for nursing to follow up and place in chart) - Consider weaning IV steroids if possible (08/20/2017-) - Consider workup for possible underlying autoimmune diseases as outpatient Problems: Consultation Date/Type/Reason Admit Date/Time Aug 20, 2017 at 02:59 Type of Consultation: id Referring Provider: MILAGROS HIGHTOEWR MD Exam/Review of Systems Vital Signs Vitals Vital Signs Date Time Temp Pulse Resp B/P Pulse Ox O2 Delivery O2 Flow Rate FiO2 09/01/17 07:28 98.1 60 18 94/50 93 09/01/17 02:08 2.0 09/01/17 00:34 Nasal Cannula 08/31/17 06:20 27 Intake and Output 08/31/17 08/31/17 09/01/17 15:00 23:00 07:00 Intake Total 500 ml 1000 ml 600 ml Output Total 1000 ml 450 ml 550 ml Balance -500 ml 550 ml 50 ml Results Result Diagram: 08/31/17 0500 09/01/17 0621 Results 24 hrs Laboratory Tests Test 08/31/17 17:10 08/31/17 21:05 08/31/17 21:50 09/01/17 06:21 Bedside Glucose 127 100 99 Sodium Level 137 Potassium Level 4.1 Chloride Level 102 Carbon Dioxide Level 23 Anion Gap 16 Blood Urea Nitrogen 20 Creatinine 0.62 Glucose Level 74 Calcium Level 8.6 Test 09/01/17 08:37 09/01/17 11:09 09/01/17 12:08 Bedside Glucose 86 118 Lab Scanned Report REFERENCE LAB Medications Medications Current Medications Ondansetron HCl (Zofran Inj) 4 mg Q6H PRN IV NAUSEA AND/OR VOMITING; Start 06/27 at 13:00 Acetaminophen (Tylenol Liquid) 650 mg Q6H PRN PO PAIN LEVEL 1-3 OR FEVER Last administered on 08/28/17 21:44; Admin Dose 650 MG; Start 08/20/17 at 13:00 Morphine Sulfate 2 mg 2 mg Q4H PRN IV PAIN LEVEL 7-10 Last administered on 05:25; Admin Dose 2 MG; Start 08/20/17 at 13:00 Phenylephrine HCl 40 mg/Dextrose 500 ml @ 75 mls/hr TITRATE IV ; Start at 18:30 Norepinephrine/ Dextrose (Levophed/D5W) 500 ml @ 1.87 mls/hr TITRATE IV Last administered on 08/22/17 01:12; Admin Dose 7.5 MLS/HR; Start 08/21/17 at 09: 00 Diagnostic Test (Pha) (Accu-Chek) 1 ea 02 XX Last administered on 08/29/17 01 :32; Admin Dose 1 EA; Start 08/22/17 at 02:00 Miscellaneous Information 1 ea NOTE XX ; Start 08/21/17 at 20:30 Glucose (Glutose) 15 gm Q15M PRN PO DECREASED GLUCOSE; Start 08/21/17 at 20:30 Glucose (Glutose) 22.5 gm Q15M PRN PO DECREASED GLUCOSE; Start 08/21/17 at 20: 30 Dextrose (D50w Syringe) 25 ml Q15M PRN IV DECREASED GLUCOSE; Start 08/21/17 at 20:30 Dextrose (D50w Syringe) 50 ml Q15M PRN IV DECREASED GLUCOSE; Start 08/21/17 at 20:30 Glucagon (Glucagen) 1 mg Q15M PRN IM DECREASED GLUCOSE; Start 08/21/17 at 20: 30 Glucose (Glutose) 15 gm Q15M PRN BUCCAL DECREASED GLUCOSE; Start 08/21/17 at 20:30 Pantoprazole 40 mg 40 mg DAILY@06 IV Last administered on 09/01/17 05:20; Admin Dose 40 MG; Start 08/22/17 at 06:00 Dopamine HCl/ Dextrose 250 ml @ 8.52 mls/hr TITRATE IV ; Start 08/23/17 at 21: 00 Potassium Chloride/Sodium Chloride (1/2 NS + KCl 20 Meq) 1,000 ml @ 100 mls/hr Q10H IV Last administered on 09/01/17 12:37; Admin Dose 100 MLS/HR; Start at 11:00 Nystatin (Nystatin Susp) 5 ml QID PO Last administered on 09/01/17 12:37; Admin Dose 5 ML; Start 08/31/17 at 11:00 Prednisone (Prednisone) 15 mg DAILY PO ; Start 09/02/17 at 09:00 ELIO AMOR MD Sep 01, 2017 13:03
--- NOTE | 2017-09-01 13:17 | CONS ---
Date/Time of Note Date/Time of Note DATE: 09/01/17 TIME: 13:13 Assessment/Plan Assessment/Plan Chief Complaint/Hosp Course IMP: 1.Bradycardia-NL Free t4. stable BP but somewhat borderline. ECG today documents S [place] at 58 2.Hypotension-remains borderline 3.Resp failure s/p intubation 4.DM 5. Hypernatremia-mild 6. PNA-multifocal 7. H/O SVT-recurrent during most recent with mutiple exacerbations 8. CHF-diastolic acute on chronic with improving volume status Recc: -Now on med-surg -Continue steroids/bronchodilators -Follow HR/BP closely off of marisol agents or anti-hypertensives at this time -f/u cx data -Continue gentle lasix diuresis as tolerated Problems: Consultation Date/Type/Reason Admit Date/Time Aug 20, 2017 at 02:59 Initial Consult Date 08/21/17 Type of Consultation: cardiology Reason for Consultation bradycardia Referring Provider: MILAGROS HIGHTOWER MD Exam/Review of Systems Vital Signs Vitals Vital Signs Date Time Temp Pulse Resp B/P Pulse Ox O2 Delivery O2 Flow Rate FiO2 09/01/17 07:28 98.1 60 18 94/50 93 09/01/17 02:08 2.0 09/01/17 00:34 Nasal Cannula 08/31/17 06:20 27 Intake and Output 08/31/17 08/31/17 09/01/17 15:00 23:00 07:00 Intake Total 500 ml 1000 ml 600 ml Output Total 1000 ml 450 ml 550 ml Balance -500 ml 550 ml 50 ml Exam Review of Systems: CONSTITUTIONAL: No fevers, chills. PULMONARY: No sob CARDIOVASCULAR: No chest pain/palpitations GASTROINTESTINAL: No nausea/vomiting. GENITOURINARY: No hematuria/dysuria. MUSCULOSKELETAL: No myagias/arthalgias. PSYCHIATRIC: The patient denies depression. NEUROLOGIC: generalized weakness Constitutional: alert, oriented Psych: no complaints Head: normocephalic ENMT: mucosa pink and moist Neck: jvd (8 cm water), supple Respiratory: diminished breath sounds (at bases/B) Cardiovascular: regular rate and rhythm Gastrointestinal: non-tender, soft Musculoskeletal: muscle weakness (generalized and focal arm/leg) Extremities: edema (trace/B) Neurological: focal weakness Results Result Diagram: 08/31/17 0500 09/01/17 0621 Results 24 hrs Laboratory Tests Test 08/31/17 17:10 08/31/17 21:05 08/31/17 21:50 09/01/17 06:21 Bedside Glucose 127 100 99 Sodium Level 137 Potassium Level 4.1 Chloride Level 102 Carbon Dioxide Level 23 Anion Gap 16 Blood Urea Nitrogen 20 Creatinine 0.62 Glucose Level 74 Calcium Level 8.6 Test 09/01/17 08:37 09/01/17 11:09 09/01/17 12:08 Bedside Glucose 86 118 Lab Scanned Report REFERENCE LAB Medications Medications Current Medications Ondansetron HCl (Zofran Inj) 4 mg Q6H PRN IV NAUSEA AND/OR VOMITING; Start 06/27 at 13:00 Acetaminophen (Tylenol Liquid) 650 mg Q6H PRN PO PAIN LEVEL 1-3 OR FEVER Last administered on 08/28/17 21:44; Admin Dose 650 MG; Start 08/20/17 at 13:00 Morphine Sulfate 2 mg 2 mg Q4H PRN IV PAIN LEVEL 7-10 Last administered on 05:25; Admin Dose 2 MG; Start 08/20/17 at 13:00 Phenylephrine HCl 40 mg/Dextrose 500 ml @ 75 mls/hr TITRATE IV ; Start at 18:30 Norepinephrine/ Dextrose (Levophed/D5W) 500 ml @ 1.87 mls/hr TITRATE IV Last administered on 08/22/17 01:12; Admin Dose 7.5 MLS/HR; Start 08/21/17 at 09: 00 Diagnostic Test (Pha) (Accu-Chek) 1 ea 02 XX Last administered on 08/29/17 01 :32; Admin Dose 1 EA; Start 08/22/17 at 02:00 Miscellaneous Information 1 ea NOTE XX ; Start 08/21/17 at 20:30 Glucose (Glutose) 15 gm Q15M PRN PO DECREASED GLUCOSE; Start 08/21/17 at 20:30 Glucose (Glutose) 22.5 gm Q15M PRN PO DECREASED GLUCOSE; Start 08/21/17 at 20: 30 Dextrose (D50w Syringe) 25 ml Q15M PRN IV DECREASED GLUCOSE; Start 08/21/17 at 20:30 Dextrose (D50w Syringe) 50 ml Q15M PRN IV DECREASED GLUCOSE; Start 08/21/17 at 20:30 Glucagon (Glucagen) 1 mg Q15M PRN IM DECREASED GLUCOSE; Start 08/21/17 at 20: 30 Glucose (Glutose) 15 gm Q15M PRN BUCCAL DECREASED GLUCOSE; Start 08/21/17 at 20:30 Pantoprazole 40 mg 40 mg DAILY@06 IV Last administered on 09/01/17 05:20; Admin Dose 40 MG; Start 08/22/17 at 06:00 Dopamine HCl/ Dextrose 250 ml @ 8.52 mls/hr TITRATE IV ; Start 08/23/17 at 21: 00 Potassium Chloride/Sodium Chloride (1/2 NS + KCl 20 Meq) 1,000 ml @ 100 mls/hr Q10H IV Last administered on 09/01/17 12:37; Admin Dose 100 MLS/HR; Start at 11:00 Nystatin (Nystatin Susp) 5 ml QID PO Last administered on 09/01/17 12:37; Admin Dose 5 ML; Start 08/31/17 at 11:00 Prednisone (Prednisone) 15 mg DAILY PO ; Start 09/02/17 at 09:00 LUIS FELIPE PANDEY Sep 01, 2017 13:17
--- NOTE | 2017-09-01 14:51 | RADRPT ---
PROCEDURE: XR Chest. CLINICAL INDICATION: Pneumonia. TECHNIQUE: Single frontal view of the chest was obtained. COMPARISON: 08/29/2017. FINDINGS: Interval extubation and removal of right internal jugular central venous catheter. The cardiomediastinal silhouette is normal in size. No significant change in diffuse patchy bilateral airspace opacities. No pleural effusion is seen. No definite pneumothorax. No acute osseous abnormality. IMPRESSION: 1. Interval extubation and removal of right internal jugular central venous catheter. 2. No significant change in diffuse patchy bilateral airspace opacities. RPTAT: AAEE Kavya Matias Physician Date Time Electronically viewed and signed by Kavya Matias Physician on 09/01/2017 14:51 PH/
[2017-09-01 15:16] VITALS: BP 92/55; RESP 18
[2017-09-01 19:47] VITALS: BP 100/57; RESP 18
[2017-09-02] MEDS: ACCU-CHEK XX SCH (01:08)
[2017-09-02 02:00] VITALS: BP 91/50; RESP 18
[2017-09-02] MEDS: PANTOPRAZOLE 40 MG INJ IV SCH (05:16)
[2017-09-02 06:45] LABS: BASOPHILS % 0.1 % (0.0-2.0); HEMOGLOBIN 11.6 g/dl (12.0-16.0); LYMPHOCYTES # 2.5 10^3/ul (0.8-2.9); LYMPHOCYTES % 18.7 % (15.0-51.0); MEAN CORPUSCULAR HEMOGLOBIN 27.6 pg (29.0-33.0); MEAN CORPUSCULAR HGB CONC 33.1 g/dl (32.0-37.0); MEAN CORPUSCULAR VOLUME 83.3 fl (82.0-101.0); MEAN PLATELET VOLUME 9.7 fl (7.4-10.4); MONOCYTE # 1.1 10^3/ul (0.3-0.9); MONOCYTES % 8.4 % (0.0-11.0); NEUTROPHIL # 9.8 10^3/ul (1.6-7.5); NEUTROPHILS % 71.8 % (39.0-77.0); PLATELET COUNT 436 10^3/UL (140-415); RED CELL DISTRIBUTION WIDTH 18.9 % (11.5-14.5); WHITE BLOOD COUNT 13.6 10^3/ul (4.8-10.8)
[2017-09-02 07:46] VITALS: BP 100/55; RESP 18
[2017-09-02] MEDS: INSULIN ASPART [NOVOLOG] 3 ML PEN SC SCH ×4 (07:56→20:29)
[2017-09-02] MEDS: NYSTATIN SUSP 5 ML CUP PO SCH ×4 (08:48→20:29)
[2017-09-02] MEDS: predniSONE 5 MG TAB PO SCH (08:49)
[2017-09-02] MEDS: BALSAM PERU/CASTOR OIL 60 GM TUBE TOP SCH (08:49)
[2017-09-02] MEDS: 1/2 NS + KCL 20 MEQ 1,000 ML IV SCH (10:44)
--- NOTE | 2017-09-02 11:26 | CONS ---
Date/Time of Note Date/Time of Note DATE: 09/02/17 TIME: 11:22 Assessment/Plan Assessment/Plan Additional Assessment/Plan 1.Bradycardia-NL Free t4. stable BP. 2.Hypotension-remains borderline 3.Resp failure s/p intubation. On RA now, tolerating well 4.DM 5. Hypernatremia-mild 6. PNA-multifocal 7. H/O SVT-recurrent during most recent with mutiple exacerbations 8. CHF-diastolic acute on chronic with improving volume status. Compensated now. Recc: -Now on med-surg -Follow HR/BP closely off of marisol agents or anti-hypertensives at this time -f/u cx data Off lasix now Consultation Date/Type/Reason Admit Date/Time Aug 20, 2017 at 02:59 Initial Consult Date 08/21/17 Type of Consultation: cardiology Referring Provider: MILAGROS HIGHTOWER MD 24 HR Interval Summary Free Text/Dictation ROS: No fever, no chills, no nausea, no vomiting, no diarrhea/constipation No recent weight changes No edema, no palpitations No chest pain, no PND, no SOB No dizziness, blurred vision No thirst, no heat or cold intolerance Exam/Review of Systems Vital Signs Vitals Vital Signs Date Time Temp Pulse Resp B/P Pulse Ox O2 Delivery O2 Flow Rate FiO2 09/02/17 08:00 Nasal Cannula 3.0 09/02/17 07:46 98.2 67 18 100/55 95 08/31/17 06:20 27 Intake and Output 09/01/17 09/01/17 09/02/17 15:00 23:00 07:00 Intake Total 360 ml 2290 ml Output Total 500 ml 1000 ml Balance -140 ml 1290 ml Exam General: WN/WD/ obese/ sitting in chair HEENT: Unicetric/atraumatic/ no assymetry NECK: JVD not elevated, no thyromegaly, carotids revealed normal upstrokes Lymph: no lymphadenopathy HEART: regular with no S3, I/ systolic murmur at apex LUNGS: clear ABD: soft, NT, ND, +BS, no organomegaly Neuro: no deficit SKIN: no leisons EXT: no edema Results Result Diagram: 09/02/17 0529 09/01/17 0621 Results 24 hrs Laboratory Tests Test 09/01/17 12:08 09/01/17 18:01 12/22/17 20:39 09/02/17 05:29 Bedside Glucose 118 131 122 White Blood Count 13.6 H Red Blood Count 4.20 Hemoglobin 11.6 L Hematocrit 35.0 L Mean Corpuscular Volume 83.3 Mean Corpuscular Hemoglobin 27.6 L Mean Corpuscular Hemoglobin Concent 33.1 Red Cell Distribution Width 18.9 H Platelet Count 436 H Mean Platelet Volume 9.7 Neutrophils % 71.8 Lymphocytes % 18.7 Monocytes % 8.4 Eosinophils % 0.0 Basophils % 0.1 Nucleated Red Blood Cells % 0.0 Neutrophils # 9.8 H Lymphocytes # 2.5 Monocytes # 1.1 H Eosinophils # 0.0 Basophils # 0.0 Nucleated Red Blood Cells # 0.0 Test 09/02/17 07:52 Bedside Glucose 82 Medications Medications Current Medications Ondansetron HCl (Zofran Inj) 4 mg Q6H PRN IV NAUSEA AND/OR VOMITING; Start 06/27 at 13:00 Acetaminophen (Tylenol Liquid) 650 mg Q6H PRN PO PAIN LEVEL 1-3 OR FEVER Last administered on 08/28/17 21:44; Admin Dose 650 MG; Start 08/20/17 at 13:00 Morphine Sulfate 2 mg 2 mg Q4H PRN IV PAIN LEVEL 7-10 Last administered on 05:25; Admin Dose 2 MG; Start 08/20/17 at 13:00 Phenylephrine HCl 40 mg/Dextrose 500 ml @ 75 mls/hr TITRATE IV ; Start at 18:30 Norepinephrine/ Dextrose (Levophed/D5W) 500 ml @ 1.87 mls/hr TITRATE IV Last administered on 08/22/17 01:12; Admin Dose 7.5 MLS/HR; Start 08/21/17 at 09: 00 Diagnostic Test (Pha) (Accu-Chek) 1 ea 02 XX Last administered on 08/29/17 01 :32; Admin Dose 1 EA; Start 08/22/17 at 02:00 Miscellaneous Information 1 ea NOTE XX ; Start 08/21/17 at 20:30 Glucose (Glutose) 15 gm Q15M PRN PO DECREASED GLUCOSE; Start 08/21/17 at 20:30 Glucose (Glutose) 22.5 gm Q15M PRN PO DECREASED GLUCOSE; Start 08/21/17 at 20: 30 Dextrose (D50w Syringe) 25 ml Q15M PRN IV DECREASED GLUCOSE; Start 08/21/17 at 20:30 Dextrose (D50w Syringe) 50 ml Q15M PRN IV DECREASED GLUCOSE; Start 08/21/17 at 20:30 Glucagon (Glucagen) 1 mg Q15M PRN IM DECREASED GLUCOSE; Start 08/21/17 at 20: 30 Glucose (Glutose) 15 gm Q15M PRN BUCCAL DECREASED GLUCOSE; Start 08/21/17 at 20:30 Pantoprazole 40 mg 40 mg DAILY@06 IV Last administered on 09/02/17 05:16; Admin Dose 40 MG; Start 08/22/17 at 06:00 Dopamine HCl/ Dextrose 250 ml @ 8.52 mls/hr TITRATE IV ; Start 08/23/17 at 21: 00 Potassium Chloride/Sodium Chloride (1/2 NS + KCl 20 Meq) 1,000 ml @ 100 mls/hr Q10H IV Last administered on 09/02/17 10:44; Admin Dose 100 MLS/HR; Start at 11:00 Nystatin (Nystatin Susp) 5 ml QID PO Last administered on 09/02/17 08:48; Admin Dose 5 ML; Start 08/31/17 at 11:00 Prednisone (Prednisone) 15 mg DAILY PO Last administered on 09/02/17 08:49; Admin Dose 15 MG; Start 09/02/17 at 09:00 ANTOINETTE TRISTAN MD Sep 02, 2017 11:26
--- NOTE | 2017-09-02 11:56 | CONS ---
Date/Time of Note Date/Time of Note DATE: 09/02/17 TIME: 11:53 Assessment/Plan Assessment/Plan Additional Assessment/Plan Chest x-ray was reviewed from yesterday which is showing significant interstitial opacities. Next Assessment and recommendations; 1. Patient admitted with severe bilateral pneumonia leading to respiratory failure, patient now extubated several days ago with continued marked overall clinical improvement. 2. Significant persistent radiological sequelae of severe pneumonia. 3. Possibly underlying sleep apnea. 4. Persistent hypoxemia. Continue current treatment. Remove Bourgeois catheter. Patient needs to be ambulated. Obtain pulse ox on room air. Continue prednisone at current dosing. Consultation Date/Type/Reason Admit Date/Time Aug 20, 2017 at 02:59 Initial Consult Date 08/21/17 Type of Consultation: Pulmonary Referring Provider: MILAGROS HIGHTOWER MD 24 HR Interval Summary Free Text/Dictation Patient's condition is stable. Complains of minimal dyspnea on exertion. Patient also has been able to get out of bed yesterday. General exam; young female, morbidly obese, awake alert, currently in no distress. Exam/Review of Systems Vital Signs Vitals Vital Signs Date Time Temp Pulse Resp B/P Pulse Ox O2 Delivery O2 Flow Rate FiO2 09/02/17 08:00 Nasal Cannula 3.0 09/02/17 07:46 98.2 67 18 100/55 95 08/31/17 06:20 27 Intake and Output 09/01/17 09/01/17 09/02/17 15:00 23:00 07:00 Intake Total 360 ml 2290 ml Output Total 500 ml 1000 ml Balance -140 ml 1290 ml Exam H ENT exam; supple neck, no lymphadenopathy. Pharynx is clear. Patient has good dentition. No neck masses. Chest exam; clear to auscultation. S1-S2 audible, no murmurs. Regular rhythm. Abdomen exam; soft, protuberant. Nontender. No organomegaly. Bowel sounds audible. Extremity exam; no edema. No clubbing. Pulses 1+ bilaterally. BOY'S ADVISER exam; no focal deficit. Results Result Diagram: 09/02/17 0529 09/01/17 0621 Results 24 hrs Laboratory Tests Test 09/01/17 12:08 09/01/17 18:01 09/01/17 20:39 09/02/17 05:29 Bedside Glucose 118 131 122 White Blood Count 13.6 H Red Blood Count 4.20 Hemoglobin 11.6 L Hematocrit 35.0 L Mean Corpuscular Volume 83.3 Mean Corpuscular Hemoglobin 27.6 L Mean Corpuscular Hemoglobin Concent 33.1 Red Cell Distribution Width 18.9 H Platelet Count 436 H Mean Platelet Volume 9.7 Neutrophils % 71.8 Lymphocytes % 18.7 Monocytes % 8.4 Eosinophils % 0.0 Basophils % 0.1 Nucleated Red Blood Cells % 0.0 Neutrophils # 9.8 H Lymphocytes # 2.5 Monocytes # 1.1 H Eosinophils # 0.0 Basophils # 0.0 Nucleated Red Blood Cells # 0.0 Test 09/02/17 07:52 Bedside Glucose 82 Medications Medications Current Medications Ondansetron HCl (Zofran Inj) 4 mg Q6H PRN IV NAUSEA AND/OR VOMITING; Start 06/27 at 13:00 Acetaminophen (Tylenol Liquid) 650 mg Q6H PRN PO PAIN LEVEL 1-3 OR FEVER Last administered on 08/28/17 21:44; Admin Dose 650 MG; Start 08/20/17 at 13:00 Morphine Sulfate 2 mg 2 mg Q4H PRN IV PAIN LEVEL 7-10 Last administered on 05:25; Admin Dose 2 MG; Start 08/20/17 at 13:00 Phenylephrine HCl 40 mg/Dextrose 500 ml @ 75 mls/hr TITRATE IV ; Start at 18:30 Norepinephrine/ Dextrose (Levophed/D5W) 500 ml @ 1.87 mls/hr TITRATE IV Last administered on 08/22/17 01:12; Admin Dose 7.5 MLS/HR; Start 08/21/17 at 09: 00 Diagnostic Test (Pha) (Accu-Chek) 1 ea 02 XX Last administered on 08/29/17 01 :32; Admin Dose 1 EA; Start 08/22/17 at 02:00 Miscellaneous Information 1 ea NOTE XX ; Start 08/21/17 at 20:30 Glucose (Glutose) 15 gm Q15M PRN PO DECREASED GLUCOSE; Start 08/21/17 at 20:30 Glucose (Glutose) 22.5 gm Q15M PRN PO DECREASED GLUCOSE; Start 08/21/17 at 20: 30 Dextrose (D50w Syringe) 25 ml Q15M PRN IV DECREASED GLUCOSE; Start 08/21/17 at 20:30 Dextrose (D50w Syringe) 50 ml Q15M PRN IV DECREASED GLUCOSE; Start 08/21/17 at 20:30 Glucagon (Glucagen) 1 mg Q15M PRN IM DECREASED GLUCOSE; Start 08/21/17 at 20: 30 Glucose (Glutose) 15 gm Q15M PRN BUCCAL DECREASED GLUCOSE; Start 08/21/17 at 20:30 Pantoprazole 40 mg 40 mg DAILY@06 IV Last administered on 09/02/17 05:16; Admin Dose 40 MG; Start 08/22/17 at 06:00 Dopamine HCl/ Dextrose 250 ml @ 8.52 mls/hr TITRATE IV ; Start 08/23/17 at 21: 00 Potassium Chloride/Sodium Chloride (1/2 NS + KCl 20 Meq) 1,000 ml @ 100 mls/hr Q10H IV Last administered on 09/02/17 10:44; Admin Dose 100 MLS/HR; Start at 11:00 Nystatin (Nystatin Susp) 5 ml QID PO Last administered on 09/02/17 08:48; Admin Dose 5 ML; Start 08/31/17 at 11:00 Prednisone (Prednisone) 15 mg DAILY PO Last administered on 09/02/17 08:49; Admin Dose 15 MG; Start 09/02/17 at 09:00 ADRI NAVARRO Sep 02, 2017 11:56
--- NOTE | 2017-09-02 12:04 | PN ---
Date/Time of Note Date/Time of Note DATE: 09/02/17 TIME: 12:03 Assessment/Plan VTE Prophylaxis VTE Prophylaxis Intervention: other Lines/Catheters IV Catheter Type (from Nrs): Peripheral IV Urinary Cath still in place: Yes Reason Cath still needed: skin wounds contaminated by urine Assessment/Plan Chief Complaint/Hosp Course -Severe Hypoxemic Respiratory Failure concerning for ARDS, resolved. - Dr. Alarcon is following in pulmonology consultation. -Acute multifocal pneumonia, s/p antibiotics and Tamiflu. -Dr. Mcgowan is following in infection disease consultation. -Sepsis with shock secondary to pneumonia, continue IV fluids. -Diabetes mellitus with hemoglobin A1c 6.9. Continue Lantus and NovoLog. -Bradycardia, Dr. Whalen is following in cardiology consultation -Preserved ejection fraction of 50% -Obesity with BMI of 43 -Hepatic steatosis Problems: Subjective 24 Hr Interval Summary Free Text/Dictation Patient has no complaints Exam/Review of Systems Vital Signs Vitals Vital Signs Date Time Temp Pulse Resp B/P Pulse Ox O2 Delivery O2 Flow Rate FiO2 09/02/17 08:00 Nasal Cannula 3.0 09/02/17 07:46 98.2 67 18 100/55 95 08/31/17 06:20 27 Intake and Output 09/01/17 09/01/17 09/02/17 15:00 23:00 07:00 Intake Total 360 ml 2290 ml Output Total 500 ml 1000 ml Balance -140 ml 1290 ml Exam Constitutional: well developed Head: atraumatic, normocephalic Neck: supple Respiratory: diminished breath sounds Cardiovascular: regular rate and rhythm Gastrointestinal: non-tender, soft Extremities: normal pulses Results Result Diagram: 09/02/17 0529 09/01/17 0621 Results 24 hrs Laboratory Tests Test 09/01/17 12:08 09/01/17 18:01 09/01/17 20:39 09/02/17 05:29 Bedside Glucose 118 131 122 White Blood Count 13.6 H Red Blood Count 4.20 Hemoglobin 11.6 L Hematocrit 35.0 L Mean Corpuscular Volume 83.3 Mean Corpuscular Hemoglobin 27.6 L Mean Corpuscular Hemoglobin Concent 33.1 Red Cell Distribution Width 18.9 H Platelet Count 436 H Mean Platelet Volume 9.7 Neutrophils % 71.8 Lymphocytes % 18.7 Monocytes % 8.4 Eosinophils % 0.0 Basophils % 0.1 Nucleated Red Blood Cells % 0.0 Neutrophils # 9.8 H Lymphocytes # 2.5 Monocytes # 1.1 H Eosinophils # 0.0 Basophils # 0.0 Nucleated Red Blood Cells # 0.0 Test 09/02/17 07:52 09/02/17 11:49 Bedside Glucose 82 131 Medications Medications Current Medications Ondansetron HCl (Zofran Inj) 4 mg Q6H PRN IV NAUSEA AND/OR VOMITING; Start 06/27 at 13:00 Acetaminophen (Tylenol Liquid) 650 mg Q6H PRN PO PAIN LEVEL 1-3 OR FEVER Last administered on 08/28/17 21:44; Admin Dose 650 MG; Start 08/20/17 at 13:00 Morphine Sulfate 2 mg 2 mg Q4H PRN IV PAIN LEVEL 7-10 Last administered on 05:25; Admin Dose 2 MG; Start 08/20/17 at 13:00 Phenylephrine HCl 40 mg/Dextrose 500 ml @ 75 mls/hr TITRATE IV ; Start at 18:30 Norepinephrine/ Dextrose (Levophed/D5W) 500 ml @ 1.87 mls/hr TITRATE IV Last administered on 08/22/17 01:12; Admin Dose 7.5 MLS/HR; Start 08/21/17 at 09: 00 Diagnostic Test (Pha) (Accu-Chek) 1 ea 02 XX Last administered on 08/29/17 01 :32; Admin Dose 1 EA; Start 08/22/17 at 02:00 Miscellaneous Information 1 ea NOTE XX ; Start 08/21/17 at 20:30 Glucose (Glutose) 15 gm Q15M PRN PO DECREASED GLUCOSE; Start 08/21/17 at 20:30 Glucose (Glutose) 22.5 gm Q15M PRN PO DECREASED GLUCOSE; Start 08/21/17 at 20: 30 Dextrose (D50w Syringe) 25 ml Q15M PRN IV DECREASED GLUCOSE; Start 08/21/17 at 20:30 Dextrose (D50w Syringe) 50 ml Q15M PRN IV DECREASED GLUCOSE; Start 08/21/17 at 20:30 Glucagon (Glucagen) 1 mg Q15M PRN IM DECREASED GLUCOSE; Start 08/21/17 at 20: 30 Glucose (Glutose) 15 gm Q15M PRN BUCCAL DECREASED GLUCOSE; Start 08/21/17 at 20:30 Pantoprazole 40 mg 40 mg DAILY@06 IV Last administered on 09/02/17 05:16; Admin Dose 40 MG; Start 08/22/17 at 06:00 Dopamine HCl/ Dextrose 250 ml @ 8.52 mls/hr TITRATE IV ; Start 08/23/17 at 21: 00 Potassium Chloride/Sodium Chloride (1/2 NS + KCl 20 Meq) 1,000 ml @ 100 mls/hr Q10H IV Last administered on 09/02/17 10:44; Admin Dose 100 MLS/HR; Start at 11:00 Nystatin (Nystatin Susp) 5 ml QID PO Last administered on 09/02/17 08:48; Admin Dose 5 ML; Start 08/31/17 at 11:00 Prednisone (Prednisone) 15 mg DAILY PO Last administered on 09/02/17 08:49; Admin Dose 15 MG; Start 09/02/17 at 09:00 ILIANA HODGES Sep 02, 2017 12:04
[2017-09-02 13:48] VITALS: BP 101/55; RESP 19
[2017-09-02 19:29] VITALS: BP 96/55; RESP 18
[2017-09-03] MEDS: 1/2 NS + KCL 20 MEQ 1,000 ML IV SCH ×5 (00:20→23:38)
[2017-09-03 01:49] VITALS: BP 97/52; RESP 18
[2017-09-03] MEDS: ACCU-CHEK XX SCH (02:00)
[2017-09-03] MEDS: PANTOPRAZOLE 40 MG INJ IV SCH (05:43)
[2017-09-03 07:30] VITALS: BP 89/51; RESP 18
[2017-09-03] MEDS: INSULIN ASPART [NOVOLOG] 3 ML PEN SC SCH ×4 (08:00→20:44)
[2017-09-03] MEDS: predniSONE 5 MG TAB PO SCH (08:19)
[2017-09-03] MEDS: BALSAM PERU/CASTOR OIL 60 GM TUBE TOP SCH (08:20)
[2017-09-03] MEDS: NYSTATIN SUSP 5 ML CUP PO SCH ×4 (08:21→20:44)
--- NOTE | 2017-09-03 11:18 | CONS ---
Date/Time of Note Date/Time of Note DATE: 09/03/17 TIME: 11:16 Assessment/Plan Assessment/Plan Additional Assessment/Plan Assessment and recommendations; 1. Patient admitted with severe bilateral pneumonia likely viral in etiology status post successful extubation several days ago with continued and marked clinical improvement. 2. Persistent mild hypoxemia. 3. Possibly underlying sleep apnea. 4. Development of interstitial scarring from severe pneumonia. Continue current treatment. Patient will need to have home oxygen. Further prednisone tapering in 24 hours. Bourgeois catheter was removed as well yesterday. Consultation Date/Type/Reason Admit Date/Time Aug 20, 2017 at 02:59 Initial Consult Date 08/21/17 Type of Consultation: Pulmonary Referring Provider: MILAGROS HIGHTOWER MD 24 HR Interval Summary Free Text/Dictation Patient's condition is stable. Patient has been ambulating well and reports significant improvement in shortness of breath. Denies any chest pain, fever, cough or sputum production. Denies any wheezing. General exam; young woman, currently no distress, awake and alert. Exam/Review of Systems Vital Signs Vitals Vital Signs Date Time Temp Pulse Resp B/P Pulse Ox O2 Delivery O2 Flow Rate FiO2 09/03/17 08:00 Nasal Cannula 3.0 09/03/17 01:49 97.6 54 18 97/52 98 08/31/17 06:20 27 Intake and Output 09/02/17 09/02/17 09/03/17 15:00 23:00 07:00 Intake Total 450 ml 700 ml 1020 ml Balance 450 ml 700 ml 1020 ml Exam HEENT exam; supple neck, no JVD. No lymphadenopathy. Midline trachea. No thyromegaly. Patient has good dentition. Pharynx is clear. Chest exam; clear to auscultation. S1-S2 audible, no murmurs. Regular rhythm. Next Abdomen exam; soft, nontender. Bowel sounds audible. Extremity exam; no edema. Pulses 1+ bilaterally. 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 Results Result Diagram: 09/02/17 0529 09/01/17 0621 Results 24 hrs Laboratory Tests Test 09/02/17 11:49 09/02/17 17:32 09/02/17 20:27 09/03/17 08:16 Bedside Glucose 131 117 110 75 Medications Medications Current Medications Ondansetron HCl (Zofran Inj) 4 mg Q6H PRN IV NAUSEA AND/OR VOMITING; Start 06/27 at 13:00 Acetaminophen (Tylenol Liquid) 650 mg Q6H PRN PO PAIN LEVEL 1-3 OR FEVER Last administered on 08/28/17 21:44; Admin Dose 650 MG; Start 08/20/17 at 13:00 Morphine Sulfate 2 mg 2 mg Q4H PRN IV PAIN LEVEL 7-10 Last administered on 05:25; Admin Dose 2 MG; Start 08/20/17 at 13:00 Phenylephrine HCl 40 mg/Dextrose 500 ml @ 75 mls/hr TITRATE IV ; Start at 18:30 Norepinephrine/ Dextrose (Levophed/D5W) 500 ml @ 1.87 mls/hr TITRATE IV Last administered on 08/22/17 01:12; Admin Dose 7.5 MLS/HR; Start 08/21/17 at 09: 00 Diagnostic Test (Pha) (Accu-Chek) 1 ea 02 XX Last administered on 08/29/17 01 :32; Admin Dose 1 EA; Start 08/22/17 at 02:00 Miscellaneous Information 1 ea NOTE XX ; Start 08/21/17 at 20:30 Glucose (Glutose) 15 gm Q15M PRN PO DECREASED GLUCOSE; Start 08/21/17 at 20:30 Glucose (Glutose) 22.5 gm Q15M PRN PO DECREASED GLUCOSE; Start 08/21/17 at 20: 30 Dextrose (D50w Syringe) 25 ml Q15M PRN IV DECREASED GLUCOSE; Start 08/21/17 at 20:30 Dextrose (D50w Syringe) 50 ml Q15M PRN IV DECREASED GLUCOSE; Start 08/21/17 at 20:30 Glucagon (Glucagen) 1 mg Q15M PRN IM DECREASED GLUCOSE; Start 08/21/17 at 20: 30 Glucose (Glutose) 15 gm Q15M PRN BUCCAL DECREASED GLUCOSE; Start 08/21/17 at 20:30 Pantoprazole 40 mg 40 mg DAILY@06 IV Last administered on 09/03/17 05:43; Admin Dose 40 MG; Start 08/22/17 at 06:00 Dopamine HCl/ Dextrose 250 ml @ 8.52 mls/hr TITRATE IV ; Start 08/23/17 at 21: 00 Potassium Chloride/Sodium Chloride (1/2 NS + KCl 20 Meq) 1,000 ml @ 100 mls/hr Q10H IV Last administered on 09/03/17 10:08; Admin Dose 100 MLS/HR; Start at 11:00 Nystatin (Nystatin Susp) 5 ml QID PO Last administered on 09/03/17 08:21; Admin Dose 5 ML; Start 08/31/17 at 11:00 Prednisone (Prednisone) 15 mg DAILY PO Last administered on 09/03/17 08:19; Admin Dose 15 MG; Start 09/02/17 at 09:00 ADRI NAVARRO Sep 03, 2017 11:18
--- NOTE | 2017-09-03 11:44 | PN ---
Date/Time of Note Date/Time of Note DATE: 09/03/17 TIME: 11:44 Assessment/Plan VTE Prophylaxis VTE Prophylaxis Intervention: other Lines/Catheters IV Catheter Type (from Nrsg): Peripheral IV Urinary Cath still in place: Yes Reason Cath still needed: skin wounds contaminated by urine Assessment/Plan Chief Complaint/Hosp Course -Severe Hypoxemic Respiratory Failure concerning for ARDS, resolved. - Dr. Alarcon is following in pulmonology consultation. -Acute multifocal pneumonia, s/p antibiotics and Tamiflu. -Dr. Mcgowan is following in infection disease consultation. -Sepsis with shock secondary to pneumonia, continue IV fluids. -Diabetes mellitus with hemoglobin A1c 6.9. Continue Lantus and NovoLog. -Bradycardia, Dr. Whalen is following in cardiology consultation -Preserved ejection fraction of 50% -Obesity with BMI of 43 -Hepatic steatosis Problems: Subjective 24 Hr Interval Summary Free Text/Dictation Patient is breathing better Exam/Review of Systems Vital Signs Vitals Vital Signs Date Time Temp Pulse Resp B/P Pulse Ox O2 Delivery O2 Flow Rate FiO2 09/03/17 08:00 Nasal Cannula 3.0 09/03/17 01:49 97.6 54 18 97/52 98 08/31/17 06:20 27 Intake and Output 09/02/17 09/02/17 09/03/17 15:00 23:00 07:00 Intake Total 450 ml 700 ml 1020 ml Balance 450 ml 700 ml 1020 ml Exam Constitutional: well developed Head: atraumatic, normocephalic Neck: supple Respiratory: diminished breath sounds Cardiovascular: regular rate and rhythm Gastrointestinal: non-tender, soft Extremities: normal pulses Results Result Diagram: 09/02/17 0529 09/01/17 0621 Results 24 hrs Laboratory Tests Test 09/02/17 11:49 09/02/17 17:32 09/02/17 20:27 09/03/17 08:16 Bedside Glucose 131 117 110 75 Medications Medications Current Medications Ondansetron HCl (Zofran Inj) 4 mg Q6H PRN IV NAUSEA AND/OR VOMITING; Start 06/27 at 13:00 Acetaminophen (Tylenol Liquid) 650 mg Q6H PRN PO PAIN LEVEL 1-3 OR FEVER Last administered on 08/28/17t 21:44; Admin Dose 650 MG; Start 08/20/17 at 13:00 Morphine Sulfate 2 mg 2 mg Q4H PRN IV PAIN LEVEL 7-10 Last administered on 05:25; Admin Dose 2 MG; Start 08/20/17 at 13:00 Phenylephrine HCl 40 mg/Dextrose 500 ml @ 75 mls/hr TITRATE IV ; Start at 18:30 Norepinephrine/ Dextrose (Levophed/D5W) 500 ml @ 1.87 mls/hr TITRATE IV Last administered on 08/22/17 01:12; Admin Dose 7.5 MLS/HR; Start 08/21/17 at 09: 00 Diagnostic Test (Pha) (Accu-Chek) 1 ea 02 XX Last administered on 08/29/17 01 :32; Admin Dose 1 EA; Start 08/22/17 at 02:00 Miscellaneous Information 1 ea NOTE XX ; Start 08/21/17 at 20:30 Glucose (Glutose) 15 gm Q15M PRN PO DECREASED GLUCOSE; Start 08/21/17 at 20:30 Glucose (Glutose) 22.5 gm Q15M PRN PO DECREASED GLUCOSE; Start 08/21/17 at 20: 30 Dextrose (D50w Syringe) 25 ml Q15M PRN IV DECREASED GLUCOSE; Start 08/21/17 at 20:30 Dextrose (D50w Syringe) 50 ml Q15M PRN IV DECREASED GLUCOSE; Start 08/21/17 at 20:30 Glucagon (Glucagen) 1 mg Q15M PRN IM DECREASED GLUCOSE; Start 08/21/17 at 20: 30 Glucose (Glutose) 15 gm Q15M PRN BUCCAL DECREASED GLUCOSE; Start 08/21/17 at 20:30 Pantoprazole 40 mg 40 mg DAILY@06 IV Last administered on 09/03/17 05:43; Admin Dose 40 MG; Start 08/22/17 at 06:00 Dopamine HCl/ Dextrose 250 ml @ 8.52 mls/hr TITRATE IV ; Start 08/23/17 at 21: 00 Potassium Chloride/Sodium Chloride (1/2 NS + KCl 20 Meq) 1,000 ml @ 100 mls/hr Q10H IV Last administered on 09/03/17 10:08; Admin Dose 100 MLS/HR; Start at 11:00 Nystatin (Nystatin Susp) 5 ml QID PO Last administered on 09/03/17 08:21; Admin Dose 5 ML; Start 08/31/17 at 11:00 Prednisone (Prednisone) 15 mg DAILY PO Last administered on 09/03/17 08:19; Admin Dose 15 MG; Start 09/02/17 at 09:00 ILIANA HODGES Sep 03, 2017 11:44
--- NOTE | 2017-09-03 12:58 | CONS ---
Date/Time of Note Date/Time of Note DATE: 09/03/17 TIME: 12:55 Assessment/Plan Assessment/Plan Additional Assessment/Plan 1.Bradycardia-NL Free t4. stable BP. 2.Hypotension-remains borderline 3.Resp failure s/p intubation. On RA now, tolerating well 4.DM 5. Hypernatremia-mild 6. PNA-multifocal 7. H/O SVT-recurrent during most recent with mutiple exacerbations 8. CHF-diastolic acute on chronic with improving volume status. Compensated now. Recc: -Now on med-surg -Follow HR/BP closely off of marisol agents or anti-hypertensives at this time -f/u cx data Off lasix now Consultation Date/Type/Reason Admit Date/Time Aug 20, 2017 at 02:59 Initial Consult Date 08/21/17 Type of Consultation: Pulmonary Referring Provider: MILAGROS HIGHTOWER MD 24 HR Interval Summary Free Text/Dictation ROS: No fever, no chills, no nausea, no vomiting, no diarrhea/constipation No recent weight changes No edema, no palpitations No chest pain, no PND, no SOB No dizziness, blurred vision No thirst, no heat or cold intolerance Exam/Review of Systems Vital Signs Vitals Vital Signs Date Time Temp Pulse Resp B/P Pulse Ox O2 Delivery O2 Flow Rate FiO2 09/03/17 08:00 Nasal Cannula 3.0 09/03/17 01:49 97.6 54 18 97/52 98 08/31/17 06:20 27 Intake and Output 09/02/17 09/02/17 09/03/17 15:00 23:00 07:00 Intake Total 450 ml 700 ml 1020 ml Balance 450 ml 700 ml 1020 ml Exam General: WN/WD HEENT: Unicetric/atraumatic/ no assymetry NECK: JVD not elevated, no thyromegaly, carotids revealed normal upstrokes Lymph: no lymphadenopathy HEART: regular with no S3, I/ systolic murmur at apex LUNGS: clear ABD: soft, NT, ND, +BS, no organomegaly, obesity Neuro: no deficit SKIN: no leisons EXT: no edema Results Result Diagram: 09/02/17 0529 09/01/17 0621 Results 24 hrs Laboratory Tests Test 09/02/17 17:32 09/02/17 20:27 09/03/17 08:16 09/03/17 12:03 Bedside Glucose 117 110 75 130 Medications Medications Current Medications Ondansetron HCl (Zofran Inj) 4 mg Q6H PRN IV NAUSEA AND/OR VOMITING; Start 06/27 at 13:00 Acetaminophen (Tylenol Liquid) 650 mg Q6H PRN PO PAIN LEVEL 1-3 OR FEVER Last administered on 08/28/17 21:44; Admin Dose 650 MG; Start 08/20/17 at 13:00 Morphine Sulfate 2 mg 2 mg Q4H PRN IV PAIN LEVEL 7-10 Last administered on 05:25; Admin Dose 2 MG; Start 08/20/17 at 13:00 Phenylephrine HCl 40 mg/Dextrose 500 ml @ 75 mls/hr TITRATE IV ; Start at 18:30 Norepinephrine/ Dextrose (Levophed/D5W) 500 ml @ 1.87 mls/hr TITRATE IV Last administered on 08/22/17 01:12; Admin Dose 7.5 MLS/HR; Start 08/21/17 at 09: 00 Diagnostic Test (Pha) (Accu-Chek) 1 ea 02 XX Last administered on 08/29/17 01 :32; Admin Dose 1 EA; Start 08/22/17 at 02:00 Miscellaneous Information 1 ea NOTE XX ; Start 08/21/17 at 20:30 Glucose (Glutose) 15 gm Q15M PRN PO DECREASED GLUCOSE; Start 08/21/17 at 20:30 Glucose (Glutose) 22.5 gm Q15M PRN PO DECREASED GLUCOSE; Start 08/21/17 at 20: 30 Dextrose (D50w Syringe) 25 ml Q15M PRN IV DECREASED GLUCOSE; Start 08/21/17 at 20:30 Dextrose (D50w Syringe) 50 ml Q15M PRN IV DECREASED GLUCOSE; Start 08/21/17 at 20:30 Glucagon (Glucagen) 1 mg Q15M PRN IM DECREASED GLUCOSE; Start 08/21/17 at 20: 30 Glucose (Glutose) 15 gm Q15M PRN BUCCAL DECREASED GLUCOSE; Start 08/21/17 at 20:30 Pantoprazole 40 mg 40 mg DAILY@06 IV Last administered on 09/03/17 05:43; Admin Dose 40 MG; Start 08/22/17 at 06:00 Dopamine HCl/ Dextrose 250 ml @ 8.52 mls/hr TITRATE IV ; Start 08/23/17 at 21: 00 Potassium Chloride/Sodium Chloride (1/2 NS + KCl 20 Meq) 1,000 ml @ 100 mls/hr Q10H IV Last administered on 09/03/17 10:08; Admin Dose 100 MLS/HR; Start at 11:00 Nystatin (Nystatin Susp) 5 ml QID PO Last administered on 09/03/17 12:02; Admin Dose 5 ML; Start 08/31/17 at 11:00 Prednisone (Prednisone) 15 mg DAILY PO Last administered on 09/03/17 08:19; Admin Dose 15 MG; Start 09/02/17 at 09:00 ANTOINETTE TRISTAN MD Sep 03, 2017 12:58
[2017-09-03 13:17] VITALS: BP 90/44; RESP 18
--- NOTE | 2017-09-03 19:02 | CONS ---
Date/Time of Note Date/Time of Note DATE: 09/03/17 TIME: 18:58 Assessment/Plan Assessment/Plan Chief Complaint/Hosp Course - Severe sepsis with septic shock likely d/t PNA +/-possible influenza, resolved - Bilateral multifocal PNA, improved - Possible influenza, s/p Tamiflu - Acute hypoxemic respiratory failure with possible ARDS s/p extubation, improved - Sinus bradycardia - Hypernatremia - resolved - T2DM, newly diagnosed - Hgb A1c 6.7% - Microcytic anemia - stable - Hepatic steatosis on CT - Subclinical hyperthyroidism - Acute encephalopathy, resolving - H/o SVT - Obesity - BMI 43 - Oral candidiasis - Persistent leukocytosis (afebrile) - partly d/t steroid margination recommendations: - reviewed the results of remaining lab: negative for histo CF, cocci CF, viral DFA for influenza, parainfluenza, RSV - nystatin for oral candidiasis until it resolves - monitor Pt off systemic antibiotics management d/w Pt and her family Problems: Consultation Date/Type/Reason Admit Date/Time Aug 20, 2017 at 02:59 Initial Consult Date 08/21/17 Type of Consultation: ID Referring Provider: MILAGROS HIGHTOWER MD 24 HR Interval Summary Constitutional: no complaints Detailed Summary Eyes: no complaints ENT: no complaints Respiratory: cough, shortness of breath (upon exertion), No pleuritic pain Cardiovascular: no complaints Gastrointestinal: no complaints Genitourinary: no complaints Musculoskeletal: no complaints Skin: no complaints Neurologic: no complaints Exam/Review of Systems Vital Signs Vitals Vital Signs Date Time Temp Pulse Resp B/P Pulse Ox O2 Delivery O2 Flow Rate FiO2 09/03/17 13:17 97.2 74 18 90/44 92 09/03/17 08:00 Nasal Cannula 3.0 08/31/17 06:20 27 Intake and Output 09/02/17 09/02/17 09/03/17 15:00 23:00 07:00 Intake Total 450 ml 700 ml 1020 ml Balance 450 ml 700 ml 1020 ml Exam Constitutional: alert, oriented, well developed Psych: nl mood/affect, no complaints Head: atraumatic, normocephalic Eyes: nl conjunctiva, nl lids, nl sclera ENMT: mucosa pink and moist, nl external ears & nose, nl nasal mucosa & septum Neck: supple Respiratory: clear to auscultation, normal air movement Cardiovascular: nl pulses, regular rate and rhythm Gastrointestinal: non-tender, soft Musculoskeletal: nl extremities to inspection Extremities: normal pulses 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, nl mental status, nl speech, nl strength Skin: nl turgor, No rash or lesions Results Result Diagram: 09/02/17 0529 09/01/17 0621 Results 24 hrs Laboratory Tests Test 09/02/17 20:27 09/03/17 08:16 09/03/17 12:03 09/03/17 17:17 Bedside Glucose 110 75 130 116 Medications Medications Current Medications Ondansetron HCl (Zofran Inj) 4 mg Q6H PRN IV NAUSEA AND/OR VOMITING; Start 06/27 at 13:00 Acetaminophen (Tylenol Liquid) 650 mg Q6H PRN PO PAIN LEVEL 1-3 OR FEVER Last administered on 08/28/17 21:44; Admin Dose 650 MG; Start 08/20/17 at 13:00 Morphine Sulfate 2 mg 2 mg Q4H PRN IV PAIN LEVEL 7-10 Last administered on 05:25; Admin Dose 2 MG; Start 08/20/17 at 13:00 Phenylephrine HCl 40 mg/Dextrose 500 ml @ 75 mls/hr TITRATE IV ; Start at 18:30 Norepinephrine/ Dextrose (Levophed/D5W) 500 ml @ 1.87 mls/hr TITRATE IV Last administered on 08/22/17 01:12; Admin Dose 7.5 MLS/HR; Start 08/21/17 at 09: 00 Diagnostic Test (Pha) (Accu-Chek) 1 ea 02 XX Last administered on 08/29/17 01 :32; Admin Dose 1 EA; Start 08/22/17 at 02:00 Miscellaneous Information 1 ea NOTE XX ; Start 08/21/17 at 20:30 Glucose (Glutose) 15 gm Q15M PRN PO DECREASED GLUCOSE; Start 08/21/17 at 20:30 Glucose (Glutose) 22.5 gm Q15M PRN PO DECREASED GLUCOSE; Start 08/21/17 at 20: 30 Dextrose (D50w Syringe) 25 ml Q15M PRN IV DECREASED GLUCOSE; Start 08/21/17 at 20:30 Dextrose (D50w Syringe) 50 ml Q15M PRN IV DECREASED GLUCOSE; Start 08/21/17 at 20:30 Glucagon (Glucagen) 1 mg Q15M PRN IM DECREASED GLUCOSE; Start 08/21/17 at 20: 30 Glucose (Glutose) 15 gm Q15M PRN BUCCAL DECREASED GLUCOSE; Start 08/21/17 at 20:30 Pantoprazole 40 mg 40 mg DAILY@06 IV Last administered on 09/03/17 05:43; Admin Dose 40 MG; Start 08/22/17 at 06:00 Dopamine HCl/ Dextrose 250 ml @ 8.52 mls/hr TITRATE IV ; Start 08/23/17 at 21: 00 Potassium Chloride/Sodium Chloride (1/2 NS + KCl 20 Meq) 1,000 ml @ 100 mls/hr Q10H IV Last administered on 09/03/17 10:08; Admin Dose 100 MLS/HR; Start at 11:00 Nystatin (Nystatin Susp) 5 ml QID PO Last administered on 09/03/17 17:16; Admin Dose 5 ML; Start 08/31/17 at 11:00 Prednisone (Prednisone) 15 mg DAILY PO Last administered on 09/03/17 08:19; Admin Dose 15 MG; Start 09/02/17 at 09:00 ELIZABETH HARVEY M.D. Sep 03, 2017 19:02
[2017-09-03 19:42] VITALS: BP 93/55; RESP 20
[2017-09-04] MEDS: ACCU-CHEK XX SCH (02:00)
[2017-09-04 02:27] VITALS: BP 94/50; RESP 18
[2017-09-04] MEDS: PANTOPRAZOLE 40 MG INJ IV SCH (05:36)
[2017-09-04] MEDS: INSULIN ASPART [NOVOLOG] 3 ML PEN SC SCH ×4 (08:00→21:00)
[2017-09-04 08:17] VITALS: BP 91/48; RESP 18
[2017-09-04] MEDS: NYSTATIN SUSP 5 ML CUP PO SCH ×3 (08:48→17:22)
[2017-09-04] MEDS: BALSAM PERU/CASTOR OIL 60 GM TUBE TOP SCH (08:49)
[2017-09-04] MEDS: predniSONE 5 MG TAB PO SCH (08:49)
[2017-09-04] MEDS: 1/2 NS + KCL 20 MEQ 1,000 ML IV SCH ×4 (11:00→23:13)
--- NOTE | 2017-09-04 11:03 | PN ---
Date/Time of Note Date/Time of Note DATE: 09/04/17 TIME: 11:03 Assessment/Plan VTE Prophylaxis VTE Prophylaxis Intervention: other Lines/Catheters IV Catheter Type (from [facility]): Peripheral IV Urinary Cath still in place: No Assessment/Plan Chief Complaint/Hosp Course -Severe Hypoxemic Respiratory Failure concerning for ARDS, resolved. - Dr. Alarcon is following in pulmonology consultation. -Acute multifocal pneumonia, s/p antibiotics and Tamiflu. -Dr. Mcgowan is following in infection disease consultation. -Sepsis with shock secondary to pneumonia, continue IV fluids. -Diabetes mellitus with hemoglobin A1c 6.9. Continue Lantus and NovoLog. -Bradycardia, Dr. Whalen is following in cardiology consultation -Preserved ejection fraction of 50% -Obesity with BMI of 43 -Hepatic steatosis Problems: Subjective 24 Hr Interval Summary Free Text/Dictation Patient has no complaints Exam/Review of Systems Vital Signs Vitals Vital Signs Date Time Temp Pulse Resp B/P Pulse Ox O2 Delivery O2 Flow Rate FiO2 09/04/17 08:17 98.2 66 18 91/48 96 09/04/17 00:40 2.0 09/03/17 22:39 Nasal Cannula Intake and Output 09/03/17 09/03/17 09/04/17 15:00 23:00 07:00 Intake Total 500 ml 960 ml 1240 ml Output Total 1800 ml Balance 500 ml -840 ml 1240 ml Exam Constitutional: well developed Head: atraumatic, normocephalic Neck: supple Respiratory: clear to auscultation Cardiovascular: regular rate and rhythm Gastrointestinal: non-tender, soft Extremities: normal pulses Results Result Diagram: 09/02/17 0529 09/01/17 0621 Results 24 hrs Laboratory Tests Test 09/03/17 12:03 09/03/17 17:17 09/03/17 20:43 09/04/17 08:07 Bedside Glucose 130 116 90 91 Medications Medications Current Medications Ondansetron HCl (Zofran Inj) 4 mg Q6H PRN IV NAUSEA AND/OR VOMITING; Start 06/27 at 13:00 Acetaminophen (Tylenol Liquid) 650 mg Q6H PRN PO PAIN LEVEL 1-3 OR FEVER Last administered on 08/28/17t 21:44; Admin Dose 650 MG; Start 08/20/17 at 13:00 Morphine Sulfate 2 mg 2 mg Q4H PRN IV PAIN LEVEL 7-10 Last administered on 05:25; Admin Dose 2 MG; Start 08/20/17 at 13:00 Phenylephrine HCl 40 mg/Dextrose 500 ml @ 75 mls/hr TITRATE IV ; Start at 18:30 Norepinephrine/ Dextrose (Levophed/D5W) 500 ml @ 1.87 mls/hr TITRATE IV Last administered on 08/22/17 01:12; Admin Dose 7.5 MLS/HR; Start 08/21/17 at 09: 00 Diagnostic Test (Pha) (Accu-Chek) 1 ea 02 XX Last administered on 08/29/17 01 :32; Admin Dose 1 EA; Start 08/22/17 at 02:00 Miscellaneous Information 1 ea NOTE XX ; Start 08/21/17 at 20:30 Glucose (Glutose) 15 gm Q15M PRN PO DECREASED GLUCOSE; Start 08/21/17 at 20:30 Glucose (Glutose) 22.5 gm Q15M PRN PO DECREASED GLUCOSE; Start 08/21/17 at 20: 30 Dextrose (D50w Syringe) 25 ml Q15M PRN IV DECREASED GLUCOSE; Start 08/21/17 at 20:30 Dextrose (D50w Syringe) 50 ml Q15M PRN IV DECREASED GLUCOSE; Start 08/21/17 at 20:30 Glucagon (Glucagen) 1 mg Q15M PRN IM DECREASED GLUCOSE; Start 08/21/17 at 20: 30 Glucose (Glutose) 15 gm Q15M PRN BUCCAL DECREASED GLUCOSE; Start 08/21/17 at 20:30 Pantoprazole 40 mg 40 mg DAILY@06 IV Last administered on 09/04/17 05:36; Admin Dose 40 MG; Start 08/22/17 at 06:00 Dopamine HCl/ Dextrose 250 ml @ 8.52 mls/hr TITRATE IV ; Start 08/23/17 at 21: 00 Potassium Chloride/Sodium Chloride (1/2 NS + KCl 20 Meq) 1,000 ml @ 100 mls/hr Q10H IV Last administered on 09/03/17 23:38; Admin Dose 100 MLS/HR; Start at 11:00 Nystatin (Nystatin Susp) 5 ml QID PO Last administered on 12/25/17at 08:48; Admin Dose 5 ML; Start 08/31/17 at 11:00 Prednisone (Prednisone) 15 mg DAILY PO Last administered on 09/04/17t 08:49; Admin Dose 15 MG; Start 09/02/17 at 09:00 ILIANA HODGES Sep 04, 2017 11:03
--- NOTE | 2017-09-04 11:28 | CONS ---
Date/Time of Note Date/Time of Note DATE: 09/04/17 TIME: 11:27 Assessment/Plan Assessment/Plan Additional Assessment/Plan Assessment and recommendations; 1. Patient admitted with severe bilateral pneumonia likely postviral in etiology with marked overall clinical improvement. 2. Improving hypoxemia. Patient off supplemental oxygen now. 3. Likely underlying sleep apnea. Continue current treatment. Stop prednisone. Consider discharge. Consultation Date/Type/Reason Admit Date/Time Aug 20, 2017 at 02:59 Initial Consult Date 08/21/17 Type of Consultation: Pulmonary Referring Provider: MILAGROS HIGHTOWER MD 24 HR Interval Summary Free Text/Dictation Patient's condition is continually improving. Patient also ambulating. Denies any shortness of breath, wheezing, cough, or any sputum production. General exam; young woman, awake and alert. Currently no distress. Exam/Review of Systems Vital Signs Vitals Vital Signs Date Time Temp Pulse Resp B/P Pulse Ox O2 Delivery O2 Flow Rate FiO2 09/04/17 08:17 98.2 66 18 91/48 96 09/04/17 00:40 2.0 09/03/17 22:39 Nasal Cannula Intake and Output 09/03/17 09/03/17 09/04/17 15:00 23:00 07:00 Intake Total 500 ml 960 ml 1240 ml Output Total 1800 ml Balance 500 ml -840 ml 1240 ml Exam HEENT exam; supple neck, no JVD. No lymphadenopathy. Midline trachea. No thyromegaly. Patient has good dentition. Chest exam; clear to auscultation. S1-S2 audible, no murmurs. Regular rhythm. Abdomen exam; soft, protuberant. Nontender. Bowel sounds audible. Extremity exam; no edema. No clubbing. [employer] exam; no focal deficit. Results Result Diagram: 09/02/17 0529 09/01/17 0621 Results 24 hrs Laboratory Tests Test 09/03/17 12:03 09/03/17 17:17 09/03/17 20:43 09/04/17 08:07 Bedside Glucose 130 116 90 91 Medications Medications Current Medications Ondansetron HCl (Zofran Inj) 4 mg Q6H PRN IV NAUSEA AND/OR VOMITING; Start 06/27 at 13:00 Acetaminophen (Tylenol Liquid) 650 mg Q6H PRN PO PAIN LEVEL 1-3 OR FEVER Last administered on 08/28/17 21:44; Admin Dose 650 MG; Start 08/20/17 at 13:00 Morphine Sulfate 2 mg 2 mg Q4H PRN IV PAIN LEVEL 7-10 Last administered on 05:25; Admin Dose 2 MG; Start 08/20/17 at 13:00 Phenylephrine HCl 40 mg/Dextrose 500 ml @ 75 mls/hr TITRATE IV ; Start at 18:30 Norepinephrine/ Dextrose (Levophed/D5W) 500 ml @ 1.87 mls/hr TITRATE IV Last administered on 08/22/17 01:12; Admin Dose 7.5 MLS/HR; Start 08/21/17 at 09: 00 Diagnostic Test (Pha) (Accu-Chek) 1 ea 02 XX Last administered on 08/29/17 01 :32; Admin Dose 1 EA; Start 08/22/17 at 02:00 Miscellaneous Information 1 ea NOTE XX ; Start 08/21/17 at 20:30 Glucose (Glutose) 15 gm Q15M PRN PO DECREASED GLUCOSE; Start 08/21/17 at 20:30 Glucose (Glutose) 22.5 gm Q15M PRN PO DECREASED GLUCOSE; Start 08/21/17 at 20: 30 Dextrose (D50w Syringe) 25 ml Q15M PRN IV DECREASED GLUCOSE; Start 08/21/17 at 20:30 Dextrose (D50w Syringe) 50 ml Q15M PRN IV DECREASED GLUCOSE; Start 08/21/17 at 20:30 Glucagon (Glucagen) 1 mg Q15M PRN IM DECREASED GLUCOSE; Start 08/21/17 at 20: 30 Glucose (Glutose) 15 gm Q15M PRN BUCCAL DECREASED GLUCOSE; Start 08/21/17 at 20:30 Pantoprazole 40 mg 40 mg DAILY@06 IV Last administered on 09/04/17 05:36; Admin Dose 40 MG; Start 08/22/17 at 06:00 Dopamine HCl/ Dextrose 250 ml @ 8.52 mls/hr TITRATE IV ; Start 08/23/17 at 21: 00 Potassium Chloride/Sodium Chloride (1/2 NS + KCl 20 Meq) 1,000 ml @ 100 mls/hr Q10H IV Last administered on 09/03/17 23:38; Admin Dose 100 MLS/HR; Start at 11:00 Nystatin (Nystatin Susp) 5 ml QID PO Last administered on 09/04/17t 08:48; Admin Dose 5 ML; Start 08/31/17 at 11:00 ADRI NAVARRO Sep 04, 2017 11:28
[2017-09-04 14:50] VITALS: BP 95/63; RESP 18
--- NOTE | 2017-09-04 15:13 | CONS ---
Date/Time of Note Date/Time of Note DATE: 09/04/17 TIME: 15:11 Assessment/Plan Assessment/Plan Additional Assessment/Plan 1.Bradycardia-NL Free t4. stable BP. 2.Hypotension-remains borderline 3.Resp failure s/p intubation. Extubated now and on RA now, tolerating well 4.DM 5. Hypernatremia-mild 6. PNA-multifocal 7. H/O SVT-recurrent during most recent with mutiple exacerbations 8. CHF-diastolic acute on chronic with improving volume status. Compensated now. Recc: -Now on med-surg -Follow HR/BP closely off of marisol agents or anti-hypertensives at this time -f/u cx data Off lasix now Consultation Date/Type/Reason Admit Date/Time Aug 20, 2017 at 02:59 Initial Consult Date 08/21/17 Type of Consultation: Pulmonary Referring Provider: MILAGROS HIGHTOWER MD 24 HR Interval Summary Free Text/Dictation ROS: No fever, no chills, no nausea, no vomiting, no diarrhea/constipation No recent weight changes No edema, no palpitations No chest pain, no PND, no SOB No dizziness, blurred vision No thirst, no heat or cold intolerance Exam/Review of Systems Vital Signs Vitals Vital Signs Date Time Temp Pulse Resp B/P Pulse Ox O2 Delivery O2 Flow Rate FiO2 09/04/17 14:50 97.9 89 18 95/63 93 09/04/17 00:40 2.0 09/03/17 22:39 Nasal Cannula Intake and Output 09/03/17 09/03/17 09/04/17 14:59 22:59 06:59 Intake Total 500 ml 960 ml 1240 ml Output Total 1800 ml Balance 500 ml -840 ml 1240 ml Exam Sitting in chair General: WN/WD/ obese HEENT: Unicetric/atraumatic/ no assymetry NECK: JVD not elevated, no thyromegaly, carotids revealed normal upstrokes Lymph: no lymphadenopathy HEART: regular with no S3, I/ systolic murmur at apex LUNGS: clear ABD: soft, NT, ND, +BS, no organomegaly Neuro: no deficit SKIN: no leisons EXT: no edema Results Result Diagram: 09/02/17 0529 09/01/17 0621 Results 24 hrs Laboratory Tests Test 09/03/17 17:17 09/03/17 20:43 09/04/17 08:07 09/04/17 12:11 Bedside Glucose 116 90 91 118 Medications Medications Current Medications Ondansetron HCl (Zofran Inj) 4 mg Q6H PRN IV NAUSEA AND/OR VOMITING; Start 06/27 at 13:00 Acetaminophen (Tylenol Liquid) 650 mg Q6H PRN PO PAIN LEVEL 1-3 OR FEVER Last administered on 08/28/17 21:44; Admin Dose 650 MG; Start 08/20/17 at 13:00 Morphine Sulfate 2 mg 2 mg Q4H PRN IV PAIN LEVEL 7-10 Last administered on 05:25; Admin Dose 2 MG; Start 08/20/17 at 13:00 Phenylephrine HCl 40 mg/Dextrose 500 ml @ 75 mls/hr TITRATE IV ; Start at 18:30 Norepinephrine/ Dextrose (Levophed/D5W) 500 ml @ 1.87 mls/hr TITRATE IV Last administered on 08/22/17 01:12; Admin Dose 7.5 MLS/HR; Start 08/21/17 at 09: 00 Diagnostic Test (Pha) (Accu-Chek) 1 ea 02 XX Last administered on 08/29/17 01 :32; Admin Dose 1 EA; Start 08/22/17 at 02:00 Miscellaneous Information 1 ea NOTE XX ; Start 08/21/17 at 20:30 Glucose (Glutose) 15 gm Q15M PRN PO DECREASED GLUCOSE; Start 08/21/17 at 20:30 Glucose (Glutose) 22.5 gm Q15M PRN PO DECREASED GLUCOSE; Start 08/21/17 at 20: 30 Dextrose (D50w Syringe) 25 ml Q15M PRN IV DECREASED GLUCOSE; Start 08/21/17 at 20:30 Dextrose (D50w Syringe) 50 ml Q15M PRN IV DECREASED GLUCOSE; Start 08/21/17 at 20:30 Glucagon (Glucagen) 1 mg Q15M PRN IM DECREASED GLUCOSE; Start 08/21/17 at 20: 30 Glucose (Glutose) 15 gm Q15M PRN BUCCAL DECREASED GLUCOSE; Start 08/21/17 at 20:30 Pantoprazole 40 mg 40 mg DAILY@06 IV Last administered on 09/04/17 05:36; Admin Dose 40 MG; Start 08/22/17 at 06:00 Dopamine HCl/ Dextrose 250 ml @ 8.52 mls/hr TITRATE IV ; Start 08/23/17 at 21: 00 Potassium Chloride/Sodium Chloride (1/2 NS + KCl 20 Meq) 1,000 ml @ 100 mls/hr Q10H IV Last administered on 09/04/17 12:18; Admin Dose 100 MLS/HR; Start at 11:00 Nystatin (Nystatin Susp) 5 ml QID PO Last administered on 09/04/17 12:17; Admin Dose 5 ML; Start 08/31/17 at 11:00 ANTOINETTE TRISTAN MD Sep 04, 2017 15:13
[2017-09-04 19:27] VITALS: BP 93/55; RESP 18
--- NOTE | 2017-09-04 20:24 | CONS ---
Date/Time of Note Date/Time of Note DATE: 09/04/17 TIME: 20:23 Assessment/Plan Assessment/Plan Chief Complaint/Hosp Course - Severe sepsis with septic shock likely d/t PNA +/-possible influenza, resolved - Bilateral multifocal PNA, improved - Possible influenza bronchitis, s/p Tamiflu - Acute hypoxemic respiratory failure with possible ARDS s/p extubation, improved - Sinus bradycardia - Hypernatremia - resolved - T2DM, newly diagnosed - Hgb A1c 6.7% - Microcytic anemia - stable - Hepatic steatosis on CT - Subclinical hyperthyroidism - Acute encephalopathy, resolving - H/o SVT - Obesity - BMI 43 - Oral candidiasis - Persistent leukocytosis (afebrile) - partly d/t steroid margination recommendations: - reviewed the results of remaining lab: negative for histo CF, cocci CF, viral DFA for influenza, parainfluenza, RSV - monitor Pt off systemic antibiotics management d/w Pt Problems: Consultation Date/Type/Reason Admit Date/Time Aug 20, 2017 at 02:59 Initial Consult Date 08/21/17 Type of Consultation: ID Referring Provider: MILAGROS HIGHTOWER MD 24 HR Interval Summary Constitutional: improved, other (walked 10 min, rested and then walked again) Detailed Summary Respiratory: cough, shortness of breath (only after walking for several minutes ), No pain Cardiovascular: no complaints Gastrointestinal: no complaints Genitourinary: no complaints Musculoskeletal: no complaints Skin: no complaints Neurologic: no complaints Exam/Review of Systems Vital Signs Vitals Vital Signs Date Time Temp Pulse Resp B/P Pulse Ox O2 Delivery O2 Flow Rate FiO2 09/04/17 19:27 98.1 85 18 93/55 93 09/04/17 00:40 2.0 09/03/17 22:39 Nasal Cannula Intake and Output 09/03/17 09/03/17 09/04/17 15:00 23:00 07:00 Intake Total 500 ml 960 ml 1240 ml Output Total 1800 ml Balance 500 ml -840 ml 1240 ml Exam Constitutional: alert, oriented, well developed Psych: nl mood/affect, no complaints Head: atraumatic, normocephalic Eyes: nl conjunctiva, nl lids ENMT: nl external ears & nose, nl nasal mucosa & septum Neck: non-tender, supple Respiratory: clear to auscultation, normal air movement Cardiovascular: nl pulses, regular rate and rhythm Musculoskeletal: nl extremities to inspection, nl gait and stance Extremities: normal pulses Neurological: PLANT UT[employer] PERSON II-XII intact, nl mental status, nl speech, nl strength Skin: nl turgor Results Result Diagram: 09/02/17 0529 09/01/17 0621 Results 24 hrs Laboratory Tests Test 09/03/17 20:43 09/04/17 08:07 09/04/17 12:11 09/04/17 17:21 Bedside Glucose 90 91 118 110 Medications Medications Current Medications Ondansetron HCl (Zofran Inj) 4 mg Q6H PRN IV NAUSEA AND/OR VOMITING; Start 06/27 at 13:00 Acetaminophen (Tylenol Liquid) 650 mg Q6H PRN PO PAIN LEVEL 1-3 OR FEVER Last administered on 08/28/17 21:44; Admin Dose 650 MG; Start 08/20/17 at 13:00 Morphine Sulfate 2 mg 2 mg Q4H PRN IV PAIN LEVEL 7-10 Last administered on 05:25; Admin Dose 2 MG; Start 08/20/17 at 13:00 Phenylephrine HCl 40 mg/Dextrose 500 ml @ 75 mls/hr TITRATE IV ; Start at 18:30 Norepinephrine/ Dextrose (Levophed/D5W) 500 ml @ 1.87 mls/hr TITRATE IV Last administered on 08/22/17 01:12; Admin Dose 7.5 MLS/HR; Start 08/21/17 at 09: 00 Diagnostic Test (Pha) (Accu-Chek) 1 ea 02 XX Last administered on 08/29/17 01 :32; Admin Dose 1 EA; Start 08/22/17 at 02:00 Miscellaneous Information 1 ea NOTE XX ; Start 08/21/17 at 20:30 Glucose (Glutose) 15 gm Q15M PRN PO DECREASED GLUCOSE; Start 08/21/17 at 20:30 Glucose (Glutose) 22.5 gm Q15M PRN PO DECREASED GLUCOSE; Start 08/21/17 at 20: 30 Dextrose (D50w Syringe) 25 ml Q15M PRN IV DECREASED GLUCOSE; Start 08/21/17 at 20:30 Dextrose (D50w Syringe) 50 ml Q15M PRN IV DECREASED GLUCOSE; Start 08/21/17 at 20:30 Glucagon (Glucagen) 1 mg Q15M PRN IM DECREASED GLUCOSE; Start 08/21/17 at 20: 30 Glucose (Glutose) 15 gm Q15M PRN BUCCAL DECREASED GLUCOSE; Start 08/21/17 at 20:30 Pantoprazole 40 mg 40 mg DAILY@06 IV Last administered on 09/04/17 05:36; Admin Dose 40 MG; Start 08/22/17 at 06:00 Dopamine HCl/ Dextrose 250 ml @ 8.52 mls/hr TITRATE IV ; Start 08/23/17 at 21: 00 Potassium Chloride/Sodium Chloride (1/2 NS + KCl 20 Meq) 1,000 ml @ 100 mls/hr Q10H IV Last administered on 09/04/17 12:18; Admin Dose 100 MLS/HR; Start at 11:00 Nystatin (Nystatin Susp) 5 ml QID PO Last administered on 09/04/17 17:22; Admin Dose 5 ML; Start 08/31/17 at 11:00 ELIZABETH HARVEY M.D. Sep 04, 2017 20:24
[2017-09-05] MEDS: ACCU-CHEK XX SCH (02:00)
[2017-09-05 02:01] VITALS: BP 93/55; RESP 20
[2017-09-05] MEDS: PANTOPRAZOLE 40 MG INJ IV SCH (05:52)
[2017-09-05] MEDS: 1/2 NS + KCL 20 MEQ 1,000 ML IV SCH ×2 (07:00→10:52)
[2017-09-05 07:41] VITALS: BP 100/55; RESP 12
[2017-09-05] MEDS: INSULIN ASPART [NOVOLOG] 3 ML PEN SC SCH ×2 (07:55→12:00)
[2017-09-05] MEDS: BALSAM PERU/CASTOR OIL 60 GM TUBE TOP SCH (07:56)
--- NOTE | 2017-09-05 11:24 | CONS ---
Date/Time of Note Date/Time of Note DATE: 09/05/17 TIME: 11:20 Assessment/Plan Assessment/Plan Chief Complaint/Hosp Course - Severe sepsis with septic shock likely d/t PNA +/-possible influenza, s/p pressors, resolved - Bilateral multifocal PNA, improved - Possible influenza bronchitis, s/p Tamiflu - Acute hypoxemic respiratory failure with possible ARDS s/p extubation, improved - Sinus bradycardia - Hypernatremia - resolved - T2DM, newly diagnosed - Hgb A1c 6.7% - Microcytic anemia - stable - Hepatic steatosis on CT - Subclinical hyperthyroidism - Acute encephalopathy, resolving - H/o SVT - Obesity - BMI 43 - Oral candidiasis - resolved - Persistent leukocytosis (afebrile) - partly d/t steroid margination (Negative histo CF, cocci CF, viral DFA for influenza, parainfluenza, RSV) Recommendations: - monitor Pt off systemic antibiotics Management d/w patient using [place]er speaking cheese tester ([employer]), NASIMA Rivera, and Dr. Mcgowan Problems: Consultation Date/Type/Reason Admit Date/Time Aug 20, 2017 at 02:59 Initial Consult Date 08/21/17 Type of Consultation: Infectious Disease Referring Provider: MILAGROS HIGHTOWER MD 24 HR Interval Summary Free Text/Dictation Afebrile, ambulatory and no acute issues per d/w RN. Pt denies pain, SOB, n/v/d, dysuria. Pt has multiple questions and asking when she can go home per use of [employer] to translate. Exam/Review of Systems Vital Signs Vitals Vital Signs Date Time Temp Pulse Resp B/P Pulse Ox O2 Delivery O2 Flow Rate FiO2 09/05/17 07:41 97.9 67 12 100/55 94 09/04/17 00:40 2.0 09/03/17 22:39 Nasal Cannula Intake and Output 09/04/17 09/04/17 09/05/17 14:59 22:59 06:59 Intake Total 520 ml 2000 ml 550 ml Output Total 2400 ml Balance 520 ml -400 ml 550 ml Exam Constitutional: alert, oriented, well developed Psych: nl mood/affect, no complaints Head: atraumatic, normocephalic Eyes: nl conjunctiva, nl lids ENMT: nl external ears & nose, mucosa pink and moist (no thrush noted), other ( scab noted on R external ear r/t DTI) Neck: non-tender, supple Respiratory: clear to auscultation, normal air movement Cardiovascular: nl pulses, regular rate and rhythm Musculoskeletal: nl extremities to inspection, nl gait and stance Extremities: normal pulses Neurological: nl mental status, nl speech (H[place]er speaking only), nl strength Skin: nl turgor Results Result Diagram: 09/02/17 0529 09/01/17 0621 Results 24 hrs Laboratory Tests Test 09/04/17 12:11 09/04/17 17:21 09/04/17 21:02 09/05/17 07:55 Bedside Glucose 118 110 97 88 Medications Medications Current Medications Ondansetron HCl (Zofran Inj) 4 mg Q6H PRN IV NAUSEA AND/OR VOMITING; Start 06/27 at 13:00 Acetaminophen (Tylenol Liquid) 650 mg Q6H PRN PO PAIN LEVEL 1-3 OR FEVER Last administered on 08/28/17 21:44; Admin Dose 650 MG; Start 08/20/17 at 13:00 Morphine Sulfate (morphine) 2 mg Q4H PRN IV PAIN LEVEL 7-10 Last administered on 08/29/17 05:25; Admin Dose 2 MG; Start 08/20/17 at 13:00 Diagnostic Test (Pha) (Accu-Chek) 1 ea 02 XX Last administered on 08/29/17 01 :32; Admin Dose 1 EA; Start 08/22/17 at 02:00 Miscellaneous Information 1 ea NOTE XX ; Start 08/21/17 at 20:30 Glucose (Glutose) 15 gm Q15M PRN PO DECREASED GLUCOSE; Start 08/21/17 at 20:30 Glucose (Glutose) 22.5 gm Q15M PRN PO DECREASED GLUCOSE; Start 08/21/17 at 20: 30 Dextrose (D50w Syringe) 25 ml Q15M PRN IV DECREASED GLUCOSE; Start 08/21/17 at 20:30 Dextrose (D50w Syringe) 50 ml Q15M PRN IV DECREASED GLUCOSE; Start 08/21/17 at 20:30 Glucagon (Glucagen) 1 mg Q15M PRN IM DECREASED GLUCOSE; Start 08/21/17 at 20: 30 Glucose (Glutose) 15 gm Q15M PRN BUCCAL DECREASED GLUCOSE; Start 08/21/17 at 20:30 Pantoprazole 40 mg 40 mg DAILY@06 IV Last administered on 09/05/17 05:52; Admin Dose 40 MG; Start 08/22/17 at 06:00 Potassium Chloride/Sodium Chloride (1/2 NS + KCl 20 Meq) 1,000 ml @ 100 mls/hr Q10H IV Last administered on 09/05/17 10:52; Admin Dose 100 MLS/HR; Start at 11:00 CINTHYA JUNG NP Sep 05, 2017 11:24
--- NOTE | 2017-09-05 11:27 | CONS ---
Date/Time of Note Date/Time of Note DATE: 09/05/17 TIME: 11:25 Assessment/Plan Assessment/Plan Additional Assessment/Plan 1.Bradycardia-NL Free t4. stable BP. 2.Hypotension-remains borderline 3.Resp failure s/p intubation. Extubated now and on RA now, tolerating well 4.DM 5. Hypernatremia-mild 6. PNA-multifocal 7. H/O SVT-recurrent during most recent with mutiple exacerbations 8. CHF-diastolic acute on chronic with improving volume status. Compensated now. Recc: -Now on med-surg -Follow HR/BP closely off of marisol agents or anti-hypertensives at this time -f/u cx data Consultation Date/Type/Reason Admit Date/Time Aug 20, 2017 at 02:59 Initial Consult Date 08/21/17 Type of Consultation: Infectious Disease Referring Provider: MILAGROS HIGHTOWER MD 24 HR Interval Summary Free Text/Dictation ROS:sitting in chair No fever, no chills, no nausea, no vomiting, no diarrhea/constipation No recent weight changes No edema, no palpitations No chest pain, no PND, no SOB No dizziness, blurred vision No thirst, no heat or cold intolerance Exam/Review of Systems Vital Signs Vitals Vital Signs Date Time Temp Pulse Resp B/P Pulse Ox O2 Delivery O2 Flow Rate FiO2 09/05/17 07:41 97.9 67 12 100/55 94 09/04/17 00:40 2.0 09/03/17 22:39 Nasal Cannula Intake and Output 09/04/17 09/04/17 09/05/17 14:59 22:59 06:59 Intake Total 520 ml 2000 ml 550 ml Output Total 2400 ml Balance 520 ml -400 ml 550 ml Exam General: WN/WD/ obese HEENT: Unicetric/atraumatic/ no assymetry NECK: JVD not elevated, no thyromegaly, carotids revealed normal upstrokes Lymph: no lymphadenopathy HEART: regular with no S3, I/ systolic murmur at apex LUNGS: clear ABD: soft, NT, ND, +BS, no organomegaly Neuro: no deficit SKIN: no leisons EXT: no edema Results Result Diagram: 09/02/17 0529 09/01/17 0621 Results 24 hrs Laboratory Tests Test 09/04/17 12:11 09/04/17 17:21 12/25/17 21:02 09/05/17 07:55 Bedside Glucose 118 110 97 88 Medications Medications Current Medications Ondansetron HCl (Zofran Inj) 4 mg Q6H PRN IV NAUSEA AND/OR VOMITING; Start 06/27 at 13:00 Acetaminophen (Tylenol Liquid) 650 mg Q6H PRN PO PAIN LEVEL 1-3 OR FEVER Last administered on 08/28/17 21:44; Admin Dose 650 MG; Start 08/20/17 at 13:00 Morphine Sulfate (morphine) 2 mg Q4H PRN IV PAIN LEVEL 7-10 Last administered on 08/29/17 05:25; Admin Dose 2 MG; Start 08/20/17 at 13:00 Diagnostic Test (Pha) (Accu-Chek) 1 ea 02 XX Last administered on 08/29/17 01 :32; Admin Dose 1 EA; Start 08/22/17 at 02:00 Miscellaneous Information 1 ea NOTE XX ; Start 08/21/17 at 20:30 Glucose (Glutose) 15 gm Q15M PRN PO DECREASED GLUCOSE; Start 08/21/17 at 20:30 Glucose (Glutose) 22.5 gm Q15M PRN PO DECREASED GLUCOSE; Start 08/21/17 at 20: 30 Dextrose (D50w Syringe) 25 ml Q15M PRN IV DECREASED GLUCOSE; Start 08/21/17 at 20:30 Dextrose (D50w Syringe) 50 ml Q15M PRN IV DECREASED GLUCOSE; Start 08/21/17 at 20:30 Glucagon (Glucagen) 1 mg Q15M PRN IM DECREASED GLUCOSE; Start 08/21/17 at 20: 30 Glucose (Glutose) 15 gm Q15M PRN BUCCAL DECREASED GLUCOSE; Start 08/21/17 at 20:30 Pantoprazole 40 mg 40 mg DAILY@06 IV Last administered on 09/05/17 05:52; Admin Dose 40 MG; Start 08/22/17 at 06:00 Potassium Chloride/Sodium Chloride (1/2 NS + KCl 20 Meq) 1,000 ml @ 100 mls/hr Q10H IV Last administered on 09/05/17 10:52; Admin Dose 100 MLS/HR; Start at 11:00 ANTOINETTE TRISTAN MD Sep 05, 2017 11:27
--- NOTE | 2017-09-05 11:31 | CONS ---
Date/Time of Note Date/Time of Note DATE: 09/05/17 TIME: 11:28 Assessment/Plan Assessment/Plan Additional Assessment/Plan Assessment and recommendations; 1. Patient admitted with severe bilateral pneumonia status post extubation a few days ago now with excellent overall clinical status. 2. Interval resolution of hypoxemia, patient doing very well on room air. 3. Possibly underlying sleep apnea. 4. History of -induced cardiomyopathy with apparently stable clinical status now. Patient not exhibiting any signs of congestive heart failure. Patient can be discharged home. Consultation Date/Type/Reason Admit Date/Time Aug 20, 2017 at 02:59 Initial Consult Date 08/21/17 Type of Consultation: Pulmonary Referring Provider: MILAGROS HIGHTOWER MD 24 HR Interval Summary Free Text/Dictation Patient's condition is stable. Remains awake alert. Denies any coughing, wheezing, shortness of breath. Patient also has been ambulatory now. Denies any dyspnea on exertion. General exam; young woman, awake alert, currently in no distress. Exam/Review of Systems Vital Signs Vitals Vital Signs Date Time Temp Pulse Resp B/P Pulse Ox O2 Delivery O2 Flow Rate FiO2 09/05/17 07:41 97.9 67 12 100/55 94 09/04/17 00:40 2.0 09/03/17 22:39 Nasal Cannula Intake and Output 09/04/17 09/04/17 09/05/17 15:00 23:00 07:00 Intake Total 520 ml 2000 ml 550 ml Output Total 2400 ml Balance 520 ml -400 ml 550 ml Exam HEENT exam; supple neck, no JVD. No lymphadenopathy. Midline trachea. No thyromegaly. Pharynx is clear. Patient has good dentition. Chest exam; clear to auscultation. S1-S2 audible, no murmurs. Regular rhythm. Abdomen exam; soft, nontender. No organomegaly. Bowel sounds audible. Extremity exam; no edema. Pulses 1+ bilaterally. 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 Results Result Diagram: 09/02/17 0529 09/01/17 0621 Results 24 hrs Laboratory Tests Test 09/04/17 12:11 09/04/17 17:21 09/04/17 21:02 09/05/17 07:55 Bedside Glucose 118 110 97 88 Medications Medications Current Medications Ondansetron HCl (Zofran Inj) 4 mg Q6H PRN IV NAUSEA AND/OR VOMITING; Start 06/27 at 13:00 Acetaminophen (Tylenol Liquid) 650 mg Q6H PRN PO PAIN LEVEL 1-3 OR FEVER Last administered on 08/28/17 21:44; Admin Dose 650 MG; Start 08/20/17 at 13:00 Morphine Sulfate (morphine) 2 mg Q4H PRN IV PAIN LEVEL 7-10 Last administered on 08/29/17 05:25; Admin Dose 2 MG; Start 08/20/17 at 13:00 Diagnostic Test (Pha) (Accu-Chek) 1 ea 02 XX Last administered on 08/29/17 01 :32; Admin Dose 1 EA; Start 08/22/17 at 02:00 Miscellaneous Information 1 ea NOTE XX ; Start 08/21/17 at 20:30 Glucose (Glutose) 15 gm Q15M PRN PO DECREASED GLUCOSE; Start 08/21/17 at 20:30 Glucose (Glutose) 22.5 gm Q15M PRN PO DECREASED GLUCOSE; Start 08/21/17 at 20: 30 Dextrose (D50w Syringe) 25 ml Q15M PRN IV DECREASED GLUCOSE; Start 08/21/17 at 20:30 Dextrose (D50w Syringe) 50 ml Q15M PRN IV DECREASED GLUCOSE; Start 08/21/17 at 20:30 Glucagon (Glucagen) 1 mg Q15M PRN IM DECREASED GLUCOSE; Start 08/21/17 at 20: 30 Glucose (Glutose) 15 gm Q15M PRN BUCCAL DECREASED GLUCOSE; Start 08/21/17 at 20:30 Pantoprazole 40 mg 40 mg DAILY@06 IV Last administered on 09/05/17 05:52; Admin Dose 40 MG; Start 08/22/17 at 06:00 Potassium Chloride/Sodium Chloride (1/2 NS + KCl 20 Meq) 1,000 ml @ 100 mls/hr Q10H IV Last administered on 09/05/17 10:52; Admin Dose 100 MLS/HR; Start at 11:00 ADRI NAVARRO Sep 05, 2017 11:31
[2017-09-05 14:47] VITALS: BP 118/57; RESP 12
== END 2017-09-05 15:00 | disposition home or self-care (01) | DRG 870 ==
LOC: E/R → ICU 02:59 → MS2 08-31 12:57
PROVIDERS: ADMIT Internal Medicine; ATTEND Internal Medicine
PROC: 5A1955Z Respiratory Ventilation, Greater than 96 Consecutive Hours (ICD-10-PCS; principal; 2017-08-20)
PROC: 0BH17EZ Insertion of Endotracheal Airway into Trachea, Via Natural or Artificial Opening (ICD-10-PCS; 2017-08-20)
PROC: 05HM33Z Insertion of Infusion Device into Right Internal Jugular Vein, Percutaneous Approach (ICD-10-PCS; 2017-08-20)
PROC: B543ZZA Ultrasonography of Right Jugular Veins, Guidance (ICD-10-PCS; 2017-08-20)
DX: A41.9 Sepsis, unspecified organism (principal); J96.01 Acute respiratory failure with hypoxia; R65.21 Severe sepsis with septic shock; G92 Toxic encephalopathy; I50.33 Acute on chronic diastolic (congestive) heart failure; J18.9 Pneumonia, unspecified organism; J11.00 Influenza due to unidentified influenza virus with unspecified type of pneumonia; J80 Acute respiratory distress syndrome; E87.0 Hyperosmolality and hypernatremia; Z68.41 Body mass index [BMI] 40.0-44.9, adult; I47.1 Supraventricular tachycardia; B37.0 Candidal stomatitis; I11.0 Hypertensive heart disease with heart failure; D64.9 Anemia, unspecified; E05.90 Thyrotoxicosis, unspecified without thyrotoxic crisis or storm; K76.0 Fatty (change of) liver, not elsewhere classified; E66.9 Obesity, unspecified; R00.1 Bradycardia, unspecified; E88.89 Other specified metabolic disorders; G47.30 Sleep apnea, unspecified
CPT/HCPCS: 31500; 36415; 36600; 70470; 71010; 71275; 80048; 80053; 80202; 81001; 82803; 82962; 83036; 83605; 83735; 83880; 84100; 84145; 84439; 84443; 84484; 85025; 85610; 85730; 86635; 86641; 86698; 86703; 87015; 87040; 87070; 87081; 87086; 87102; 87252; 87275; 87276; 87279; 87280; 87281; 87400; 87449; 87502; 89220; 92526; 92610; 93005; 93306; 94002; 94003; 94640; 94644; 94660; 94770; 96374; 96375; 97110; 97163; 97530; C9113; J0171; J0610; J0692; J1450; J1650; J1815; J1940; J1956; J2250; J2270; J2543; J2930; J3010; J3370; J3480; J7030; J7040; J7050; J7060; J7512; Q9967